=== PATIENT | female | born 1950 | race Caucasian/White ===

== ENCOUNTER 2017-07-26 15:32 | Inpatient (IN) | payer OTHER ==
[~2017-07-26] VITALS: Ht 152.4 cm; Wt 50.4 kg
[~2017-07-26 15:32] MED LIST: ACETAMINOPHEN325 M1 PO; ACETAMINOPHEN650 MG RC; ACETYLCYST100 MG/1 M INH; AMBIEN5 MG PO; ATIVAN1 MG PEG; AUGMENTIN 875-1 EACH PO; Albuterol/Ipratropium Nebulize NEB; CEFDINIR250 MG/5 M PO; CHLORASEPTIC177 M1 MM; CLONAZEPAM0.5 MG PO; CYMBALTA30 MG; DOCUSATE SODIU100 MG PO; DOK100 MG PO; DULCOLAX SUPP10 MG PR; FLAVOXATE HCL100 MG PO; FLUOXETINE HCL10 MG PO; FUROSEMIDE10 MG/1 M1 IV; GLYCOPYRROLATE1 MG PO; HEPARIN SO5000 UNIT2 SC; HUMULIN R100 UNIT/2; HYDROCODON-ACE1 EAC9 PO; HYPER-SAL4 M1 INH; IBUPROFEN200 MG PO; LACTULOSE20 GM/30 M PO; LEXAPRO10 MG PO; LIDODERM700 MG TOP; LORAZEPAM1 MG PO; LOVENOX40 MG/0.4 SC; MAALOX ADVANCE770 ML; MACROBID 100 M100 MG PO; MAGNESIUM OXID400 MG PEG; METOCLOPRAMIDE10 MG PO; MILK OF MA400 MG/5 M PO; MUCINEX DM ER1 EACH PO; MUCINEX600 MG PEG; Magnesium/Alum/Simethicone PO; NICOTINE PATCH1 EAC2 TOP; NORCO 10-325 T1 EACH PO; NORCO 5-325 TA1 EACH PO; ONDANSETRON2 MG/1 ML PO; OXYBUTYNIN CHLOR5 MG PO; PANTOPRAZOLE SO40 MG PO; PREDNISONE10 MG PO; PROMETHAZINE HC25 M1 PO; PROTONIX40 MG/ML PO; RESTORIL30 MG PO; SULFAMETHOXAZO1 EAC1 GT; SYNTHROID75 MCG PO; TESSALON PERLE100 MG PO; TRAZODONE HCL50 MG PO; XOPENEX1.25 MG/3 INH
[2017-07-26] MEDS ORDERED: PANTOPRAZOLE 40 MG 10ML VIAL IV STA (16:12)
--- NOTE | 2017-07-26 17:35 | Diagnostic Imaging Report ---
PROCEDURE: Frontal and lateral views of the chest. COMPARISON: [facility], DX, CHEST 2 VIEWS, 09/12/2016, 16:03. [facility], CT, CT ABDOMEN/PELVIS W, 05/30/2016, 20:28. [facility], DX, CHEST 2 VIEWS, 12/31/2016, 12:03. INDICATIONS: COUGH, WITH SHORTNESS OF BREATH FOR 3 DAYS FINDINGS: Lines/tubes: None. Lungs: The lungs are well inflated and grossly clear. Stable mild prominence of the interstitial markings, likely reflecting chronic interstitial changes. There is no evidence of consolidation or pulmonary edema. Pleura: There is no pleural effusion or pneumothorax. Heart and mediastinum: Cardiac silhouette is unremarkable. Pulmonary vasculature is normal. vasculature is normal. Bones: No acute bony abnormality. Marked osteopenia. Stable lower thoracic compression fractures. Stable rightward curvature of the thoracic spine. IMPRESSION: 1. No acute cardiopulmonary abnormalities. Tomy Mcnally M.D. Dictated by: Tomy Mcnally M.D. on 07/26/2017 at 17:39 Electronically approved by: Tomy Mcnally M.D. on 07/26/2017 at 17:39
[2017-07-26 18:36] LABS: BASOPHILS # (AUTO) 0.1 (0.0-0.1); BASOPHILS % 0.8 % (0.0-1.0); EOSINOPHILS # (AUTO) 0.1 (0.0-0.4); EOSINOPHILS % 1.7 % (0.0-6.0); HEMATOCRIT 35.2 % (34.2-44.1); HEMOGLOBIN 11.7 g/dL (12.0-16.0); LYMPHOCYTES % 15.3 % (18.0-39.1); MEAN CORPUSCULAR HEMOGLOBIN 30.5 pg (28-32); MEAN CORPUSCULAR HGB CONC 33.2 g/dL (31-35); MEAN CORPUSCULAR VOLUME 91.7 fL (81-99); MONOCYTES # (AUTO) 0.6 (0.2-0.8); MONOCYTES % 8.6 % (4.4-11.3); NEUTROPHILS # (AUTO) 4.9 (2.1-6.9); NEUTROPHILS % 73.3 % (38.7-80.0); PLATELET COUNT 161 x10e3/uL (140-360); RED BLOOD COUNT 3.84 x10e6/uL (3.6-5.1); RED CELL DISTRIBUTION WIDTH 18.4 % (11.7-14.4)
[2017-07-26 18:52] LABS: ALANINE AMINOTRANSFERASE 6 IU/L (0-55); ALBUMIN 3.2 g/dL (3.5-5.0); ALBUMIN/GLOBULIN RATIO 0.8 (0.8-2.0); ALKALINE PHOSPHATASE 132 IU/L (40-150); ANION GAP 13.8 mmol/L (8-16); BLOOD UREA NITROGEN 15 mg/dL (7-26); BUN/CREATININE RATIO 23 (6-25); CALCIUM 9.2 mg/dL (8.4-10.2); CARBON DIOXIDE 22 mmol/L (22-29); CHLORIDE 107 mmol/L (98-107); CREATINE KINASE 17 IU/L (29-168); CREATININE, SERUM 0.66 mg/dL (0.57-1.11); EST GLOMERULAR FILTRATION RATE > 60 ML/MIN (60-); GLUCOSE 105 mg/dL (74-118); POTASSIUM 3.8 mmol/L (3.5-5.1); SODIUM 139 mmol/L (136-145)
[2017-07-26] MEDS: MORPHINE SULFATE 2 MG/ML SYR IV PRN (19:55)
[2017-07-26] MEDS: ONDANSETRON HCL INJ 2 MG/ML VIAL IV PRN (19:55)
[2017-07-26] MEDS: SODIUM CHLORIDE 0.9% 1000ML 1,000 ML IV SCH (19:55)
[2017-07-26] MEDS: PIPER-TAZ 3.375 GM 50 ML IV SCH (19:55)
[2017-07-26] MEDS: ACETAMINOPHEN 325 MG TAB PO ONE ×2 (19:59→20:03)
[2017-07-26 20:00] VITALS: BP 161/67
[2017-07-26 21:00] VITALS: BP 161/67
[2017-07-26] MEDS ORDERED: VANCOMYCIN 1GM/NS 250 ML 250 ML IV SCH (21:00)
[2017-07-27] VITALS: BP 147/63
[2017-07-27] MEDS: MORPHINE SULFATE 2 MG/ML SYR IV PRN ×4 (01:27→23:13)
--- NOTE | 2017-07-27 02:37 | Diagnostic Imaging Report ---
CHEST SINGLE (PORTABLE), 07/27/2017 1:59 AM Technique: CHEST SINGLE (PORTABLE) Comparison: 07/26/2017 Clinical history: Placement of PICC line Findings: See Impression Impression: 1. Lines/Tubes: Left PICC line placement with tip near the expected cavoatrial junction 2. Stable cardiomediastinal silhouette with prominent central pulmonary arteries. 3. Emphysema with mild left basilar atelectasis/scarring. No pneumothorax. Signed by: Dr Dalila Cameron MD on 07/27/2017 2:34 AM
[2017-07-27] MEDS: SODIUM CHLORIDE 0.9% 1000ML 1,000 ML IV SCH ×2 (03:18→10:16)
[2017-07-27 04:00] VITALS: BP 138/72
[2017-07-27] MEDS: PIPER-TAZ 3.375 GM 50 ML IV SCH (05:02)
[2017-07-27 05:07] VITALS: BP 147/63
[2017-07-27 06:22] LABS: BASOPHILS # (AUTO) 0.1 (0.0-0.1); BASOPHILS % 0.9 % (0.0-1.0); EOSINOPHILS # (AUTO) 0.2 (0.0-0.4); EOSINOPHILS % 3.6 % (0.0-6.0); HEMATOCRIT 32.7 % (34.2-44.1); HEMOGLOBIN 10.6 g/dL (12.0-16.0); LYMPHOCYTES # (AUTO) 0.9 (1.0-3.2); LYMPHOCYTES % 15.7 % (18.0-39.1); MEAN CORPUSCULAR HEMOGLOBIN 30.8 pg (28-32); MEAN CORPUSCULAR HGB CONC 32.4 g/dL (31-35); MEAN CORPUSCULAR VOLUME 95.1 fL (81-99); MONOCYTES # (AUTO) 0.6 (0.2-0.8); MONOCYTES % 10.3 % (4.4-11.3); NEUTROPHILS # (AUTO) 4.1 (2.1-6.9); NEUTROPHILS % 69.2 % (38.7-80.0); PLATELET COUNT 136 x10e3/uL (140-360); RED BLOOD COUNT 3.44 x10e6/uL (3.6-5.1); RED CELL DISTRIBUTION WIDTH 18.5 % (11.7-14.4)
[2017-07-27] MEDS: ALBUTEROL SULF 0.083% NEB SOLN 3 ML NEB NEB SCH ×5 (06:50→19:50)
[2017-07-27] MEDS: IPRATROPIUM BROMIDE 0.02% 2.5 ML NEB NEB SCH ×4 (06:50→19:50)
[2017-07-27 06:55] LABS: ANION GAP 11.5 mmol/L (8-16); BLOOD UREA NITROGEN 12 mg/dL (7-26); BUN/CREATININE RATIO 18 (6-25); CALCIUM 8.5 mg/dL (8.4-10.2); CARBON DIOXIDE 25 mmol/L (22-29); CHLORIDE 106 mmol/L (98-107); CREATININE, SERUM 0.65 mg/dL (0.57-1.11); EST GLOMERULAR FILTRATION RATE > 60 ML/MIN (60-); GLUCOSE 101 mg/dL (74-118); POTASSIUM 3.5 mmol/L (3.5-5.1); SODIUM 139 mmol/L (136-145)
[2017-07-27 08:08] VITALS: BP 135/62
[2017-07-27] MEDS ORDERED: VANCOMYCIN HCL 1GM/NS 250 ML BAG IV SCH (09:00)
[2017-07-27] MEDS: ONDANSETRON HCL INJ 2 MG/ML VIAL IV PRN ×3 (09:25→23:12)
[2017-07-27] MEDS ORDERED: LORAZEPAM1 MG PO (09:28)
[2017-07-27] MEDS ORDERED: ACETAMINOPHEN 325 MG TAB PO PRN (10:30)
[2017-07-27] MEDS ORDERED: LACTULOSE SYRUP 20 GM/30 ML UDC PO ONE (10:45)
[2017-07-27] MEDS ORDERED: ACETAMINOPHEN/CODEINE 300MG - 30MG TAB PO PRN (10:45)
[2017-07-27] MEDS ORDERED: VANCOMYCIN 1GM/NS 250 ML 250 ML IV SCH (11:00)
[2017-07-27] MEDS: LORAZEPAM 0.5 MG TAB PO PRN ×2 (12:00→18:26)
[2017-07-27 12:05] VITALS: BP 128/60
[2017-07-27] MEDS: CEFTRIAXONE SOD 1 GM VIAL IV SCH (12:30)
[2017-07-27] MEDS: PREDNISONE 20 MG TAB PO SCH (13:32)
--- NOTE | 2017-07-27 14:50 | Diagnostic Imaging Report ---
PROCEDURE:X-RAY ABDOMEN - KUB COMPARISON:None. INDICATIONS:COUGH. NAUSEA/VOMITING FINDINGS: Nonobstructive bowel gas pattern. No air-filled, dilated loops of bowel. Mild to moderate retained stool in the descending, sigmoid colon and rectum. No abnormal calcifications project over the genitourinary tract. Mild right and moderate left hip degenerative changes. S-shaped scoliosis of the thoracolumbar spine. 7-8mm focal sclerotic lesion in the right inferior pubic ramus has a nonaggressive appearance and likely represents a bone island. CONCLUSION: Nonobstructive bowel gas pattern. Mild to moderate amount of retained stool in the descending/sigmoid colon and rectum. Tomy Mcnally M.D. Dictated by: Tomy Mcnally M.D. on 07/27/2017 at 14:53 Electronically approved by: Tomy Mcnally M.D. on 07/27/2017 at 14:53
[2017-07-27] MEDS ORDERED: ALBUTEROL SULF 0.083% NEB SOLN 3 ML NEB NEB SCH (15:00)
[2017-07-27] MEDS: FAMOTIDINE 20 MG TAB PO SCH (16:30)
--- NOTE | 2017-07-27 17:38 | Consultation ---
DATE OF CONSULTATION: July 27, 2017 PULMONARY CONSULTATION REASON FOR CONSULTATION: Patient has history of tracheal tube and shortness of breath. HPI: Ms. Tamez is a 67-year-old female. She has a history of laryngeal cancer and she has a tracheostomy tube placed in the trachea as a result of laryngectomy. She presented this time to the emergency room with the complaints of shortness of breath and coughing up greenish phlegm. She reports that shortness of breath was getting worse with walking. She reports green yellow sputum from her tracheal tube. She was having chills but denies any fever, nausea or vomiting. She has she has been a smoker all her life and she smoked almost 3 packs per day for 40+ years. She denies any diarrhea, but she is having nausea, and she reports that she threw up as well. REVIEW OF SYSTEMS: GENERAL: She was having chills, but no fever. HEAD: Denies any head trauma ENT: Denies any earache. CVS: Denies chest pain. RESPIRATORY: Shortness of breath. GI: Nausea, no vomiting. The rest of the review of systems are negative except as in HPI. PAST MEDICAL HISTORY: COPD, history of laryngeal cancer status post laryngectomy, hypertension, diabetes, history of cough, has a PEG tube. She also has history of radiation treatment as well. Oxygen dependence. PAST SURGICAL HISTORY: Laryngectomy. FAMILY AND SOCIAL HISTORY: She is and lives with her . She quit smoking a few years ago. She smoked for 40+ years 3 packs per day. PHYSICAL EXAMINATION: VITALS: Temperature 99.7, pulse of 90, blood pressure 128/60. Respiratory rate 18. O2 sat 96% on 5 liters. HEENT: Head is atraumatic and normocephalic. 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 Oral mucosa dry. She is not able to talk. CHEST: Clear to auscultation bilaterally. A few crackles from the bases. HEART: S1 and S2 audible. ABDOMEN: Soft, nontender and nondistended. EXTREMITIES: No clubbing, cyanosis or edema. NEURO: She is awake and alert. LABORATORY DATA: White count of 5000, hemoglobin 10.6. Platelets 136,000. Chemistry: Sodium 139, potassium 3.5, chloride 106. Bicarb 25. BUN 12, creatinine 0.65. Gram stain sputum culture preliminary result is showing gram-positive cocci in pairs. Chest x-ray is not showing any evidence of pneumonia. I reviewed the films. She has emphysema and hyperinflation and she could have COPD exacerbation versus tracheal bronchitis. 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 Continue the patient on Rocephin as ordered. Prednisone p.o. has been ordered. Nebulizer treatment will be continued. Thank you for this consult. Job#: [id number]
[2017-07-27 20:00] VITALS: BP 110/59
[2017-07-28] VITALS (7 sets, daily range): BP systolic 121–167; BP diastolic 58–78
[2017-07-28] MEDS: LORAZEPAM 0.5 MG TAB PO PRN ×4 (00:14→18:30)
[2017-07-28] MEDS: IPRATROPIUM BROMIDE 0.02% 2.5 ML NEB NEB SCH ×4 (01:27→19:39)
[2017-07-28] MEDS: ONDANSETRON HCL INJ 2 MG/ML VIAL IV PRN (04:45)
[2017-07-28] MEDS: MORPHINE SULFATE 2 MG/ML SYR IV PRN ×2 (04:45→09:30)
[2017-07-28 06:52] LABS: BASOPHILS % 0.4 % (0.0-1.0); EOSINOPHILS % 0.4 % (0.0-6.0); HEMATOCRIT 29.1 % (34.2-44.1); HEMOGLOBIN 9.7 g/dL (12.0-16.0); LYMPHOCYTES # (AUTO) 1.2 (1.0-3.2); LYMPHOCYTES % 24.3 % (18.0-39.1); MEAN CORPUSCULAR HEMOGLOBIN 31.3 pg (28-32); MEAN CORPUSCULAR HGB CONC 33.3 g/dL (31-35); MEAN CORPUSCULAR VOLUME 93.9 fL (81-99); MONOCYTES # (AUTO) 0.4 (0.2-0.8); MONOCYTES % 8.3 % (4.4-11.3); NEUTROPHILS # (AUTO) 3.3 (2.1-6.9); NEUTROPHILS % 66.2 % (38.7-80.0); PLATELET COUNT 110 x10e3/uL (140-360)
[2017-07-28] MEDS: ALBUTEROL SULF 0.083% NEB SOLN 3 ML NEB NEB SCH ×4 (07:00→19:39)
[2017-07-28 07:03] LABS: ANION GAP 9.6 mmol/L (8-16); BLOOD UREA NITROGEN 7 mg/dL (7-26); BUN/CREATININE RATIO 11 (6-25); CARBON DIOXIDE 26 mmol/L (22-29); CHLORIDE 108 mmol/L (98-107); CREATININE, SERUM 0.61 mg/dL (0.57-1.11); EST GLOMERULAR FILTRATION RATE > 60 ML/MIN (60-); GLUCOSE 103 mg/dL (74-118); POTASSIUM 3.6 mmol/L (3.5-5.1); SODIUM 140 mmol/L (136-145)
[2017-07-28] MEDS: FAMOTIDINE 20 MG TAB PO SCH ×2 (08:58→15:39)
[2017-07-28] MEDS: PREDNISONE 20 MG TAB PO SCH (08:58)
[2017-07-28] MEDS: CEFTRIAXONE SOD 1 GM VIAL IV SCH (09:34)
[2017-07-28] MEDS: HYDROCODONE/APAP 10MG-325MG TAB PO PRN ×3 (13:50→22:30)
[2017-07-28] MEDS ORDERED: CITRATE OF MAGNESIA 300ML BOTTLE PO ONE (14:00)
[2017-07-28] MEDS ORDERED: PIPER-TAZ 3.375 GM / NS 50ML IV SCH (14:00)
[2017-07-28] MEDS: PIPER-TAZ 3.375 GM 50 ML IV SCH ×2 (14:03→22:30)
[2017-07-28 15:37] LABS: CLARITY,URINE CLEAR (CLEAR); COLOR,URINE YELLOW (YELLOW); LEUKOCYTE ESTERASE ,URINE NEGATIVE (NEGATIVE)
[2017-07-28 15:38] LABS: BILIRUBIN,URINE NEGATIVE (NEGATIVE); KETONES,URINE NEGATIVE (NEGATIVE); NITRITE,URINE NEGATIVE (NEGATIVE); PROTEIN,URINE DIPSTICK NEGATIVE (NEGATIVE); URINE UROBILINOGEN 0.2 mg/dL (0.2 - 1)
[2017-07-28 15:49] LABS: BACTERIA,URINE RARE /HPF; EPITHELIAL CELLS,URINE RARE /LPF; RBC,URINE 0-5 /HPF (0-5)
[2017-07-28] MEDS ORDERED: SODIUM CHLORIDE 0.9% 250ML 250 ML ONE (22:32)
[2017-07-29] VITALS (7 sets, daily range): BP systolic 109–155; BP diastolic 55–70
[2017-07-29] MEDS: LORAZEPAM 0.5 MG TAB PO PRN ×3 (02:40→22:17)
[2017-07-29] MEDS: HYDROCODONE/APAP 10MG-325MG TAB PO PRN ×5 (02:40→20:20)
[2017-07-29] MEDS: IPRATROPIUM BROMIDE 0.02% 2.5 ML NEB NEB SCH ×3 (02:45→19:46)
[2017-07-29] MEDS: PIPER-TAZ 3.375 GM 50 ML IV SCH ×2 (05:30→14:10)
[2017-07-29 06:54] LABS: BASOPHILS % 0.6 % (0.0-1.0); EOSINOPHILS # (AUTO) 0.1 (0.0-0.4); EOSINOPHILS % 1.6 % (0.0-6.0); HEMATOCRIT 28.7 % (34.2-44.1); HEMOGLOBIN 9.3 g/dL (12.0-16.0); LYMPHOCYTES # (AUTO) 1.6 (1.0-3.2); LYMPHOCYTES % 31.2 % (18.0-39.1); MEAN CORPUSCULAR HEMOGLOBIN 30.8 pg (28-32); MEAN CORPUSCULAR HGB CONC 32.4 g/dL (31-35); MONOCYTES # (AUTO) 0.3 (0.2-0.8); MONOCYTES % 5.9 % (4.4-11.3); NEUTROPHILS # (AUTO) 3.1 (2.1-6.9); NEUTROPHILS % 60.3 % (38.7-80.0); PLATELET COUNT 113 x10e3/uL (140-360); RED BLOOD COUNT 3.02 x10e6/uL (3.6-5.1); RED CELL DISTRIBUTION WIDTH 18.4 % (11.7-14.4)
[2017-07-29 07:09] LABS: ANION GAP 12.2 mmol/L (8-16); BLOOD UREA NITROGEN 8 mg/dL (7-26); BUN/CREATININE RATIO 12 (6-25); CALCIUM 8.7 mg/dL (8.4-10.2); CARBON DIOXIDE 27 mmol/L (22-29); CHLORIDE 107 mmol/L (98-107); CREATININE, SERUM 0.68 mg/dL (0.57-1.11); EST GLOMERULAR FILTRATION RATE > 60 ML/MIN (60-); GLUCOSE 120 mg/dL (74-118); POTASSIUM 3.2 mmol/L (3.5-5.1); SODIUM 143 mmol/L (136-145)
[2017-07-29] MEDS: ALBUTEROL SULF 0.083% NEB SOLN 3 ML NEB NEB SCH ×4 (08:10→19:46)
[2017-07-29] MEDS: FAMOTIDINE 20 MG TAB PO SCH ×2 (08:35→16:28)
[2017-07-29] MEDS: PREDNISONE 20 MG TAB PO SCH ×2 (08:56→14:00)
[2017-07-29] MEDS ORDERED: POTASSIUM CHLORIDE 20 MEQ TAB CR PO ONE (16:00)
[2017-07-29] MEDS: DOXYCYCLINE HYCLATE TABLET 100 MG TAB PO SCH (16:28)
[2017-07-30] VITALS (7 sets, daily range): BP systolic 140–178; BP diastolic 66–82
[2017-07-30] MEDS: HYDROCODONE/APAP 10MG-325MG TAB PO PRN ×4 (00:20→13:10)
[2017-07-30] MEDS: ONDANSETRON HCL INJ 2 MG/ML VIAL IV PRN (03:48)
[2017-07-30] MEDS: LORAZEPAM 0.5 MG TAB PO PRN (06:18)
[2017-07-30 06:50] LABS: HEMATOCRIT 28.6 % (34.2-44.1); HEMOGLOBIN 9.5 g/dL (12.0-16.0); LYMPHOCYTES # (AUTO) 1.2 (1.0-3.2); LYMPHOCYTES % 23.1 % (18.0-39.1); MEAN CORPUSCULAR HEMOGLOBIN 31.3 pg (28-32); MEAN CORPUSCULAR HGB CONC 33.2 g/dL (31-35); MEAN CORPUSCULAR VOLUME 94.1 fL (81-99); MONOCYTES # (AUTO) 0.4 (0.2-0.8); MONOCYTES % 7.8 % (4.4-11.3); NEUTROPHILS # (AUTO) 3.5 (2.1-6.9); NEUTROPHILS % 68.7 % (38.7-80.0); PLATELET COUNT 133 x10e3/uL (140-360); RED BLOOD COUNT 3.04 x10e6/uL (3.6-5.1); RED CELL DISTRIBUTION WIDTH 18.1 % (11.7-14.4)
[2017-07-30] MEDS: ALBUTEROL SULF 0.083% NEB SOLN 3 ML NEB NEB SCH ×2 (07:00→11:00)
[2017-07-30] MEDS: IPRATROPIUM BROMIDE 0.02% 2.5 ML NEB NEB SCH ×2 (07:00→11:00)
[2017-07-30 07:15] LABS: ANION GAP 9.8 mmol/L (8-16); BLOOD UREA NITROGEN 6 mg/dL (7-26); BUN/CREATININE RATIO 9 (6-25); CALCIUM 8.9 mg/dL (8.4-10.2); CARBON DIOXIDE 28 mmol/L (22-29); CHLORIDE 104 mmol/L (98-107); CREATININE, SERUM 0.64 mg/dL (0.57-1.11); EST GLOMERULAR FILTRATION RATE > 60 ML/MIN (60-); GLUCOSE 121 mg/dL (74-118); MAGNESIUM 1.7 MG/DL (1.3-2.1); POTASSIUM 3.8 mmol/L (3.5-5.1); SODIUM 138 mmol/L (136-145)
[2017-07-30] MEDS: FAMOTIDINE 20 MG TAB PO SCH (07:53)
[2017-07-30] MEDS: DOXYCYCLINE HYCLATE TABLET 100 MG TAB PO SCH (09:35)
[2017-07-30] MEDS: PREDNISONE 20 MG TAB PO SCH ×2 (09:35→12:59)
[2017-07-30] MEDS ORDERED: DOXYCYCLINE HY100 MG PO (12:22)
--- NOTE | 2017-07-30 14:26 | Discharge Summary ---
FINAL DIAGNOSIS: Tracheobronchitis, better. SECONDARY DIAGNOSES 1. Chronic obstructive pulmonary disease exacerbation, better. 2. Chronic dependence of benzodiazepines and narcotics. 3. Opiate-induced constipation, resolved. 4. Laryngeal cancer with tracheostomy with chronic respiratory failure. 5. Asymptomatic gallstones. 6. Hypothyroidism. STRUCTURER: Dr. Evans, public health director. PROCEDURES/STUDIES PERFORMED: 1. PICC line insertion due to poor access. HISTORY: Per [facility] and P. HOSPITAL COURSE: Empirically patient was put on antibiotics. Her sputum culture came back negative. She improved with prednisone. Her constipation resolved with laxatives. She did have some diarrhea. Fortunately her C. diff is negative. Each day patient has been asking for more narcotics and more benzodiazepines. I had a long discussion with her in regards to the danger of respiratory suppression especially given her tracheostomy/chronic respiratory failure, when taking both high dose Ativan and [place]. Patient seems to understand my concern I have asked the patient to follow up with her primary care doctor to see if they can either decrease the dosage or wean her off. During her previous hospitalizations the discharge summary has mentioned that she broke up crackers, mixed them with orange juice and put it in the emesis basin to claim that she is vomiting in order to stay in the hospital longer. Patient was seen and examined today. It took 33 minutes total to discharge this patient. CONDITION ON DISCHARGE: Improved. DISCHARGE MEDICATIONS: Please see medication reconciliation form. BRUNA SANCHEZ M.D. Job#: [id number] [place] MTDD
== END 2017-07-30 13:58 | disposition home or self-care (01) | DRG 191 ==
LOC: ER 15:32 → ERHOLD 19:18 → IMCU 20:59 → MED/SURG3 07-27 14:00 → OBSVTOIN 07-27 16:16
PROVIDERS: ADMIT Internal Medicine; ATTEND Internal Medicine
PROC: 02HV33Z Insertion of Infusion Device into Superior Vena Cava, Percutaneous Approach (ICD-10-PCS; principal; 2017-07-27)
DX: J44.0 Chronic obstructive pulmonary disease with (acute) lower respiratory infection (principal); J96.10 Chronic respiratory failure, unspecified whether with hypoxia or hypercapnia; F13.20 Sedative, hypnotic or anxiolytic dependence, uncomplicated; F11.20 Opioid dependence, uncomplicated; J44.1 Chronic obstructive pulmonary disease with (acute) exacerbation; Z93.0 Tracheostomy status; E03.9 Hypothyroidism, unspecified; K80.80 Other cholelithiasis without obstruction; J20.9 Acute bronchitis, unspecified; Z85.21 Personal history of malignant neoplasm of larynx; Z92.3 Personal history of irradiation; Z87.891 Personal history of nicotine dependence; I10 Essential (primary) hypertension; E11.9 Type 2 diabetes mellitus without complications; Z93.1 Gastrostomy status; E87.6 Hypokalemia; R19.7 Diarrhea, unspecified; Z99.81 Dependence on supplemental oxygen; K59.03 Drug induced constipation; T40.605A Adverse effect of unspecified narcotics, initial encounter
CPT/HCPCS: 36415; 36569; 71045; 71046; 74018; 80048; 80053; 81001; 82550; 82553; 83735; 83880; 84443; 84484; 85025; 87070; 87086; 87205; 87493; 93005; 94640; 96360; 99284; G0378; J0696; J2270; J2405; J2543; J3370; J7030; J7050

== ENCOUNTER 2017-08-07 15:22 | Emergency (ER) | payer OTHER ==
[~2017-08-07] VITALS: Ht 152.4 cm; Wt 48.5 kg
[~2017-08-07 15:22] MED LIST changes: +DOXYCYCLINE HY100 MG PO
[2017-08-07 18:30] LABS: BASOPHILS # (AUTO) 0.1 (0.0-0.1); BASOPHILS % 0.6 % (0.0-1.0); EOSINOPHILS # (AUTO) 0.2 (0.0-0.4); EOSINOPHILS % 2.1 % (0.0-6.0); HEMOGLOBIN 11.2 g/dL (12.0-16.0); LYMPHOCYTES # (AUTO) 1.6 (1.0-3.2); LYMPHOCYTES % 21.2 % (18.0-39.1); MEAN CORPUSCULAR HEMOGLOBIN 32.5 pg (28-32); MEAN CORPUSCULAR HGB CONC 32.9 g/dL (31-35); MEAN CORPUSCULAR VOLUME 98.6 fL (81-99); MONOCYTES # (AUTO) 0.5 (0.2-0.8); MONOCYTES % 6.2 % (4.4-11.3); NEUTROPHILS # (AUTO) 5.4 (2.1-6.9); NEUTROPHILS % 69.5 % (38.7-80.0); PLATELET COUNT 163 x10e3/uL (140-360); RED BLOOD COUNT 3.45 x10e6/uL (3.6-5.1); RED CELL DISTRIBUTION WIDTH 19.9 % (11.7-14.4)
[2017-08-07] MEDS ORDERED: SODIUM CHLORIDE 0.9% 1000ML 1,000 ML IV STA (18:30)
[2017-08-07] MEDS ORDERED: HYDROMORPHONE 1MG/1ML INJ IV NR (18:30)
[2017-08-07] MEDS ORDERED: PANTOPRAZOLE 40 MG 10ML VIAL IV STA (18:30)
[2017-08-07 18:41] LABS: BILIRUBIN,URINE NEGATIVE (NEGATIVE); CLARITY,URINE CLEAR (CLEAR); COLOR,URINE YELLOW (YELLOW); KETONES,URINE NEGATIVE (NEGATIVE); LEUKOCYTE ESTERASE ,URINE NEGATIVE (NEGATIVE); NITRITE,URINE NEGATIVE (NEGATIVE); PROTEIN,URINE DIPSTICK NEGATIVE (NEGATIVE); URINE UROBILINOGEN 0.2 mg/dL (0.2 - 1)
[2017-08-07] MEDS ORDERED: DIATRIZOATE MEGL/DIATRIZOA SOD 30 ML BTL PO ONE (18:41)
[2017-08-07 18:42] LABS: PREGNANCY TEST, URINE NEGATIVE (NEGATIVE)
[2017-08-07] MEDS ORDERED: ONDANSETRON HCL INJ 2 MG/ML VIAL IV ONE (18:45)
[2017-08-07 18:51] LABS: BACTERIA,URINE MANY /HPF; EPITHELIAL CELLS,URINE FEW /LPF; MUCUS,URINE MANY (RARE)
[2017-08-07 18:53] LABS: ALBUMIN/GLOBULIN RATIO 0.9 (0.8-2.0); ALKALINE PHOSPHATASE 151 IU/L (40-150); ANION GAP 11.9 mmol/L (8-16); BLOOD UREA NITROGEN 17 mg/dL (7-26); BUN/CREATININE RATIO 23 (6-25); CARBON DIOXIDE 26 mmol/L (22-29); CHLORIDE 103 mmol/L (98-107); CREATININE, SERUM 0.73 mg/dL (0.57-1.11); EST GLOMERULAR FILTRATION RATE > 60 ML/MIN (60-); GLUCOSE 95 mg/dL (74-118); POTASSIUM 4.9 mmol/L (3.5-5.1); SODIUM 136 mmol/L (136-145)
[2017-08-07 18:55] LABS: ALANINE AMINOTRANSFERASE < 6 IU/L (0-55)
[2017-08-07] MEDS ORDERED: CEFTRIAXONE SOD 1 GM VIAL IV STA (20:18)
[2017-08-07] MEDS ORDERED: METRONIDAZOLE 500MG/NS 100ML 100 ML IV ONE (20:30)
--- NOTE | 2017-08-07 21:01 | Diagnostic Imaging Report ---
CT Abdomen And Pelvis Without IV Contrast INDICATION: Upper abdominal pain TECHNIQUE: 5 mm collimation axial images obtained from the diaphragm to the level of the pubic symphysis without nonionic intravenous contrast. Oral contrast was administered. RADIATION DOSE: Total DLP: 186.8 mGy*cm Estimated effective dose: (DLP x 0.015 x size factor) mSv CTDIvol has been reviewed. It is below the limits set by the Radiation Protocol Committee (RPC). COMPARISON: CT abdomen/pelvis 05/30/2016. ABDOMEN FINDINGS: Lung Bases: Diffuse hyperinflation. Patchy airspace opacities in the lingula, right middle lobe, and left lower lobe with mild bronchial wall thickening. There is bronchiectasis of the lingula suggestive of chronic atelectasis. Small fat-containing right Bochdalek hernia is stable. There is a moderate sized hiatal hernia. Liver: Normal in attenuation without mass. Gallbladder: Present and appears normal. No ductal dilatation. Pancreas: Atrophic. No ductal dilatation or discrete mass. Spleen: Normal in attenuation and size without mass. Adrenal Glands: No evidence for mass. Kidneys: Right Kidney: Atrophic. No hydronephrosis. No mass. Left Kidney: No renal calculus. No cortical mass or hydronephrosis. Lymph Nodes: No enlarged abdominal or perirectal lymph nodes. Aorta: Ectatic with diffuse calcifications. PELVIS FINDINGS: Bowel: Small Bowel: The stomach is collapsed. Small bowel contains enteric contrast without dilatation or focal mural thickening. Large Bowel: Moderate to large amount of stool in the colon. No diverticula are appreciated. No pericolonic inflammation. The rectum is low-lying. Appendix: Not visualized and may be absent or collapsed. Bladder: Well distended and is normal. No ureteral dilatation. Lymph Nodes: No enlarged mesenteric or pelvic lymph nodes.. The uterus is absent. No adnexal mass. No free fluid or fluid collection. Bones: T9 compression deformity or possibly 70%. Compression deformity of T12 is stable. Superior endplate compression deformity of L2 is new. Inferior endplate compression deformity of L3 is new. Stable levoscoliosis. Severe degenerative changes of the left hip are stable. Mild degenerative changes of the right hip are stable. A bone island in the right inferior pubic ramus is stable. IMPRESSION: 1. Bibasilar airspace opacities and mild bronchial wall thickening may be the result of an acute infectious/inflammatory process. Chronic atelectasis of the lingula. Moderate sized hiatal hernia. Reflux and aspiration should be considered. 2. Moderate to large amount of stool without bowel obstruction. Low-lying rectum is stable suggestive of pelvic floor laxity. Rectal prolapse cannot be excluded. 3. New compression deformities of L2 on L3. Stable compression deformity of T12. Age-indeterminate compression fracture of T9. Signed by: Dr. Pepito Roque MD on 08/07/2017 8:58 PM
[2017-08-07] MEDS ORDERED: ALBUTEROL SULF 0.083% NEB SOLN 3 ML NEB NEB NR (21:49)
[2017-08-07] MEDS ORDERED: LEVOFLOXACIN 500 MG TAB PO NR (21:51)
[2017-08-07] MEDS ORDERED: IPRATROPIUM BROMIDE 0.02% 2.5 ML NEB NEB ONE (22:00)
[2017-08-07 22:14] VITALS: BP 154/78
== END 2017-08-07 22:49 | disposition home or self-care (01) ==
LOC: ER 15:22
DX: R10.31 Right lower quadrant pain (principal); R10.84 Generalized abdominal pain; N30.91 Cystitis, unspecified with hematuria; K59.00 Constipation, unspecified; J42 Unspecified chronic bronchitis; I10 Essential (primary) hypertension
CPT/HCPCS: 36415; 74176; 80053; 81001; 81025; 83735; 85025; 87040; 87071; 87086; 87186; 87205; 93005; 94640; 99284; J0696; J1170; J2405; J7030

== ENCOUNTER 2017-09-12 06:23 | Inpatient (IN) | payer OTHER ==
[~2017-09-12] VITALS: Ht 152.4 cm; Wt 54.0 kg
[2017-09-12 07:12] LABS: BASOPHILS # (AUTO) 0.1 (0.0-0.1); BASOPHILS % 1.3 % (0.0-1.0); EOSINOPHILS # (AUTO) 0.1 (0.0-0.4); EOSINOPHILS % 2.6 % (0.0-6.0); HEMATOCRIT 38.3 % (34.2-44.1); HEMOGLOBIN 12.4 g/dL (12.0-16.0); LYMPHOCYTES % 18.2 % (18.0-39.1); MEAN CORPUSCULAR HEMOGLOBIN 32.1 pg (28-32); MEAN CORPUSCULAR HGB CONC 32.4 g/dL (31-35); MEAN CORPUSCULAR VOLUME 99.2 fL (81-99); MONOCYTES # (AUTO) 0.5 (0.2-0.8); MONOCYTES % 8.8 % (4.4-11.3); NEUTROPHILS # (AUTO) 3.7 (2.1-6.9); NEUTROPHILS % 68.9 % (38.7-80.0); PLATELET COUNT 179 x10e3/uL (140-360); RED BLOOD COUNT 3.86 x10e6/uL (3.6-5.1); RED CELL DISTRIBUTION WIDTH 15.1 % (11.7-14.4)
[2017-09-12 07:26] LABS: ALANINE AMINOTRANSFERASE < 6 IU/L (0-55); ALBUMIN 3.5 g/dL (3.5-5.0); ALBUMIN/GLOBULIN RATIO 0.8 (0.8-2.0); ALKALINE PHOSPHATASE 120 IU/L (40-150); ANION GAP 18.9 mmol/L (8-16); BLOOD UREA NITROGEN 9 mg/dL (7-26); BUN/CREATININE RATIO 12 (6-25); CALCIUM 9.8 mg/dL (8.4-10.2); CARBON DIOXIDE 22 mmol/L (22-29); CHLORIDE 103 mmol/L (98-107); CREATINE KINASE 30 IU/L (29-168); CREATININE, SERUM 0.77 mg/dL (0.57-1.11); EST GLOMERULAR FILTRATION RATE > 60 ML/MIN (60-); GLUCOSE 95 mg/dL (74-118); POTASSIUM 4.9 mmol/L (3.5-5.1); SODIUM 139 mmol/L (136-145)
[2017-09-12] MEDS ORDERED: HYDROCODONE/APAP 10MG-325MG TAB PO ONE (07:45)
[2017-09-12] MEDS ORDERED: ULTRAM50 MG PO (08:57)
[2017-09-12] MEDS ORDERED: KEFLEX750 MG PO (09:02)
[2017-09-12] MEDS ORDERED: ONDANSETRON HCL INJ 2 MG/ML VIAL IV STA (09:07)
[2017-09-12] MEDS ORDERED: METHYLPREDNISOLONE SOD SUCC 125 MG/2ML VIAL IV ONE (10:15)
--- NOTE | 2017-09-12 10:38 | Diagnostic Imaging Report ---
PROCEDURE: A single AP view of the chest. COMPARISON: None. INDICATIONS: HYPOXIA FINDINGS: Lines/tubes: Overlying EKG leads. Lungs: Emphysematous changes of the lungs. Mild patchy bibasilar opacities. No lobar consolidation or evidence of pulmonary edema. Pleura: There is no pleural effusion or pneumothorax. Heart and mediastinum: The cardiomediastinal silhouette is unchanged. Bones: No acute bony abnormality. IMPRESSION: Emphysematous changes of the lungs with mild patchy bibasilar opacities, likely atelectasis. No evidence of lobar pneumonia or pulmonary edema. Dictated by: WHITNEY CORONEL M.D. on 09/12/2017 at 10:44 Electronically approved by: WHITNEY CORONEL M.D. on 09/12/2017 at 10:44
[2017-09-12] MEDS ORDERED: ASPIRIN 81 MG CHEW TAB PO ONE (11:30)
[2017-09-12] MEDS ORDERED: MORPHINE SULFATE INJ 4 MG/ML INJ IV ONE (12:00)
[2017-09-12 13:52] VITALS: BP 119/56
[2017-09-12 14:54] VITALS: BP 119/56
[2017-09-12 15:02] VITALS: BP 119/56
[2017-09-12] MEDS ORDERED: LEVALBUTEROL HCL SOLN NEBU 1.25 MG/3 ML NEB INH PRN (15:30)
[2017-09-12] MEDS ORDERED: ACETAMINOPHEN 325 MG TAB PO PRN (15:30)
[2017-09-12] MEDS ORDERED: ONDANSETRON HCL 4 MG ORAL DISINTEGRATING TAB PO PRN (15:30)
[2017-09-12] MEDS: LORAZEPAM 1 MG TAB PO PRN (15:40)
[2017-09-12] MEDS: HYDROCODONE/APAP 10MG-325MG TAB PO PRN ×2 (15:40→22:48)
[2017-09-12 16:14] LABS: CREATINE KINASE MB 0.7 ng/mL (0-5.0)
[2017-09-12 16:29] VITALS: BP 115/65
[2017-09-12] MEDS ORDERED: GUAIFENESIN 200 MG/10 ML UDC PEG SCH (18:00)
[2017-09-12] MEDS ORDERED: HYDROCODONE/APAP 10MG-325MG TAB PO SCH (18:00)
[2017-09-12] MEDS ORDERED: GUAIFENESIN 600 MG TAB PEG SCH (18:00)
[2017-09-12] MEDS: GUAIFENESIN 600 MG TAB PEG SCH (18:33)
[2017-09-12] MEDS ORDERED: ALBUTEROL NEB SCH (19:00)
[2017-09-12] MEDS ORDERED: [UNRECOGNIZED DRUG - OTHER] NEB SCH (19:00)
[2017-09-12] MEDS: ALBUTEROL/IPRATROPIUM 3 ML NEB NEB SCH (20:00)
[2017-09-12 21:24] VITALS: BP 105/51
[2017-09-12] MEDS: TRAZODONE HCL 50 MG TAB PO SCH (21:24)
[2017-09-12 21:29] VITALS: BP 105/51
[2017-09-13] VITALS (7 sets, daily range): BP systolic 109–128; BP diastolic 58–77
[2017-09-13] MEDS: ALBUTEROL/IPRATROPIUM 3 ML NEB NEB SCH ×4 (01:00→19:30)
[2017-09-13 05:12] LABS: BASOPHILS % 0.4 % (0.0-1.0); EOSINOPHILS % 0.2 % (0.0-6.0); HEMATOCRIT 30.8 % (34.2-44.1); LYMPHOCYTES # (AUTO) 0.8 (1.0-3.2); LYMPHOCYTES % 17.7 % (18.0-39.1); MEAN CORPUSCULAR HEMOGLOBIN 32.3 pg (28-32); MEAN CORPUSCULAR HGB CONC 33.1 g/dL (31-35); MEAN CORPUSCULAR VOLUME 97.5 fL (81-99); MONOCYTES # (AUTO) 0.5 (0.2-0.8); MONOCYTES % 11.5 % (4.4-11.3); NEUTROPHILS # (AUTO) 3.2 (2.1-6.9); PLATELET COUNT 180 x10e3/uL (140-360); RED BLOOD COUNT 3.16 x10e6/uL (3.6-5.1); RED CELL DISTRIBUTION WIDTH 14.5 % (11.7-14.4)
[2017-09-13 05:40] LABS: BLOOD UREA NITROGEN 17 mg/dL (7-26); BUN/CREATININE RATIO 22 (6-25); CARBON DIOXIDE 27 mmol/L (22-29); CHLORIDE 102 mmol/L (98-107); CREATINE KINASE 22 IU/L (29-168); CREATININE, SERUM 0.77 mg/dL (0.57-1.11); EST GLOMERULAR FILTRATION RATE > 60 ML/MIN (60-); GLUCOSE 141 mg/dL (74-118); SODIUM 137 mmol/L (136-145)
[2017-09-13 06:02] LABS: HEMOGLOBIN 10.2 g/dL (12.0-16.0)
[2017-09-13] MEDS: GUAIFENESIN 600 MG TAB PEG SCH ×4 (06:43→17:06)
[2017-09-13] MEDS: LEVOTHYROXINE SODIUM 75 MCG TAB PO SCH (06:43)
[2017-09-13] MEDS: HYDROCODONE/APAP 10MG-325MG TAB PO PRN (06:48)
[2017-09-13] MEDS ORDERED: METHADONE HCL5 MG PO (09:12)
[2017-09-13] MEDS ORDERED: BENZONATATE 100 MG CAP PO PRN (09:15)
[2017-09-13] MEDS ORDERED: CEFTRIAXONE SOD 1 GM/NS 50 ML 50 ML IV SCH (09:15)
--- NOTE | 2017-09-13 09:52 | History and Physical ---
CHIEF COMPLAINT: Shortness of breath, hypoxia, wheezing and acute asthma, and COPD. HISTORY: Patient is a 67-year-old female with advanced COPD, oxygen dependent. Patient has a history of laryngeal cancer and subsequent tracheostomy. Apparently, she complained that the trach filter dislodgement, which brought the patient into the hospital for evaluation. In the emergency room, the patient was treated, but then found that the patient was having significant hypoxia. Oxygen saturation is below 70% to 80%. Patient was placed on oxygen, nebulizer treatment. She is still having wheezing and increasing shortness of breath and coughing. The patient is otherwise stable at this time. At baseline, the patient apparently living at home. Patient is able to walk somewhat and transfer with a walker. Stating that on the note, the patient's spouse is unable to care for the patient at home anymore. The patient will need aids social worker and employment evaluator/case manager attention. PAST MEDICAL HISTORY: History of laryngeal carcinoma, status post permanent tracheostomy, baseline COPD, hypertension, hypothyroidism, anxiety, depression, progressive decline, tracheostomy, oxygen dependent, progressive weakness, ambulatory problems with risk for fall. PAST SURGICAL HISTORY: As above. SOCIAL HISTORY: The patient lives at home with her family. She does not smoke or use alcohol. She lives with her who is having problems with taking care of the patient at this time. FAMILY HISTORY: Otherwise unremarkable. ALLERGIES: TRAMADOL. HOME MEDICATIONS: Will need to call the pharmacy to reconcile the patient's medications. REVIEW OF SYSTEMS: Shortness of breath, cough, throat pain, wheezing, progressive weakness, progressive decline. PHYSICAL EXAMINATION VITAL SIGNS: Temperature is 98, blood pressure 109/69, pulse rate 77, respirations 22. On admission, oxygen saturation at room air was in the low 70%. GENERAL: The patient is weak and cachectic. She had a tracheal opening. She is on nonrebreather. HEENT: Normocephalic, atraumatic and anicteric. NECK: Tracheal opening. Nonrebreather. PULMONARY: Bilateral coarses and rhonchi. Diminished breath sounds. CARDIOVASCULAR: S1 and S2. Tachycardia. ABDOMEN: Soft. Progressive weight loss and cachexia. EXTREMITIES: No cyanosis or edema. NEUROLOGICAL: Patient is moving all extremities without any focal deficit. LABORATORY: Sodium 137, potassium 5, chloride 102, bicarb 27, BUN 17, creatinine 0.7, glucose 141. WBC is 4.6, hemoglobin 10.2, hematocrit 31, and platelets 180,000. Chest x-ray with emphysema with patchy bibasilar opacities, possible atelectasis versus pneumonia. IMPRESSION 1. Acute respiratory insufficiency/early failure requiring nonrebreather. 2. Tracheal filter dislodged. 3. Tracheal opening with history of laryngeal carcinoma with a permanent tracheostomy. 4. Progressive weight loss and debility. 5. Emphysema with acute exacerbation of chronic obstructive pulmonary disease with possible pneumonia as mentioned above. 6. Recurrent fall. 7. Displacement. PLAN: Consult the patient's rugby league footballer, Dr. Frederick. Consultation with Dr. Christiano Rodriguez, ENT. Antibiotics with Rocephin and azithromycin. Nebulizer treatment. IV steroids. Oxygen support. Continue with his home medications when available. PT and OT. second time worker consultation and employment evaluator/case manager consultation. Aspiration precautions. Job#: [id number] [place]
[2017-09-13] MEDS: METHYLPREDNISOLONE SOD SUCC 40 MG/ML VIAL IV SCH ×4 (10:14→22:37)
[2017-09-13] MEDS: CEFTRIAXONE SOD 1 GM VIAL IV SCH (10:14)
[2017-09-13] MEDS: AZITHROMYCIN 500MG/NS 250 ML 250 ML IV SCH (10:14)
[2017-09-13] MEDS: METHADONE HCL 5 MG TAB PO SCH ×3 (10:14→22:37)
[2017-09-13] MEDS ORDERED: SODIUM CHLORIDE 0.9% 50ML 50 ML ONE (12:49)
[2017-09-13] MEDS ORDERED: IOPAMIDOL 370 MG/ML 200 ML INFUS..BTL INJ ONE (12:49)
[2017-09-13] MEDS: BENZONATATE 100 MG CAP PO SCH ×2 (14:52→22:37)
[2017-09-13] MEDS: LORAZEPAM 1 MG TAB PO PRN (15:16)
--- NOTE | 2017-09-13 15:39 | Diagnostic Imaging Report ---
PROCEDURE: CT scan of the chest WITH intravenous contrast, using standard protocol. TECHNIQUE: The chest was scanned utilizing a multidetector helical scanner from the lung apex through the level of the adrenal glands after the IV administration of 100 cc of Isovue 370. Coronal and sagittal multiplanar reformations were obtained. COMPARISON[facility], CT, CT CHEST W, 04/08/2015, 16:56. INDICATIONS: COPD, short of breath , FINDINGS: Lines/tubes: None. Lungs and Airways: Stable moderate bilateral centrilobular emphysematous changes, predominantly in the upper lobes, with mild interlobular septal thickening. 2 mm calcified granuloma in the right upper lobe (series 3, image 30). No pulmonary nodules, masses, or consolidation. Scarring the lingula and right middle lobe adjacent to the major fissures (series 3, image 72 and 87). Linear opacities seen in the posterior lower lobes, likely represent subsegmental atelectasis or scarring. Mild bilateral upper and lower lobes central bronchial wall thickening. Layering density in the proximal left main bronchus (series 3, image 48), likely represents mucus. Airways are otherwise clear, without endobronchial lesions. Pleura: No effusion, or pneumothorax. Heart and mediastinum: The thyroid is not visualized. Indeterminate rounded metallic density between the trachea and esophagus (series 2, image 20, and sagittal image 65). Heart size is normal. No pericardial effusion. Aorta is non-aneurysmal. Main pulmonary artery is normal in caliber. Lymph nodes: Borderline enlarged right lower paratracheal lymph node, which measures 1.0 cm in short axis (series 2, image 50). Borderline enlarged AP window lymph node, which measures 1.0 cm in short axis (series 2, image 45). Abdomen: Limited contrast-enhanced views of the upper abdomen show no abnormality within the visualized liver, spleen, pancreas, or left kidney. Right renal cortical scarring and thinning. Adrenal glands are unremarkable. Mild prominence of the central intrahepatic bile ducts, and mild dilation of the CBD, which measures approximately 8 mm At the cherie hepatis. No radiopaque intraluminal filling defects. Visualized portions of the gallbladder are unremarkable. Bones: No aggressive lytic lesion. Generalized osteopenia. S-shaped curvature of the thoracolumbar spine. Old compression deformity of likely T9 vertebral body. IMPRESSION: 1. stable moderate bilateral centrilobular emphysematous changes, prominent in the upper lobes. 2. No nodules, masses, or consolidation. 3. See lingular and right middle lobe scarring adjacent to the major fissures. Linear subsegmental atelectasis versus scarring in bilateral posterior lower lobes. 4. Mild bilateral upper and lower lobes central bronchial wall thickening, which may reflect sequela of chronic bronchitis. 5. Borderline enlarged mediastinal nodes, which are likely reactive. 6. Indeterminate metallic density between the trachea and esophagus. Correlate with surgical history. Tomy Mcnally M.D. Dictated by: Tomy Mcnally M.D. on 09/13/2017 at 15:45 Electronically approved by: Tomy Mcnally M.D. on 09/13/2017 at 15:45
--- NOTE | 2017-09-13 20:15 | Consultation ---
DATE OF CONSULTATION: September 13, 2017 HISTORY OF PRESENT ILLNESS: I was kindly asked to see this 67-year-old woman for evaluation of post laryngectomy care. Patient had a laryngectomy performed for laryngeal cancer and postoperatively had a tracheoesophageal puncture with prosthetic voice device placed. She used a laryngectomy tube at home to stent the laryngectomy open and was able to successfully phonate through the prosthesis in the past. She presented to the hospital with an exacerbation of her COPD. The tube had become dislodged and cannot be replaced. In addition, when the patient swallows she leaks into her trachea through the dysfunctional tracheoesophageal puncture. On examination, the patient is in no acute distress. The stoma is slightly small, but adequately open. ASSESSMENT: Status post total laryngectomy and tracheoesophageal fistula created for voice prosthesis with dysfunctional prosthesis and subsequent leakage of p.o. intake into the trachea. PLAN: 1. Tube feedings. 2. Consideration of transfer to higher level of care as there are no tracheoesophageal voice prosthesis or laryngectomy tubes available at this hospital. Job#: [id number]
[2017-09-13] MEDS: TRAZODONE HCL 50 MG TAB PO SCH (22:37)
[2017-09-14 01:00] VITALS: BP 130/66
[2017-09-14] MEDS: ALBUTEROL/IPRATROPIUM 3 ML NEB NEB SCH ×4 (01:00→20:00)
[2017-09-14] MEDS: HYDROCODONE/APAP 10MG-325MG TAB PO PRN (03:45)
[2017-09-14 05:23] LABS: BASOPHILS % 0.2 % (0.0-1.0); HEMATOCRIT 33.3 % (34.2-44.1); LYMPHOCYTES # (AUTO) 0.5 (1.0-3.2); LYMPHOCYTES % 9.2 % (18.0-39.1); MEAN CORPUSCULAR HEMOGLOBIN 31.8 pg (28-32); MEAN CORPUSCULAR VOLUME 96.2 fL (81-99); MONOCYTES # (AUTO) 0.1 (0.2-0.8); MONOCYTES % 0.9 % (4.4-11.3); NEUTROPHILS # (AUTO) 5.2 (2.1-6.9); NEUTROPHILS % 89.5 % (38.7-80.0); PLATELET COUNT 207 x10e3/uL (140-360); RED BLOOD COUNT 3.46 x10e6/uL (3.6-5.1); RED CELL DISTRIBUTION WIDTH 14.7 % (11.7-14.4)
[2017-09-14 05:30] VITALS: BP 137/64
[2017-09-14 05:51] LABS: ANION GAP 15.3 mmol/L (8-16); BLOOD UREA NITROGEN 12 mg/dL (7-26); BUN/CREATININE RATIO 17 (6-25); CALCIUM 9.2 mg/dL (8.4-10.2); CARBON DIOXIDE 24 mmol/L (22-29); CHLORIDE 104 mmol/L (98-107); CREATININE, SERUM 0.69 mg/dL (0.57-1.11); EST GLOMERULAR FILTRATION RATE > 60 ML/MIN (60-); GLUCOSE 136 mg/dL (74-118); POTASSIUM 4.3 mmol/L (3.5-5.1); SODIUM 139 mmol/L (136-145)
[2017-09-14] MEDS: GUAIFENESIN 600 MG TAB PEG SCH ×4 (06:00→17:28)
[2017-09-14] MEDS: METHYLPREDNISOLONE SOD SUCC 40 MG/ML VIAL IV SCH ×2 (06:00→15:15)
[2017-09-14] MEDS: LEVOTHYROXINE SODIUM 75 MCG TAB PO SCH (06:00)
[2017-09-14 06:08] LABS: MAGNESIUM 1.9 MG/DL (1.3-2.1); PHOSPHORUS 2.9 MG/DL (2.3-4.7)
[2017-09-14] MEDS: LORAZEPAM 1 MG TAB PO PRN (06:09)
[2017-09-14 06:31] LABS: THYROID STIMULATING HORMONE 1.042 uIU/mL (0.350-4.940)
[2017-09-14 08:04] VITALS: BP 132/66
[2017-09-14] MEDS: AZITHROMYCIN 500MG/NS 250 ML 250 ML IV SCH (09:15)
[2017-09-14] MEDS: METHADONE HCL 5 MG TAB PO SCH ×2 (09:23→15:15)
[2017-09-14] MEDS: BENZONATATE 100 MG CAP PO SCH ×2 (09:23→15:15)
[2017-09-14] MEDS: CEFTRIAXONE SOD 1 GM VIAL IV SCH (09:30)
[2017-09-14 12:01] VITALS: BP 143/76
--- NOTE | 2017-09-14 12:24 | Progress Note ---
DATE: September 14, 2017 I am covering for Dr. Diehl. SUBJECTIVE: Patient is doing well overnight with no complaints. In reading ENT's notes, he recommends higher level of care because the patient will need a tracheoesophageal voice prosthesis or a laryngectomy tube, which he reports is not available at this hospital. The patient has been doing well with no other complaints at this time. I already discussed this with the nursing staff. VITAL SIGNS: Temperature is 96.2, pulse 68, respiratory rate 18, blood pressure 132/66. Pulse ox: She is on 97% trach collar at 8 liters. LAB FINDINGS: White count of 5.7, hemoglobin 11, hematocrit 33, platelets 207. Chemistry: Sodium 139, potassium 4.3, chloride 104, bicarb 24, anion gap of 15, BUN 12, creatinine 0.69, glucose 136 , calcium 9.2, phosphorus 2.0, magnesium 1.9. The rest of her labs are within the normal range. TSH is 1. IMAGING STUDIES: CT chest was performed and showed stable moderate bilateral centrilobular emphysematous changes. There is mild bilateral upper and lower lobe central bronchial wall thickening consistent with chronic bronchitis. PHYSICAL EXAMINATION GENERAL: Not in acute distress. Alert, oriented x3, cooperative on exam. HEENT: Head: Normocephalic, atraumatic. Eyes: Pupils are equal, round and reactive to light bilaterally. Extraocular movements intact bilaterally. NECK: She has a tracheostomy. PULMONARY: Clear to auscultation bilaterally. No wheezing, no rales, no rhonchi, no crackles appreciated. CARDIOVASCULAR: Positive S1, S2. No murmurs, rubs or gallops appreciated. ABDOMEN: Soft, nondistended, nontender to palpation. Bowel sounds present. MUSCULOSKELETAL: Strength is 5/5 throughout. No evidence of any musculoskeletal deficit on examination. No weakness appreciated. NEUROLOGICAL: Cranial nerves II through XII grossly intact. No evidence of any neurological deficit on exam. SKIN: Intact. Warm to touch. Good capillary refill. PSYCHIATRIC: Normal affect and mood. EXTREMITIES: No edema. Good range of motion throughout. IMPRESSION 1. Acute respiratory failure requiring nonrebreather. 2. Tracheal filter dislodgement. 3. Has tracheal opening with history of laryngeal carcinoma with permanent tracheostomy. 4. Acute exacerbation of chronic obstructive pulmonary disease with possible underlying pneumonia. 5. Community-acquired pneumonia. PLAN: Pulmonary and ENT are following. Per ENT's note, they recommend a higher level of care for need for tracheoesophageal voice prosthesis and laryngectomy tube. Currently, those are not available at this hospital. I discussed this with case management about addressing this issue to see if the patient needs to be sent to a higher level of care. Will continue with IV steroids and antibiotics with azithromycin and Rocephin. Blood cultures are negative. Sputum cultures are pending. Pulmonary is following. Will continue same plan of care at this time. Job#: [id number]
[2017-09-14 15:59] VITALS: BP 156/88
[2017-09-14] MEDS ORDERED: PANTOPRAZOLE SOD 40 MG TABEC PO SCH (17:00)
[2017-09-14 17:50] VITALS: BP 156/88
--- NOTE | 2017-09-15 22:53 | Discharge Summary ---
DISCHARGE DIAGNOSES 1. Acute respiratory failure. 2. Tracheal filter dislodgement. 3. 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 4. Acute exacerbation of chronic obstructive pulmonary disease with possible underlying aspiration pneumonia. CONSULTANTS: ENT and pulmonary. VITAL SIGNS: Temperature is 96.7, pulse 71, respiratory rate is 18, blood pressure 156/88, pulse ox 97% on 5 L oxygen trach collar. LAB FINDINGS: White count 5.7, hemoglobin 11, hematocrit is 33, platelets of 207,000. Chemistry, sodium 139, potassium 4.3, chloride 104, bicarb 24, anion gap of 15, BUN is 12, creatinine is 0.69, magnesium 1.9, phosphorus 2.9. MICROBIOLOGY: Blood cultures #1 was negative, no growth. Second one presumed to be underlying contaminant, but still having preliminary results. Sputum culture was found to be negative. IMAGING STUDIES: Chest x-ray showed emphysematous changes, no evidence of lobar pneumonia. There are some opacities consistent possibly for aspiration pneumonia. CT of chest, stable moderate bilateral central lobar emphysematous changes. There is some scarring in the right middle lobe fissures. There are some concerns for underlying chronic bronchitis as well and possibly underlying aspiration pneumonitis. HOSPITAL COURSE: This is a 67-year-old female, who has a tracheostomy, who came in due to underlying shortness of breath and acute respiratory distress. Patient was admitted and treated for underlying acute exacerbation of COPD. ENT and pulmonary was consulted. Per ENT's note, he recommended tracheoesophageal voice prosthesis and/or a laryngectomy tube, which this hospital does not have at this time. While here, the patient was on IV antibiotics for treatment of aspiration pneumonia. Blood cultures 1 of 2 was negative. The other one seems to be a likely contaminant, but it was still following final results. Speech therapy was consulted and was concerned for underlying aspiration. At this time, I discussed this case with case management and discussed for higher level of care due to the equipment that is not available at this facility. I spoke with the hospitalist there, Dr. Diehl, at [facility] and he has agreed for acceptance and to be evaluated by an ENT specialist there for their appropriate equipment. Patient was then transferred overnight on 09/14/2017 to [facility] for a higher level of care for transesophageal voice prosthesis and/or laryngectomy tube as recommended by our ENT physician at this hospital. On the day of discharge, vital signs stable. Labs were reviewed and stable. The patient was seen, evaluated and examined thoroughly on the day of discharge, no other complaints. Patient verbalized understanding and agrees with plan of care. To follow up accordingly as an outpatient with her primary care physician in 1 week and ENT specialist and desktop support technician in 2 to 3 weeks. MEDICATIONS: See med reconciliation form. DISPOSITION: To transfer to [facility]. CONDITION: Stable. DIET: N.p.o. for now. In the event of any worsening symptoms, patient was advised to come back to the ED for further evaluation. Discharge summary took greater than 35 minutes. Job#: [id number] CQ
--- NOTE | 2017-09-16 02:29 | Consultation ---
DATE OF CONSULTATION: REASON FOR CONSULT: COPD exacerbation, chronic hypoxic respiratory failure, tracheostomy. HPI: Patient is a 67-year-old white female with a history of complete laryngectomy with tracheostomy tube and voice device, advanced COPD, chronic hypoxic respiratory failure, on oxygen therapy at home. Patient presented to [facility] following tracheostomy dislodgement. Patient was treated symptomatically in the emergency room where she was found to be hypoxic with saturations as low as the 70s. Patient was initiated on therapy for COPD exacerbation with steroids, nebulizers, and supplemental oxygen. At that time, she was having significant wheezing on exam, as well as sputum production from her stoma. Patient was accompanied by her . Patient reports that food particulate matter comes out of her stoma. She also notes purulent sputum from her stoma as well. She says that Dr. Dietrich at [facility] was the surgeon who did her laryngectomy. She does not regularly see an ENT physician. She reports compliance with all medications. At this time, she is in no distress. She denies fevers or chills. She does report increased sputum production and cough. No change in appetite or weight. No significant pain or generalized malaise. REVIEW OF SYSTEMS: A 14-point review of systems is negative, except as per HPI. PAST MEDICAL HISTORY: Laryngeal carcinoma, status post complete laryngectomy, severe COPD, chronic hypoxic respiratory failure. PAST SURGICAL HISTORY: Laryngectomy, complete. SOCIAL HISTORY: Prior smoker. FAMILY HISTORY: Noncontributory. ALLERGIES: TRAMADOL. HOME MEDICATIONS: Please see medical reconciliation in chart. Laboratory data reviewed. Imaging data reviewed. PHYSICAL EXAMINATION VITALS: Reviewed. GENERAL: No distress. Tracheostomy collar and oxygen in place. Thin, frail. HEENT: Oral mucosa moist. Stoma with purulent secretions in midneck. CARDIOVASCULAR: Regular rate and rhythm. No murmurs, rubs or gallops. PULMONARY: Bilateral rhonchi. Mild tachypnea. ABDOMEN: Soft, nondistended and nontender. Bowel sounds normal. EXTREMITIES: No edema. No cyanosis. SKIN: No rashes or lesions. NEURO: Nonfocal. PSYCH: Mildly anxious. PROBLEM LIST 1. [id number] hypoxic respiratory failure. 2. Severe chronic obstructive pulmonary disease. 3. Tracheostomy, status post laryngectomy. PLAN: Agree with antibiotic therapy for COPD exacerbation. Consider broadening antibiotics to cover hospital-acquired organisms. If no clinical improvement, continue steroids, but continue decreasing dose to 40 mg of prednisone p.o. daily. Continue DuoNebs. Restart home inhalers. Tracheostomy with total laryngectomy. Recommend consulting ENT for further evaluation as this is an event technique. Recommend evaluation by speech pathology for apparent food particulate matter that is present at tracheostomy stoma. Unclear what the communication between the oropharynx and the stoma/laryngectomy area is. However, further evaluation is necessary or speaking to an expert in this area. Job#: [id number] BRI
== END 2017-09-14 20:49 | disposition short-term general hospital (02) | DRG 205 ==
LOC: ER 06:23 → ERHOLD 11:29 → IMCU 13:21 → OBSVTOIN 09-13 09:11 → MED/SURG3 09-14 14:55
PROVIDERS: ADMIT Internal Medicine; ATTEND Internal Medicine
DX: J95.03 Malfunction of tracheostomy stoma (principal); J96.21 Acute and chronic respiratory failure with hypoxia; J18.9 Pneumonia, unspecified organism; J44.0 Chronic obstructive pulmonary disease with (acute) lower respiratory infection; J44.1 Chronic obstructive pulmonary disease with (acute) exacerbation; R53.81 Other malaise; Z99.81 Dependence on supplemental oxygen; Z85.12 Personal history of malignant neoplasm of trachea; Z91.81 History of falling
CPT/HCPCS: 36415; 36600; 71045; 71260; 76937; 80048; 80053; 82550; 82553; 82607; 82746; 83735; 84100; 84443; 84484; 85025; 87040; 87070; 87071; 87205; 93005; 94640; 97139; 99284; G0378; J0456; J0696; J2270; J2405; J2920; J2930; Q9967

== ENCOUNTER 2018-01-31 13:14 | Emergency (ER) | payer OTHER ==
[~2018-01-31] VITALS: Ht 152.4 cm; Wt 47.2 kg
[~2018-01-31 13:14] MED LIST changes: +KEFLEX750 MG PO; +METHADONE HCL5 MG PO; +ULTRAM50 MG PO
--- OUTSIDE RECORDS SUMMARY | 2018-01-31 13:18 | XMS REPORT | Clinical Summary ---
Author Author DARLEEN Hotswap [facility] Address Unknown Phone Unavailable Care Team Providers Care Technical Maintenance Technician Name Role Phone Kevin Morris PCP Unavailable Allergies Comments Active Allergy Reactions Severity Noted Date Tramadol Nausea And 08/03/2014 Vomiting Medications End Date Status Medication Sig Dispensed Refills Start Date 11/02/2018 Active acetaminophen (TYLENOL) 2 tablets 30 tablet 0 325 MG tablet (650 mg 8 total) by G-tube route every 6 (six) hours for 360 days. 11/07/2018 Active amLODIPine (NORVASC) 5 MG 1 tablet (5 0 tablet mg total) by 8 G-tube route daily. 11/07/2018 Active aspirin 81 MG chewable 1 tablet (81 0 tablet mg total) by 8 G-tube route daily. Active dextrose 50 % in water Inject 25 mLs 0 (DEXTROSE 50%, D50W,) (12.5 g 8 Syrg injection total) intravenously as needed (blood sugar less than 70 and patient unable to take PO juice or soda). Active enoxaparin (LOVENOX) 40 Inject 0.4 0 mg/0.4 mL Syrg mLs (40 mg 8 total) subcutaneousl y daily. 02/05/2018 Active escitalopram oxalate 1 tablet (10 30 tablet 0 (LEXAPRO) 10 MG tablet mg total) by 8 G-tube route daily for 90 days. Active famotidine (PEPCID) 20 MG 1 tablet (20 0 tablet mg total) by 8 G-tube route nightly. 11/07/2018 Active hydrogen peroxide 3 % Apply 120 mL 0 external solution topically 2 8 (two) times daily. 11/02/2018 Active ipratropium-albuterol Take 3 mLs by 0 (DUO-NEB) 0.5 mg-3 mg(2.5 nebulization 8 mg base)/3 mL nebulizer every 6 (six) solution hours for 360 days. 11/08/2018 Active levothyroxine (SYNTHROID, 1 tablet (100 0 LEVOTHROID) 100 MCG mcg total) by 8 tablet G-tube route Every morning on an empty stomach. 11/07/2018 Active nitroglycerin (NITROSTAT) Place 1 inch 30 g 0 2 % ointment onto the skin 8 every 12 (twelve) hours. Active ondansetron (ZOFRAN) 4 Inject 2 mLs 20 mL 0 mg/2 mL injection (4 mg total) 8 intravenously every 8 (eight) hours. Active pantoprazole (PROTONIX) Inject 40 mg 1 each 0 injection 40 mg intravenously 8 2 (two) times daily. Active promethazine (PHENERGAN) Inject 0.5 1 mL 0 25 mg/mL injection mLs (12.5 mg 8 (INTRAMUSCULAR only) total) intramuscular ly every 6 (six) hours as needed. Active sodium chloride, Take 5 mLs by 0 hypertonic, (HYPER-CARLA) 7 nebulization 8 % nebulizer solution every 12 (twelve) hours. Active sodium chloride 0.9%, NS, Inject 5 mLs 5 mL 0 injection intravenously 8 every 8 (eight) hours. Active sodium chloride 0.9%, NS, Inject 5 mLs 5 mL 0 injection intravenously 8 as needed. 11/07/2017 Discontinued LORazepam (ATIVAN) 2 MG Take 2 mg by 0 tablet mouth every 6 (six) hours as needed for Anxiety. 09/14/2017 Discontinued oxyCODONE (OXYCONTIN) 10 Take 10 mg by 0 MG 12 hr tablet mouth every 12 (twelve) hours. 09/14/2017 Discontinued nystatin (NYSTATIN) Apply 0 100,000 unit/gram cream topically 2 (two) times daily. 11/07/2017 Discontinued omeprazole (PRILOSEC) 40 Take 40 mg by 0 MG capsule mouth daily. 11/07/2017 Discontinued methadone (DOLOPHINE) 5 Take 5 mg by 0 MG tablet mouth every 8 (eight) hours as needed for Pain. 11/13/2017 levoFLOXacin (LEVAQUIN) Take 20 mLs 140 mL 0 250 mg/10 mL solution (500 mg 8 total) by mouth daily for 7 days. 11/13/2017 metronidazole (FLAGYL) 50 Take 10 mLs 210 mL 0 mg/mL liquid (500 mg 8 total) by mouth 3 (three) times daily for 7 days. 11/17/2017 LORazepam (ATIVAN) 1 MG 1 tablet (1 30 tablet 0 tablet mg total) by 8 G-tube route every 8 (eight) hours as needed for Anxiety for up to 10 days. Max Daily Amount: 3 mg 11/17/2017 methadone (DOLOPHINE) 10 2.5 mLs (5 mg 0 mg/5 mL solution total) by 8 G-tube route every 8 (eight) hours for 10 days. Max Daily Amount: 15 mg 11/17/2017 oxyCODONE (ROXICODONE) 5 1 tablet (5 30 tablet 0 MG immediate release mg total) by 8 tablet G-tube route every 3 (three) hours as needed for up to 10 days. Max Daily Amount: 40 mg 11/14/2017 sterile water, bottle, Irrigate with 1000 mL 0 irrigation 15 mLs as 8 directed 4 (four) times daily for 7 days. 11/11/2017 sulfamethoxazole-trimetho 1 tablet (160 0 prim (BACTRIM DS) 800-160 mg of 8 mg per tablet trimethoprim total) by G-tube route 2 (two) times daily for 4 days. 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), by hx 09/23/2017 L3 vertebral fracture (HCC), by hx 09/23/2017 Oropharyngeal dysphagia 09/21/2017 Dysphagia 09/20/2017 COPD exacerbation 09/20/2017 Moderate protein-calorie malnutrition 09/19/2017 COPD (chronic obstructive pulmonary disease) 09/16/2017 Aspiration into airway 09/14/2017 Laryngeal cancer 02/03/2015 Severe protein-calorie malnutrition 02/03/2015 Hypercalcemia 02/03/2015 Depression 02/03/2015 Hypothyroid Encounters Care Team Description Date Type Specialty Sai Kaminski MD Other dysphagia (Primary Dx) 11/13/2017 Outside Orders Central Scheduling Pratik Foreman MD 10/26/2017 Anesthesia Event Kanu Acevedo MD CLOSURE,TRACHEOSTOMY/FISTULA 10/26/2017 Surgery Hannah Iglesias MD 10/01/2017 Anesthesia Event Ck Gibbs MD LAPAROSCOPY,GASTROSTOMY BUTTON (G-BUTTON) 10/01/2017 Surgery Isabel Whitman, RENTAL CAR FERRY DRIVER 09/26/2017 Anesthesia Gastroenterology Event Lashon Hooks MD UPPER ENDOSCOPY,PEG 09/26/2017 Surgery Gastroenterology Kristie Correa MD Hite, Wayne K., Silke Wing MD Gonzalez, Adriana, MD Wellinghoff, MD Elaina Escalante, Ryan Snell MD Pain at surgical site (Primary Dx); Delirium due to another medical condition; Acute metabolic encephalopathy; Severe protein-calorie malnutrition (HCC); Anemia, unspecified type; Hypertension, unspecified type; Laryngeal cancer (HCC); Chronic pain syndrome; Right arm cellulitis 09/14/2017 [facility] General Internal Medicine - Encounter 11/07/2017 after 01/30/2017 Immunizations Name Dates Previously Given Next Due Influenza High Dose 02/04/2015 Preservative Free [id number] Pneumococcal 02/04/2015 Polysaccharide (Pneumovax) Social History Date Tobacco Use Types Packs/Day Years Used Quit: 02/03/2015 Former Smoker 2 36 Smokeless Tobacco: Never Used Alcohol Use Drinks/Week oz/Week Comments No Sex Assigned at Date Recorded Not on file Industry Job Start Date Occupation Not on file Not on file Not on file Travel End Travel History Travel Start No recent travel history available. Last Filed Vital Signs Time Taken Vital Sign Reading 11/07/2017 10:56 AM CDT Blood Pressure 116/58 11/07/2017 12:08 PM CDT Pulse 86 11/07/2017 10:56 AM CDT Temperature 36.2 C (97.1 F) 11/07/2017 12:08 PM CDT Respiratory Rate 18 11/07/2017 12:08 PM CDT Oxygen Saturation 96% 11/04/2017 11:16 AM CDT Inhaled Oxygen 28% Concentration 11/06/2017 5:33 AM CDT Weight 71.5 kg (157 lb 10.1 oz) 09/18/2017 5:00 AM CDT Height 152.4 cm (5') 11/06/2017 5:33 AM CDT Body Mass Index 30.78 Plan of Treatment Not on file Implants Device Identifier Shelf Expiration Date Model / Serial / Lot Implanted Type Area Manufactur er 05/05/2018 [id number] / / [id number] [place] Puncture Set N/A: Neck Implanted: Qty: 1 on 12/02/2015 by Karen Leiva MD Procedures Comments Procedure Name Priority Date/Time Associated Diagnosis RHYTHM STRIP - SCAN 11/08/2017 11:01 AM CDT CBC W/PLT COUNT & AUTO Routine 11/07/2017 DIFFERENTIAL 5:07 AM CDT MAGNESIUM Routine 11/07/2017 5:07 AM CDT PHOSPHORUS Routine 11/07/2017 5:07 AM CDT BASIC METABOLIC PANEL (7) Routine 11/07/2017 5:07 AM CDT CBC W/PLT COUNT & AUTO Routine 11/07/2017 DIFFERENTIAL 5:07 AM CDT POCT-GLUCOSE METER Routine 11/06/2017 4:31 AM CDT CBC W/PLT COUNT & AUTO Routine 11/06/2017 DIFFERENTIAL 4:29 AM CDT MAGNESIUM Routine 11/06/2017 4:29 AM CDT PHOSPHORUS Routine 11/06/2017 4:29 AM CDT BASIC METABOLIC PANEL (7) Routine 11/06/2017 4:29 AM CDT CBC W/PLT COUNT & AUTO Routine 11/06/2017 DIFFERENTIAL 4:29 AM CDT POCT-GLUCOSE METER Routine 11/06/2017 1:12 AM CDT POCT-GLUCOSE METER Routine 11/05/2017 5:55 PM CDT VENOUS DOPPLER ARM, RIGHT STAT 11/05/2017 11:33 AM CDT POCT-GLUCOSE METER Routine 11/05/2017 11:15 AM CDT POCT-GLUCOSE METER Routine 11/05/2017 5:30 AM CDT CBC W/PLT COUNT & AUTO Routine 11/05/2017 DIFFERENTIAL 4:01 AM CDT MAGNESIUM Routine 11/05/2017 4:01 AM CDT PHOSPHORUS Routine 11/05/2017 4:01 AM CDT BASIC METABOLIC PANEL (7) Routine 11/05/2017 4:01 AM CDT CBC W/PLT COUNT & AUTO Routine 11/05/2017 DIFFERENTIAL 4:01 AM CDT POCT-GLUCOSE METER Routine 11/04/2017 8:51 PM CDT C. DIFFICILE GDH TOXIN Routine 11/04/2017 5:48 PM CDT POCT-GLUCOSE METER Routine 11/04/2017 12:01 PM CDT POCT-GLUCOSE METER Routine 11/04/2017 5:42 AM CDT CBC W/PLT COUNT & AUTO Routine 11/04/2017 DIFFERENTIAL 3:36 AM CDT MAGNESIUM Routine 11/04/2017 3:36 AM CDT PHOSPHORUS Routine 11/04/2017 3:36 AM CDT BASIC METABOLIC PANEL (7) Routine 11/04/2017 3:36 AM CDT CBC W/PLT COUNT & AUTO Routine 11/04/2017 DIFFERENTIAL 3:36 AM CDT POCT-GLUCOSE METER Routine 11/04/2017 12:03 AM CDT POCT-GLUCOSE METER Routine 11/03/2017 7:09 PM CDT POCT-GLUCOSE METER Routine 11/03/2017 12:03 PM CDT CBC W/PLT COUNT & AUTO Routine 11/03/2017 DIFFERENTIAL 4:08 AM CDT MAGNESIUM Routine 11/03/2017 4:08 AM CDT PHOSPHORUS Routine 11/03/2017 4:08 AM CDT BASIC METABOLIC PANEL (7) Routine 11/03/2017 4:08 AM CDT CBC W/PLT COUNT & AUTO Routine 11/03/2017 DIFFERENTIAL 4:08 AM CDT POCT-GLUCOSE METER Routine 11/02/2017 11:49 PM CDT POCT-GLUCOSE METER Routine 11/02/2017 5:47 PM CDT POCT-GLUCOSE METER Routine 11/02/2017 11:16 AM CDT CBC W/PLT COUNT & AUTO Routine 11/02/2017 DIFFERENTIAL 4:52 AM CDT MAGNESIUM Routine 11/02/2017 4:52 AM CDT PHOSPHORUS Routine 11/02/2017 4:52 AM CDT BASIC METABOLIC PANEL (7) Routine 11/02/2017 4:52 AM CDT CBC W/PLT COUNT & AUTO Routine 11/02/2017 DIFFERENTIAL 4:52 AM CDT POCT-GLUCOSE METER Routine 11/01/2017 6:16 PM CDT POCT-GLUCOSE METER Routine 11/01/2017 11:32 AM CDT CBC W/PLT COUNT & AUTO Routine 11/01/2017 DIFFERENTIAL 5:02 AM CDT POCT-GLUCOSE METER Routine 11/01/2017 5:02 AM CDT MAGNESIUM Routine 11/01/2017 5:02 AM CDT PHOSPHORUS Routine 11/01/2017 5:02 AM CDT BASIC METABOLIC PANEL (7) Routine 11/01/2017 5:02 AM CDT CBC W/PLT COUNT & AUTO Routine 11/01/2017 DIFFERENTIAL 5:02 AM CDT POCT-GLUCOSE METER Routine 10/31/2017 11:31 PM CDT TRANSFUSION SERVICE 10/31/2017 REPORT - SCAN 6:02 PM CDT POCT-GLUCOSE METER Routine 10/31/2017 12:43 PM CDT POCT-GLUCOSE METER Routine 10/31/2017 5:21 AM CDT CBC W/PLT COUNT & AUTO Routine 10/31/2017 DIFFERENTIAL 5:13 AM CDT MAGNESIUM Routine 10/31/2017 5:13 AM CDT PHOSPHORUS Routine 10/31/2017 5:13 AM CDT BASIC METABOLIC PANEL (7) Routine 10/31/2017 5:13 AM CDT CBC W/PLT COUNT & AUTO Routine 10/31/2017 DIFFERENTIAL 5:13 AM CDT POCT-GLUCOSE METER Routine 10/31/2017 12:32 AM CDT TRANSFUSION SERVICE 10/30/2017 REPORT - SCAN 6:02 PM CDT POCT-GLUCOSE METER Routine 10/30/2017 5:30 PM CDT POCT-GLUCOSE METER Routine 10/30/2017 11:11 AM CDT POCT-GLUCOSE METER Routine 10/30/2017 5:35 AM CDT CBC W/PLT COUNT & AUTO Routine 10/30/2017 DIFFERENTIAL 4:56 AM CDT MAGNESIUM Routine 10/30/2017 4:56 AM CDT PHOSPHORUS Routine 10/30/2017 4:56 AM CDT BASIC METABOLIC PANEL (7) Routine 10/30/2017 4:56 AM CDT CBC W/PLT COUNT & AUTO Routine 10/30/2017 DIFFERENTIAL 4:56 AM CDT PREPARE LEUKO-REDUCED RBC Routine 10/30/2017 4:18 AM CDT PREPARE LEUKO-REDUCED RBC Routine 10/29/2017 11:54 PM CDT POCT-GLUCOSE METER Routine 10/29/2017 11:49 PM CDT POCT-GLUCOSE METER Routine 10/29/2017 6:19 PM CDT TRANSFUSION SERVICE 10/29/2017 REPORT - SCAN 6:00 PM CDT POCT-GLUCOSE METER Routine 10/29/2017 12:26 PM CDT POCT-GLUCOSE METER Routine 10/29/2017 6:29 AM CDT CBC W/PLT COUNT & AUTO Routine 10/29/2017 DIFFERENTIAL 5:13 AM CDT MAGNESIUM Routine 10/29/2017 5:13 AM CDT PHOSPHORUS Routine 10/29/2017 5:13 AM CDT BASIC METABOLIC PANEL (7) Routine 10/29/2017 5:13 AM CDT CBC W/PLT COUNT & AUTO Routine 10/29/2017 DIFFERENTIAL 5:13 AM CDT TRANSFUSE LEUKO-REDUCED Routine 10/29/2017 RED BLOOD CELLS 2:05 AM CDT POCT-GLUCOSE METER Routine 10/29/2017 12:22 AM CDT VANCOMYCIN LEVEL, TROUGH Timed 10/28/2017 8:46 PM CDT CBC W/PLT COUNT & AUTO STAT 10/28/2017 DIFFERENTIAL 1:32 PM CDT CBC W/PLT COUNT & AUTO STAT 10/28/2017 DIFFERENTIAL 1:32 PM CDT BASIC METABOLIC PANEL (7) Routine 10/28/2017 1:32 PM CDT POCT-GLUCOSE METER Routine 10/28/2017 12:25 PM CDT ECG 12-LEAD STAT 10/28/2017 11:30 AM CDT XR CHEST 1 VIEW Routine 10/28/2017 PORTABLE/BEDSIDE 11:17 AM CDT POCT-GLUCOSE METER Routine 10/28/2017 6:25 AM CDT CBC W/PLT COUNT & AUTO Routine 10/28/2017 DIFFERENTIAL 4:45 AM CDT MAGNESIUM Routine 10/28/2017 4:45 AM CDT PHOSPHORUS Routine 10/28/2017 4:45 AM CDT BASIC METABOLIC PANEL (7) Routine 10/28/2017 4:45 AM CDT CBC W/PLT COUNT & AUTO Routine 10/28/2017 DIFFERENTIAL 4:45 AM CDT POCT-GLUCOSE METER Routine 10/27/2017 11:49 PM CDT TRANSFUSION SERVICE 10/27/2017 REPORT - SCAN 6:01 PM CDT POCT-GLUCOSE METER Routine 10/27/2017 5:24 PM CDT ECG 12-LEAD STAT 10/27/2017 3:46 PM CDT TSH/FREE T4 IF INDICATED Routine 10/27/2017 12:58 PM CDT POCT-GLUCOSE METER Routine 10/27/2017 11:22 AM CDT XR CHEST 1 VIEW STAT 10/27/2017 PORTABLE/BEDSIDE 11:22 AM CDT POCT-GLUCOSE METER Routine 10/27/2017 5:53 AM CDT CBC W/PLT COUNT & AUTO Routine 10/27/2017 DIFFERENTIAL 3:31 AM CDT PREALBUMIN Routine 10/27/2017 3:31 AM CDT MAGNESIUM Routine 10/27/2017 3:31 AM CDT PHOSPHORUS Routine 10/27/2017 3:31 AM CDT BASIC METABOLIC PANEL (7) Routine 10/27/2017 3:31 AM CDT CBC W/PLT COUNT & AUTO Routine 10/27/2017 DIFFERENTIAL 3:31 AM CDT POCT-GLUCOSE METER Routine 10/26/2017 11:54 PM CDT CBC W/PLT COUNT & AUTO Routine 10/26/2017 DIFFERENTIAL 6:42 PM CDT MAGNESIUM Routine 10/26/2017 6:42 PM CDT PHOSPHORUS Routine 10/26/2017 6:42 PM CDT BASIC METABOLIC PANEL (7) Routine 10/26/2017 6:42 PM CDT CBC W/PLT COUNT & AUTO Routine 10/26/2017 DIFFERENTIAL 6:42 PM CDT TISSUE EXAM AP Routine 10/26/2017 8:28 AM CDT FLAP,MICROVASCULAR 10/26/2017 Esophago-tracheal fistula FREE-LOWER EXTREMITY 7:30 AM CDT (HCC) Special Needs (MICROSCOP E, FREE FLAP SET, ENT MINOR SET, TOURNIQUET ) SKIN GRAFT,FULL 10/26/2017 Esophago-tracheal fistula THICKNESS-HEAD/FACE 7:30 AM CDT ([facility]) Special Needs (MICROSCOP E, FREE FLAP SET, ENT MINOR SET, TOURNIQUET ) DISSECTION,NECK SELECTIVE 10/26/2017 Esophago-tracheal fistula 7:30 AM CDT ([facility]) Special Needs (MICROSCOP E, FREE FLAP SET, ENT MINOR SET, TOURNIQUET ) CLOSURE,TRACHEOSTOMY/FIST 10/26/2017 Esophago-tracheal fistula DOMINIK 7:30 AM CDT ([facility]) Special Needs (MICROSCOP E, FREE FLAP SET, ENT MINOR SET, TOURNIQUET ) (CELLAVISION MANUAL DIFF) Routine 10/26/2017 4:57 AM CDT CBC W/PLT COUNT & AUTO Routine 10/26/2017 DIFFERENTIAL 4:57 AM CDT TYPE AND SCREEN, Routine 10/26/2017 AUTOMATED 4:57 AM CDT APTT Routine 10/26/2017 4:57 AM CDT PROTHROMBIN TIME/INR Routine 10/26/2017 4:57 AM CDT BASIC METABOLIC PANEL (7) Routine 10/26/2017 4:57 AM CDT CBC W/PLT COUNT & AUTO Routine 10/26/2017 DIFFERENTIAL 4:57 AM CDT POCT-GLUCOSE METER Routine 10/25/2017 10:32 PM CDT POCT-GLUCOSE METER Routine 10/25/2017 5:41 PM CDT POCT-GLUCOSE METER Routine 10/25/2017 10:40 AM CDT POCT-GLUCOSE METER Routine 10/24/2017 4:48 PM CDT SPUTUM CULTURE + GRAM STAT 10/24/2017 STAIN 4:07 PM CDT POCT-GLUCOSE METER Routine 10/24/2017 11:36 AM CDT POCT-GLUCOSE METER Routine 10/24/2017 8:19 AM CDT POCT-GLUCOSE METER Routine 10/24/2017 5:34 AM CDT PHOSPHORUS Routine 10/24/2017 5:32 AM CDT MAGNESIUM Routine 10/24/2017 5:32 AM CDT BASIC METABOLIC PANEL (7) Routine 10/24/2017 5:32 AM CDT POCT-GLUCOSE METER Routine 10/23/2017 11:[address] CHEST LOW DOSE S/P Routine 10/23/2017 LUNG TRANSPLANT WITHOUT 9:47 PM CDT IV CONTRAST POCT-GLUCOSE METER Routine 10/23/2017 6:30 PM CDT POCT-GLUCOSE METER Routine 10/23/2017 12:56 PM CDT XR CHEST 1 VIEW STAT 10/23/2017 PORTABLE/BEDSIDE 5:14 AM CDT POCT-GLUCOSE METER Routine 10/23/2017 12:12 AM CDT POCT-GLUCOSE METER Routine 10/22/2017 5:59 PM CDT POCT-GLUCOSE METER Routine 10/22/2017 12:23 PM CDT POCT-GLUCOSE METER Routine 10/21/2017 11:36 PM CDT POCT-GLUCOSE METER Routine 10/21/2017 6:06 PM CDT POCT-GLUCOSE METER Routine 10/21/2017 12:11 PM CDT POCT-GLUCOSE METER Routine 10/21/2017 6:43 AM CDT BASIC METABOLIC PANEL (7) Routine 10/21/2017 4:34 AM CDT POCT-GLUCOSE METER Routine 10/21/2017 12:35 AM CDT POCT-GLUCOSE METER Routine 10/20/2017 5:51 PM CDT POCT-GLUCOSE METER Routine 10/20/2017 12:24 PM CDT POCT-GLUCOSE METER Routine 10/20/2017 6:33 AM CDT POCT-GLUCOSE METER Routine 10/20/2017 1:00 AM CDT POCT-GLUCOSE METER Routine 10/19/2017 5:57 PM CDT PERIPHERAL VASCULAR 10/19/2017 REPORT - SCAN 2:53 PM CDT POCT-GLUCOSE METER Routine 10/19/2017 12:16 PM CDT STRESS ECHO WITH CONTRAST BYRON 10/19/2017 & TRACING 7:48 AM CDT POCT-GLUCOSE METER Routine 10/19/2017 6:16 AM CDT PHOSPHORUS Routine 10/19/2017 4:34 AM CDT MAGNESIUM Routine 10/19/2017 4:34 AM CDT BASIC METABOLIC PANEL (7) Routine 10/19/2017 4:34 AM CDT POCT-GLUCOSE METER Routine 10/19/2017 12:[address] SOFT TISSUE NECK WITH Routine 10/18/2017 IV CONTRAST 10:14 PM CDT POCT-GLUCOSE METER Routine 10/18/2017 6:16 PM CDT POCT-GLUCOSE METER Routine 10/18/2017 1:38 PM CDT ARTERIAL DOPPLER ARMS Routine 10/18/2017 BILATERAL 10:17 AM CDT POCT-GLUCOSE METER Routine 10/18/2017 6:30 AM CDT POCT-GLUCOSE METER Routine 10/17/2017 11:35 PM CDT POCT-GLUCOSE METER Routine 10/17/2017 6:22 PM CDT POCT-GLUCOSE METER Routine 10/17/2017 12:50 PM CDT POCT-GLUCOSE METER Routine 10/17/2017 6:17 AM CDT POCT-GLUCOSE METER Routine 10/17/2017 12:22 AM CDT POCT-GLUCOSE METER Routine 10/16/2017 12:13 PM CDT POCT-GLUCOSE METER Routine 10/16/2017 8:28 AM CDT PREALBUMIN Routine 10/16/2017 3:57 AM CDT VITAMIN B12 AND FOLATE Routine 10/16/2017 3:57 AM CDT FERRITIN Routine 10/16/2017 3:57 AM CDT IRON, TIBC, % SAT. Routine 10/16/2017 (WITHOUT FERRITIN) 3:57 AM CDT PHOSPHORUS Routine 10/16/2017 3:57 AM CDT MAGNESIUM Routine 10/16/2017 3:57 AM CDT BASIC METABOLIC PANEL (7) Routine 10/16/2017 3:57 AM CDT POCT-GLUCOSE METER Routine 10/16/2017 12:10 AM CDT POCT-GLUCOSE METER Routine 10/15/2017 5:40 PM CDT POCT-GLUCOSE METER Routine 10/15/2017 12:02 PM CDT POCT-GLUCOSE METER Routine 10/15/2017 8:37 AM CDT POCT-GLUCOSE METER Routine 10/15/2017 12:34 AM CDT POCT-GLUCOSE METER Routine 10/14/2017 6:43 PM CDT POCT-GLUCOSE METER Routine 10/14/2017 12:32 PM CDT CBC W/PLT COUNT & AUTO Routine 10/14/2017 DIFFERENTIAL 6:32 AM CDT CBC W/PLT COUNT & AUTO Routine 10/14/2017 DIFFERENTIAL 6:32 AM CDT POCT-GLUCOSE METER Routine 10/14/2017 6:12 AM CDT POCT-GLUCOSE METER Routine 10/14/2017 12:21 AM CDT POCT-GLUCOSE METER Routine 10/13/2017 5:11 PM CDT POCT-GLUCOSE METER Routine 10/13/2017 1:36 PM CDT POCT-GLUCOSE METER Routine 10/13/2017 5:53 AM CDT POCT-GLUCOSE METER Routine 10/13/2017 12:59 AM CDT POCT-GLUCOSE METER Routine 10/12/2017 7:27 PM CDT POCT-GLUCOSE METER Routine 10/12/2017 11:58 AM CDT POCT-GLUCOSE METER Routine 10/12/2017 6:00 AM CDT PHOSPHORUS Routine 10/12/2017 3:54 AM CDT MAGNESIUM Routine 10/12/2017 3:54 AM CDT BASIC METABOLIC PANEL (7) Routine 10/12/2017 3:54 AM CDT POCT-GLUCOSE METER Routine 10/12/2017 12:05 AM CDT POCT-GLUCOSE METER Routine 10/11/2017 6:35 PM CDT POCT-GLUCOSE METER Routine 10/11/2017 7:32 AM CDT POCT-GLUCOSE METER Routine 10/11/2017 5:59 AM CDT POCT-GLUCOSE METER Routine 10/10/2017 5:47 PM CDT POCT-GLUCOSE METER Routine 10/10/2017 9:36 AM CDT BASIC METABOLIC PANEL (7) Routine 10/10/2017 6:47 AM CDT POCT-GLUCOSE METER Routine 10/10/2017 12:21 AM CDT POCT-GLUCOSE METER Routine 10/09/2017 9:17 PM CDT POCT-GLUCOSE METER Routine 10/09/2017 5:10 PM CDT BASIC METABOLIC PANEL (7) Routine 10/09/2017 4:01 PM CDT PHOSPHORUS Routine 10/09/2017 4:01 PM CDT MAGNESIUM Routine 10/09/2017 4:01 PM CDT POCT-GLUCOSE METER Routine 10/09/2017 11:22 AM CDT POCT-GLUCOSE METER Routine 10/09/2017 5:57 AM CDT POCT-GLUCOSE METER Routine 10/09/2017 12:41 AM CDT POCT-GLUCOSE METER Routine 10/08/2017 11:38 AM CDT POCT-GLUCOSE METER Routine 10/08/2017 6:28 AM CDT BASIC METABOLIC PANEL (7) Routine 10/08/2017 6:26 AM CDT PHOSPHORUS Routine 10/08/2017 6:26 AM CDT MAGNESIUM Routine 10/08/2017 6:26 AM CDT POCT-GLUCOSE METER Routine 10/08/2017 12:01 AM CDT POCT-GLUCOSE METER Routine 10/07/2017 6:06 PM CDT POCT-GLUCOSE METER Routine 10/07/2017 11:59 AM CDT BASIC METABOLIC PANEL (7) Routine 10/07/2017 8:39 AM CDT PHOSPHORUS Routine 10/07/2017 6:40 AM CDT MAGNESIUM Routine 10/07/2017 6:40 AM CDT POCT-GLUCOSE METER Routine 10/07/2017 5:55 AM CDT POCT-GLUCOSE METER Routine 10/06/2017 5:31 PM CDT POCT-GLUCOSE METER Routine 10/06/2017 11:07 AM CDT POCT-GLUCOSE METER Routine 10/06/2017 6:34 AM CDT PHOSPHORUS Routine 10/06/2017 5:06 AM CDT MAGNESIUM Routine 10/06/2017 5:06 AM CDT BASIC METABOLIC PANEL (7) Routine 10/06/2017 5:06 AM CDT POCT-GLUCOSE METER Routine 10/06/2017 1:07 AM CDT POCT-GLUCOSE METER Routine 10/05/2017 12:09 PM CDT FL UPPER GI Routine 10/05/2017 10:39 AM CDT POCT-GLUCOSE METER Routine 10/05/2017 6:30 AM CDT PHOSPHORUS Routine 10/05/2017 4:48 AM CDT MAGNESIUM Routine 10/05/2017 4:48 AM CDT POCT-GLUCOSE METER Routine 10/05/2017 12:47 AM CDT POCT-GLUCOSE METER Routine 10/04/2017 5:18 PM CDT POCT-GLUCOSE METER Routine 10/04/2017 12:44 PM CDT MAGNESIUM Routine 10/04/2017 5:03 AM CDT PHOSPHORUS Routine 10/04/2017 5:03 AM CDT BASIC METABOLIC PANEL (7) Routine 10/04/2017 5:03 AM CDT POCT-GLUCOSE METER Routine 10/04/2017 12:19 AM CDT POCT-GLUCOSE METER Routine 10/03/2017 4:07 PM CDT POCT-GLUCOSE METER Routine 10/03/2017 6:35 AM CDT PHOSPHORUS Routine 10/03/2017 5:20 AM CDT MAGNESIUM Routine 10/03/2017 5:20 AM CDT BASIC METABOLIC PANEL (7) Routine 10/03/2017 5:20 AM CDT POCT-GLUCOSE METER Routine 10/03/2017 12:16 AM CDT POCT-GLUCOSE METER Routine 10/02/2017 5:53 PM CDT POCT-GLUCOSE METER Routine 10/02/2017 12:11 PM CDT POCT-GLUCOSE METER Routine 10/02/2017 8:29 AM CDT LAPAROSCOPY,GASTROSTOMY 10/01/2017 Laryngeal cancer (HCC) BUTTON (G-BUTTON) 1:30 PM CDT Special Needs (req 1p) CBC W/PLT COUNT & AUTO Routine 10/01/2017 DIFFERENTIAL 4:08 AM CDT CBC W/PLT COUNT & AUTO Routine 10/01/2017 DIFFERENTIAL 4:08 AM CDT BASIC METABOLIC PANEL (7) Routine 10/01/2017 4:08 AM CDT CBC W/PLT COUNT & AUTO Routine 09/29/2017 DIFFERENTIAL 6:35 AM CDT MAGNESIUM Routine 09/29/2017 6:35 AM CDT CBC W/PLT COUNT & AUTO Routine 09/29/2017 DIFFERENTIAL 6:35 AM CDT BASIC METABOLIC PANEL (7) Routine 09/29/2017 6:35 AM CDT T4, FREE Routine 09/29/2017 6:17 AM CDT TSH Routine 09/29/2017 6:17 AM CDT BASIC METABOLIC PANEL (7) Routine 09/28/2017 4:58 AM CDT CBC W/PLT COUNT & AUTO Routine 09/27/2017 DIFFERENTIAL 3:45 AM CDT CBC W/PLT COUNT & AUTO Routine 09/27/2017 DIFFERENTIAL 3:45 AM CDT REPORT OF PROCEDURE - 09/26/2017 ENDOSCOPY URL 10:52 AM CDT UPPER ENDOSCOPY,PEG 09/26/2017 Dysphagia, unspecified 10:00 AM CDT type CBC W/PLT COUNT & AUTO Routine 09/26/2017 DIFFERENTIAL 6:06 AM CDT BASIC METABOLIC PANEL (7) Routine 09/26/2017 6:06 AM CDT CBC W/PLT COUNT & AUTO Routine 09/26/2017 DIFFERENTIAL 6:06 AM CDT PROTHROMBIN TIME/INR Routine 09/26/2017 6:06 AM CDT CBC W/PLT COUNT & AUTO Routine 09/25/2017 DIFFERENTIAL 6:25 PM CDT CBC W/PLT COUNT & AUTO Routine 09/25/2017 DIFFERENTIAL 6:25 PM CDT SPIN/CONCENTRATION CHARGE Routine 09/25/2017 10:13 AM CDT FUNGUS CULTURE + SMEAR Routine 09/25/2017 10:13 AM CDT AFB CULTURE + SMEAR STAT 09/25/2017 10:13 AM CDT SPUTUM CULTURE + GRAM Routine 09/25/2017 STAIN 10:[address] CHEST WITHOUT IV BYRON 09/24/2017 CONTRAST 8:54 PM CDT POCT-LACTIC ACID, Routine 09/24/2017 ARTERIAL 4:51 AM CDT XR CHEST 1 VIEW STAT 09/24/2017 PORTABLE/BEDSIDE 4:50 AM CDT POCT-HEMOGLOBIN Routine 09/24/2017 4:47 AM CDT POCT-HEMATOCRIT Routine 09/24/2017 4:47 AM CDT POCT-CALCIUM IONIZED Routine 09/24/2017 4:47 AM CDT POCT-GLUCOSE Routine 09/24/2017 4:47 AM CDT POCT-POTASSIUM Routine 09/24/2017 4:47 AM CDT POCT-SODIUM Routine 09/24/2017 4:47 AM CDT POCT-BLOOD GASES, Routine 09/24/2017 ARTERIAL 4:47 AM CDT CBC W/PLT COUNT & AUTO Routine 09/24/2017 DIFFERENTIAL 4:37 AM CDT COMPREHENSIVE METABOLIC STAT 09/24/2017 PANEL 4:37 AM CDT CBC W/PLT COUNT & AUTO Routine 09/24/2017 DIFFERENTIAL 4:37 AM CDT URINALYSIS W/ REFLEX Routine 09/23/2017 URINE CULTURE 9:52 PM CDT BLOOD CULTURE Routine 09/23/2017 6:55 PM CDT LACTIC ACID, VENOUS, Routine 09/23/2017 WHOLE BLOOD 5:07 AM CDT XR ESOPH SWALLOW FUNCTION Routine 09/20/2017 W/CINE VIDEO 1:20 PM CDT BASIC METABOLIC PANEL (7) Routine 09/17/2017 4:37 AM CDT BASIC METABOLIC PANEL (7) Routine 09/16/2017 4:31 AM CDT XR CHEST 2 VIEWS Routine 09/15/2017 11:29 AM CDT CBC W/PLT COUNT & AUTO Routine 09/15/2017 DIFFERENTIAL 2:05 AM CDT CBC W/PLT COUNT & AUTO Routine 09/15/2017 DIFFERENTIAL 2:05 AM CDT after 01/30/2017 Results * RHYTHM STRIP - SCAN (11/08/2017 11:01 AM CDT) Narrative Performed At * CBC with platelet count + automated diff (11/07/2017 5:07 AM CDT) Only the most recent of 23 results within the time period is included. WBC 3.6 3.5 - 10.5 K/L [facility] RBC 3.03 (L) 3.93 - 5.22 M/L [facility] Hemoglobin 8.9 (L) 11.2 - 15.7 GM/DL [facility] Hematocrit 28.6 (L) 34.1 - 44.9 % [facility] MCV 94.4 79.4 - 94.[address] [facility] MCH 29.4 25.6 - 32.[address] [facility] MCHC 31.1 (L) 32.2 - 35.5 GM/DL [facility] RDW 15.7 (H) 11.7 - 14.4 % [facility] Platelets 179 150 - 450 K/CU MM [facility] MPV 10.2 9.4 - 12.[address] [facility] nRBC 0 0 - 0 /100 WBC [facility] % Neutros 62 % [facility] % Lymphs 25 % [facility] % Monos 8 % [facility] % Eos 4 % [facility] % Baso 1 % [facility] # Neutros 2.22 1.56 - 6.13 K/L [facility] # Lymphs 0.89 (L) 1.18 - 3.74 K/L [facility] # Monos 0.28 0.24 - 0.36 K/L [facility] # Eos 0.15 0.04 - 0.36 K/L [facility] # Baso 0.02 0.01 - 0.08 K/L [facility] Immature 0 0 - 1 % [facility] Granulocytes-[facility] Specimen Blood - Arm, Right Performing Organization Address City/[facility] [place] [address] [phone] * Phosphorus (11/07/2017 5:07 AM CDT) Only the most recent of 24 results within the time period is included. Phosphorus 2.9 2.3 - 4.7 mg/dL [facility] Specimen Blood - Arm, Right Performing Organization Address City/[facility]/[place] [address] [phone] * Magnesium (11/07/2017 5:07 AM CDT) Only the most recent of 25 results within the time period is included. Magnesium 1.8 1.6 - 2.6 mg/dL [facility] Specimen Blood - Arm, Right Performing Organization Address City/[facility]/Zipcode Phone Number [facility] [address] [place] [address] [facility] * Basic Metabolic Panel (11/07/2017 5:07 AM CDT) Only the most recent of 33 results within the time period is included. Sodium 136 136 - 145 meq/L [facility] Potassium 4.1 3.5 - 5.1 meq/L [facility] Chloride 106 98 - 107 meq/L [facility] CO2 23 22 - 29 meq/L [facility] BUN 25 (H) 7 - 21 mg/dL [facility] Creatinine 0.65 0.57 - 1.25 mg/dL [facility] Glucose 113 (H) 70 - 105 mg/dL [facility] Calcium 8.6 8.4 - 10.2 mg/dL [facility] EGFR 90Comment: ESTIMATED GFR IS mL/min/1.73 sq m [facility] NOT ACCURATE CREATININE [facility] CLEARANCE IN PREDICTING GLOMERULAR FILTRATION RATE. ESTIMATED GFR IS NOT APPLICABLE FOR DIALYSIS PATIENTS. Specimen Blood - Arm, Right Performing Organization Address [facility] Centercode Phone Number [facility] [address] [place] [address] [facility] * POC-Glucose meter (11/06/2017 4:31 AM CDT) Only the most recent of 122 results within the time period is included. POC-Glucose Meter 118 (H)Comment: TESTED AT 70 - 110 mg/dL [facility] [address] [place] [id number] Specimen Blood Performing Organization Address City/[facility]/Zipcode Phone Number [facility] [address] [place] [address] [facility] * Venous doppler arm, right (11/05/2017 11:33 AM CDT) Ejection [facility]CHO HEART[facility] Impressions Performed At Right Impression [facility]ART[facility] 1. The jugular vein is not visualized due to tracheal collar and recent [facility] surgery. 2. There is no deep venous obstruction in the subclavian, axillary, radial or ulnar veins. 3. There is acute deep vein thrombosis of the brachial vein with the IV. 4. There is no superficial venous obstruction in the basilic vein. 5. The cephalic vein is not visualized. Left Impression Not ordered. Conclusions Summary Venous duplex imaging and compression of the right upper extremity were performed. The veins were adequately visualized. The right deep venous system was positive with acute thrombus. The right superficial venous system was patent and compressible with no evidence of thrombus of the visualized veins. Signature Velocities are measured in cm/s ; Diameters are measured in cm Narrative Performed At PV LAB - Upper Extremities Veins [facility] ECHO HEARTLAB Demographics [facility] Patient NamePAGEJENN Date of Study 11/05/2017 67 Visit [id number] of 1950 Number Referring TONYA CUNNINGHAM Room Number 6A03 Physician Date Puller Giovanni Tatum. InterpretingJ. Clark Manuel RVT, Paola FUNEZ, BRIAN Procedure Type of Study: Veins: Upper Extremities Veins, VENOUS DOPPLER ARM, RIGHT. Indications for Study:Evaluate for DVT. Patient Status:STAT. Study Location:Portable. Technical Quality:Technically Difficult. - Results were reported to:Pallavi at 11:15 on 11/05/2017.. Risk Factors History of Disease +---------+----+ + !Diagnosis!Date!Comments ! +---------+----+ + !Other!!laryngeal cancer, copd, pharyngocutaneous fistula! +---------+----+ + Procedure Note Interface, External Ris In - 11/05/2017 3:45 PM CDT PV LAB - Upper Extremities Veins Demographics Patient Name JENN JERNIGAN Date of Study 11/05/2017 Age 67 Visit Number [id number] Gender Female Date of 1950 Number Referring [facility] Room Number 6A03 Physician Date Puller Giovanni Tatum. Interpreting Kenia Manuel RVT, ARS Physician , BRIAN Procedure Type of Study: Veins: Upper Extremities Veins, VENOUS DOPPLER ARM, RIGHT. Indications for Study:Evaluate for DVT. Patient Status:STAT. Study Location:Portable. Technical Quality:Technically Difficult. - Results were reported to:Pallavi at 11:15 on 11/05/2017.. Risk Factors History of Disease +---------+----+ + !Diagnosis!Date!Comments ! +---------+----+ + !Other ! !laryngeal cancer, copd, pharyngocutaneous fistula ! +---------+----+ + Impressions Right Impression 1. The jugular vein is not visualized due to tracheal collar and recent surgery. 2. There is no deep venous obstruction in the subclavian, axillary, radial or ulnar veins. 3. There is acute deep vein thrombosis of the brachial vein with the IV. 4. There is no superficial venous obstruction in the basilic vein. 5. The cephalic vein is not visualized. Left Impression Not ordered. Conclusions Summary Venous duplex imaging and compression of the right upper extremity were performed. The veins were adequately visualized. The right deep venous system was positive with acute thrombus. The right superficial venous system was patent and compressible with no evidence of thrombus of the visualized veins. Signature Velocities are measured in cm/s ; Diameters are measured in cm Performing Organization Address City/State/[facility] Centercode Phone Number [facility] ECHO [facility]ART[facility] * Clostridium difficile [facility] Toxin (11/04/2017 5:48 PM CDT) C. Difficle Toxin Negative Negative [facility] C. Difficile [facility] Antigen NegativeComment: No indication Negative [facility] of Clostridium difficile [facility] infection and no colonization. Discontinue enteric isolation and therapy. Specimen Stool - Stool Narrative Performed At Testing performed by [employer] Rapid Cassette Assay.For [facility], published [facility] sensitivity of the assay is 98.7% compared to cytotoxicity testing.For Toxin [facility], published sensitivity is 87.8% and specificity 99.4% compared to cytotoxicity testing. Verification of kit performance was done by the [facility] Microbiology Lab prior to clinical use. Performing Organization Address City/State/[facility] Centercode Phone Number [facility] [address] [place] [address] [facility] * TRANSFUSION SERVICE REPORT - SCAN (10/31/2017 6:02 PM CDT) Only the most recent of 4 results within the time period is included. Narrative Performed At * Prepare Leuko-Red RBC (10/30/2017 4:18 AM CDT) Only the most recent of 2 results within the time period is included. CROSSMATCH COMPATIBLE SAFETRACE TX Unit ABO O Pos SAFETRACE TX UNIT NUMBER [id number] [place] Status WORK IN PROGRESS [place] Blood Bank Product RED BLOOD CELLS SAFETRACE TX PRODUCT CODE [id number] SAFET[place]ACE [place] CROSSMATCH COMPATIBLE SAFETRACE TX Unit ABO O Pos SAFETRACE TX UNIT NUMBER [id number] [facility] [place] Status WORK IN PROGRESS SAFET[place] [place] Blood Bank Product RED BLOOD CELLS [place] PRODUCT CODE [id number] [place] Specimen Other Performing Organization Address City/State/Zipcode Phone Number [place] * Transfuse Leuko-Red RBC (10/29/2017 2:05 AM CDT) Only the most recent of 2 results within the time period is included. * Vancomycin level, trough (10/28/2017 8:46 PM CDT) Vancomycin Tr 26.7 (H) 10.0 - 20.0 ug/mL [facility] Specimen Blood - Arm, Right Performing Organization Address City/State/Zipcode Phone Number [facility] [address] [place] [address] MED[facility]ENTER * ECG 12 lead (10/28/2017 11:30 AM CDT) Only the most recent of 2 results within the time period is included. Narrative Performed At Ventricular Rate 86 BPM GE MUSE Atrial Rate 86 BPM P-R Interval 154 ms QRS Duration 80 ms Q-T Interval 378 ms QTC Calculation(Bazett) 452 ms P Macon 57 degrees R [place] 32 degrees T [place] 56 degrees Normal sinus rhythm Low voltage QRS Poor R wave progression Cannot rule out Anterior infarct , age undetermined Abnormal ECG When compared with ECG of 29-MAY-1995 12:05, No significant changes Confirmed by Maria Guadalupe PETTY, BLANCHE ([id number]) on 10/30/2017 1:48:13 PM Procedure Note Interface, External Ris In - 10/30/2017 1:48 PM CDT Ventricular Rate 86 BPM Atrial Rate 86 BPM P-R Interval 154 ms QRS Duration 80 ms Q-T Interval 378 ms QTC Calculation(Bazett) 452 ms P Macon 57 degrees R Macon 32 degrees T [place] 56 degrees Normal sinus rhythm Low voltage QRS Poor R wave progression Cannot rule out Anterior infarct , age undetermined Abnormal ECG When compared with ECG of 29-MAY-1995 12:05, No significant changes Confirmed by Maria Guadalupe PETTY, BLANCHE ([id number]) on 10/30/2017 1:48:13 PM Performing Organization Address City/[facility] Cent[facility]ode Phone Number [employer] * XR chest 1 view portable / bedside (10/28/2017 11:17 AM CDT) Only the most recent of 4 results within the time period is included. Narrative Performed At FINAL REPORT Zevia CHEST ONE VIEW HISTORY: Status post tracheostomy COMPARISON: 10/27/2017 FINDINGS: Single portable AP examination of the chest was performed. There has been an interval increase in diffuse interstitial opacities suggestive of interstitial edema. No pleural effusions or pneumothorax are identified. Mild bibasilar subsegmental atelectasis is present. Cardiac shadow is normal in size. Tracheostomy tube tip is well above the michael. There are surgical clips in the right supraclavicular region. Signed: Jayro Adams MD Report Verified Date/Time:10/28/2017 11:20:47 Reading Location: [address] Transitional Reading Room Procedure Note Interface, External Ris In - 10/28/2017 11:26 AM CDT FINAL REPORT CHEST ONE VIEW HISTORY: Status post tracheostomy COMPARISON: 10/27/2017 FINDINGS: Single portable AP examination of the chest was performed. There has been an interval increase in diffuse interstitial opacities suggestive of interstitial edema. No pleural effusions or pneumothorax are identified. Mild bibasilar subsegmental atelectasis is present. Cardiac shadow is normal in size. Tracheostomy tube tip is well above the michael. There are surgical clips in the right supraclavicular region. Signed: Jayro Adams MD Report Verified Date/Time: 10/28/2017 11:20:47 Reading Location: [address] Transitional Reading Room Performing Organization Address City/[facility] Centercome Phone Number GE RIS * TSH/Free T4 If Indicated (10/27/2017 12:58 PM CDT) TSH 1.46 0.35 - 4.94 uIU/mL [facility] Specimen Blood Performing Organization Address [facility] Phone Number [address] [address] [phone] * Prealbumin (10/27/2017 3:31 AM CDT) Only the most recent of 2 results within the time period is included. Prealbumin 14 14 - 45 mg/dL [facility] Specimen Blood Performing Organization Address [facility] Centercome Phone Number [address] [address] [facility] * Tissue Exam (10/26/2017 8:28 AM CDT) Case Report Surgical Pathology [facility] Case: [id number] Authorizing Provider:Kanu Acevedo MD Collected: 10/26/2017 0828 Ordering Location: [facility] PERIOPERATIVE Received: 10/26/2017 0838 SERVICES Pathologist: Ale Hdez MD Specimens: A) - Pharynx, Posterior pharyngeal wall B) - Tracheal, tracheal esophageal fistula DIAGNOSIS A. PHARYNX, POSTERIOR [facility] WALL,BIOPSY, : [facility] - SQUAMOUS MUCOSA WITH MILD CHRONIC INFLAMMATION AND FIBROSIS - NEGATIVE FOR DYSPLASIA OR MALIGNANCY B. TRACHEAOESOPHAGEAL FISTULA, BIOPSY: - FRAGMENTS OF ULCERATED SQUAMOUS MUCOSA WITH GRANULATION TISSUE, INFLAMMATION AND FIBROSIS - NEGATIVE FOR DYSPLASIA OR MALIGNANCY Signing Pathologist Direct Phone Line: [phone] CPT Code(s) 32071 [facility] 52464 X 2 [facility] CLINICAL HISTORY Esophagotracheal fistula [facility] SPECIMEN SOURCE A. Posterior pharyngeal wall. [facility] B. Tracheal esophageal fistula [facility] GROSS DESCRIPTION Specimen A. The specimen is [facility] received fresh for frozen [facility] section diagnosis and labeled "pharyngeal wall" and consists of a small fragment of garza soft tissue measuring 0.3 cm in greatest dimension, submitted entirely for frozen in A1FS. CG/ew Specimen B: Received fresh labeled "tracheal", description "tracheal esophageal fistula" is a 2.2 x 1.0 x 0.3 cm, sherman-white to pink-garza, irregular, rubbery, ragged fragment of skin and soft tissue. Sectioning reveals no discrete masses. The specimen is entirely submitted in cassette B1. DB/ew INTRAOPERATIVE A1FS; POSTERIOR PHARYNGEAL [facility] CONSULTATION WALL, BIOPSY: [facility] - SQUAMOUS MUCOSA WITH MILD CHRONIC INFLAMMATION AND FIBROSIS - NEGATIVE FOR DYSPLASIA PER DR. HDEZ MICROSCOPIC DESCRIPTION PERFORMED [facility] Specimen Tissue - Pharynx Performing Organization Address City/State/Zipcode Phone Number [facility] [address] [place] [address] [facility] [place] * Manual Differential (10/26/2017 4:57 AM CDT) % Neutros 45 % [facility] % Lymphs 41 % [facility] % Monos 7 % [facility] % Eos 5 % [facility] % Baso 2 % [facility] # Neutros 1.08 (L) 1.56 - 6.13 K/ul [facility] # Lymphs 0.98 (L) 1.18 - 3.74 K/ul [facility] # Monos 0.17 (L) 0.24 - 0.36 K/uL [facility] # Eos 0.12 0.04 - 0.36 K/uL [facility] # Baso 0.05 0.01 - 0.08 K/uL [facility] Total Counted [address] [facility] WBC Morphology Normal [facility] Platelet Morphology Normal [facility] Polychromasia 1+ few [facility] Anisocytosis 1+ few [facility] Poikilocytes 1+ few [facility] Artifact Present [facility] Platelet Conc Adequate [facility] Specimen Blood Narrative Performed At Received comment: [facility] User comments: [facility] Slide comments: Performing Organization Address City/[facility]/Zipcode Phone Number [facility] [address] [place] [address] [phone] [place] [address] * Type and screen, automated (10/26/2017 4:57 AM CDT) ABO/RH AUTOMATED (BEAKER) O POSITIVE [facility] Ab Scrn NEGATIVE [facility] Specimen Blood Performing Organization Address City/[facility]/Zipcode Phone Number [facility] [address] [place] [address] [facility] * aPTT (10/26/2017 4:57 AM CDT) PTT 22.2 (L) 22.5 - 36.[address] [facility] Specimen Blood Performing Organization Address City/[facility]/Zipcode Phone Number [facility] [address] [place], [place] [id number] [facility] * Prothrombin time/INR (10/26/2017 4:57 AM CDT) Only the most recent of 2 results within the time period is included. Protime 12.5 11.7 - 14.[address] [facility] INR 0.9 <=5.[address] [facility] Specimen Blood Narrative Performed At RECOMMENDED COUMADIN/WARFARIN INR THERAPY RANGES [facility] STANDARD DOSE: 2.0 - 3.0 Includes: PROPHYLAXIS for venous thrombosis, [facility] systemic embolization; TREATMENT for venous thrombosis and/or pulmonary embolus. HIGH RISK: Target INR is 2.5-3.5 for patients with mechanical heart valves. Performing Organization Address City/[facility] Centercode Phone Number [facility] [address] [place] [address] [facility] * Sputum Culture + Gram Stain (10/24/2017 4:07 PM CDT) Only the most recent of 2 results within the time period is included. Result METHICILLIN RESISTANT [facility] STAPHYLOCOCCUS AUREUS (A) [facility] Gram Stain Result No WBCs [facility] Gram Stain Result 5-10 epithelial cells [facility] Gram Stain Result 2+ gram positive cocci in [facility] pairs [facility] Gram Stain Result 2+ gram positive cocci in [facility] clusters [facility] Specimen Tracheal - Trachea Narrative Performed At 2+ Normal respiratory yoanna present [facility] Antibiotic Method Susceptibility Organism Clindamycin >=4: Resistant Methicillin resistant Staphylococcus aureus Erythromycin >=8: Resistant Methicillin resistant Staphylococcus aureus Linezolid 2: Susceptible Methicillin resistant Staphylococcus aureus Oxacillin >=4: Resistant Methicillin resistant Staphylococcus aureus Rifampin <=0.5: Susceptible Methicillin resistant Staphylococcus aureus Tetracycline 2: Susceptible Methicillin resistant Staphylococcus aureus Trimethoprim + Sulfamethoxazole <=10: Susceptible Methicillin resistant Staphylococcus aureus Vancomycin 1: Susceptible Methicillin resistant Staphylococcus aureus Performing Organization Address City/State/Zipcode Phone Number [facility] [address] [place] [address] [facility] * CT chest low dose 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 Correlation is made with a chest x-ray dated 10/23/2017 Multiple axial images of the chest were performed without IV contrast. This exam was performed according to our departmental dose-optimization program, which includes automated exposure control, adjustment of the mA and/or kV according to patient size and/or use of the iterative reconstruction technique. FINDINGS: Lung parenchyma: Mild centrilobular emphysematous changes. There are tree-in-bud/centrilobular punctate nodules in both lungs, primarily in the lingula and left lower lobe. These are in regions of previous, nonspecific groundglass opacities. The left hemidiaphragm is slightly elevated and there is curvilinear atelectasis versus scarring in the left greater than and right lung bases. No dense focal consolidation. Pleural effusion: None. Pneumothorax: None. Tracheobronchial tree: Tracheostomy tube above the michael Pulmonary vasculature: No significant findings. Cardiac contours and great vessels: Atherosclerotic calcification of the coronary arteries and aorta. Mediastinum: Small hiatal hernia. Fluid in the distal esophagus. Lymph Nodes: No adenopathy in the mediastinum or prashant. Skeleton: Osteopenia. Redemonstrated significant compression fracture of T10 vertebral body. Limited images of upper abdomen: No significant findings. IMPRESSION: Tree-in-bud centrilobular punctate nodules in both lungs, primarily in the lingula and left lower lobe and in regions of previous nonspecific groundglass opacities. The appearance is nonspecific but is most commonly associated with chronic/indolent infection. Please correlate. There is no persistent focal consolidation. Pulmonary emphysema. Small hiatal hernia with fluid in the distal esophagus, possibly reflux. Signed: Jian Loyola MD Report Verified Date/Time:10/24/2017 02:08:27 Reading Location: [address] Reading Room Procedure Note Interface, External Ris In - 10/24/2017 2:10 AM CDT FINAL REPORT CLINICAL INDICATION: Follow-up left lung infiltrate on abnormal chest x-ray COMPARISON: 09/24/2017. Correlation is made with a chest x-ray dated 10/23/2017 Multiple axial images of the chest were performed without IV contrast. This exam was performed according to our departmental dose-optimization program, which includes automated exposure control, adjustment of the mA and/or kV according to patient size and/or use of the iterative reconstruction technique. FINDINGS: Lung parenchyma: Mild centrilobular emphysematous changes. There are tree-in-bud/centrilobular punctate nodules in both lungs, primarily in the lingula and left lower lobe. These are in regions of previous, nonspecific groundglass opacities. The left hemidiaphragm is slightly elevated and there is curvilinear atelectasis versus scarring in the left greater than and right lung bases. No dense focal consolidation. Pleural effusion: None. Pneumothorax: None. Tracheobronchial tree: Tracheostomy tube above the michael Pulmonary vasculature: No significant findings. Cardiac contours and great vessels: Atherosclerotic calcification of the coronary arteries and aorta. Mediastinum: Small hiatal hernia. Fluid in the distal esophagus. Lymph Nodes: No adenopathy in the mediastinum or prashant. Skeleton: Osteopenia. Redemonstrated significant compression fracture of T10 vertebral body. Limited images of upper abdomen: No significant findings. IMPRESSION: Tree-in-bud centrilobular punctate nodules in both lungs, primarily in the lingula and left lower lobe and in regions of previous nonspecific groundglass opacities. The appearance is nonspecific but is most commonly associated with chronic/indolent infection. Please correlate. There is no persistent focal consolidation. Pulmonary emphysema. Small hiatal hernia with fluid in the distal esophagus, possibly reflux. Signed: Jian Loyola MD Report Verified Date/Time: 10/24/2017 02:08:27 Reading Location: [address] Reading Room Performing Organization Address City/State/Zipcode Phone Number RIS * PERIPHERAL VASCULAR REPORT - SCAN (10/19/2017 2:53 PM CDT) Narrative Performed At * STRESS ECHO With Contrast & Tracing (10/19/2017 7:48 AM CDT) Ejection Fraction [facility] ECHO HEARTLAB [facility] Narrative Performed At Stress Echocardiography Report [facility]ART[facility] Demographics [facility] Patient Name PAGEJENN Date of Study 10/19/2017 [id number] Female Visit Number [id number] Room Number 2430 Number Date of Birth1950Referring Physician Sunny Sun Age67 year(s)Date Puller Shonda Pierson Interpreting Kobe Friend MD Physician Fellow Clark Mcleod, [place] Wick MD Procedure Type of Study Stress procedure:STRESS ECHO/TMT W/DOP&TRAC (Routine) Indications:Pre-operative cardiovascular examination. Clinical History COPD, Cancer HGB 9.6 HCT 30.8 % Contrast Medium: Definity. Amount - 5 ml Height: 60 inches Weight: 45.81 kg (101 lbs) BSA: 1.4 m^2 BMI: 19.72 kg/m^2 HR: 76 bpm BP: 128/61 mmHg Rest ECG Normal sinus rhythm Standing HR:76 bpmStanding BP:128/61 mmHg Stress Stress Type: Pharmacologic Peak HR: 129 bpmHR Response: Normal Peak BP: 151/78 mmHgBP Response: Normal Predicted HR: 151 bpm HR BP Product: 34549 % of predicted HR: 85 Max Infusion: 30 mcg/kg/min Test Duration: 27:00 min Reason for Termination: Target heart rate Stress Interpretation Target heart rate was achieved. All segments contract normally at baseline and at all stages of stress. Appropriate augmentation of LV function at escalating doses of dobutamine. Appropriate HR and blood pressure response to escalating doses of dobutamine. Results Global LVEF (rest): Normal (LVEF >50%) Global LVEF (stress): Normal (LVEF >50%) ECG Sinus rhythm. Isolated PVCs. No significant ST-T wave abnormalities. Arrhythmias Isolated PVCs. Symptoms No symptoms during stress test. Stress Protocol: Pharmacologic - Dobutamine +--------+-----+------+ +------+-----+--------+--+--------+----+------+ !Stage # !Time !Dosage!Other !Dosage!Heart!Blood !CP!Pain!Pain!Pain! !! !!Medication!!Rate !Pressure!!Location!Type!Action! +--------+-----+------+ +------+-----+--------+--+--------+----+------+ !1.0 !03:00!10.00 !!!79 !151/78!!!!! +--------+-----+------+ +------+-----+--------+--+--------+----+------+ !2.0 !06:00!20.00 !!!118!!! !!! +--------+-----+------+ +------+-----+--------+--+--------+----+------+ !3.0 !11:00!30.00 !!!129!151/62!!! !! +--------+-----+------+ +------+-----+--------+--+--------+----+------+ !Recovery!27:00!!!!92 !128/57!!!!! +--------+-----+------+ +------+-----+--------+--+--------+----+------+ Signature Findings Rhythm/BP Normal sinus rhythm LeftThe LV endocardium is well visualized. Ventricle The left ventricle is chamber size (by vol index) is normal (female - LVED vol - 29-61ml/m2). Normal LV wall thickness. All of the LV segments contract normally . LVEF by Alcantara's method of disk assessment is normal (55-60%) . Grade 1 diastolic dysfunction (impaired relaxation and low-normal LA pressure). Left Atrium Normal size left atrium. Right Normal right ventricle structure and function. Ventricle Right AtriumNormal right atrium. Atrial Septum The interatrial septum is adequately visualized. Aortic ValveNormal AoV structure. There is mild aortic regurgitation. Mitral ValveNormal mitral valve structure and function. Tricuspid TV structure is normal. Valve A trace of tricuspid regurgitation. PulmonicNot visualized. Valve Aorta The aortic root is normal size at the Sinus of Valsalva. Chambers/Structures Left Atrium LA Volume: 46.12 ml LA Area: 16.26 cm^2 LA Vol. Index: 33 ml/m^2 Left Ventricle LVIDd: 3.6 cm LVIDs: 2.74 cm LV Septum Diastolic: 0.91 cm LV PW Diastolic: 0.76 cmLV FS: 23.9 % LVEDV Alcantara's:81.23 ml LVESV Alcantara's:34.65 mlLVEDVI: 58 ml/m^2 LVEF Alcantara's: 57.4 %LVESVI: 25 ml/m^2 LVOT Diameter: 1.77 cm Aorta Ao Root S of Lyndsey.: 2.68 cm Doppler/Quantitative Measurements Mitral Valve MV Peak E-Wave: 0.55 m/sMV Peak A-Wave: 0.98 m/s E/A Ratio: 0.57 Peak Gradient: 1.23 mmHg MV Morgan. Peak: Aortic Valve Peak Velocity: 0.93 m/sMean Velocity: 0.62 m/s Peak Gradient: 3.48 mmHg Mean Gradient: 1.78 mmHg AV Area (continuity): 2.32 cm^2 AV VTI: 19.57 cm AV DVI: 0.94 LVOT Peak Velocity: 1.01 m/s Peak Gradient: 4.1 mmHg Mean Velocity: 0.65 m/s Mean Gradient: 1.97 mmHg LVOT Diameter: 1.77 cmLVOT VTI: 18.43 cm LVOT Area: 2.46 cm^2LVOT SV:45.33 ml LVOT CO: 3.44 l/min LVOT CI: 2.46 l/min/m^2 Procedure Note Interface, External Ris In - 10/19/2017 2:07 PM CDT Stress Echocardiography Report Demographics Patient Name JENN JERNIGAN Date of Study 10/19/2017 Gender Female Visit Number [id number] Race Unknown Room Number [facility]0 Number Date of 1950 Referring Physician Sunny Sun Age 67 year(s) Date Puller Shonda Pierson Interpreting Kobe Friend MD Physician Fellow Clark Mcleod, [place] Wick MD Procedure Type of Study Stress procedure:STRESS ECHO/TMT W/DOP&TRAC (Routine) Indications:Pre-operative cardiovascular examination. Clinical History COPD, Cancer HGB 9.6 HCT 30.8 % Contrast Medium: Definity. Amount - 5 ml Height: 60 inches Weight: 45.81 kg (101 lbs) BSA: 1.4 m^2 BMI: 19.72 kg/m^2 HR: 76 bpm BP: 128/61 mmHg Rest ECG Normal sinus rhythm Standing HR:76 bpmStanding BP:128/61 mmHg Stress Stress Type: Pharmacologic Peak HR: 129 bpm HR Response: Normal Peak BP: 151/78 mmHg BP Response: Normal Predicted HR: 151 bpm HR BP Product: 12612 % of predicted HR: 85 Max Infusion: 30 mcg/kg/min Test Duration: 27:00 min Reason for Termination: Target heart rate Stress Interpretation Target heart rate was achieved. All segments contract normally at baseline and at all stages of stress. Appropriate augmentation of LV function at escalating doses of dobutamine. Appropriate HR and blood pressure response to escalating doses of dobutamine. Results Global LVEF (rest): Normal (LVEF >50%) Global LVEF (stress): Normal (LVEF >50%) ECG Sinus rhythm. Isolated PVCs. No significant ST-T wave abnormalities. Arrhythmias Isolated PVCs. Symptoms No symptoms during stress test. Stress Protocol: Pharmacologic - Dobutamine +--------+-----+------+ +------+-----+--------+--+--------+----+------+ !Stage # !Time !Dosage!Other !Dosage!Heart!Blood !CP!Pain !Pain!Pain ! ! ! ! !Medication! !Rate !Pressure! !Location!Type!Action! +--------+-----+------+ +------+-----+--------+--+--------+----+------+ !1.0 !03:00!10.00 ! ! !79 !151/78 ! ! ! ! ! +--------+-----+------+ +------+-----+--------+--+--------+----+------+ !2.0 !06:00!20.00 ! ! !118 ! ! ! ! ! ! +--------+-----+------+ +------+-----+--------+--+--------+----+------+ !3.0 !11:00!30.00 ! ! !129 !151/62 ! ! ! ! ! +--------+-----+------+ +------+-----+--------+--+--------+----+------+ !Recovery!27:00! ! ! !92 !128/57 ! ! ! ! ! +--------+-----+------+ +------+-----+--------+--+--------+----+------+ Signature Findings Rhythm/BP Normal sinus rhythm Left The LV endocardium is well visualized. Ventricle The left ventricle is chamber size (by vol index) is normal (female - LVED vol - 29-61ml/m2). Normal LV wall thickness. All of the LV segments contract normally . LVEF by Alcantara's method of disk assessment is normal (55-60%) . Grade 1 diastolic dysfunction (impaired relaxation and low-normal LA pressure). Left Atrium Normal size left atrium. Right Normal right ventricle structure and function. Ventricle Right Atrium Normal right atrium. Atrial Septum The interatrial septum is adequately visualized. Aortic Valve Normal AoV structure. There is mild aortic regurgitation. Mitral Valve Normal mitral valve structure and function. Tricuspid TV structure is normal. Valve A trace of tricuspid regurgitation. Pulmonic Not visualized. Valve Aorta The aortic root is normal size at the Sinus of Valsalva. Chambers/Structures Left Atrium LA Volume: 46.12 ml LA Area: 16.26 cm^2 LA Vol. Index: 33 ml/m^2 Left Ventricle LVIDd: 3.6 cm LVIDs: 2.74 cm LV Septum Diastolic: 0.91 cm LV PW Diastolic: 0.76 cm LV FS: 23.9 % LVEDV Alcantara's:81.23 ml LVESV Alcantara's:34.65 ml LVEDVI: 58 ml/m^2 LVEF Alcantara's: 57.4 % LVESVI: 25 ml/m^2 LVOT Diameter: 1.77 cm Aorta Ao Root S of Lyndsey.: 2.68 cm Doppler/Quantitative Measurements Mitral Valve MV Peak E-Wave: 0.55 m/s MV Peak A-Wave: 0.98 m/s E/A Ratio: 0.57 Peak Gradient: 1.23 mmHg MV Morgan. Peak: Aortic Valve Peak Velocity: 0.93 m/s Mean Velocity: 0.62 m/s Peak Gradient: 3.48 mmHg Mean Gradient: 1.78 mmHg AV Area (continuity): 2.32 cm^2 AV VTI: 19.57 cm AV DVI: 0.94 LVOT Peak Velocity: 1.01 m/s Peak Gradient: 4.1 mmHg Mean Velocity: 0.65 m/s Mean Gradient: 1.97 mmHg LVOT Diameter: 1.77 cm LVOT VTI: 18.43 cm LVOT Area: 2.46 cm^2 LVOT SV:45.33 ml LVOT CO: 3.44 l/min LVOT CI: 2.46 l/min/m^2 [facility] Organization Address City/State/Zipcode Phone Number ANAH CHERELLE MORENO [facility] * CT neck soft tissue with IV contrast (10/18/2017 10:14 PM CDT) Narrative Performed At FINAL REPORT [facility] neck soft tissues after IV contrast Comparison:None Reason for exam: Neoplasm: neck, metastatic, 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 Dose modulation, iterative reconstruction, and/or weight based adjustment of the mA/kV was utilized to reduce the radiation dose to as low as reasonably achievable. Visible intracranial and intraorbital contents are grossly unremarkable. Visible paranasal sinuses are clear and temporal bones are aerated. Partial right mastoidectomy changes are noted. Aerodigestive tract is uncompromised. Total laryngectomy changes are present with unremarkable appearing tracheostomy and stoma noted. The lowest images reveal nonspecific small mediastinal lymph nodes similar in appearance when correlated with the CT chest appearance from September 24. Thyroid gland is atrophic. No visible lymphadenopathy, mass, abnormal enhancement, infiltrative process, fluid collection. Degenerative spine changes are noted. Impressions: Unremarkable post laryngectomy CT neck appearance. 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 Dose modulation, iterative reconstruction, and/or weight based adjustment of the mA/kV was utilized to reduce the radiation dose to as low as reasonably achievable. Visible intracranial and intraorbital contents are grossly unremarkable. Visible paranasal sinuses are clear and temporal bones are aerated. Partial right mastoidectomy changes are noted. Aerodigestive tract is uncompromised. Total laryngectomy changes are present with unremarkable appearing tracheostomy and stoma noted. The lowest images reveal nonspecific small mediastinal lymph nodes similar in appearance when correlated with the CT chest appearance from September 24. Thyroid gland is atrophic. No visible lymphadenopathy, mass, abnormal enhancement, infiltrative process, fluid collection. Degenerative spine changes are noted. Impressions: Unremarkable post laryngectomy CT neck appearance. Signed: Clover Gonzalez MD Report Verified Date/Time: 10/19/2017 08:01:01 Reading Location: [facility] C013V Neuro Reading Room Performing Organization Address City/State/Zipcode Phone Number GE RIS * Arterial doppler arms bilateral (10/18/2017 10:17 AM CDT) Ejection Fraction [facility] ECHO HEARTLAB [facility] Impressions Performed At Right Impression [facility] ECHO HEART[facility] 1. The subclavian, axillary, brachial, radial and ulnar arteries are patent [facility] with normal triphasic/biphasic Doppler waveforms. 2. The index finger pressure is 95 mmHg with a normal index finger/brachial index of 0.81. 3. Digital flow is normal by PPG waveforms. 4. Shelton arch is INCOMPLETE per SARAI's test. Left Impression 1. The subclavian, axillary, brachial, radial and ulnar arteries are patent with normal triphasic/biphasic Doppler waveforms. 2. The index finger pressure is 105 mmHg with a normal index finger/brachial index of 0.89. 3. Digital flow is normal by PPG waveforms. 4. Shelton arch is INCOMPLETE per SARAI's test. Conclusions Summary Doppler analysis, index finger digital pressures and digital PPG flow were obtained at rest. Adequate Doppler signals were obtained. Bilaterally, the subclavian, axillary, brachial, radial and ulnar arteries were patent with normal triphasic/biphasic Doppler waveforms. Bilaterally, the FBI was normal. Bilaterally, the Shelton arch is INCOMPLETE per SARAI's test. Signature Velocities are measured in cm/s ; Diameters are measured in cm Narrative Performed At [facility] - Upper Extremities Arterial Duplex [facility] ECHO HEARTLAB Demographics [facility] Patient NamePAGE, JENN SALDANA Date of Study 10/18/2017 67 Visit [id number] of 1950 Number Referring Willie Nguyen Room Number 2430 Physician Date Puller Giovanni Tatum. InterpretingJ. INGRID BarrosoT, Paola FUNEZ, RPVI Procedure Type of Study: Extremities Arteries: Upper Extremities Arterial Duplex, ARTERIAL DOPPLER ARMS, BILATERAL. Indications for Study:Pre-op evaluation. Patient Status:Routine. Study Location:Vascular Lab. Technical Quality:Adequate visualization. Risk Factors History of Disease +---------+----+ + !Diagnosis!Date!Comments ! +---------+----+ + !Other!!laryngeal cancer, copd, pharyngocutaneous fistula! +---------+----+ + Procedure Note Interface, External Ris In - 10/23/2017 3:20 PM CDT [facility] - Upper Extremities Arterial Duplex Demographics Patient Name PAGE, JENN SALDANA Date of Study 10/18/2017 Age 67 Visit Number [id number] Gender Female Date of 1950 Number Referring Willie Nguyen Room Number 2430 Physician Date Puller Giovanni Tatum. Interpreting Kenia Manuel RVT, ARDMS Physician , RPVI Procedure Type of Study: Extremities Arteries: Upper Extremities Arterial Duplex, ARTERIAL DOPPLER ARMS, BILATERAL. Indications for Study:Pre-op evaluation. Patient Status:Routine. Study Location:Vascular Lab. Technical Quality:Adequate visualization. Risk Factors History of Disease +---------+----+ + !Diagnosis!Date!Comments ! +---------+----+ + !Other ! !laryngeal cancer, copd, pharyngocutaneous fistula ! +---------+----+ + Impressions Right Impression 1. The subclavian, axillary, brachial, radial and ulnar arteries are patent with normal triphasic/biphasic Doppler waveforms. 2. The index finger pressure is 95 mmHg with a normal index finger/brachial index of 0.81. 3. Digital flow is normal by PPG waveforms. 4. Shelton arch is INCOMPLETE per SARAI's test. Left Impression 1. The subclavian, axillary, brachial, radial and ulnar arteries are patent with normal triphasic/biphasic Doppler waveforms. 2. The index finger pressure is 105 mmHg with a normal index finger/brachial index of 0.89. 3. Digital flow is normal by PPG waveforms. 4. Shelton arch is INCOMPLETE per SARAI's test. Conclusions Summary Doppler analysis, index finger digital pressures and digital PPG flow were obtained at rest. Adequate Doppler signals were obtained. Bilaterally, the subclavian, axillary, brachial, radial and ulnar arteries were patent with normal triphasic/biphasic Doppler waveforms. Bilaterally, the FBI was normal. Bilaterally, the Shelton arch is INCOMPLETE per SARAI's test. Signature Velocities are measured in cm/s ; Diameters are measured in cm Performing Organization Address City/[facility]/Zipcode Phone Number [facility] ECHO HEARTLAB [facility] * Vitamin B12 and Folate (10/16/2017 3:57 AM CDT) Vitamin B12 419 213 - 816 pg/mL [facility] Folate 13.0 >=7.0 ng/mL [facility] Specimen Blood Performing Organization Address City/[facility]/Zipcode Phone Number [facility] [address] [place] [address] [facility] * Iron, TIBC, % sat. (without ferritin) (10/16/2017 3:57 AM CDT) Iron 24 (L) 40 - 160 ug/dL [facility] TIBC 204 (L) 250 - 450 ug/dL [facility] Iron % Saturation 12 (L) 20 - 55 % [facility] Specimen Blood Performing Organization Address City/State/Zipcode Phone Number [facility] [address] [place] [address] [facility] * Ferritin (10/16/2017 3:57 AM CDT) Ferritin 46 5 - 275 ng/mL [facility] Specimen Blood Performing Organization Address City/State/Zipcode Phone Number [facility] [address] [place], [place] [phone] [facility] * FL upper GI (10/05/2017 10:39 AM CDT) Narrative Performed At FINAL REPORT GE RIS Upper GI. CLINICAL HISTORY: Vomiting post G-tube placement. Evaluate for gastric outlet obstruction. COMPARISON STUDY: None available. FINDINGS: Approximately 35 cc of Gastrografin was instilled into the patient's stomach through the indwelling gastrostomy tube. The stomach is morphologically normal in appearance. No extraluminal contrast extravasation is noted. A small hiatal hernia is seen and there is severe gastroesophageal reflux with contrast refluxing into the distal esophagus. No evidence of gastric outlet obstruction is seen with contrast reaching the duodenum on a 10 minute delayed radiograph. IMPRESSION: 1. Appropriately positioned gastrostomy tube with no evidence of extraluminal contrast extravasation. 2. Severe gastroesophageal reflux. 3. No evidence of gastric outlet obstruction. Fluoroscopy time: One minute. 17 images. Signed: Anand Dia MD Report Verified Date/Time:10/05/2017 11:22:08 Reading Location: [address] Consult Reading Room Procedure Note Interface, External Ris In - 10/05/2017 11:24 AM CDT FINAL REPORT Upper GI. CLINICAL HISTORY: Vomiting post G-tube placement. Evaluate for gastric outlet obstruction. COMPARISON STUDY: None available. FINDINGS: Approximately 35 cc of Gastrografin was instilled into the patient's stomach through the indwelling gastrostomy tube. The stomach is morphologically normal in appearance. No extraluminal contrast extravasation is noted. A small hiatal hernia is seen and there is severe gastroesophageal reflux with contrast refluxing into the distal esophagus. No evidence of gastric outlet obstruction is seen with contrast reaching the duodenum on a 10 minute delayed radiograph. IMPRESSION: 1. Appropriately positioned gastrostomy tube with no evidence of extraluminal contrast extravasation. 2. Severe gastroesophageal reflux. 3. No evidence of gastric outlet obstruction. Fluoroscopy time: One minute. 17 images. Signed: Anand Dia MD Report Verified Date/Time: 10/05/2017 11:22:08 Reading Location: [address] Ortho Consult Reading Room Performing Organization Address [facility] Centercode Phone Number GE RIS * TSH (09/29/2017 6:17 AM CDT) TSH 3.36 0.35 - 4.94 uIU/mL [facility] Specimen Blood Performing Organization Address [facility] Centercome Phone Number [address] * T4, free (09/29/2017 6:17 AM CDT) Free T4 1.03 0.70 - 1.48 ng/dL [facility] Specimen Blood Performing Organization Address [facility] Cent[facility]ome Phone Number [address] * REPORT OF PROCEDURE - ENDOSCOPY URL (09/26/2017 10:52 AM CDT) Narrative Performed At * SPIN/CONCENTRATION CHARGE (09/25/2017 10:13 AM CDT) Concentration charged Done [facility] Specimen Sputum - Endotracheal Performing Organization Address [facility] Centercome Phone Number [address] * AFB culture + smear (09/25/2017 10:13 AM CDT) Result No acid-fast bacilli isolated [facility] in 42 days [facility] AFB Smear No acid fast bacilli seen [facility] Specimen Sputum - Endotracheal Performing Organization Address City/State/Zipcode Phone Number [facility] [address] [place], [place] [phone] [facility] * Fungus culture + smear (09/25/2017 10:13 AM CDT) Result DAVIN TROPICALIS (A) [facility] Fungus Smear 4+ budding yeast [facility] Fungus Smear 1+ yeast with pseudohyphae [facility] Fungus Smear <1+ hyphal elements seen [facility] Specimen Sputum - Endotracheal Performing Organization Address City/State/Zipcode Phone Number [facility] [address] [place], [place] [phone] [facility] * CT chest without IV contrast (09/24/2017 8:54 PM CDT) Narrative Performed At FINAL REPORT [employer] [facility] DOSE REDUCTION: The examination was performed according to departmental dose-optimization program which includes automated exposure control, adjustment of the mA and/or kV according to patient size and/or use of iterative reconstruction technique. TECHNIQUE: CT of the chest without intravenous contrast. COMPARISON: Chest x-ray, 09/24/2017 Discussion: Tracheostomy tube identified. There is mild bilateral lower lobe bronchiectasis. There are groundglass and reticular nodular opacities in the lingula and left lower lobe, to a lesser extent in the right lower and middle lobes. Areas of bronchial wall thickening and bronchial impaction noted. No pleural effusions. Noncontrast appearance of aorta and great vessels is unremarkable. Heart is normal in size. No pericardial effusion. No significant mediastinal or hilar lymphadenopathy. No definite focal abnormality in the upper abdomen. Osteopenia and degenerative changes are seen. Moderate to severe compression deformity in the lower thoracic spine noted of indeterminate age. IMPRESSION: 1. Bilateral groundglass and reticular nodular opacities with bronchial wall thickening and impaction, most predominant in the left lower lobe and lingula. 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 This is likely a chronic process although the acuity is unclear without old studies for comparison. Malignancy or metastatic disease is felt to be less likely but follow-up recommended. 2. Compression deformity of indeterminate age in the lower thoracic vertebral body. Signed: Rasheed Roth MD Report Verified Date/Time:09/24/2017 21:35:22 Reading Location: [facility] B1 C013W Consult Reading Room Procedure Note Interface, External Ris In - 09/24/2017 9:37 PM CDT FINAL REPORT DOSE REDUCTION: The examination was performed according to departmental dose-optimization program which includes automated exposure control, adjustment of the mA and/or kV according to patient size and/or use of iterative reconstruction technique. TECHNIQUE: CT of the chest without intravenous contrast. COMPARISON: Chest x-ray, 09/24/2017 Discussion: Tracheostomy tube identified. There is mild bilateral lower lobe bronchiectasis. There are groundglass and reticular nodular opacities in the lingula and left lower lobe, to a lesser extent in the right lower and middle lobes. Areas of bronchial wall thickening and bronchial impaction noted. No pleural effusions. Noncontrast appearance of aorta and great vessels is unremarkable. Heart is normal in size. No pericardial effusion. No significant mediastinal or hilar lymphadenopathy. No definite focal abnormality in the upper abdomen. Osteopenia and degenerative changes are seen. Moderate to severe compression deformity in the lower thoracic spine noted of indeterminate age. IMPRESSION: 1. Bilateral groundglass and reticular nodular opacities with bronchial wall thickening and impaction, most predominant in the left lower lobe and lingula. 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 This is likely a chronic process although the acuity is unclear without old studies for comparison. Malignancy or metastatic disease is felt to be less likely but follow-up recommended. 2. Compression deformity of indeterminate age in the lower thoracic vertebral body. Signed: Rasheed Roth MD Report Verified Date/Time: 09/24/2017 21:35:22 Reading Location: [facility] B1 C013W Consult Reading Room Performing Organization Address City/State/Zipcode Phone Number GE R[facility] * POC-Lactic Acid, Arterial (09/24/2017 4:51 AM CDT) POC-Lactic Acid, Arterial 0.6Comment: TESTED AT [facility] 0.4 - 1.3 mmol/L [id number] [place] [address] Specimen Blood Performing Organization Address City/[facility]/Zipcode Phone Number [phone] [place] [address] * POCT-HEMATOCRIT (09/24/2017 4:47 AM CDT) POC-Hematocrit 36Comment: TESTED AT [facility] 36 - 45 % [address] Specimen Blood Performing Organization Address City/[facility] Cent[facility] Phone Number [phone] [place] [address] * POCT-HEMOGLOBIN (09/24/2017 4:47 AM CDT) POC-Hemoglobin 12.2Comment: TESTED AT [facility] 12.0 - 15.0 g/dL [address] [id number] AT [address] [address] Specimen Blood Performing Organization Address [facility] Centercode Phone Number [phone] [place] [address] * POCT-GLUCOSE (09/24/2017 4:47 AM CDT) POC-Glucose 117 (H)Comment: TESTED AT 70 - 110 mg/dL [address] [address] Specimen Blood Performing Organization Address City/[facility] Centercode Phone Number [phone] [place] [address] * POC-Sodium (09/24/2017 4:47 AM CDT) POC-Sodium 139Comment: TESTED AT [facility] 135 - 148 meq/L [address] Specimen Blood Performing Organization Address City/[facility]/Zipcode Phone Number [address] [address] [phone] [place] [address] * POC-Potassium (09/24/2017 4:47 AM CDT) POC-Potassium 3.9Comment: TESTED AT [facility] 3.6 - 5.5 meq/L [address] Specimen Blood Performing Organization Address City/[facility] [place] [address] [facility] * POC-Calcium ionized (09/24/2017 4:47 AM CDT) POC-Calcium Ionized 1.19Comment: TESTED AT [facility] 1.12 - 1.27 mmol/L [address] Specimen Blood Performing Organization Address [facility] [place] [address] [facility] * POC-Blood gases, arterial (09/24/2017 4:47 AM CDT) Temp. Celsius-POC 38.[address] [facility] FIO2-POC 60Comment: TESTED AT [address] pH, Arterial-POC 7.382 7.350 - 7.[address] [facility] PCO2, Arterial-POC 50.6 (H) 35.0 - 45.[address] [facility] PO2, Arterial-POC 79.0 (L) 80.0 - 90.[address] [facility] SO2, Arterial-POC 94.0 (L) 96.0 - 97.0 % [facility] HCO3, Arterilal-POC 29.6 (H) 21.0 - 29.0 meq/L [facility] BE, Arterial-POC 5.0 (H) -2.0 - 3.0 meq/L [facility] Specimen Blood Performing Organization Address City/[facility]/[place] [address] [facility] * Comprehensive metabolic panel (09/24/2017 4:37 AM CDT) Protein, Total 6.2 6.0 - 8.3 gm/dL [facility] Albumin 3.2 (L) 3.5 - 5.0 g/dL [facility] Alkaline Phosphatase 80 40 - 150 U/L [facility] Total Bilirubin 0.5 0.2 - 1.2 mg/dL [facility] Sodium 138 136 - 145 meq/L [facility] Potassium 4.1 3.5 - 5.1 meq/L [facility] Chloride 104 98 - 107 meq/L [facility] CO2 25 22 - 29 meq/L [facility] BUN 16 7 - 21 mg/dL [facility] Creatinine 0.71 0.57 - 1.25 mg/dL [facility] Glucose 113 (H) 70 - 105 mg/dL [facility] Calcium 9.0 8.4 - 10.2 mg/dL [facility] AST 13 5 - 34 U/L [facility] ALT <6 (L) 6 - 55 U/L [facility] EGFR 82Comment: ESTIMATED GFR IS mL/min/1.73 sq m [facility] NOT ACCURATE [facility] CLEARANCE IN PREDICTING GLOMERULAR FILTRATION RATE. ESTIMATED GFR IS NOT APPLICABLE FOR DIALYSIS PATIENTS. Specimen Blood Performing Organization Address City/State/Zipcode Phone Number [facility] [address] [place] [address] [facility] * Urinalysis w/Microscopic + Reflex to Culture (09/23/2017 9:52 PM CDT) Color, UA Yellow [facility] Clarity, UA Clear [facility] Specific [place], UA 1.013 1.001 - 1.[address] [facility] pH, UA 7.0 5.0 - 8.[address] [facility] Protein, UA Negative Negative [facility] Glucose, UA Negative Negative [facility] Ketones, UA Negative Negative [facility] Bilirubin, UA Negative Negative [facility] Blood, UA Negative Negative [facility] Nitrite, UA Negative Negative [facility] Leukocytes, UA Small (A) Negative [facility] Urobilinogen, UA 0.2 0.2 - 1.0 mg/dL [facility] RBC, UA <1 /HPF [facility] WBC, UA 5 /HPF [facility] Mucus Rare [facility] Squam Epithel, UA <1 /HPF [facility] Specimen Source [facility] Specimen Urine Performing Organization Address City/[facility]/Zipcode Phone Number [address] * Blood culture (09/23/2017 6:55 PM CDT) Result No growth in [address] [facility] Specimen Blood - Arm, Left Performing Organization Address City/[facility]/Zipcode Phone Number [address] * Lactic acid, venous, whole blood (09/23/2017 5:07 AM CDT) Lactate, Venous 0.8 0.5 - 2.2 mmol/L [facility] Specimen Blood - Arm, Right Narrative Performed At Effective 06/09/2015: Units/Reference Range Change [facility] New: 0.5-2.2 mmol/LPrevious: 5-20 mg/dL [facility] Performing Organization Address City/State/Zipcode Phone Number [facility] [address] [place] [address] [facility] * FL esoph swallow funct with cine video (09/20/2017 1:20 PM CDT) Narrative Performed At FINAL REPORT [facility] INDICATION: Dysphagia and history of laryngectomy. TECHNIQUE: The patient was administered various consistencies of liquid and food mixed with barium. Swallowing was observed with the speech pathologist present. FINDINGS / IMPRESSION: No leakage of contrast around the patient's tracheostomy device. Please see report written by the speech pathologist for detailed report and recommendations. Fluoroscopy time: 1.4 minutes. A single cine clip of the patient swallowing was acquired. Signed: Elan Mabry MD Report Verified Date/Time:09/20/2017 16:21:18 Reading Location: [address] Ortho Consult Reading Room Procedure Note Interface, External Ris In - 09/20/2017 4:23 PM CDT FINAL REPORT INDICATION: Dysphagia and history of laryngectomy. TECHNIQUE: The patient was administered various consistencies of liquid and food mixed with barium. Swallowing was observed with the speech pathologist present. FINDINGS / IMPRESSION: No leakage of contrast around the patient's tracheostomy device. Please see report written by the speech pathologist for detailed report and recommendations. Fluoroscopy time: 1.4 minutes. A single cine clip of the patient swallowing was acquired. Signed: Elan Mabry MD Report Verified Date/Time: 09/20/2017 16:21:18 Reading Location: [address] Ortho Consult Reading Room Performing Organization Address City/State/Zipcode Phone Number [facility] * XR chest 2 views (09/15/2017 11:29 AM CDT) Narrative Performed At FINAL REPORT [facility] TECHNIQUE: Frontal and lateral views of the chest. INDICATION: 67-year-old woman with cough. COMPARISON: Chest radiograph 11/23/2015. FINDINGS: LINES/TUBES: None. LUNGS: Streaky opacities in the left lower lung zone. Right lung is clear. PLEURA: No pleural effusion or pneumothorax. HEART AND MEDIASTINUM: The cardiomediastinal silhouette is within normal limits. SOFT TISSUES AND BONES: Degenerative changes of the visualized spine with unchanged mild convex curvature centered in the midthoracic spine. Soft tissues are unremarkable. IMPRESSION: Left basilar opacities likely represent atelectasis, however superimposed pneumonia cannot be excluded. Signed: Smooth Osuna MD Report Verified Date/Time:09/15/2017 11:34:38 Reading Location: [facility] B1 C013Y CT Body Reading Room Procedure Note Interface, External Ris In - 09/15/2017 11:36 AM CDT FINAL REPORT TECHNIQUE: Frontal and lateral views of the chest. INDICATION: 67-year-old woman with cough. COMPARISON: Chest radiograph 11/23/2015. FINDINGS: LINES/TUBES: None. LUNGS: Streaky opacities in the left lower lung zone. Right lung is clear. PLEURA: No pleural effusion or pneumothorax. HEART AND MEDIASTINUM: The cardiomediastinal silhouette is within normal limits. SOFT TISSUES AND BONES: Degenerative changes of the visualized spine with unchanged mild convex curvature centered in the midthoracic spine. Soft tissues are unremarkable. IMPRESSION: Left basilar opacities likely represent atelectasis, however superimposed pneumonia cannot be excluded. Signed: Smooth Osuna MD Report Verified Date/Time: 09/15/2017 11:34:38 Reading Location: [facility] B1 C013Y CT Body Reading Room Performing Organization Address City/State/Zipcode Phone Number GE RIS after 01/30/2017 Insurance Payer Benefit Subscriber ID Type Phone Address Plan / Group [employer] TEX[employer] x[facility] Advance Directives For more information, please contact: [facility] [address] [place] [address] Date Inactivated Comments Code Status Date Activated 11/07/2017 3:25 PM Full Code 11/06/2017 12:17 PM This code status was determined by: Patient 10/26/2017 6:32 PM Full Code 09/14/2017 11:19 PM This code status was determined by: Patient 10/04/2015 6:57 PM Full Code 09/23/2015 4:38 PM This code status was determined by: Patient 09/23/2015 4:38 PM Full Code 09/23/2015 4:18 PM This code status was determined by: Patient 03/01/2015 7:10 PM Full Code 02/03/2015 1:52 PM This code status was determined by: Patient
[2018-01-31 15:16] LABS: BASOPHILS # (AUTO) 0.1 (0.0-0.1); BASOPHILS % 1.1 % (0.0-1.0); EOSINOPHILS # (AUTO) 0.2 (0.0-0.4); EOSINOPHILS % 2.7 % (0.0-6.0); HEMATOCRIT 39.4 % (34.2-44.1); HEMOGLOBIN 12.6 g/dL (12.0-16.0); LYMPHOCYTES # (AUTO) 1.4 (1.0-3.2); LYMPHOCYTES % 21.8 % (18.0-39.1); MEAN CORPUSCULAR VOLUME 90.8 fL (81-99); MONOCYTES # (AUTO) 0.5 (0.2-0.8); MONOCYTES % 8.2 % (4.4-11.3); NEUTROPHILS # (AUTO) 4.2 (2.1-6.9); NEUTROPHILS % 65.4 % (38.7-80.0); PLATELET COUNT 188 x10e3/uL (140-360); RED BLOOD COUNT 4.34 x10e6/uL (3.6-5.1)
[2018-01-31 15:28] LABS: ALANINE AMINOTRANSFERASE 12 IU/L (0-55); ALBUMIN 3.8 g/dL (3.5-5.0); ALBUMIN/GLOBULIN RATIO 0.7 (0.8-2.0); ALKALINE PHOSPHATASE 136 IU/L (40-150); ANION GAP 16.5 mmol/L (8-16); BLOOD UREA NITROGEN 18 mg/dL (7-26); BUN/CREATININE RATIO 21 (6-25); CALCIUM 10.5 mg/dL (8.4-10.2); CARBON DIOXIDE 25 mmol/L (22-29); CHLORIDE 99 mmol/L (98-107); CREATININE, SERUM 0.84 mg/dL (0.57-1.11); EST GLOMERULAR FILTRATION RATE > 60 ML/MIN (60-); GLUCOSE 91 mg/dL (74-118); POTASSIUM 4.5 mmol/L (3.5-5.1); SODIUM 136 mmol/L (136-145)
[2018-01-31 15:43] LABS: BILIRUBIN,URINE NEGATIVE (NEGATIVE); CLARITY,URINE CLEAR (CLEAR); COLOR,URINE YELLOW (YELLOW); KETONES,URINE NEGATIVE (NEGATIVE); LEUKOCYTE ESTERASE ,URINE TRACE (NEGATIVE); NITRITE,URINE NEGATIVE (NEGATIVE); PROTEIN,URINE DIPSTICK NEGATIVE (NEGATIVE); URINE UROBILINOGEN 0.2 mg/dL (0.2 - 1)
[2018-01-31 15:53] LABS: BACTERIA,URINE FEW /HPF; EPITHELIAL CELLS,URINE MODERATE /LPF; RBC,URINE 0-5 /HPF (0-5); WBC,URINE (MAN) 0-5 /HPF (0-5)
--- NOTE | 2018-01-31 16:18 | Diagnostic Imaging Report ---
EXAMINATION: CHEST 2 VIEWS INDICATION: Sepsis. COMPARISON: CT chest with contrast 09/13/2017. Chest x-ray 09/12/2017. FINDINGS: PA and lateral views Patient is rotated on this exam. TUBES and LINES: Tracheostomy tube in place. LUNGS: Lungs are well inflated. Bilateral peribronchial cuffing. Unchanged left basilar atelectasis. PLEURA: No pleural effusion or pneumothorax. HEART AND MEDIASTINUM: The cardiomediastinal silhouette is unremarkable. BONES AND SOFT TISSUES: Moderate scoliotic changes. No acute osseous lesion. Soft tissues are unremarkable. Numerous surgical clips in the right lung apex. UPPER ABDOMEN: No free air under the diaphragm. IMPRESSION: Bilateral peribronchial cuffing, likely viral etiology or reactive airway. Signed by: Dr. Vin Roger M.D. on 01/31/2018 4:15 PM
--- NOTE | 2018-01-31 16:32 | NUR ---
PATIENT CAME INTO TRIAGE SAYING SHE CAN'T BREATH AND HOLDING HER TRACH IN HER HAND THAT SHE PULLED OUT. THICK YELLOW DRAINAGE IN TUBE. SAT 100%, NO RESPIRATORY DISTRESS. RT CALLED FOR SUCTIONING AND REPLACE TRACH. PATIENT RE EVALUATED BY DR. MEDEROS. JUAN ALSO IN TRIAGE EVALUATING PATIENT.
[2018-01-31] MEDS ORDERED: ALBUTEROL/IPRATROPIUM 3 ML NEB NEB NR (20:30)
== END 2018-01-31 22:30 | disposition home or self-care (01) ==
LOC: ER 13:14
DX: R50.9 Fever, unspecified (principal); R05 Cough; R11.2 Nausea with vomiting, unspecified; J00 Acute nasopharyngitis [common cold]
CPT/HCPCS: 36415; 71046; 80053; 81001; 83605; 85025; 87040; 87086; 87400; 93005

== ENCOUNTER 2018-05-10 19:30 | Inpatient (IN) | payer OTHER ==
[~2018-05-10] VITALS: Ht 152.4 cm; Wt 75.7 kg
--- OUTSIDE RECORDS SUMMARY | 2018-05-10 19:33 | XMS REPORT | Clinical Summary ---
Author Author DARLEEN [employer] [facility] [employer] [facility] Address Unknown Phone Unavailable Care Team Providers Care Filler Shredder Name Role Phone Kevin Morris PCP Unavailable [...] (40 mg 8 total) subcutaneousl y daily. Active famotidine (PEPCID) 20 MG 1 tablet [...] 3 (three) times daily for 7 days. 02/05/2018 escitalopram oxalate 1 tablet (10 30 tablet 0 (LEXAPRO) 10 MG tablet mg total) by 8 G-tube route daily for 90 days. 11/17/2017 LORazepam (ATIVAN) 1 MG 1 [...] LAPAROSCOPY,GASTROSTOMY BUTTON (G-BUTTON) 10/01/2017 Surgery Isabel Whitman, CYCLE DIRECTOR 09/26/2017 Anesthesia Gastroenterology Event Lashon Hooks MD UPPER ENDOSCOPY,PEG 09/26/2017 Surgery Gastroenterology Kristie Correa MD Hite, Wayne K., Silke Wing MD Gonzalez, Adriana, MD Wellinghoff, Vanessa Thea, MD Simms, Ryan Snell MD Pain at surgical site (Primary Dx); Delirium due to another medical condition; Acute metabolic encephalopathy; Severe protein-calorie malnutrition (HCC); Anemia, unspecified type; Hypertension, unspecified type; Laryngeal cancer (HCC); Chronic pain syndrome; Right arm cellulitis 09/14/2017 [facility] General Internal Medicine - Encounter 11/07/2017 after 05/09/2017 Immunizations Name Dates Previously Given Next Due Influenza High Dose 02/04/2015 Preservative Free [id number] Pneumococcal 02/04/2015 Polysaccharide (Pneumovax) Social History Date [...] Area Manufactur er 05/05/2018 [id number] / / [id number] [place] Puncture Set N/A: Neck Implanted: [...] Esophago-tracheal fistula FREE-LOWER EXTREMITY 7:30 AM CDT ([facility]) Special Needs (MICROSCOP E, FREE FLAP SET, ENT MINOR SET, TOURNIQUET ) SKIN GRAFT,FULL 10/26/2017 Esophago-tracheal fistula THICKNESS-HEAD/FACE 7:30 AM CDT ([facility]) Special Needs (MICROSCOP E, FREE FLAP SET, ENT MINOR SET, TOURNIQUET ) DISSECTION,NECK SELECTIVE 10/26/2017 Esophago-tracheal fistula 7:30 AM CDT ([facility]) Special Needs (MICROSCOP E, FREE FLAP SET, ENT MINOR SET, TOURNIQUET ) CLOSURE,TRACHEOSTOMY/FIST 10/26/2017 Esophago-tracheal fistula DOMINIK 7:30 AM CDT ([facility]) Special Needs (MICROSCOP E, FREE FLAP [...] Routine 09/23/2017 6:55 PM CDT LACTIC ACID, VENOUS Routine 09/23/2017 5:07 AM CDT XR ESOPH SWALLOW FUNCTION [...] Routine 09/15/2017 DIFFERENTIAL 2:05 AM CDT after 05/09/2017 Results * RHYTHM STRIP - SCAN (11/08/2017 11:01 AM CDT) Narrative Performed At * CBC with platelet count + automated diff (11/07/2017 5:07 AM CDT) Only the most recent of 23 results within the time period is included. WBC 3.6 3.5 - 10.5 K/L [facility] RBC 3.03 (L) 3.93 - 5.22 M/L [facility] Hemoglobin 8.9 (L) 11.2 - 15.7 GM/DL [facility] Hematocrit 28.6 (L) 34.1 - 44.9 % [facility] MCV 94.4 79.4 - 94.8 fL [facility] MCH 29.4 25.6 - 32.2 pg [facility] MCHC 31.1 (L) 32.2 - 35.5 GM/DL [facility] RDW 15.7 (H) 11.7 - 14.4 % [facility] Platelets 179 150 - 450 K/CU MM [facility] MPV 10.2 9.4 - 12.3 fL [facility] nRBC 0 0 - 0 /100 WBC [facility] % Neutros 62 % [facility] % Lymphs 25 % [facility] % Monos 8 % [facility] % Eos 4 % [facility] % Baso 1 % [facility] # Neutros 2.22 1.56 - 6.13 K/L [facility] # Lymphs 0.89 (L) 1.18 - 3.74 K/L [facility] # Monos 0.28 0.24 - 0.36 K/L [facility] # Eos 0.15 0.04 - 0.36 K/L [facility] # Baso 0.02 0.01 - 0.08 K/L [facility] Immature 0 0 - 1 % [facility] Granulocytes-[facility] Specimen Blood - Arm, Right Performing Organization Address City/[facility] [place] [address] [phone] [place] [address] * Phosphorus (11/07/2017 5:07 AM CDT) Only the most recent of 24 results within the time period is included. Phosphorus 2.9 2.3 - 4.7 mg/dL [facility] Specimen Blood - Arm, Right Performing Organization Address City/[facility]/[place] [address] [phone] * Magnesium (11/07/2017 5:07 AM CDT) Only the most recent of 25 results within the time period is included. Magnesium 1.8 1.6 - 2.6 mg/dL [facility] Specimen Blood - Arm, Right Performing Organization Address City/State/Zipcode Phone Number [facility] [address] [place], [place] [phone] [facility] * Basic Metabolic Panel (11/07/2017 5:07 AM CDT) Only the most recent of 33 results within the time period is included. Sodium 136 136 - 145 meq/L [facility] Potassium 4.1 3.5 - 5.1 meq/L [facility] Chloride 106 98 - 107 meq/L [facility] CO2 23 22 - 29 meq/L [facility] BUN 25 (H) 7 - 21 mg/dL [facility] Creatinine 0.65 0.57 - 1.25 mg/dL [facility] Glucose 113 (H) 70 - 105 mg/dL [facility] Calcium 8.6 8.4 - 10.2 mg/dL [facility] EGFR 90Comment: ESTIMATED GFR IS mL/min/1.73 sq m [facility] NOT ACCURATE CREATININE [facility] CLEARANCE IN PREDICTING GLOMERULAR FILTRATION RATE. ESTIMATED GFR IS NOT APPLICABLE FOR DIALYSIS PATIENTS. Specimen Blood - Arm, Right Performing Organization Address [facility] Centercode Phone Number [facility] [address] [place] [address] [facility] * POC-Glucose meter (11/06/2017 4:31 AM CDT) Only the most recent of 122 results within the time period is included. POC-Glucose Meter 118 (H)Comment: TESTED AT 70 - 110 mg/dL [facility] [address] [place] [address] Specimen Blood Performing Organization Address City/[facility]/Zipcode Phone Number [facility] [address] [place] [address] [facility] * Venous doppler arm, right (11/05/2017 11:33 AM CDT) Ejection [facility] ECHO HEARTLAB [facility] Impressions Performed At Right [facility] ECHO HEARTLAB 1. The jugular vein is not visualized due to tracheal collar and recent [facility] surgery. 2. There is no deep venous [...] At PV LAB - Upper Extremities Veins [facility] ECHO HEARTLAB Demographics [facility] Patient NamePAGEJENN Date of Study 11/05/2017 67 Visit [id number] of 1950 Number Referring TONYA CUNNINGHAM Room Number 6A03 Physician Web Content Coordinator Giovanni Tatum. InterpretingJ. Clark Manuel RVT, SANDYSPdmei FUNEZ, BRIAN Procedure Type of Study: Veins: [...] of Study 11/05/2017 Age 67 Visit Number [id number] Gender Female Date of 1950 Number Referring [facility] Room Number 6A03 Physician Web Content Coordinator Giovanni Tatum. Interpreting Kenia Maneul RVT, ARS Physician , BRIAN Procedure Type [...] are measured in cm Performing Organization Address City/State/[facility] Cent[facility] Phone Number [facility] * Clostridium difficile [facility] Toxin (11/04/2017 5:48 PM CDT) C. Difficle Toxin Negative Negative [facility] C. Difficile GDH Antigen NegativeComment: No indication Negative [facility] of Clostridium difficile [facility] infection and no colonization. Discontinue enteric isolation and therapy. Specimen Stool - Stool Narrative Performed At Testing performed by [email or web address] Rapid Cassette Assay.For GDH, published [facility] sensitivity of the assay is 98.7% compared to cytotoxicity testing.For Toxin [facility] AB, published sensitivity is 87.8% and specificity 99.4% compared to cytotoxicity testing. Verification of kit performance was done by the [facility] Microbiology Lab prior to clinical use. Performing Organization Address City/State/Zipcode Phone Number [facility] [address] [place] [address] [phone] [place] [address] * TRANSFUSION SERVICE REPORT - SCAN (10/31/2017 6:02 PM CDT) Only the most recent of 4 results within the time period is included. Narrative Performed At * Prepare Leuko-Red RBC (10/30/2017 4:18 AM CDT) Only the most recent of 2 results within the time period is included. CROSSMATCH COMPATIBLE SAFETRACE TX Unit ABO O Pos SAFETRACE TX UNIT NUMBER [id number] SAFET[place]ACE TX Status WORK IN PROGRESS SAFETRACE TX Blood Bank Product RED BLOOD CELLS SAFETRACE TX PRODUCT CODE [id number] SAFETRACE TX CROSSMATCH COMPATIBLE SAFETRACE TX Unit ABO O Pos SAFETRACE TX UNIT NUMBER [id number] SAFETRACE TX Status WORK IN PROGRESS SAFETRACE TX Blood Bank Product RED BLOOD CELLS SAFETRACE [place] PRODUCT CODE [id number] SAF[place] Specimen Other Performing Organization Address City/State/Zipcode Phone Number [place] * Transfuse Leuko-Red RBC (10/29/2017 2:05 AM CDT) Only the most recent of 2 results within the time period is included. * Vancomycin level, trough (10/28/2017 8:46 PM CDT) Vancomycin Tr 26.7 (H) 10.0 - 20.0 ug/mL [facility] Specimen Blood - Arm, Right Performing Organization Address City/State/Zipcode Phone Number [facility] [address] [place] [address] MEDICAL CENTER * ECG 12 lead (10/28/2017 11:30 AM CDT) Only the most recent of 2 results within the time period is included. Narrative Performed At Ventricular Rate 86 BPM GE MUSE Atrial Rate 86 BPM P-R Interval 154 ms QRS Duration 80 ms Q-T Interval 378 ms QTC Calculation(Bazett) 452 ms P [place] 57 degrees R [place] 32 degrees T [place] 56 degrees Normal sinus rhythm Low voltage [...] 378 ms QTC Calculation(Bazett) 452 ms P [place] 57 degrees R [place] 32 degrees T [place] 56 degrees Normal sinus rhythm Low voltage QRS Poor R wave progression Cannot rule out Anterior infarct , age undetermined Abnormal ECG When compared with ECG of 29-MAY-1995 12:05, No significant changes Confirmed by Maria Guadalupe PETTY, BLANCHE ([id number]) on 10/30/2017 1:48:13 PM Performing Organization Address City/[facility] Centercode Phone Number [id number] * XR chest 1 view portable / bedside (10/28/2017 11:17 AM CDT) Only the most recent of 4 results within the time period is included. Narrative Performed At FINAL REPORT [employer] CHEST ONE VIEW HISTORY: Status post tracheostomy [...] MD Report Verified Date/Time:10/28/2017 11:20:47 Reading Location: [address] Transitional Reading Room Procedure Note Interface, [...] Report Verified Date/Time: 10/28/2017 11:20:47 Reading Location: [address] Transitional Reading Room Performing Organization Address [facility] Phone Number GE [facility] * TSH/Free T4 If Indicated (10/27/2017 12:58 PM CDT) TSH 1.46 0.35 - 4.94 uIU/mL [facility] Specimen Blood Performing Organization Address [facility] Phone Number [address] [address] [phone] [place] [address] * Prealbumin (10/27/2017 3:31 AM CDT) Only the most recent of 2 results within the time period is included. Prealbumin 14 14 - 45 mg/dL [facility] Specimen Blood Performing Organization Address [facility] Phone Number [address] [address] [phone] [place] [address] * Tissue Exam (10/26/2017 8:28 AM CDT) Case Report Surgical Pathology [facility] Case: [id number] Authorizing Provider:Kanu Acevedo MD Collected: 10/26/2017 0828 Ordering Location: [facility] PERI[facility]IVE Received: 10/26/2017 0838 SERVICES Pathologist: Ale Hdez MD Specimens: A) - Pharynx, Posterior pharyngeal wall B) - Tracheal, tracheal esophageal fistula DIAGNOSIS A. PHARYNX, POSTERIOR [facility] WALL,BIOPSY, : [facility] - SQUAMOUS MUCOSA WITH MILD CHRONIC INFLAMMATION AND FIBROSIS - NEGATIVE FOR DYSPLASIA OR MALIGNANCY B. TRACHEAOESOPHAGEAL FISTULA, BIOPSY: - FRAGMENTS OF ULCERATED SQUAMOUS MUCOSA WITH GRANULATION TISSUE, INFLAMMATION AND FIBROSIS - NEGATIVE FOR DYSPLASIA OR MALIGNANCY Signing Pathologist Direct Phone Line: [phone] CPT Code(s) 16758 [facility] [address]19 X 2 [facility] CLINICAL HISTORY Esophagotracheal fistula [facility] SPECIMEN SOURCE A. Posterior pharyngeal wall. [facility] B. Tracheal esophageal fistula [facility] GROSS DESCRIPTION Specimen A. The specimen is [facility] received fresh for frozen [facility] section diagnosis and labeled "pharyngeal wall" and [...] cassette B1. DB/ew INTRAOPERATIVE A1FS; POSTERIOR PHARYNGEAL [facility] CONSULTATION WALL, BIOPSY: [facility] - SQUAMOUS MUCOSA WITH MILD CHRONIC INFLAMMATION AND FIBROSIS - NEGATIVE FOR DYSPLASIA PER DR. HDEZ MICROSCOPIC DESCRIPTION PERFORMED [facility] Specimen Tissue - Pharynx Performing Organization Address City/State/Zipcode Phone Number [facility] [address] [place] [address] [facility] * Manual Differential (10/26/2017 4:57 AM CDT) % Neutros 45 % [facility] % Lymphs 41 % [facility] % Monos 7 % [facility] % Eos 5 % [facility] % Baso 2 % [facility] # Neutros 1.08 (L) 1.56 - 6.13 K/ul [facility] # Lymphs 0.98 (L) 1.18 - 3.74 K/ul [facility] # Monos 0.17 (L) 0.24 - 0.36 K/uL [facility] # Eos 0.12 0.04 - 0.36 K/uL [facility] # Baso 0.05 0.01 - 0.08 K/uL [facility] Total Counted 100 [facility] WBC Morphology Normal [facility] Platelet Morphology Normal [facility] Polychromasia 1+ few [facility] Anisocytosis 1+ few [facility] Poikilocytes 1+ few [facility] Artifact Present [facility] Platelet Conc Adequate [facility] Specimen Blood Narrative Performed At Received comment: [facility] User comments: [facility] Slide comments: Performing Organization Address City/[facility]/Zipcode Phone Number [facility] [address] [place] [address] [facility] * Type and screen, automated (10/26/2017 4:57 AM CDT) ABO/RH AUTOMATED (BEAKER) O POSITIVE [facility] Ab Scrn NEGATIVE [facility] Specimen Blood Performing Organization Address City/[facility]/Zipcode Phone Number [facility] [address] [place] [address] [facility] * aPTT (10/26/2017 4:57 AM CDT) PTT 22.2 (L) 22.5 - 36.0 seconds [facility] Specimen Blood Performing Organization Address City/[facility]/Zipcode Phone Number [facility] [address] [place], [place] [phone] [facility] * Prothrombin time/INR (10/26/2017 4:57 AM CDT) Only the most recent of 2 results within the time period is included. Protime 12.5 11.7 - 14.7 seconds [facility] INR 0.9 <=5.9 [facility] Specimen Blood Narrative Performed At RECOMMENDED COUMADIN/WARFARIN INR THERAPY RANGES [facility] STANDARD DOSE: 2.0 - 3.0 Includes: PROPHYLAXIS for venous thrombosis, [facility] systemic embolization; TREATMENT for venous thrombosis and/or pulmonary embolus. HIGH RISK: Target INR is 2.5-3.5 for patients with mechanical heart valves. Performing Organization Address City/[facility] Cent[facility]ode Phone Number [facility] [address] [place] [address] [facility] * Sputum Culture + Gram Stain (10/24/2017 4:07 PM CDT) Only the most recent of 2 results within the time period is included. Result METHICILLIN RESISTANT [facility] STAPHYLOCOCCUS AUREUS (A) [facility] Gram Stain Result No WBCs [facility] Gram Stain Result 5-10 epithelial cells [facility] Gram Stain Result 2+ gram positive cocci in [facility] Gram Stain Result 2+ gram positive cocci in [facility] Specimen Tracheal - Trachea Narrative Performed At 2+ Normal respiratory yoanna present [facility] Antibiotic Method Susceptibility Organism Clindamycin >=4: [...] aureus Performing Organization Address City/State/Zipcode Phone Number [facility] [address] [place] [address] [facility] * CT chest low dose S/P lung transplant without IV contrast (10/23/2017 9:47 PM CDT) Narrative Performed At FINAL REPORT [employer] CLINICAL INDICATION: Follow-up left lung infiltrate on [...] MD Report Verified Date/Time:10/24/2017 02:08:27 Reading Location: [address] Reading Room Procedure Note Interface, External [...] Report Verified Date/Time: 10/24/2017 02:08:27 Reading Location: [address] Reading Room Performing Organization Address City/State/Zipcode Phone Number RIS * PERIPHERAL VASCULAR REPORT - SCAN (10/19/2017 2:53 PM CDT) Narrative Performed At * STRESS ECHO With Contrast & Tracing (10/19/2017 7:48 AM CDT) Ejection Fraction [facility] ECHO HEARTLAB [facility] Narrative Performed At Stress Echocardiography Report [facility] ECHO HEARTLAB Demographics [facility] Patient Name JENN JERNIGAN Date of Study 10/19/2017 [id number] Female Visit Number [id number] Room Number 2430 Number Date of Birth1950Referring Physician Sunny Sun Age67 year(s)Web Content Coordinator Shonda Pierson Interpreting Kobe Friend MD Physician [...] Predicted HR: 151 bpm HR BP Product: 03725 % of predicted HR: 85 Max Infusion: [...] of Study 10/19/2017 Gender Female Visit Number [id number] Race Unknown Room Number 2430 Number Date of 1950 Referring Physician Sunny Sun Age 67 year(s) Web Content Coordinator Shonda Pireson Interpreting Kobe Friend MD Physician Fellow Clark [...] Predicted HR: 151 bpm HR BP Product: 47109 % of predicted HR: 85 Max Infusion: [...] CO: 3.44 l/min LVOT CI: 2.46 l/min/m^2 [facility] Organization Address City/State/Zipcode Phone Number [facility]ART[facility] * CT neck soft tissue with IV contrast (10/18/2017 10:14 PM CDT) Narrative Performed At FINAL REPORT [facility] CT neck soft tissues after IV [...] MD Report Verified Date/Time:10/19/2017 08:01:01 Reading Location: [address] Neuro Reading Room Procedure Note Interface, [...] Report Verified Date/Time: 10/19/2017 08:01:01 Reading Location: [facility] [id number] Neuro Reading Room Performing Organization Address City/State/Zipcode Phone Number GE [facility] * Arterial doppler arms bilateral (10/18/2017 10:17 AM CDT) Ejection Fraction [facility] ECHO HEARTLAB [facility] Impressions Performed At Right Impression [facility] ECHO HEARTLAB 1. The subclavian, axillary, brachial, [...] Extremities Arterial Duplex [facility] ECHO HEARTLAB Demographics [facility] Patient NamePAGEJENN Date of Study 10/18/2017 67 Visit [id number] of 1950 Number Referring Willie Nguyen Room Number 2430 Physician Web Content Coordinator Giovanni Tatum. InterpretingJ. INGRID BarrosoT, Paola FUNEZ, [...] of Study 10/18/2017 Age 67 Visit Number [id number] Gender Female Date of 1950 Number Grupo Nguyen Room Number 2430 Physician Web Content Coordinator Giovanni Tatum. Interpreting Kenia Manuel, T, ARDMS Physician , RPVI Procedure Type of [...] are measured in cm Performing Organization Address City/[facility] Phone Number [facility] * Vitamin B12 and Folate (10/16/2017 3:57 AM CDT) Vitamin B12 419 213 - 816 pg/mL [facility] Folate 13.0 >=7.0 ng/mL [facility] Specimen Blood Performing Organization Address [facility] Centercode Phone Number [facility] [address] [place] [address] [facility] * Iron, TIBC, % sat. (without ferritin) (10/16/2017 3:57 AM CDT) Iron 24 (L) 40 - 160 ug/dL [facility] TIBC 204 (L) 250 - 450 ug/dL [facility] Iron % Saturation 12 (L) 20 - 55 % [facility] Specimen Blood Performing Organization Address City/State/Zipcode Phone Number [facility] [address] [place], [place] [phone] [facility] * Ferritin (10/16/2017 3:57 AM CDT) Ferritin 46 5 - 275 ng/mL [facility] Specimen Blood Performing Organization Address City/State/Zipcode Phone Number [facility] [address] [place], [place] [phone] [facility] * FL upper GI (10/05/2017 10:39 AM [...] MD Report Verified Date/Time:10/05/2017 11:22:08 Reading Location: [address] Consult Reading Room Procedure Note Interface, [...] Report Verified Date/Time: 10/05/2017 11:22:08 Reading Location: [address] Ortho Consult Reading Room Performing Organization Address [facility] Phone Number [facility] * TSH (09/29/2017 6:17 AM CDT) TSH 3.36 0.35 - 4.94 uIU/mL [facility] Specimen Blood Performing Organization Address [facility] Phone Number [address] * T4, free (09/29/2017 6:17 AM CDT) Free T4 1.03 0.70 - 1.48 ng/dL [facility] Specimen Blood Performing Organization Address [facility] Phone Number [address] * REPORT OF PROCEDURE - ENDOSCOPY URL (09/26/2017 10:52 AM CDT) Narrative Performed At * SPIN/CONCENTRATION CHARGE (09/25/2017 10:13 AM CDT) Concentration charged Done [facility] Specimen Sputum - Endotracheal Performing Organization Address [facility] Phone Number [address] * AFB culture + smear (09/25/2017 10:13 AM CDT) Result No acid-fast bacilli isolated [facility] in 42 days [facility] AFB Smear No acid fast bacilli seen [facility] Specimen Sputum - Endotracheal Performing Organization Address City/State/Zipcode Phone Number [facility] [facility] [address] [place], [place] [id number] [facility] * Fungus culture + smear (09/25/2017 10:13 AM CDT) Result DAVIN TROPICALIS (A) [facility] Fungus Smear 4+ budding yeast [facility] Fungus Smear 1+ yeast with pseudohyphae [facility] Fungus Smear <1+ hyphal elements seen [facility] Specimen Sputum - Endotracheal Performing Organization Address City/State/Zipcode Phone Number [facility] [address] [place], [place] [phone] [facility] * CT chest without IV contrast (09/24/2017 8:54 PM CDT) Narrative Performed At FINAL REPORT [employer] [facility] DOSE REDUCTION: The examination was performed [...] MD Report Verified Date/Time:09/24/2017 21:35:22 Reading Location: [facility] B1 C013W Consult Reading Room Procedure Note [...] Report Verified Date/Time: 09/24/2017 21:35:22 Reading Location: [facility] B1 C013W Consult Reading Room Performing Organization Address City/State/Zipcode Phone Number [facility] * POC-Lactic Acid, Arterial (09/24/2017 4:51 AM CDT) POC-Lactic Acid, Arterial 0.6Comment: TESTED AT [facility] 0.4 - 1.3 mmol/L [id number] [place] [address] Specimen Blood Performing Organization Address City/[facility]/Zipcode Phone Number [phone] [place] [address] * POCT-HEMATOCRIT (09/24/2017 4:47 AM CDT) POC-Hematocrit 36Comment: TESTED AT [facility] 36 - 45 % [address] Specimen Blood Performing Organization Address City/[facility] Phone Number [phone] [place] [address] * POCT-HEMOGLOBIN (09/24/2017 4:47 AM CDT) POC-Hemoglobin 12.2Comment: TESTED AT [facility] 12.0 - 15.0 g/dL [address] [id number] AT [address] [address] Specimen Blood Performing Organization Address [facility] Cent[facility]ode Phone Number [phone] [place] [address] * POCT-GLUCOSE (09/24/2017 4:47 AM CDT) POC-Glucose 117 (H)Comment: TESTED AT 70 - 110 mg/dL [address] [address] Specimen Blood Performing Organization Address City/[facility] Cent[facility]ode Phone Number [phone] [place] [address] * POC-Sodium (09/24/2017 4:47 AM CDT) POC-Sodium 139Comment: TESTED AT [facility] 135 - 148 meq/L [address] Specimen Blood Performing Organization Address City/[facility]/Zipcode Phone Number [address] [address] [phone] * POC-Potassium (09/24/2017 4:47 AM CDT) POC-Potassium 3.9Comment: TESTED AT [facility] 3.6 - 5.5 meq/L [address] Specimen Blood Performing Organization Address City/State/[place] [address] [facility] * POC-Calcium ionized (09/24/2017 4:47 AM CDT) POC-Calcium Ionized 1.19Comment: TESTED AT [facility] 1.12 - 1.27 mmol/L [address] Specimen Blood Performing Organization Address [facility] [place] [address] [facility] * POC-Blood gases, arterial (09/24/2017 4:47 AM CDT) Temp. Celsius-POC 38.6 [facility] FIO2-POC 60Comment: TESTED AT [address] pH, Arterial-POC 7.382 7.350 - 7.450 [facility] PCO2, Arterial-POC 50.6 (H) 35.0 - 45.0 mm Hg [facility] PO2, Arterial-POC 79.0 (L) 80.0 - 90.0 mm Hg [facility] SO2, Arterial-POC 94.0 (L) 96.0 - 97.0 % [facility] HCO3, Arterilal-POC 29.6 (H) 21.0 - 29.0 meq/L [facility] BE, Arterial-POC 5.0 (H) -2.0 - 3.0 meq/L [facility] Specimen Blood Performing Organization Address City/State/[place] [address] [facility] * Comprehensive metabolic panel (09/24/2017 4:37 AM CDT) Protein, Total 6.2 6.0 - 8.3 gm/dL [facility] Albumin 3.2 (L) 3.5 - 5.0 g/dL [facility] Alkaline Phosphatase 80 40 - 150 U/L [facility] Total Bilirubin 0.5 0.2 - 1.2 mg/dL [facility] Sodium 138 136 - 145 meq/L [facility] Potassium 4.1 3.5 - 5.1 meq/L [facility] Chloride 104 98 - 107 meq/L [facility] CO2 25 22 - 29 meq/L [facility] BUN 16 7 - 21 mg/dL [facility] Creatinine 0.71 0.57 - 1.25 mg/dL [facility] Glucose 113 (H) 70 - 105 mg/dL [facility] Calcium 9.0 8.4 - 10.2 mg/dL [facility] AST 13 5 - 34 U/L [facility] ALT <6 (L) 6 - 55 U/L [facility] EGFR 82Comment: ESTIMATED GFR IS mL/min/1.73 sq m [facility] NOT ACCURATE CREATININE [facility] CLEARANCE IN PREDICTING GLOMERULAR FILTRATION RATE. ESTIMATED GFR IS NOT APPLICABLE FOR DIALYSIS PATIENTS. Specimen Blood Performing Organization Address City/State/Zipcode Phone Number [facility] [address] [place] [address] [facility] * Urinalysis w/Microscopic + Reflex to Culture (09/23/2017 9:52 PM CDT) Color, UA Yellow [facility] Clarity, UA Clear [facility] Specific [place], UA 1.013 1.001 - 1.035 [facility] pH, UA 7.0 5.0 - 8.0 [facility] Protein, UA Negative Negative [facility] Glucose, UA Negative Negative [facility] Ketones, UA Negative Negative [facility] Bilirubin, UA Negative Negative [facility] Blood, UA Negative Negative [facility] Nitrite, UA Negative Negative [facility] Leukocytes, UA Small (A) Negative [facility] Urobilinogen, UA 0.2 0.2 - 1.0 mg/dL [facility] RBC, UA <1 /HPF [facility] WBC, UA 5 /HPF [facility] Mucus Rare [facility] Squam Epithel, UA <1 /HPF [facility] Specimen Source [facility] Specimen Urine Performing Organization Address City/[facility]/Zipcode Phone Number [address] * Blood culture (09/23/2017 6:55 PM CDT) Result No growth in 5 days [facility] Specimen Blood - Arm, Left Performing Organization Address City/[facility] Cent[facility]ode Phone Number [address] * Lactic acid, venous, whole blood (09/23/2017 5:07 AM CDT) Lactate, Venous 0.8 0.5 - 2.2 mmol/L [facility] Specimen Blood - Arm, Right Narrative Performed At Effective 06/09/2015: Units/Reference Range Change [facility] New: 0.5-2.2 mmol/LPrevious: 5-20 mg/dL [facility] Performing Organization Address City/State/Zipcode Phone Number [facility] [address] [place] [address] [facility] * [place] esoph swallow funct with [...] MD Report Verified Date/Time:09/20/2017 16:21:18 Reading Location: [address] Ortho Consult Reading Room Procedure Note [...] Report Verified Date/Time: 09/20/2017 16:21:18 Reading Location: [address] Ortho Consult Reading Room Performing Organization Address City/State/Zipcode Phone Number [facility] * XR chest 2 views (09/15/2017 11:29 AM CDT) Narrative Performed At FINAL REPORT [facility] TECHNIQUE: Frontal and lateral views of [...] MD Report Verified Date/Time:09/15/2017 11:34:38 Reading Location: [facility] B1 C013Y CT Body Reading Room Procedure [...] Report Verified Date/Time: 09/15/2017 11:34:38 Reading Location: [facility] B1 C013Y CT Body Reading Room Performing Organization Address City/State/Zipcode Phone Number [facility] after 05/09/2017 Insurance Payer Benefit Subscriber ID Type Phone Address Plan / Group [employer] xxxxxxxxx [facility] Contracted Advance Directives For more information, please contact: [facility] [address] [place] [address] 87 Date Inactivated Comments Code Status Date Activated [...]
[2018-05-10] MEDS ORDERED: ONDANSETRON HCL INJ 2MG/ML 2ML 2 MG/ML VIAL IV ONE (20:46)
[2018-05-10] MEDS ORDERED: HYDROMORPHONE 2MG/ML 2 MG/ML ML IV ONE (21:00)
--- NOTE | 2018-05-10 21:20 | Diagnostic Imaging Report ---
Exam: Bilateral hips and left femur History: Pain Comparison: None. Findings: Comminuted left femur intertrochanteric fracture with fracture line through the intertrochanteric region and displacement of the lesser trochanter. Advanced left hip degenerative arthrosis. Bone demineralization. Impression: Comminuted left femur intertrochanteric fracture Signed by: Dr. Kanu Strong M.D. on 05/10/2018 9:17 PM
--- NOTE | 2018-05-10 21:21 | Diagnostic Imaging Report ---
Examination: Single AP view of the chest. COMPARISON: None. INDICATION: Preoperative evaluation, femur fracture DISCUSSION: Lines/tubes: None. Lungs: The lungs are well inflated and clear. No pneumonia or pulmonary edema. Pleura: No pleural effusion or pneumothorax. Heart and mediastinum: The heart and the mediastinum are unremarkable. Bones and soft tissues: No acute bony abnormalities. IMPRESSION: 1. No acute cardiopulmonary abnormalities. Signed by: Dr. Kanu Strong M.D. on 05/10/2018 9:18 PM
[2018-05-10 22:50] LABS: BASOPHILS % 0.5 % (0.0-1.0); EOSINOPHILS # (AUTO) 0.1 (0.0-0.4); EOSINOPHILS % 1.9 % (0.0-6.0); HEMOGLOBIN 9.2 g/dL (12.0-16.0); LYMPHOCYTES # (AUTO) 0.5 (1.0-3.2); MEAN CORPUSCULAR HEMOGLOBIN 33.5 pg (28-32); MEAN CORPUSCULAR HGB CONC 32.9 g/dL (31-35); MEAN CORPUSCULAR VOLUME 101.8 fL (81-99); MONOCYTES # (AUTO) 0.4 (0.2-0.8); MONOCYTES % 6.6 % (4.4-11.3); NEUTROPHILS # (AUTO) 4.7 (2.1-6.9); NEUTROPHILS % 81.8 % (38.7-80.0); PLATELET COUNT 152 x10e3/uL (140-360); RED BLOOD COUNT 2.75 x10e6/uL (3.6-5.1); RED CELL DISTRIBUTION WIDTH 14.6 % (11.7-14.4)
[2018-05-10 23:00] LABS: INR 0.82; PROTHROMBIN TIME 11.8 seconds (11.9-14.5)
[2018-05-10 23:10] LABS: ALANINE AMINOTRANSFERASE 7 IU/L (0-55); ALBUMIN 3.3 g/dL (3.5-5.0); ALBUMIN/GLOBULIN RATIO 0.8 (0.8-2.0); ALKALINE PHOSPHATASE 92 IU/L (40-150); ANION GAP 14.1 mmol/L (8-16); BLOOD UREA NITROGEN 17 mg/dL (7-26); BUN/CREATININE RATIO 23 (6-25); CALCIUM 9.6 mg/dL (8.4-10.2); CARBON DIOXIDE 25 mmol/L (22-29); CHLORIDE 97 mmol/L (98-107); CREATININE, SERUM 0.73 mg/dL (0.57-1.11); EST GLOMERULAR FILTRATION RATE > 60 ML/MIN (60-); GLUCOSE 112 mg/dL (74-118); POTASSIUM 4.1 mmol/L (3.5-5.1); SODIUM 132 mmol/L (136-145)
[2018-05-10 23:41] LABS: BILIRUBIN,URINE NEGATIVE (NEGATIVE); CLARITY,URINE CLEAR (CLEAR); COLOR,URINE YELLOW (YELLOW); KETONES,URINE NEGATIVE (NEGATIVE); LEUKOCYTE ESTERASE ,URINE NEGATIVE (NEGATIVE); NITRITE,URINE NEGATIVE (NEGATIVE); PROTEIN,URINE DIPSTICK NEGATIVE (NEGATIVE); URINE UROBILINOGEN 0.2 mg/dL (0.2 - 1)
[2018-05-11 00:11] LABS: BACTERIA,URINE RARE /HPF; EPITHELIAL CELLS,URINE FEW /LPF; MUCUS,URINE FEW (RARE); RBC,URINE 0-5 /HPF (0-5); WBC,URINE (MAN) 0-5 /HPF (0-5)
[2018-05-11] MEDS ORDERED: HYDROMORPHONE 1MG/1ML INJ IV PRN (00:45)
[2018-05-11] MEDS ORDERED: SODIUM CHLORIDE FLUSH 10 ML SYR INJ PRN (00:45)
--- OUTSIDE RECORDS SUMMARY | 2018-05-11 00:47 | XMS REPORT | Clinical Summary ---
Author Author DARLEEN V Wave [facility] [employer] Confer [facility] Address Unknown Phone Unavailable Care Team Providers Care Favor Maker Name Role Phone Kevin Morris PCP Unavailable [...] LAPAROSCOPY,GASTROSTOMY BUTTON (G-BUTTON) 10/01/2017 Surgery Isabel Whitman, FIXED WING [employer] CREW CHIEF 09/26/2017 Anesthesia Gastroenterology Event Lashon Hooks MD [...] Chronic pain syndrome; Right arm cellulitis 09/14/2017 [facility] General Internal Medicine - Encounter 11/07/2017 after 05/10/2017 Immunizations Name Dates Previously Given Next Due Influenza High Dose 02/04/[id number] Pneumococcal 02/04/2015 Polysaccharide (Pneumovax) Social History Date [...] Area Manufactur er 05/05/2018 [id number] / / [id number] [place] Puncture Set N/A: Neck Implanted: [...] Esophago-tracheal fistula FREE-LOWER EXTREMITY 7:30 AM CDT ([facility]) Special Needs (MICROSCOP E, FREE FLAP SET, ENT MINOR SET, TOURNIQUET ) SKIN GRAFT,FULL 10/26/2017 Esophago-tracheal fistula THICKNESS-HEAD/FACE 7:30 AM CDT ([facility]) Special Needs (MICROSCOP E, FREE FLAP SET, ENT MINOR SET, TOURNIQUET ) DISSECTION,NECK SELECTIVE 10/26/2017 Esophago-tracheal fistula 7:30 AM CDT ([facility]) Special Needs (MICROSCOP E, FREE FLAP SET, ENT MINOR SET, TOURNIQUET ) CLOSURE,TRACHEOSTOMY/FIST 10/26/2017 Esophago-tracheal fistula DOMINIK 7:30 AM CDT ([facility]) Special Needs (MICROSCOP E, FREE FLAP SET, [...] Routine 09/15/2017 DIFFERENTIAL 2:05 AM CDT after 05/10/2017 Results * RHYTHM STRIP - SCAN (11/08/2017 11:01 AM CDT) Narrative Performed At * CBC with platelet count + automated diff (11/07/2017 5:07 AM CDT) Only the most recent of 23 results within the time period is included. WBC 3.6 3.5 - 10.5 K/L [facility] RBC 3.03 (L) 3.93 - 5.22 M/L [facility] Hemoglobin 8.9 (L) 11.2 - 15.7 GM/DL [facility] Hematocrit 28.6 (L) 34.1 - 44.9 % [facility] MCV 94.4 79.4 - 94.8 fL [facility] MCH 29.4 25.6 - 32.2 pg [facility] MCHC 31.1 (L) 32.2 - 35.5 GM/DL [facility] RDW 15.7 (H) 11.7 - 14.4 % [facility] Platelets 179 150 - 450 K/CU MM [facility] MPV 10.2 9.4 - 12.3 fL [facility] nRBC 0 0 - 0 /100 WBC [facility] % Neutros 62 % [facility] % Lymphs 25 % [facility] % Monos 8 % [facility] % Eos 4 % [facility] % Baso 1 % [facility] # Neutros 2.22 1.56 - 6.13 K/L [facility] # Lymphs 0.89 (L) 1.18 - 3.74 K/L [facility] # Monos 0.28 0.24 - 0.36 K/L [facility] # Eos 0.15 0.04 - 0.36 K/L [facility] # Baso 0.02 0.01 - 0.08 K/L [facility] Immature 0 0 - 1 % [facility] Granulocytes-[facility] Specimen Blood - Arm, Right Performing Organization Address City/[facility] [place] [address] [phone] [place] [address] * Phosphorus (11/07/2017 5:07 AM CDT) Only the most recent of 24 results within the time period is included. Phosphorus 2.9 2.3 - 4.7 mg/dL [facility] Specimen Blood - Arm, Right Performing Organization Address City/[facility]/[place] [address] [phone] * Magnesium (11/07/2017 5:07 AM CDT) Only the most recent of 25 results within the time period is included. Magnesium 1.8 1.6 - 2.6 mg/dL [facility] Specimen Blood - Arm, Right Performing Organization Address City/State/Zipcode Phone Number [facility] [address] [place], [place] [phone] [facility] * Basic Metabolic Panel (11/07/2017 5:07 AM CDT) Only the most recent of 33 results within the time period is included. Sodium 136 136 - 145 meq/L [facility] Potassium 4.1 3.5 - 5.1 meq/L [facility] Chloride 106 98 - 107 meq/L [facility] CO2 23 22 - 29 meq/L [facility] BUN 25 (H) 7 - 21 mg/dL [facility] Creatinine 0.65 0.57 - 1.25 mg/dL [facility] Glucose 113 (H) 70 - 105 mg/dL [facility] Calcium 8.6 8.4 - 10.2 mg/dL [facility] EGFR 90Comment: ESTIMATED GFR IS mL/min/1.[address] [facility] NOT ACCURATE CREATININE [facility] CLEARANCE IN PREDICTING GLOMERULAR FILTRATION RATE. ESTIMATED GFR IS NOT APPLICABLE FOR DIALYSIS PATIENTS. Specimen Blood - Arm, Right Performing Organization Address [facility] Phone Number [facility] [address] [place] [address] [facility] * POC-Glucose meter (11/06/2017 4:31 AM CDT) Only the most recent of 122 results within the time period is included. POC-Glucose Meter 118 (H)Comment: TESTED AT 70 - 110 mg/dL [facility] [address] [place] [id number] Specimen Blood Performing Organization Address City/[facility]/Zipcode Phone Number [facility] [address] [place] [address] [facility] * Venous doppler arm, right (11/05/2017 11:33 AM CDT) Ejection [facility] ECHO HEARTLAB [facility] Impressions Performed At Right [facility] ECHO HEARTLAB 1. The jugular vein is not visualized due to tracheal collar and recent [facility] surgery. 2. There is no deep [...] At PV LAB - Upper Extremities Veins [facility] ECHO HEARTLAB Demographics [facility] Patient NamePAGEJENN Date of Study 11/05/2017 67 Visit [id number] of 1950 Number Referring TONYA CUNNINGHAM Room Number 6A03 Physician Hydroelectric Plant Mechanical Engineer Giovanni Tatum. InterpretingJ. Clark Manuel RVT, SANDYSPdemi FUNEZ, BRIAN Procedure Type of Study: Veins: [...] of Study 11/05/2017 Age 67 Visit Number [id number] Gender Female Date of 1950 Number Referring [facility] Room Number 6A03 Physician Hydroelectric Plant Mechanical Engineer Giovanni Tatum. Interpreting Kenia Manuel RVT, ARS [...] are measured in cm Performing Organization Address City/State/[facility] Phone Number [facility] ECHO HEARTLAB [facility] * Clostridium difficile [facility] Toxin (11/04/2017 5:48 PM CDT) C. Difficle Toxin Negative Negative [facility] C. Difficile GDH Antigen NegativeComment: No indication Negative [facility] of Clostridium difficile [facility] infection and no colonization. Discontinue enteric isolation and therapy. Specimen Stool - Stool Narrative Performed At Testing performed by [employer] Rapid Cassette Assay.For GDH, published [facility] sensitivity of the assay is 98.7% compared to cytotoxicity testing.For Toxin [facility] AB, published sensitivity is 87.8% and specificity 99.4% compared to cytotoxicity testing. Verification of kit performance was done by the [facility] Microbiology Lab prior to clinical use. Performing Organization Address City/State/Zipcode Phone Number [facility] [address] [place] [address] [phone] [place] [address] * TRANSFUSION SERVICE REPORT - SCAN (10/31/2017 6:02 PM CDT) Only the most recent of 4 results within the time period is included. Narrative Performed At * Prepare Leuko-Red RBC (10/30/2017 4:18 AM CDT) Only the most recent of 2 results within the time period is included. CROSSMATCH COMPATIBLE SAFETRACE TX Unit ABO O Pos SAFETRACE TX UNIT NUMBER [id number] [place] Status WORK IN PROGRESS SAFETRACE TX Blood Bank Product RED BLOOD CELLS SAFETRACE TX PRODUCT CODE [id number] SAFETRACE TX CROSSMATCH COMPATIBLE SAFETRACE TX Unit ABO O Pos SAFETRACE TX UNIT NUMBER [id number] SAFETRACE TX Status WORK IN PROGRESS SAFETRACE TX Blood Bank Product RED BLOOD CELLS SAFET[place] PRODUCT CODE [id number] [place] Specimen Other Performing Organization Address City/State/Zipcode Phone Number [place] * Transfuse Leuko-Red RBC (10/29/2017 2:05 AM CDT) Only the most recent of 2 results within the time period is included. * Vancomycin level, trough (10/28/2017 8:46 PM CDT) Vancomycin Tr 26.7 (H) 10.0 - 20.0 ug/mL [facility] [place] Specimen Blood - Arm, Right Performing Organization Address City/State/Zipcode Phone Number [facility] [address] [place] [address] MEDICAL CENTER * ECG 12 lead (10/28/2017 11:30 AM CDT) Only the most recent of 2 results within the time period is included. Narrative Performed At Ventricular Rate 86 BPM GE MUSE Atrial Rate 86 BPM P-R Interval 154 ms QRS Duration 80 ms Q-T Interval 378 ms QTC Calculation(Bazett) 452 ms P Brainard 57 degrees R Brainard 32 degrees T Brainard 56 degrees Normal sinus rhythm Low voltage [...] 378 ms QTC Calculation(Bazett) 452 ms P Brainard 57 degrees R Brainard 32 degrees T [place] 56 degrees Normal sinus rhythm Low voltage QRS Poor R wave progression Cannot rule out Anterior infarct , age undetermined Abnormal ECG When compared with ECG of 29-MAY-1995 12:05, No significant changes Confirmed by Maria Guadalupe PETTY, BLANCHE ([id number]) on 10/30/2017 1:48:13 PM Performing Organization Address City/[facility] Phone Number Kash * XR chest 1 view portable / bedside (10/28/2017 11:17 AM CDT) Only the most recent of 4 results within the time period is included. Narrative Performed At FINAL REPORT [facility] CHEST ONE VIEW HISTORY: Status post tracheostomy [...] MD Report Verified Date/Time:10/28/2017 11:20:47 Reading Location: [address] Transitional Reading Room Procedure Note Interface, [...] Report Verified Date/Time: 10/28/2017 11:20:47 Reading Location: [address] Transitional Reading Room Performing Organization Address [facility] Phone Number [facility] * TSH/Free T4 If Indicated (10/27/2017 12:58 PM CDT) TSH 1.46 0.35 - 4.94 uIU/mL [facility] Specimen Blood Performing Organization Address [facility] Phone Number [address] [address] [phone] [place] [address] * Prealbumin (10/27/2017 3:31 AM CDT) Only the most recent of 2 results within the time period is included. Prealbumin 14 14 - 45 mg/dL [facility] Specimen Blood Performing Organization Address [facility] Phone Number [address] [address] [phone] [place] [address] * Tissue Exam (10/26/2017 8:28 AM CDT) Case Report Surgical Pathology [facility] Case: [id number] Authorizing Provider:Kanu Acevedo MD Collected: 10/26/2017 0828 Ordering Location: [facility] PERIOPERATIVE Received: 10/26/2017 0838 SERVICES Pathologist: Ale Hdez MD Specimens: A) - Pharynx, Posterior pharyngeal wall B) - Tracheal, tracheal esophageal fistula DIAGNOSIS A. PHARYNX, POSTERIOR [facility] WALL,BIOPSY, : [facility] - SQUAMOUS MUCOSA WITH MILD CHRONIC INFLAMMATION AND FIBROSIS - NEGATIVE FOR DYSPLASIA OR MALIGNANCY B. TRACHEAOESOPHAGEAL FISTULA, BIOPSY: - FRAGMENTS OF ULCERATED SQUAMOUS MUCOSA WITH GRANULATION TISSUE, INFLAMMATION AND FIBROSIS - NEGATIVE FOR DYSPLASIA OR MALIGNANCY Signing Pathologist Direct Phone Line: [phone] CPT Code(s) [address] [facility] [address] X 2 [facility] CLINICAL HISTORY Esophagotracheal fistula [facility] SPECIMEN SOURCE A. Posterior pharyngeal wall. [facility] B. Tracheal esophageal fistula [facility] GROSS DESCRIPTION Specimen A. The specimen is [facility] received fresh for frozen [facility] section diagnosis and labeled "pharyngeal wall" and [...] cassette B1. DB/ew INTRAOPERATIVE A1FS; POSTERIOR PHARYNGEAL [facility] CONSULTATION WALL, BIOPSY: [facility] - SQUAMOUS MUCOSA WITH MILD CHRONIC INFLAMMATION AND FIBROSIS - NEGATIVE FOR DYSPLASIA PER DR. HDEZ MICROSCOPIC DESCRIPTION PERFORMED [facility] Specimen Tissue - Pharynx Performing Organization Address City/State/Zipcode Phone Number [facility] [address] [place] [address] [facility] * Manual Differential (10/26/2017 4:57 AM CDT) % Neutros 45 % [facility] % Lymphs 41 % [facility] % Monos 7 % [facility] % Eos 5 % [facility] % Baso 2 % [facility] # Neutros 1.08 (L) 1.56 - 6.13 K/ul [facility] # Lymphs 0.98 (L) 1.18 - 3.74 K/ul [facility] # Monos 0.17 (L) 0.24 - 0.36 K/uL [facility] # Eos 0.12 0.04 - 0.36 K/uL [facility] # Baso 0.05 0.01 - 0.08 K/uL [facility] Total Counted 100 [facility] WBC Morphology Normal [facility] Platelet Morphology Normal [facility] Polychromasia 1+ few [facility] Anisocytosis 1+ few [facility] Poikilocytes 1+ few [facility] Artifact Present [facility] Platelet Conc Adequate [facility] Specimen Blood Narrative Performed At Received comment: [facility] User comments: [facility] Slide comments: Performing Organization Address City/[facility]/Zipcode Phone Number [facility] [address] [place] [address] [facility] * Type and screen, automated (10/26/2017 4:57 AM CDT) ABO/RH AUTOMATED (BEAKER) O POSITIVE [facility] Ab Scrn NEGATIVE [facility] Specimen Blood Performing Organization Address City/[facility]/Zipcode Phone Number [facility] [address] [place] [address] [facility] * aPTT (10/26/2017 4:57 AM CDT) PTT 22.2 (L) 22.5 - 36.0 seconds [facility] Specimen Blood Performing Organization Address City/[facility]/Zipcode Phone Number [facility] [address] [place], [place] [phone] [facility] * Prothrombin time/INR (10/26/2017 4:57 AM CDT) Only the most recent of 2 results within the time period is included. Protime 12.5 11.7 - 14.7 seconds [facility] INR 0.9 <=5.9 [facility] Specimen Blood Narrative Performed At RECOMMENDED COUMADIN/WARFARIN INR THERAPY RANGES [facility] STANDARD DOSE: 2.0 - 3.0 Includes: PROPHYLAXIS for venous thrombosis, [facility] systemic embolization; TREATMENT for venous thrombosis and/or pulmonary embolus. HIGH RISK: Target INR is 2.5-3.5 for patients with mechanical heart valves. Performing Organization Address City/[facility] Phone Number [facility] [address] [place] [address] [facility] * Sputum Culture + Gram Stain (10/24/2017 4:07 PM CDT) Only the most recent of 2 results within the time period is included. Result METHICILLIN RESISTANT [facility] STAPHYLOCOCCUS AUREUS (A) [facility] Gram Stain Result No WBCs [facility] Gram Stain Result 5-10 epithelial cells [facility] Gram Stain Result 2+ gram positive cocci in [facility] Gram Stain Result 2+ gram positive cocci in [facility] Specimen Tracheal - Trachea Narrative Performed At 2+ Normal respiratory yoanna present [facility] Antibiotic Method Susceptibility Organism Clindamycin >=4: [...] aureus Performing Organization Address City/State/Zipcode Phone Number [facility] [address] [place] [address] [facility] * CT chest low dose S/P lung transplant without IV contrast (10/23/2017 9:47 PM CDT) Narrative Performed At FINAL REPORT [facility] CLINICAL INDICATION: Follow-up left lung infiltrate on [...] MD Report Verified Date/Time:10/24/2017 02:08:27 Reading Location: [address] Reading Room Procedure Note Interface, External [...] Report Verified Date/Time: 10/24/2017 02:08:27 Reading Location: [address] Reading Room Performing Organization Address City/State/Zipcode Phone Number [facility] * PERIPHERAL VASCULAR REPORT - SCAN (10/19/2017 2:53 PM CDT) Narrative Performed At * STRESS ECHO With Contrast & Tracing (10/19/2017 7:48 AM CDT) Ejection Fraction [facility] ECHO HEARTLAB [facility] Narrative Performed At Stress Echocardiography Report [facility] ECHO HEARTLAB Demographics [facility] Patient Name JENN JERNIGAN Date of Study 10/19/2017 [id number] Female Visit Number [id number] Room Number 2430 Number Date of Birth1950Referring Physician Sunny Sun Age67 year(s)Hydroelectric Plant Mechanical Engineer Shonda Pierson Interpreting Kobe Friend MD Physician [...] Predicted HR: 151 bpm HR BP Product: 36373 % of predicted HR: 85 Max Infusion: [...] of Study 10/19/2017 Gender Female Visit Number [id number] Race Unknown Room Number 2430 Number Date of 1950 Referring Physician Sunny Sun Age 67 year(s) Hydroelectric Plant Mechanical Engineer Shonda Pierson Interpreting Kobe Friend MD Physician [...] Predicted HR: 151 bpm HR BP Product: 41288 % of predicted HR: 85 Max Infusion: [...] CO: 3.44 l/min LVOT CI: 2.46 l/min/m^2 [facility] Organization Address City/State/Zipcode Phone Number [facility] E[facility] HEART[facility] * CT neck soft tissue with IV contrast (10/18/2017 10:14 PM CDT) Narrative Performed At FINAL REPORT [facility] CT neck soft tissues after IV contrast [...] MD Report Verified Date/Time:10/19/2017 08:01:01 Reading Location: [address] Neuro Reading Room Procedure Note Interface, [...] Report Verified Date/Time: 10/19/2017 08:01:01 Reading Location: [facility] C013V Neuro Reading Room Performing Organization Address City/State/Zipcode Phone Number [facility] * Arterial doppler arms bilateral (10/18/2017 10:17 AM CDT) Ejection Fraction [facility] ECHO HEARTLAB [facility] Impressions Performed At Right Impression [facility] ECHO HEARTLAB 1. The subclavian, axillary, [...] Arterial Duplex [facility] ECHO HEARTLAB Demographics [facility] Patient NamePAGEJENN Date of Study 10/18/2017 67 Visit [id number] of 1950 Number Referring Willie Nguyen Room Number 2430 Physician Hydroelectric Plant Mechanical Engineer Giovanni Tatum. InterpretingJ. INGRID BarrosoT, Paola FUNEZ, [...] of Study 10/18/2017 Age 67 Visit Number [id number] Gender Female Date of 1950 Number Grupo Nguyen Room Number 2430 Physician Hydroelectric Plant Mechanical Engineer Giovanni Tatum. Interpreting Kenia Manuel, T, ARDMS [...] are measured in cm Performing Organization Address City/[facility] Phone Number [facility]ART[facility] * Vitamin B12 and Folate (10/16/2017 3:57 AM CDT) Vitamin B12 419 213 - 816 pg/mL [facility] Folate 13.0 >=7.0 ng/mL [facility] Specimen Blood Performing Organization Address [facility] Phone Number [facility] [address] [place] [address] [facility] * Iron, TIBC, % sat. (without ferritin) (10/16/2017 3:57 AM CDT) Iron 24 (L) 40 - 160 ug/dL [facility] TIBC 204 (L) 250 - 450 ug/dL [facility] Iron % Saturation 12 (L) 20 - 55 % [facility] Specimen Blood Performing Organization Address City/State/Zipcode Phone Number [facility] [address] [place], [place] [phone] [facility] * Ferritin (10/16/2017 3:57 AM CDT) Ferritin 46 5 - 275 ng/mL [facility] Specimen Blood Performing Organization Address City/State/Zipcode Phone Number [facility] [address] [place], [place] [phone] [facility] * FL upper GI (10/05/2017 10:39 [...] MD Report Verified Date/Time:10/05/2017 11:22:08 Reading Location: [address] Consult Reading Room Procedure Note Interface, [...] Report Verified Date/Time: 10/05/2017 11:22:08 Reading Location: [address] Ortho Consult Reading Room Performing Organization Address [facility] Phone Number [facility] * TSH (09/29/2017 6:17 AM CDT) TSH 3.36 0.35 - 4.94 uIU/mL [facility] Specimen Blood Performing Organization Address [facility] Phone Number [address] * T4, free (09/29/2017 6:17 AM CDT) Free T4 1.03 0.70 - 1.48 ng/dL [facility] Specimen Blood Performing Organization Address [facility] Phone Number [address] * REPORT OF PROCEDURE - ENDOSCOPY URL (09/26/2017 10:52 AM CDT) Narrative Performed At * SPIN/CONCENTRATION CHARGE (09/25/2017 10:13 AM CDT) Concentration charged Done [facility] Specimen Sputum - Endotracheal Performing Organization Address [facility] Phone Number [address] * AFB culture + smear (09/25/2017 10:13 AM CDT) Result No acid-fast bacilli isolated [facility] in 42 days [facility] AFB Smear No acid fast bacilli seen [facility] Specimen Sputum - Endotracheal Performing Organization Address City/State/Zipcode Phone Number [facility] [address] [place], [place] [phone] [facility] * Fungus culture + smear (09/25/2017 10:13 AM CDT) Result DAVIN TROPICALIS (A) [facility] Fungus Smear 4+ budding yeast [facility] Fungus Smear 1+ yeast with pseudohyphae [facility] Fungus Smear <1+ hyphal elements seen [facility] Specimen Sputum - Endotracheal Performing Organization Address City/State/Zipcode Phone Number [facility] [address] [place], [place] [phone] [facility] * CT chest without IV contrast (09/24/2017 8:54 PM CDT) Narrative Performed At FINAL REPORT [facility] DOSE REDUCTION: The examination was performed according [...] MD Report Verified Date/Time:09/24/2017 21:35:22 Reading Location: [facility] B1 C013W Consult Reading Room Procedure Note [...] Report Verified Date/Time: 09/24/2017 21:35:22 Reading Location: [facility] B1 C013W Consult Reading Room Performing Organization Address City/State/Zipcode Phone Number [facility] * POC-Lactic Acid, Arterial (09/24/2017 4:51 AM CDT) POC-Lactic Acid, Arterial 0.6Comment: TESTED AT [facility] 0.4 - 1.3 mmol/L [id number] [place] [place] [address] Specimen Blood Performing Organization Address City/[facility]/Zipcode Phone Number [phone] [place] [address] * POCT-HEMATOCRIT (09/24/2017 4:47 AM CDT) POC-Hematocrit 36Comment: TESTED AT [facility] 36 - 45 % [address] Specimen Blood Performing Organization Address City/[facility] Phone Number [phone] [place] [address] * POCT-HEMOGLOBIN (09/24/2017 4:47 AM CDT) POC-Hemoglobin 12.2Comment: TESTED AT [facility] 12.0 - 15.0 g/dL [address] [id number] AT [address] [address] Specimen Blood Performing Organization Address [facility] Phone Number [phone] [place] [address] * POCT-GLUCOSE (09/24/2017 4:47 AM CDT) POC-Glucose 117 (H)Comment: TESTED AT 70 - 110 mg/dL [address] [address] Specimen Blood Performing Organization Address City/[facility] Phone Number [phone] [place] [address] * POC-Sodium (09/24/2017 4:47 AM CDT) POC-Sodium 139Comment: TESTED AT [facility] 135 - 148 meq/L [address] Specimen Blood Performing Organization Address City/[facility]/Zipcode Phone Number [address] [address] [phone] * POC-Potassium (09/24/2017 4:47 AM CDT) POC-Potassium 3.9Comment: TESTED AT [facility] 3.6 - 5.5 meq/L [address] Specimen Blood Performing Organization Address City/State/[place] [address] [facility] * POC-Calcium ionized (09/24/2017 4:47 AM CDT) POC-Calcium Ionized 1.19Comment: TESTED AT [facility] 1.12 - 1.27 mmol/L [address] Specimen Blood Performing Organization Address [facility] [place] [address] [facility] * POC-Blood gases, arterial (09/24/2017 4:47 AM CDT) Temp. Celsius-POC 38.6 [facility] FIO2-POC 60Comment: TESTED AT [address] pH, Arterial-POC 7.382 7.350 - 7.450 [facility] PCO2, Arterial-POC 50.6 (H) 35.0 - 45.0 mm Hg [facility] PO2, Arterial-POC 79.0 (L) 80.0 - 90.0 mm Hg [facility] SO2, Arterial-POC 94.0 (L) 96.0 - 97.0 % [facility] HCO3, Arterilal-POC 29.6 (H) 21.0 - 29.0 meq/L [facility] BE, Arterial-POC 5.0 (H) -2.0 - 3.0 meq/L [facility] Specimen Blood Performing Organization Address City/State/[place] [address] [facility] * Comprehensive metabolic panel (09/24/2017 4:37 AM CDT) Protein, Total 6.2 6.0 - 8.3 gm/dL [facility] Albumin 3.2 (L) 3.5 - 5.0 g/dL [facility] Alkaline Phosphatase 80 40 - 150 U/L [facility] Total Bilirubin 0.5 0.2 - 1.2 mg/dL [facility] Sodium 138 136 - 145 meq/L [facility] Potassium 4.1 3.5 - 5.1 meq/L [facility] Chloride 104 98 - 107 meq/L [facility] CO2 25 22 - 29 meq/L [facility] BUN 16 7 - 21 mg/dL [facility] Creatinine 0.71 0.57 - 1.25 mg/dL [facility] Glucose 113 (H) 70 - 105 mg/dL [facility] Calcium 9.0 8.4 - 10.2 mg/dL [facility] AST 13 5 - 34 U/L [facility] ALT <6 (L) 6 - 55 U/L [facility] EGFR 82Comment: ESTIMATED GFR IS mL/min/1.[address] [facility] NOT ACCURATE CREATININE [facility] CLEARANCE IN PREDICTING GLOMERULAR FILTRATION RATE. ESTIMATED GFR IS NOT APPLICABLE FOR DIALYSIS PATIENTS. Specimen Blood Performing Organization Address City/State/Zipcode Phone Number [facility] [address] [place] [address] [facility] * Urinalysis w/Microscopic + Reflex to Culture (09/23/2017 9:52 PM CDT) Color, UA Yellow [facility] Clarity, UA Clear [facility] Specific Er[place], UA 1.013 1.001 - 1.035 [facility] pH, UA 7.0 5.0 - 8.0 [facility] Protein, UA Negative Negative [facility] Glucose, UA Negative Negative [facility] Ketones, UA Negative Negative [facility] Bilirubin, UA Negative Negative [facility] Blood, UA Negative Negative [facility] Nitrite, UA Negative Negative [facility] Leukocytes, UA Small (A) Negative [facility] Urobilinogen, UA 0.2 0.2 - 1.0 mg/dL [facility] RBC, UA <1 /HPF [facility] WBC, UA 5 /HPF [facility] Mucus Rare [facility] Squam Epithel, UA <1 /HPF [facility] Specimen Source [facility] Specimen Urine Performing Organization Address City/[facility]/Zipcode Phone Number [address] * Blood culture (09/23/2017 6:55 PM CDT) Result No growth in 5 days [facility] Specimen Blood - Arm, Left Performing Organization Address City/[facility] Phone Number [address] * Lactic acid, venous, whole blood (09/23/2017 5:07 AM CDT) Lactate, Venous 0.8 0.5 - 2.2 mmol/L [facility] Specimen Blood - Arm, Right Narrative Performed At Effective 06/09/2015: Units/Reference Range Change [facility] New: 0.5-2.2 mmol/LPrevious: 5-20 mg/dL [facility] Performing Organization Address City/State/Zipcode Phone Number [facility] [address] [place] [address] [facility] * [place] esoph swallow funct with [...] MD Report Verified Date/Time:09/20/2017 16:21:18 Reading Location: [address] Ortho Consult Reading Room Procedure Note [...] Report Verified Date/Time: 09/20/2017 16:21:18 Reading Location: [address] Ortho Consult Reading Room Performing Organization [...] MD Report Verified Date/Time:09/15/2017 11:34:38 Reading Location: [facility] B1 C013Y CT Body Reading Room Procedure [...] Report Verified Date/Time: 09/15/2017 11:34:38 Reading Location: [facility] B1 C013Y CT Body Reading Room Performing Organization Address City/State/Zipcode Phone Number GE RIS after 05/10/2017 Insurance Payer Benefit Subscriber ID Type Phone Address Plan / Group [employer] x[facility] Advance Directives For more information, please contact: [facility] [address] [place] [address] 07 Date Inactivated Comments Code Status Date Activated [...]
[2018-05-11] MEDS: ONDANSETRON HCL INJ 2MG/ML 2ML 2 MG/ML VIAL IV PRN ×2 (03:10→21:11)
[2018-05-11] MEDS ORDERED: HYDROMORPHONE 2MG/ML 2 MG/ML ML ONE (03:10)
[2018-05-11] MEDS: LEVALBUTEROL HCL SOLN NEBU 1.25 MG/3 ML NEB INH SCH ×3 (07:00→18:54)
--- NOTE | 2018-05-11 07:00 | NUR ---
ASSUMED CARE AT THIS TIME. PATIENT TRANSFERRED TO HOSPITAL BED AND BUCKS TRACTION, 5LBS APPLIED TO LEFT EXTREMITY,TOLERATED WELL. RESP EVEN AND UNLABORED. SKIN WARM AND DRY. NO SIGNS OF ACUTE DISTRESS NOTED AT THIS TIME.
--- NOTE | 2018-05-11 08:40 | NUR ---
SPO2 86% ON TRACH COLLAR, THICK YELLOW-WHITE SPUTUM NOTED, TRACH STOMA SUCTIONED,TOLERATED WELL. SPO2 99% AFTER SUCTIONING. NO SIGNS OF RESP DISTRESS NOTED.
[2018-05-11] MEDS: HYDROMORPHONE 2MG/ML 2 MG/ML ML IV PRN ×4 (09:13→21:13)
--- NOTE | 2018-05-11 09:31 | NUR ---
SPO2 84% ON TRACH COLLAR, PATIENT ATTEMPTING TO COUGH UP SECRETIONS, TRACH STOMA SUCTIONED, LARGE YELLOW MUCUS PLUG REMOVED,TOLERATED WELL. SPO2 99% AFTER SUCTIONING, NO SIGNS OF RESP DISTRESS NOTED.
--- NOTE | 2018-05-11 09:38 | NUR ---
PATIENT LAYING IN BED WITH EYES CLOSED. SKIN WARM AND DRY. RESP EVEN AND UNLABORED. NO SIGNS OF ACUTE DISTRESS NOTED AT THIS TIME.
--- NOTE | 2018-05-11 11:55 | NUR ---
PATIENT LAYING IN BED WITH EYES CLOSED. SKIN WARM AND DRY. RESP EVEN AND UNLABORED. NO SIGNS OF ACUTE DISTRESS NOTED AT THIS TIME.
[2018-05-11] MEDS ORDERED: ENOXAPARIN 30 MG/0.3 ML SYR SC NR (12:15)
--- NOTE | 2018-05-11 12:17 | NUR ---
VERBAL REPORT GIVEN TO ASHLEY MARTIN.
--- NOTE | 2018-05-11 13:00 | NUR ---
DR. SANCHEZ IN ROOM WITH PT
--- NOTE | 2018-05-11 13:48 | NUR ---
report received from sheba. patient to arrive with trach, in bucks traction, and alert and oriented.
--- NOTE | 2018-05-11 14:05 | NUR ---
patient arrived on unit alert and oriented and in bucks traction. Trach on 10L oxygen and patient in no distress.
[2018-05-11 14:20] VITALS: BP 129/64
[2018-05-11 14:35] VITALS: BP 129/64
[2018-05-11] MEDS ORDERED: INFLUENZA VIRUS VAC SPLIT INJ 0.5 ML SYR IM NR (15:17)
[2018-05-11] MEDS ORDERED: PNEUMOCOCCAL VACCINE POLYVALENT 23 MCG/0.5 ML VIAL IM NR (15:17)
--- NOTE | 2018-05-11 16:56 | Consultation ---
DATE OF CONSULTATION: 05/11/2018 Pulmonary Medicine Consult HISTORY OF PRESENT ILLNESS: Ms. Tamez is a pleasant 67-year-old female with preoperative evaluation. The patient presented to [facility] on May 10, 2018. The patient had a fall. She was walking to the bathroom when this happened and she stumbled. She had left hip injury. The patient has had pain since. The patient came where, she had an x-ray demonstrating a close nondisplaced transverse intratrochanteric and subtrochanteric fracture of the head of the left femur. The articular surface was not affected. The patient is being readied for surgery. The patient has a cancer history going back to about 2014. The patient had throat cancer and she was treated with chemotherapy. She had a tracheostomy at that time. The patient eventually underwent laryngectomy where another progress note says the patient did not have radiation treatment. The patient being seen by Dr. Morris of [facility] and by ENT at the [facility] area. Locally Dr. Christiano Rodriguez has seen the patient three times in past for ENT purposes and has reviewed her anatomy. PAST MEDICAL HISTORY: COPD, laryngeal cancer status post laryngectomy, hypertension, diabetes, cough, PEG tube history, possible radiation treatment, oxygen dependent, scoliosis. MEDICATIONS: Medication list reviewed per the chart record. ALLERGIES: TRAMADOL. FAMILY HISTORY: Noncontributory to this condition. SOCIAL HISTORY: The patient has been smoker three packs per day for more than 40 years. No alcohol. No drugs. Lives with the . REVIEW OF SYSTEMS: Cannot get as she is not speaking right now due to no voice box sign. OBJECTIVE: VITAL SIGNS: Afebrile, vital signs noted, stable per the chart record. GENERAL: In no acute distress, calm in bed. HEENT: Normocephalic, atraumatic. NECK: Supple. Throat midline. LUNGS: Bilateral air entry is mildly decreased, rare rhonchi. CARDIOVASCULAR: S1, S2. No murmurs, rubs, or gallops. ABDOMEN: Soft, nontender. EXTREMITIES: No clubbing, no cyanosis. There is no edema. INTEGUMENT: No rash. No purpura. The stoma site is seen intact around the tracheostomy/laryngectomy site. LABORATORY DATA: 4.1 potassium, 17 BUN, 0.7 creatinine. 6 white count, 28 hematocrit, 152 platelets. IMPRESSION AND PLAN: 1. Perioperative evaluation, pulmonary. 2. Left hip fracture, likely surgical intervention. 3. Reported chronic obstructive pulmonary disease. 4. Chronic smoker in the past. 5. Scoliosis. 6. Thyroid abnormality. 7. Reported gastroesophageal reflux disease. 8. History of dysphagia s/p PEG tube s/p removal. 9. History of throat cancer. ENT consult as they reviewed the anatomy already. The patient more likely for endotracheal tube intubation via the tracheostomy site for surgery. The patient had a laryngectomy. Therefore, no oral approach likely. Bronchodilators will be given perioperatively. We will consider steroids if needed, but the patient has not really had too many exacerbations of the reported COPD. It is notable that the patient does have scoliosis curvature on x-ray and this could be a component of any chronic respiratory problem. The patient may have some related respiratory limitation, but of note, the patient's serum bicarbonate is 25. ABG can be done p.r.n. but likely not to facilitate surgery as the patient should have an easily securable modality for ventilation. Thank you very much, Dr. Guo and Dr. Morris of [facility] for allowing me a chance to participate in the care of Mrs. Tamez. Do not hesitate to contact me if I could help in any way. MD BABS Peterson/ALANA /[id number] DAHLIA
[2018-05-11] MEDS: LORAZEPAM 1 MG TAB PO PRN (18:00)
--- NOTE | 2018-05-11 19:04 | NUR ---
rounded with slot shift supervisor nurse, patient aware of change. call hairston within reach and bed in lowest position
[2018-05-11 19:58] VITALS: BP 121/63
--- NOTE | 2018-05-11 21:10 | NUR ---
Assessment done.aaox3.repositioned .head of bed elevated @ 30degree.mckinney care given.plexipump applied.bed locked and in lowest position.phone and call light within reach.instructed to call for assistance as needed.verbalized understanding.
[2018-05-11] MEDS: IPRATROPIUM BROMIDE 0.02% 2.5 ML NEB NEB SCH (21:35)
[2018-05-11 22:00] VITALS: BP 121/63
[2018-05-12] VITALS (8 sets, daily range): BP systolic 106–137; BP diastolic 51–70
[2018-05-12] MEDS: HYDROMORPHONE 2MG/ML 2 MG/ML ML IV PRN ×5 (01:51→18:16)
[2018-05-12] MEDS: ONDANSETRON HCL INJ 2MG/ML 2ML 2 MG/ML VIAL IV PRN ×5 (01:51→18:16)
[2018-05-12] MEDS: LEVOTHYROXINE SODIUM 75 MCG TAB PO SCH ×2 (05:50→06:17)
[2018-05-12] MEDS: LORAZEPAM 1 MG TAB PO PRN ×3 (06:14→21:01)
--- NOTE | 2018-05-12 07:00 | NUR ---
REPORT GIVEN TO THE ONCOMING RN.WALKING ROUNDS DONE.STABLE CONDITION.
[2018-05-12 07:09] LABS: BASOPHILS % 0.5 % (0.0-1.0); EOSINOPHILS # (AUTO) 0.1 (0.0-0.4); EOSINOPHILS % 3.2 % (0.0-6.0); HEMATOCRIT 27.6 % (34.2-44.1); HEMOGLOBIN 8.6 g/dL (12.0-16.0); LYMPHOCYTES # (AUTO) 0.7 (1.0-3.2); LYMPHOCYTES % 17.2 % (18.0-39.1); MEAN CORPUSCULAR HEMOGLOBIN 33.7 pg (28-32); MEAN CORPUSCULAR HGB CONC 31.2 g/dL (31-35); MEAN CORPUSCULAR VOLUME 108.2 fL (81-99); MONOCYTES # (AUTO) 0.4 (0.2-0.8); MONOCYTES % 10.6 % (4.4-11.3); NEUTROPHILS # (AUTO) 2.8 (2.1-6.9); NEUTROPHILS % 68.3 % (38.7-80.0); PLATELET COUNT 132 x10e3/uL (140-360); RED BLOOD COUNT 2.55 x10e6/uL (3.6-5.1); RED CELL DISTRIBUTION WIDTH 14.5 % (11.7-14.4)
--- NOTE | 2018-05-12 07:23 | NUR ---
Received patient in report this morning. Patient is resting in bed at this time. Soldier traction, 5 lbs, in tact. No S&S of distress at this time.
[2018-05-12] MEDS: IPRATROPIUM BROMIDE 0.02% 2.5 ML NEB NEB SCH ×3 (08:00→20:30)
[2018-05-12] MEDS: LEVALBUTEROL HCL SOLN NEBU 1.25 MG/3 ML NEB INH SCH ×3 (08:00→20:30)
[2018-05-12 08:05] LABS: ALANINE AMINOTRANSFERASE 8 IU/L (0-55); ALBUMIN 3.2 g/dL (3.5-5.0); ALBUMIN/GLOBULIN RATIO 0.8 (0.8-2.0); ALKALINE PHOSPHATASE 77 IU/L (40-150); ANION GAP 13.5 mmol/L (8-16); BLOOD UREA NITROGEN 18 mg/dL (7-26); BUN/CREATININE RATIO 22 (6-25); CALCIUM 9.3 mg/dL (8.4-10.2); CARBON DIOXIDE 27 mmol/L (22-29); CHLORIDE 96 mmol/L (98-107); CREATININE, SERUM 0.83 mg/dL (0.57-1.11); EST GLOMERULAR FILTRATION RATE > 60 ML/MIN (60-); GLUCOSE 97 mg/dL (74-118); POTASSIUM 4.5 mmol/L (3.5-5.1); SODIUM 132 mmol/L (136-145)
[2018-05-12] MEDS ORDERED: CEFAZOLIN SOD 1 GM/NS 50ML 100 ML IV ONE (11:30)
--- NOTE | 2018-05-12 12:15 | NUR ---
Call placed to Dr. Rodriguez and left a message that patient was having surgery and needed his medical clearance.
[2018-05-12] MEDS ORDERED: LEVOTHYROXINE SODIUM 100 MCG/VIAL IV NR (12:30)
[2018-05-12] MEDS ORDERED: HYDROCODONE/APAP 10MG-325MG TAB PO PRN (12:30)
[2018-05-12] MEDS ORDERED: SODIUM CHLORIDE 0.9% 250ML 250 ML IV NR (12:45)
--- NOTE | 2018-05-12 13:24 | NUR ---
Trach care performed at this time under sterile technique. Patient tolerated well
[2018-05-12] MEDS ORDERED: SODIUM CHLORIDE 0.9% 250ML 250 ML ONE (16:45)
[2018-05-12] MEDS: CARBAMIDE PEROXIDE 15 ML BTL OT SCH ×2 (17:32→21:00)
--- NOTE | 2018-05-12 18:06 | NUR ---
Informed MD of low urine output of 300ml during this shift. Bladder scan obtained and zero urine noted in bladder. Will await any new orders. Patient receiving blood at this time and tolerating well.
--- NOTE | 2018-05-12 19:14 | NUR ---
Removed IV to R wrist, 20g. Redness and swelling noted. Patient reported no pain. Catheter tip intact. Pressure dressing applied.
--- NOTE | 2018-05-12 19:20 | NUR ---
REPORT TAKEN FROM AM RN.WALKING ROUNDS DONE.NEW IV STARTED .FIRST UNIT OF BLOOD IS TRANSFUSING.KEEP MONITOR THE PT.
--- NOTE | 2018-05-12 19:40 | Progress Note ---
DATE: 05/12/2018 Pulmonary Medicine Progress Note SUBJECTIVE: Ms. Tamez was seen and examined at bedside. She continues to have slow progress. She is weak. She remains in bed on leg rest and retraction of the extremity. The patient, although awake. She was seen by ENT specialist today. REVIEW OF SYSTEMS: No bleeding, no headaches. OBJECTIVE: VITAL SIGNS: Afebrile, vital signs noted per the chart record. GENERAL: In no acute distress, alert and calm. HEENT: Normocephalic, atraumatic. NECK: Supple. Throat midline. LUNGS: Bilateral air entry, limited, but clear. CARDIOVASCULAR: S1, S2. No murmurs, rubs, or gallops. ABDOMEN: Soft, nontender. EXTREMITIES: No clubbing, no cyanosis. There is no edema. INTEGUMENT: No rash or purpura. Stoma site is clean at the tracheostomy site in the neck. LABORATORY DATA: 9 hemoglobin, 27 hematocrit. 132 platelets. IMPRESSION AND PLAN: 1. History of throat cancer. 2. Status post laryngectomy and chemotherapy. 3. Acute hip fracture tentatively for operative fixation tomorrow. 4. Weakness. 5. Thyroid disorder. Continue supportive care. Pain medicines. We will have patient go to surgery tomorrow. ENT saw the patient and was established plan of airway management, which is probably going to be endotracheal intubation through tracheostomy site. We will follow along closely. Ensure she did not get side effects given the reported history of COPD. We will follow along closely. MD BABS Peterson/ALANA /[id number]
--- NOTE | 2018-05-12 20:00 | NUR ---
Assessment done.no resp.distress.bed locked and in lowest position.phone and call light within reach.instructed to call for assistance as needed.first unit of blood transfusion completed.
[2018-05-12] MEDS: ACETAMINOPHEN 325 MG TAB PO PRN (20:47)
--- NOTE | 2018-05-12 22:45 | NUR ---
V/s stable.no nausea.tolerate diet.second unit of blood started.no reaction noted.mckinney care given.stable condition.
--- NOTE | 2018-05-12 23:31 | Consultation ---
DATE OF CONSULTATION: 05/12/2018 HISTORY OF PRESENT ILLNESS: I was kindly asked to see this 67-year-old woman for evaluation of safety for endotracheal general anesthesia, status post laryngectomy. The patient has a history of total laryngectomy in approximately 2014, contributable to laryngeal cancer. She has been seen by me in the past. There has been no persistent or recurrent neoplastic disease since her resection. She presented with a hip fracture, necessitating repair. Her history of present illness, past medical history, and past surgical history are reviewed and detailed in the chart and are pertinent as above. PHYSICAL EXAMINATION: There is a moderate amount of cerumen in the right external auditory canal. Tympanic membrane could not be visualized. The left external auditory canal and tympanic membrane are normal. Intranasal examination shows a mild nasal septal deviation. Oral cavity examination is normal. She has symmetric soft palate elevation. She has postsurgical changes of neck. There are no stigmata of previous radiation therapy. She has flap construction of the right stomal area. The stoma appears quiescent. There is no palpable cervical adenopathy. On fiberoptic bronchoscopy through the laryngectomy stoma, the trachea is unremarkable. Both mainstem bronchi were inspected and were unremarkable. ASSESSMENT: Status post laryngectomy with quiescent appearing trachea and tracheal stoma. PLAN: 1. Cleared for general endotracheal anesthesia for her planned procedure. 2. Recommend placement of endotracheal tube directly into the laryngectomy stoma to depth of approximately 2 cm beyond the placement of the endotracheal catheter approximately 2 cm deep to the skin level. MD CASTILLO Ramirez/ANGELIKAL /[id number]
[2018-05-13] VITALS (7 sets, daily range): BP systolic 105–125; BP diastolic 54–64
[2018-05-13] MEDS: LEVALBUTEROL HCL SOLN NEBU 1.25 MG/3 ML NEB INH SCH ×4 (00:30→19:20)
--- NOTE | 2018-05-13 01:28 | NUR ---
Blood transfusion completed.v/s stable.stable condition.
[2018-05-13] MEDS: SODIUM CHLORIDE 0.9% 1000ML 1,000 ML IV SCH ×4 (01:40→16:37)
[2018-05-13] MEDS: HYDROMORPHONE 2MG/ML 2 MG/ML ML IV PRN ×3 (02:52→09:54)
[2018-05-13] MEDS: ONDANSETRON HCL INJ 2MG/ML 2ML 2 MG/ML VIAL IV PRN ×2 (02:52→09:53)
--- NOTE | 2018-05-13 04:00 | NUR ---
Hibicleans bath given.maintaining npo.trach suction done under aseptic technique.
[2018-05-13] MEDS: LEVOTHYROXINE SODIUM 75 MCG TAB PO SCH (05:41)
[2018-05-13 06:58] LABS: BASOPHILS % 1.2 % (0.0-1.0); EOSINOPHILS # (AUTO) 0.2 (0.0-0.4); EOSINOPHILS % 4.5 % (0.0-6.0); HEMATOCRIT 32.5 % (34.2-44.1); HEMOGLOBIN 10.6 g/dL (12.0-16.0); LYMPHOCYTES # (AUTO) 0.5 (1.0-3.2); LYMPHOCYTES % 14.5 % (18.0-39.1); MEAN CORPUSCULAR HEMOGLOBIN 32.3 pg (28-32); MEAN CORPUSCULAR HGB CONC 32.6 g/dL (31-35); MEAN CORPUSCULAR VOLUME 99.1 fL (81-99); MONOCYTES # (AUTO) 0.4 (0.2-0.8); MONOCYTES % 10.6 % (4.4-11.3); NEUTROPHILS # (AUTO) 2.3 (2.1-6.9); NEUTROPHILS % 68.9 % (38.7-80.0); PLATELET COUNT 117 x10e3/uL (140-360); RED BLOOD COUNT 3.28 x10e6/uL (3.6-5.1); RED CELL DISTRIBUTION WIDTH 17.2 % (11.7-14.4)
[2018-05-13] MEDS: IPRATROPIUM BROMIDE 0.02% 2.5 ML NEB NEB SCH ×2 (07:00→15:00)
--- NOTE | 2018-05-13 07:00 | NUR ---
REPORT GIVEN TO THE ONCOMING RN.WALKING ROUNDS DONE.STABLE CONDITION.
[2018-05-13 07:18] LABS: INR 0.81; PROTHROMBIN TIME 11.7 seconds (11.9-14.5)
[2018-05-13 07:19] LABS: PARTIAL THROMBOPLASTIN TIME 20.3 seconds (23.8-35.5)
[2018-05-13 08:07] LABS: ALANINE AMINOTRANSFERASE 7 IU/L (0-55); ALBUMIN/GLOBULIN RATIO 0.9 (0.8-2.0); ANION GAP 15.6 mmol/L (8-16); BLOOD UREA NITROGEN 14 mg/dL (7-26); BUN/CREATININE RATIO 19 (6-25); CALCIUM 8.4 mg/dL (8.4-10.2); CARBON DIOXIDE 21 mmol/L (22-29); CHLORIDE 104 mmol/L (98-107); CREATININE, SERUM 0.75 mg/dL (0.57-1.11); EST GLOMERULAR FILTRATION RATE > 60 ML/MIN (60-); GLUCOSE 96 mg/dL (74-118); POTASSIUM 4.6 mmol/L (3.5-5.1); SODIUM 136 mmol/L (136-145)
[2018-05-13 08:15] LABS: ALKALINE PHOSPHATASE 77 IU/L (40-150)
[2018-05-13] MEDS: CARBAMIDE PEROXIDE 15 ML BTL OT SCH ×4 (09:34→20:47)
[2018-05-13] MEDS ORDERED: ACETAMINOPHEN 1000 MG/100 ML IV STA (12:07)
[2018-05-13] MEDS ORDERED: ACETAMINOPHEN 1000 MG/100 ML 100 ML IV ONE (12:15)
--- NOTE | 2018-05-13 12:16 | NUR ---
PT TO OR AT THIS TIME FOR PROCEDURE VIA BED.
--- NOTE | 2018-05-13 12:17 | NUR ---
NOTIFIED DR. SANCHEZ REGARDING TEMP 100.8. STATES TO GIVE APAP 1 G IV. APAP STARTED RIGHT BEFORE PT WAS TAKEN TO OR. OR NURSE AT BEDSIDE MADE AWARE OF TEMP.
[2018-05-13] MEDS ORDERED: DIPHENHYDRAMINE HCL INJ 50 MG/ML VIAL IM/IV PRN (14:45)
[2018-05-13] MEDS ORDERED: NALOXONE HCL INJ 0.4 MG/ML AMP IV PRN (14:45)
[2018-05-13] MEDS ORDERED: ONDANSETRON HCL INJ 2MG/ML 2ML 2 MG/ML VIAL IV PRN (14:45)
[2018-05-13] MEDS ORDERED: FENTANYL CITRATE/PF 100MCG/2 ML INJ ONE (14:55)
[2018-05-13] MEDS ORDERED: HYDROMORPHONE 0.2MG/ML-SOD CHL 30ML PCA SYRINGE IV ONE (15:33)
[2018-05-13] MEDS: HYDROMORPHONE 0.2MG/ML-SOD CHL 30ML PCA SYRINGE IV PRN (15:38)
--- NOTE | 2018-05-13 16:40 | Diagnostic Imaging Report ---
Exam: Left hip and femur radiographs History: Postoperative. Comparison: Pelvis and bilateral hip radiographs 05/10/2018. Findings: Status post interval ORIF of comminuted left proximal femur intertrochanteric fracture with improved alignment. Hardware appears intact. Soft tissue gas and lateral skin abel, reflecting recent surgery. There is diffuse osteopenia. There are moderate degenerative changes of the right hip. Bowel gas obscures visualization of the sacrum. Diffuse osteopenia. Impression: Status post ORIF of comminuted left proximal femur intertrochanteric fracture with improved alignment and intact hardware. Signed by: Dr. Miguel Angel Gallardo MD on 05/13/2018 4:37 PM
[2018-05-13] MEDS ORDERED: PROPOFOL IV EMULSION 10 MG/ML 20 ML VIAL ONE (17:47)
[2018-05-13] MEDS ORDERED: LIDOCAINE HCL 2% LOCAL INJ 5 ML SDV VIAL INJ ONE (17:47)
[2018-05-13] MEDS ORDERED: PHENYLEPHRINE HCL 1% 10 MG/ML VIAL ONE (17:47)
[2018-05-13] MEDS ORDERED: CEFAZOLIN SOD 1 GM VIAL ONE (17:47)
[2018-05-13] MEDS ORDERED: SEVOFLURANE INHAL SOLN 250 ML PEN BTL ONE (17:47)
[2018-05-13] MEDS ORDERED: DEXAMETHASONE SOD PHOS INJ 4 MG/ML VIAL ONE (17:47)
[2018-05-13] MEDS ORDERED: ONDANSETRON HCL INJ 2MG/ML 2ML 2 MG/ML VIAL ONE (17:47)
[2018-05-13] MEDS: LORAZEPAM 1 MG TAB PO PRN (20:47)
[2018-05-13] MEDS: CEFAZOLIN SOD 1 GM/NS 50ML 50 ML IV SCH (21:12)
[2018-05-14] VITALS (8 sets, daily range): BP systolic 100–126; BP diastolic 54–59
[2018-05-14] MEDS: LEVALBUTEROL HCL SOLN NEBU 1.25 MG/3 ML NEB INH SCH ×4 (00:15→20:30)
[2018-05-14] MEDS: IPRATROPIUM BROMIDE 0.02% 2.5 ML NEB NEB SCH ×4 (00:15→20:30)
[2018-05-14] MEDS: SODIUM CHLORIDE 0.9% 1000ML 1,000 ML IV SCH ×2 (00:31→11:36)
[2018-05-14] MEDS ORDERED: RIVAROXABAN 10 MG TABLET PO SCH (06:00)
[2018-05-14] MEDS: LEVOTHYROXINE SODIUM 75 MCG TAB PO SCH (06:09)
[2018-05-14] MEDS: CEFAZOLIN SOD 1 GM/NS 50ML 50 ML IV SCH ×2 (06:09→13:25)
[2018-05-14] MEDS: LORAZEPAM 1 MG TAB PO PRN ×2 (06:17→18:33)
[2018-05-14 06:18] LABS: HEMATOCRIT 24.2 % (34.2-44.1)
[2018-05-14] MEDS: CARBAMIDE PEROXIDE 15 ML BTL OT SCH ×4 (08:49→20:18)
[2018-05-14] MEDS: ACETAMINOPHEN 1000 MG/100 ML IV PRN ×2 (09:38→15:04)
--- NOTE | 2018-05-14 13:27 | Progress Note ---
DATE: 05/14/2018 Pulmonary Medicine Progress Note SUBJECTIVE: Ms. Tamez was seen and examined at bedside. 50% FiO2. This is delivered by collar oxygen. DESK ATTENDANT ongoing. The patient is slightly sleepy now. Normal saline at 100 mL/h. 1.4 L in, 1.2 L out. REVIEW OF SYSTEMS: No bleeding, no chest pain. OBJECTIVE: VITAL SIGNS: Afebrile, vital signs noted per the chart record. GENERAL: In no acute distress. Alert, calm, and slightly weak in bed. HEENT: Normocephalic, atraumatic. NECK: Supple. Throat midline. LUNGS: Bilateral air entry, mildly decreased, rare rhonchi. CARDIOVASCULAR: S1, S2. No murmurs, rubs, or gallops. ABDOMEN: Soft, nontender. EXTREMITIES: No clubbing, no cyanosis, there is only small edema to legs. INTEGUMENT: No rash. No purpura. LABORATORY DATA: 8 hemoglobin, 24 hematocrit. 2.3 white count, 117 platelets. 0.7 creatinine. IMPRESSION: 1. Status post left hip fracture. 2. Postoperative state, open reduction and internal fixation left hip. 3. Scoliosis. 4. Possible chronic obstructive pulmonary disease. 5. Former long-term smoker. 6. Reported allergies. 7. History of throat cancer, status post laryngectomy and chemotherapy. At this time continue to follow her with serial airway exams. Repeat hematocrit and hemoglobin tomorrow. Xarelto was started by physician. The patient with [employer] insurance and may not be eligible for LTAC, so consideration may end up being group home facility. If she gets strong, then we will clear her for group home facility after she is off DESK ATTENDANT. If she remains weak, we may have further workup prior to moving to SNF, but I do not think this would be necessary. MD BABS Peterson/ALANA /[id number]
[2018-05-14] MEDS ORDERED: SODIUM CHLORIDE 0.9% 250ML 250 ML IV NR (16:15)
[2018-05-14] MEDS: RIVAROXABAN 10 MG TABLET PO SCH (16:36)
--- NOTE | 2018-05-14 17:28 | Diagnostic Imaging Report ---
Examination: Single AP view of the chest. COMPARISON: None. INDICATION: Hip fracture DISCUSSION: Lines/tubes: None. Lungs: Central pulmonary venous congestion. Lower lung atelectasis. Pleura: Small effusions. Heart and mediastinum: The heart and the mediastinum are unremarkable. Bones and soft tissues: No acute bony abnormalities. IMPRESSION: 1. Central pulmonary venous congestion with small effusions Signed by: Dr. Kanu Strong M.D. on 05/14/2018 5:24 PM
--- NOTE | 2018-05-14 18:11 | Diagnostic Imaging Report ---
Examination: KUB COMPARISON: None. INDICATION: Constipation DISCUSSION: Mild amount of stool in the left hemicolon. No dilated loops of bowel. Prior fixation of the left femur. IMPRESSION: 1. Mild amount of retained stool in the left hemicolon Signed by: Dr. Kanu Strong M.D. on 05/14/2018 6:08 PM
[2018-05-14] MEDS ORDERED: FUROSEMIDE INJ 10 MG/ML 2 ML VIAL IV NR ×2 (19:00→22:45)
[2018-05-14] MEDS ORDERED: CITRATE OF MAGNESIA 300ML BOTTLE PO NR (19:15)
--- NOTE | 2018-05-14 20:10 | NUR ---
PATIENT REFUSED CITRATE OF MAGNESIA. WILL NOTIFY
--- NOTE | 2018-05-14 21:15 | NUR ---
UNABLE TO INSERT ANOTHER LINE FOR BLOOD TRANSFUSION. DR. KAUFMAN NOTIFIED. ORDER TO INSERT PICC LINE RECEIVED.
--- NOTE | 2018-05-14 21:20 | NUR ---
CONSENT OBTAINED FROM PATIENT'S SPOUSE FOR PICC INSERTION. CONSENT VERIFIED WITH JENNIE RAMIREZ.
--- NOTE | 2018-05-14 21:50 | NUR ---
SPOKE WITH POLLY FROM RADIOLOGY. PROCEDURE AND PATIENT'S DETAILS HAS BEEN GIVEN BY RADIOLOGY DEPARTMENT TO THE PICC LINE TEAM. GOLF COURSE STARTER MADE AWARE.
--- NOTE | 2018-05-14 22:10 | NUR ---
CALLED DR SANCHEZ FOR ORDERS. NO ANSWER.
--- NOTE | 2018-05-14 22:28 | NUR ---
SPOKE WITH DR. SANCHEZ NEW ORDERS RECEIVED.
[2018-05-14] MEDS ORDERED: BISACODYL 5 MG TAB EC PO ONE (22:45)
[2018-05-14] MEDS: ONDANSETRON HCL 4 MG ORAL DISINTEGRATING TAB PO PRN (23:52)
[2018-05-15] VITALS (8 sets, daily range): BP systolic 120–136; BP diastolic 58–65
[2018-05-15] MEDS: LEVALBUTEROL HCL SOLN NEBU 1.25 MG/3 ML NEB INH SCH ×4 (00:30→21:35)
--- NOTE | 2018-05-15 01:05 | NUR ---
unable to advance catheter. midline inserted with 2 lumen. no active bleeding noted.
[2018-05-15] MEDS ORDERED: SODIUM CHLORIDE 0.9% 250ML 250 ML ONE (01:13)
--- NOTE | 2018-05-15 01:30 | NUR ---
blood obtain from the blood bank.
--- NOTE | 2018-05-15 01:57 | NUR ---
blood started with 50ml/hr. Vital signs closely monitored.
[2018-05-15] MEDS: IPRATROPIUM BROMIDE 0.02% 2.5 ML NEB NEB SCH ×3 (02:15→13:22)
[2018-05-15] MEDS: HYDROMORPHONE 0.2MG/ML-SOD CHL 30ML PCA SYRINGE IV PRN (04:16)
--- NOTE | 2018-05-15 04:40 | NUR ---
BLOOD TRANSFUSION COMPLETED. PATIENT IS ALERT. NO COMPLAINTS.
[2018-05-15] MEDS: LEVOTHYROXINE SODIUM 75 MCG TAB PO SCH (05:38)
--- NOTE | 2018-05-15 05:45 | Diagnostic Imaging Report ---
EXAMINATION: CHEST SINGLE (PORTABLE) INDICATION: ^REASSESS PULMONARY EDEMA COMPARISON: Chest x-ray 05/14/2018. FINDINGS: AP view TUBES and LINES: None. LUNGS: Lungs are hyper inflated. There are bibasilar atelectasis. There is mild prominence of the central pulmonary vasculature, consistent with pulmonary venous congestion. PLEURA: Tiny bilateral pleural effusions, unchanged. HEART AND MEDIASTINUM: The cardiomediastinal silhouette is unremarkable. There are atherosclerotic calcifications within the aorta. BONES AND SOFT TISSUES: No acute osseous lesion. Soft tissues are unremarkable. Numerous surgical clips overlying the right neck. UPPER ABDOMEN: No free air under the diaphragm. IMPRESSION: Unchanged central pulmonary venous congestion with bibasilar atelectasis and tiny bilateral pleural effusions. Signed by: Dr. Vin Roger M.D. on 05/15/2018 5:41 AM
[2018-05-15] MEDS: LORAZEPAM 1 MG TAB PO PRN ×3 (05:53→21:29)
--- NOTE | 2018-05-15 05:59 | NUR ---
DRESSING CHANGED, BALLESTEROS CATHETER REMOVED
--- NOTE | 2018-05-15 06:40 | NUR ---
BLOOD SPECIMEN SENT TO LAB.
[2018-05-15 06:50] LABS: HEMATOCRIT 29.6 % (34.2-44.1); HEMOGLOBIN 9.7 g/dL (12.0-16.0)
--- NOTE | 2018-05-15 07:39 | NUR ---
RECEIVED PATIENT AWAKE RESTING IN BED. NO SIGNS OF DISTRESS AT THIS TIME. CALL LIGHT IN REACH, WILL CONTINUE TO MONITOR.
[2018-05-15] MEDS: CARBAMIDE PEROXIDE 15 ML BTL OT SCH ×4 (09:21→21:15)
--- NOTE | 2018-05-15 11:18 | NUR ---
PAGED DR. LOYOLA REGARDING RESIDENTIAL LIVING ASSISTANT PUMP.
[2018-05-15] MEDS ORDERED: FUROSEMIDE INJ 10 MG/ML 2 ML VIAL IV ONE (12:45)
--- NOTE | 2018-05-15 14:30 | NUR ---
PATIENT HAS NOT VOIDED SINCE BALLESTEROS REMOVAL. SCANNED PATIENTS BLADDER. >[address] SANCHEZ REGARDING URINE RETENTION. ORDER TO PLACE BALLESTEROS BACK IN.
--- NOTE | 2018-05-15 14:45 | NUR ---
PATIENT VOIDED BEFORE BALLESTEROS INSERTION. BALLESTEROS CATHETER NOT RE-INSERTED. WILL MONITOR FOR URINE RETENTION.
--- NOTE | 2018-05-15 15:00 | NUR ---
ATTENDING RADIOLOGIST PUMP DISCONTINUED PER MD ORDER.
[2018-05-15] MEDS: HYDROCODONE/APAP 5MG-325MG TAB PO PRN (16:31)
[2018-05-15] MEDS: RIVAROXABAN 10 MG TABLET PO SCH (17:57)
[2018-05-15] MEDS: ACETAMINOPHEN 325 MG TAB PO PRN (21:16)
--- NOTE | 2018-05-15 21:25 | NUR ---
PT PUT ON BEDPAN,PT VOIDED WITHOUT ANY DIFFICULTY AT THIS TIME.URINE SAMPLE COLLECTED AND SENT TO LAB.
[2018-05-15 22:05] LABS: CLARITY,URINE CLEAR (CLEAR); COLOR,URINE YELLOW (YELLOW)
[2018-05-15 22:06] LABS: KETONES,URINE NEGATIVE (NEGATIVE); LEUKOCYTE ESTERASE ,URINE NEGATIVE (NEGATIVE); NITRITE,URINE NEGATIVE (NEGATIVE); PROTEIN,URINE DIPSTICK NEGATIVE (NEGATIVE); URINE UROBILINOGEN 0.2 mg/dL (0.2 - 1)
[2018-05-15 22:09] LABS: BILIRUBIN,URINE NEGATIVE (NEGATIVE)
[2018-05-15 22:12] LABS: BACTERIA,URINE FEW /HPF; EPITHELIAL CELLS,URINE FEW /LPF; RBC,URINE 0-5 /HPF (0-5)
--- NOTE | 2018-05-15 22:17 | Progress Note ---
DATE: 05/15/2018 Pulmonary Medicine Progress Note SUBJECTIVE: Ms. Tamez was seen and examined at bedside. The patient had Coley removed, 983 mL out on bladder scan. Just prior to placing Coley, the patient eventually voided. The patient had the DRY HOUSE OPERATOR Dilaudid pump stopped during the day. Breathing is stable. REVIEW OF SYSTEMS: No ability to get, she is not talking. OBJECTIVE: VITAL SIGNS: Afebrile, vital signs are noted per the chart record. GENERAL: In no acute distress. Alert and calm. HEENT: Normocephalic and atraumatic. NECK: Supple. Laryngectomy stoma in place. LUNGS: Bilateral air entry, limited, but clear. CARDIOVASCULAR: S1 S2. No murmurs, rubs, or gallops. ABDOMEN: Soft, nontender. EXTREMITIES: No clubbing, no cyanosis. There is no edema. INTEGUMENT: No rash. No purpura. IMPRESSION AND PLAN: 1. Left hip fracture. 2. Postoperative state, status post open reduction and internal fixation. 3. Urinary retention. 4. Postoperative pain, continued. 5. Reported chronic obstructive pulmonary disease. 6. Scoliosis. 7. History of throat cancer, status post laryngectomy. Continue serial airway followup. Continue neck collar with humidification and oxygen. The patient will get mobilization as per Orthopedic orders. DRY HOUSE OPERATOR was stopped and will follow. Ensure the urine improves. Continue low-dose Lasix on a p.r.n. basis only as the patient is not too wet at all. for consideration to be stopped when finished. MD BABS Peterson/MODL /[id number]
--- NOTE | 2018-05-15 22:27 | Operative Report ---
DATE OF PROCEDURE: 05/13/2018 SURGEON: Bernardo Fonseca MD PREOPERATIVE DIAGNOSIS: Left displaced intertrochanteric femur fracture. POSTOPERATIVE DIAGNOSIS: Left displaced intertrochanteric femur fracture. OPERATION/PROCEDURE PERFORMED: The patient underwent a closed reduction and long gamma nail stabilization of the displaced left intertrochanteric femur fracture. WEIGHT INSPECTOR: None. ANESTHESIA: General endotracheal intubation anesthesia. BLOOD LOSS: Less than 100 mL. IV FLUIDS: As per the anesthesia record. COMPLICATIONS: None. BRIEF DISCUSSION OF THE PATIENT'S OPERATIVE PROCEDURE: Ms. Tamez was taken to the operating room, placed in the supine position on the operating table. Following induction of general anesthesia as well as endotracheal intubation, the patient's left lower extremity was placed in a well-padded longitudinal traction. The right lower extremity was placed in a well-padded lithotomy position. Fluoroscopic evaluation of the patient's head and joint demonstrated a displaced multipart intertrochanteric hip fracture. The leg was manipulated under anesthesia and then traction was placed across the patient's fracture site. The hip was found to reduce in acceptable fashion. The patient's thigh and flank were prepped and draped in standard surgical fashion. An incision was created at the tip of the trochanter on the left. This incision was carried through skin only. Blunt dissection used to deepen the incision to the level of the tensor fascia kem and gluteus ben fascia. This was then incised in line with the skin incision. An awl was placed on the tip of the trochanter and the awl was advanced within the femur. Position of the awl was checked in both AP and lateral planes using fluoroscopy. A guidewire was then advanced within the femoral canal and the position of the guidewire was again confirmed in both AP and lateral planes. Sequential reaming was then undertaken. Appropriate size left long nail was chosen and inserted without difficulty. Position of the nail was then again confirmed using fluoroscopy. A second incision was created on the lateral aspect of the femur. The guide for the compression screw was advanced to the lateral aspect of the femur and the guide pin was advanced from lateral to medial through the neck into the head of the femur. Position the guide pin was again checked using fluoroscopy and found to be appropriate. A reamer was used to create a channel for the implant. A compression screw was then advanced over the guide pin and compression was placed across the patient's fracture site. The compression screw was then locked to allow for further compression and to prevent rotation. Attention was then turned to the distal aspect of the nail and the nail was locked with two screws using the freehand technique. All incisions were then irrigated and closed in a multilayer fashion. Fluoroscopy was used to evaluate the entire nail and this revealed stabilization of the patient's fracture in both the AP and lateral planes. Once the wounds were closed, sterile dressings were applied. The patient was then awakened and taken to the Postanesthesia Care Unit in stable condition. MD BERRY Thorpe/ALANA /[id number]
[2018-05-16] VITALS (8 sets, daily range): BP systolic 106–127; BP diastolic 55–61
[2018-05-16] MEDS: LEVALBUTEROL HCL SOLN NEBU 1.25 MG/3 ML NEB INH SCH ×4 (02:15→19:35)
[2018-05-16] MEDS: LEVOTHYROXINE SODIUM 75 MCG TAB PO SCH (05:41)
[2018-05-16 06:32] LABS: BASOPHILS % 0.7 % (0.0-1.0); EOSINOPHILS # (AUTO) 0.1 (0.0-0.4); EOSINOPHILS % 3.2 % (0.0-6.0); HEMATOCRIT 27.5 % (34.2-44.1); LYMPHOCYTES # (AUTO) 0.7 (1.0-3.2); LYMPHOCYTES % 25.1 % (18.0-39.1); MEAN CORPUSCULAR HEMOGLOBIN 31.7 pg (28-32); MEAN CORPUSCULAR HGB CONC 32.7 g/dL (31-35); MEAN CORPUSCULAR VOLUME 96.8 fL (81-99); MONOCYTES # (AUTO) 0.3 (0.2-0.8); NEUTROPHILS # (AUTO) 1.7 (2.1-6.9); NEUTROPHILS % 58.6 % (38.7-80.0); PLATELET COUNT 129 x10e3/uL (140-360); RED BLOOD COUNT 2.84 x10e6/uL (3.6-5.1); RED CELL DISTRIBUTION WIDTH 16.4 % (11.7-14.4)
[2018-05-16 06:50] LABS: ANION GAP 8.6 mmol/L (8-16); BLOOD UREA NITROGEN 9 mg/dL (7-26); BUN/CREATININE RATIO 13 (6-25); CALCIUM 8.6 mg/dL (8.4-10.2); CARBON DIOXIDE 34 mmol/L (22-29); CHLORIDE 99 mmol/L (98-107); CREATININE, SERUM 0.69 mg/dL (0.57-1.11); EST GLOMERULAR FILTRATION RATE > 60 ML/MIN (60-); GLUCOSE 89 mg/dL (74-118); POTASSIUM 3.6 mmol/L (3.5-5.1); SODIUM 138 mmol/L (136-145)
[2018-05-16] MEDS: IPRATROPIUM BROMIDE 0.02% 2.5 ML NEB NEB SCH ×2 (07:00→13:00)
--- NOTE | 2018-05-16 07:10 | NUR ---
REPORT GIVEN TO ONCOMING NURSE.WALKING ROUNDS MADE.PT RESTING IN BED WITH NO S/S OF DISTRESS.
--- NOTE | 2018-05-16 07:39 | NUR ---
RECEIVED PATIENT AND WALKING ROUNDS COMPLETE. PATIENT ASLEEP AT THIS TIME NO SIGNS OF DISTRESS. CALL LIGHT IN REACH WILL CONTINUE TO MONITOR.
[2018-05-16] MEDS: CARBAMIDE PEROXIDE 15 ML BTL OT SCH ×4 (09:27→20:39)
[2018-05-16] MEDS: LORAZEPAM 1 MG TAB PO PRN ×3 (09:27→22:39)
[2018-05-16] MEDS: HYDROCODONE/APAP 5MG-325MG TAB PO PRN (09:28)
--- NOTE | 2018-05-16 11:39 | NUR ---
SPOKE WITH SON JERONIMO WHOM STATES SHE HAS BEEN TO [facility], SHE WAS THERE IN NOVEMBER OF LAST YEAR FOR 20 DAY GAVE VERBAL TO SEND BACK.
[2018-05-16] MEDS ORDERED: HYDROCODONE/APAP 5MG-325MG TAB PO PRN (14:15)
[2018-05-16] MEDS ORDERED: HYDROCODONE/APAP 10MG-325MG TAB PO PRN (15:45)
[2018-05-16] MEDS ORDERED: CITRATE OF MAGNESIA 300ML BOTTLE PO ONE (15:45)
[2018-05-16] MEDS: RIVAROXABAN 10 MG TABLET PO SCH (16:19)
[2018-05-16] MEDS: HYDROCODONE/APAP 10MG-325MG TAB PO PRN ×2 (16:20→21:35)
[2018-05-16] MEDS: ONDANSETRON HCL 4 MG ORAL DISINTEGRATING TAB PO PRN (16:20)
--- NOTE | 2018-05-16 16:39 | NUR ---
MIDLINE STERILE DRESSING CHANGE PERFORMED.
--- NOTE | 2018-05-16 23:23 | Progress Note ---
DATE: 05/16/2018 Pulmonary Medicine Progress Note. SUBJECTIVE: Ms. Tamez was seen and examined at bedside. The patient is on 40% FiO2. Neck collar oxygen interface. The patient is feeling definitely more awake today. She is eating small amounts. REVIEW OF SYSTEMS: Cannot get reliably, she is not talking. OBJECTIVE: VITAL SIGNS: Afebrile, vital signs noted per the chart record. GENERAL: In no acute distress, weak in bed, but better color. HEENT: Normocephalic, atraumatic. NECK: Supple. Throat midline. LUNGS: Bilateral air entry, mild to moderate rhonchi. CARDIOVASCULAR: S1, S2. No murmurs, rubs, or gallops. ABDOMEN: Soft, nontender. EXTREMITIES: No clubbing, no cyanosis. There is no edema. INTEGUMENT: No rash. No purpura. Left hip with bandage covered. LABORATORY DATA: 3.6 potassium, 0.7 creatinine. 3 white count, 129 platelets. 27 hematocrit. ASSESSMENT/PLAN: 1. Status post left hip fracture. 2. Postop stay, status post ORIF, left hip. 3. Urinary retention, better. 4. Pain postoperative, now off . 5. Scoliosis. 6. History of throat cancer and laryngectomy. 7. Chronic obstructive pulmonary disease. Continue serial followup. Continue oxygen and wean as tolerated. Mobilize the patient with therapy as tolerated and per orthopedic instructions. Pain medicines being modified now. [facility] facility consult was done. MD BABS Peterson/ALANA /[id number]
[2018-05-17] VITALS: BP 122/58
[2018-05-17] MEDS: IPRATROPIUM BROMIDE 0.02% 2.5 ML NEB NEB SCH ×3 (00:47→13:58)
[2018-05-17] MEDS: LEVALBUTEROL HCL SOLN NEBU 1.25 MG/3 ML NEB INH SCH ×3 (00:47→13:58)
[2018-05-17] MEDS: ONDANSETRON HCL 4 MG ORAL DISINTEGRATING TAB PO PRN (02:00)
[2018-05-17] MEDS: HYDROCODONE/APAP 10MG-325MG TAB PO PRN ×3 (03:51→15:05)
[2018-05-17 04:00] VITALS: BP 131/59
[2018-05-17] MEDS: LORAZEPAM 1 MG TAB PO PRN ×3 (05:00→17:20)
[2018-05-17] MEDS: LEVOTHYROXINE SODIUM 75 MCG TAB PO SCH (05:52)
--- NOTE | 2018-05-17 07:26 | NUR ---
REPORT GIVEN TO ONCOMING NURSE.WALKING ROUNDS MADE.PT RESTING IN BED WITH NO S/S OF DISTRESS.
[2018-05-17 09:10] VITALS: BP 131/59
[2018-05-17] MEDS: CARBAMIDE PEROXIDE 15 ML BTL OT SCH ×2 (09:10→13:00)
[2018-05-17 09:41] VITALS: BP 128/60
[2018-05-17 12:33] VITALS: BP 153/64
[2018-05-17] MEDS ORDERED: MINERAL OIL 132 ML BTL PR NR (13:00)
--- NOTE | 2018-05-17 15:43 | Progress Note ---
DATE: 05/17/2018 Pulmonary Medicine Progress Note SUBJECTIVE: The patient was seen and examined at bedside. Still small secretions. She is on 40% tracheostomy/ collar. The patient is not eating much. She did have emesis x1. REVIEW OF SYSTEMS: No bleeding. No headaches. OBJECTIVE: VITAL SIGNS: Afebrile, vital signs noted per the chart record. GENERAL: No acute distress, alert and calm. HEENT: Normocephalic, atraumatic. NECK: Supple. Throat midline. LUNGS: Bilateral air entry, rare rhonchi. CARDIOVASCULAR: S1, S2. No murmurs, rubs, or gallops. ABDOMEN: Soft, nontender. EXTREMITIES: No clubbing, no cyanosis. There is no edema. INTEGUMENT: No rash or purpura. IMPRESSION AND PLAN: 1. Status post left hip fracture. 2. Postoperative stay, status post open reduction and internal fixation of the left hip. 3. Chronic obstructive pulmonary disease. 4. Scoliosis. 5. History of throat cancer and laryngectomy and chemotherapy. 6. Continue serial followup. Continue enhanced expectoration. Suction ready at bedside. Continue humidified tracheostomy/laryngectomy collar. The patient will continue on physical therapy as much as possible. Continue supportive therapy for the pain. MD BABS Peterson/MODL /[id number]
--- NOTE | 2018-05-17 15:55 | NUR ---
PT ACCEPTED TO ROOM [address] ROSE TO [facility], RTF GIVEN TO NURSE CALL REPORT TO [phone].
[2018-05-17 16:49] VITALS: BP 120/59
--- NOTE | 2018-05-17 17:20 | NUR ---
PT TRANSFERRED TO [facility] RM 107 VIA EMS, PT LEFT IN STABLE CONDITION WITH ALL BELONGINGS
== END 2018-05-17 16:30 | DRG 481 ==
LOC: ER 19:30 → ERHOLD 05-11 00:44 → MED/SURG 05-11 14:05
PROVIDERS: ADMIT Internal Medicine; ATTEND Internal Medicine
PROC: 30233N1 Transfusion of Nonautologous Red Blood Cells into Peripheral Vein, Percutaneous Approach (ICD-10-PCS; 2018-05-11)
PROC: 0QS734Z Reposition Left Upper Femur with Internal Fixation Device, Percutaneous Approach (ICD-10-PCS; principal; 2018-05-13 12:30)
PROC: 02HV33Z Insertion of Infusion Device into Superior Vena Cava, Percutaneous Approach (ICD-10-PCS; 2018-05-15)
DX: S72.002A Fracture of unspecified part of neck of left femur, initial encounter for closed fracture (principal); J96.10 Chronic respiratory failure, unspecified whether with hypoxia or hypercapnia; E87.1 Hypo-osmolality and hyponatremia; J44.9 Chronic obstructive pulmonary disease, unspecified; I10 Essential (primary) hypertension; Z85.21 Personal history of malignant neoplasm of larynx; Z85.89 Personal history of malignant neoplasm of other organs and systems; E03.9 Hypothyroidism, unspecified; R50.9 Fever, unspecified; M41.9 Scoliosis, unspecified; Z87.891 Personal history of nicotine dependence; R33.9 Retention of urine, unspecified; G89.18 Other acute postprocedural pain; J34.2 Deviated nasal septum; Z99.81 Dependence on supplemental oxygen; Z93.0 Tracheostomy status
CPT/HCPCS: 36415; 51700; 71045; 73522; 74018; 80048; 80053; 81001; 84443; 85014; 85018; 85025; 85610; 85730; 86850; 86900; 86920; 87086; 93005; 94640; 97139; 99285; C1713; J0690; J1100; J1940; J2001; J2370; J2405; J7030; J7050; P9016

== ENCOUNTER → 2019-06-24 | Emergency (ER) | payer OTHER ==
[~2019-06-24] VITALS: Ht 152.4 cm; Wt 75.7 kg
[~2019-06-24] MED LIST changes: +DIPHENHYDRAMINE HCL INJ 50 MG/ML VIAL IV ONE; +FIORICET 50-301 EACH PO; +KETOROLAC TROMETHAMINE 30 MG/ML VIAL IV STA; +METOCLOPRAMIDE HCL 10 MG/2ML VIAL IV ONE; +SODIUM CHLORIDE 0.9% 500ML 500 ML IV ONE
--- OUTSIDE RECORDS SUMMARY | 2019-06-24 12:27 | XMS REPORT | Clinical Summary ---
Author Author DARLEEN Gruup[employer] [facility] Address Unknown Phone Unavailable Care Team Providers Care Parking Enforcement Officer Name Role Phone ArturoKevin Steph PCP Unavailable Allergies Comments Active Allergy Reactions Severity Noted Date Tramadol Nausea And Low 08/03/2014 Vomiting Medications End Date Status Medication Sig Dispensed Refills Start Date Active dextrose 50 % in water Inject 25 mLs 0 01 (DEXTROSE 50%, D50W,) (12.5 g 8 Syrg injection total) intravenously as needed (blood sugar less than 70 and patient unable to take PO juice or soda). Active enoxaparin (LOVENOX) 40 Inject 0.4 0 mg/0.4 mL Syrg mLs (40 mg 8 total) subcutaneousl y daily. Active famotidine (PEPCID) 20 MG 1 tablet (20 0 / 3/201 tablet mg total) by 8 G-tube route nightly. Active ondansetron (ZOFRAN) 4 Inject 2 mLs 20 mL 0 mg/2 mL injection (4 mg total) 8 intravenously every 8 (eight) hours. Active pantoprazole (PROTONIX) Inject 40 mg 1 each 0 1 injection 40 mg intravenously 8 2 (two) times daily. Active promethazine (PHENERGAN) Inject 0.5 1 mL 0 1 25 mg/mL injection mLs (12.5 mg 8 (INTRAMUSCULAR only) total) intramuscular ly every 6 (six) hours as needed. Active sodium chloride, Take 5 mLs by 0 hypertonic, (HYPER-CARLA) 7 nebulization 8 % nebulizer solution every 12 (twelve) hours. Active sodium chloride 0.9%, NS, Inject 5 mLs 5 mL 0 10/03/201 injection intravenously 8 every 8 (eight) hours. Active sodium chloride 0.9%, NS, Inject 5 mLs 5 mL 0 injection intravenously 8 as needed. Active LORazepam (ATIVAN) 2 MG Take 2 mg by 0 tablet mouth every 6 (six) hours as needed for Anxiety. Active oxyCODONE (ROXICODONE) 15 Take 15 mg by 0 MG immediate release mouth every 4 tablet (four) hours as needed for Pain. Active acetaminophen-codeine Take 1 tablet 20 tablet 0 (TYLENOL #3) 300-30 mg by mouth 9 per tablet every 4 (four) hours as needed for Pain. Max Daily Amount: 6 tablets 11/02/2018 acetaminophen (TYLENOL) 2 tablets 30 tablet 0 325 MG tablet (650 mg 8 total) by G-tube route every 6 (six) hours for 360 days. 11/07/2018 amLODIPine (NORVASC) 5 MG 1 tablet (5 0 tablet mg total) by 8 G-tube route daily. 11/07/2018 aspirin 81 MG chewable 1 tablet (81 0 01 tablet mg total) by 8 G-tube route daily. 11/07/2018 hydrogen peroxide 3 % Apply 120 mL 0 external solution topically 2 8 (two) times daily. 11/02/2018 ipratropium-albuterol Take 3 mLs by 0 11/08/19 1 (DUO-NEB) 0.5 mg-3 mg(2.5 nebulization 8 mg base)/3 mL nebulizer every 6 (six) solution hours for 360 days. 11/08/2018 levothyroxine (SYNTHROID, 1 tablet (100 0 LEVOTHROID) 100 MCG mcg total) by 8 tablet G-tube route Every morning on an empty stomach. 11/07/2018 nitroglycerin (NITROSTAT) Place 1 inch 30 g 0 2 % ointment onto the skin 8 every 12 (twelve) hours. 08/22/2018 amoxicillin-clavulanate Take 1 tablet 20 tablet 0 (AUGMENTIN) 875-125 mg by mouth 2 9 per tablet (two) times daily for 7 days. 08/25/2018 docusate sodium (COLACE) Take 1 10 capsule 0 0 250 MG capsule capsule (250 9 mg total) by mouth daily for 10 days. 08/22/2018 amoxicillin-clavulanate Take 1 tablet 14 tablet 0 (AUGMENTIN) 875-125 mg by mouth 2 9 per tablet (two) times daily for 7 days. 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), by hx 018 L3 vertebral fracture (HCC), by hx 09/23/2017 Oropharyngeal dysphagia 09/21/2017 Dysphagia 09/20/2017 COPD exacerbation 09/20/2017 Moderate protein-calorie malnutrition 09/19/2017 COPD (chronic obstructive pulmonary disease) 018 Aspiration into airway 09/14/2017 Laryngeal cancer 02/03/2015 Severe protein-calorie malnutrition 02/03/2015 Hypercalcemia 02/03/2015 Depression 02/03/2015 Hypothyroid Encounters Care Team Description Date Type Specialty Isai Godoy MD 08/14/2018 Anesthesia Event Kanu Acevedo MD ESOPHAGOSCOPY 08/14/2018 Surgery Kanu Acevedo MD 08/14/2018 Hospital General Internal Ms dicine - Encounter 08/15/2018 08/13/2018 Hospital Pre-Admission Testi ng Encounter after 06/23/2018 Immunizations Name Dates Previously Given Next Due Influenza High Dose 02/04/2015 Preservative Free [id number] Pneumococcal 02/04/2015 Polysaccharide (Pneumovax) Social History Date [...] Vital Signs Time Taken Vital Sign Reading 08/15/2018 11:49 AM CDT Blood Pressure 132/60 08/15/2018 3:42 PM CDT Pulse 75 08/15/2018 11:49 AM CDT Temperature 36.2 C (97.2 F) 08/15/2018 3:42 PM CDT Respiratory Rate 18 08/15/2018 3:42 PM CDT Oxygen Saturation 97% 08/15/2018 3:42 PM CDT Inhaled Oxygen 28% Concentration 08/14/2018 11:00 AM CDT Weight 51.3 kg (113 lb 1.5 oz) 08/14/2018 11:00 AM CDT Height 152.4 cm (5') 08/14/2018 11:00 AM CDT Body Mass Index 22.09 Plan of Treatment Not on file Implants Device Identifier Shelf Expiration Date Model / Serial / L ot Implanted Type Area Manufactur er 05/05/2018 [id number] / / [id number] [place] Puncture Set N/A: Neck Implanted: Qty: 1 on 12/02/2015 by Karen Leiva MD Procedures Comments Procedure Name Priority Date/Time Associated Diag nosis REVISION,SCAR 08/14/2018 Acquired deformity of TRACHEOSTOMY 12:35 PM CDT neck Dysphagia, unspecified type Case Notes 2 HRS PER [facility] ESOPHAGOSCOPY 08/14/2018 Acquired deformity of 12:35 PM CDT neck Dysphagia, unspecified type Case Notes 2 HRS PER [facility] after 06/23/2018 Results Not on fileafter 06/23/2018 Insurance Payer Benefit Subscriber ID Type Phone Address Plan / Group [employer] TEX[employer] xxxxxxxxx [facility] HMO ALL Contracted [id number] Advance Directives For more information, please contact: [facility] [address] [place] [address] Date Inactivated Comments Code Status Date Activated 08/15/2018 6:33 PM Full Code 08/14/2018 9:04 PM This code status was determined by: Patient 11/07/2017 3:25 PM Full Code 11/06/2017 12:17 [...]
--- OUTSIDE RECORDS SUMMARY | 2019-06-24 12:28 | XMS REPORT ---
Author Author [facility] t Organization [facility] Address [address] [place] [address] Phone Unavailable Care Team Providers Care Management Recruiter Name Role Phone NONSTAFF PCP Unavailable Robert SANCHEZ Attphys Unavailable Robert MEDEROS LAIMINERVA Attphys Unavailable YAKOOB, PALIWALA TAMAR Attphys Unavailable SANA KAY Attphys Unavailable ARYA GREENBERG Attphys Unavailable Robert SANCHEZ YICHING Admphys Unavailable YAKOOB, PALIWALA TAMAR Admphys Unavailable SANA KAY Admphys Unavailable ARYA GREENBERG Admphys Unavailable Payers Payer Name Policy Type Policy Number Effective Date Expiration Date Smooth [employer] Plus [id number] 2018 00:00:00 [facility] [id number] 2017 00:[facility]00 [facility] [id number] 2017 00:00:00 [facility] Shayy Plus [id number] 2017 00:00:00 [facility] Plus [id number] 2017 00:00:00 [facility] Problems Condition Name Condition Details Condition Category Status Onset Date Resolution Date Last Treatment Date Treating Clinician Comments Source Dehydration Dehydration Problem Active 2015-10-15 00:00:00 [facility] Hemoptysis Hemoptysis Problem Active 2015-04-02 00:00:00 [facility] Tracheitis Tracheitis Problem Active 2015-04-02 00:00:00 [facility] Constipation Constipation Problem Active [facility] Diarrhea Diarrhea Problem Active [facility] Pneumonia Pneumonia Problem Active [facility] Urinary tract infection UTI (urinary tract infection) Problem Active [facility] Upper respiratory tract infection Upper respiratory infection Problem Active [facility] Obstructive chronic bronchitis with exacerbation COPD exacerbati on Problem Active [facility] Closed fracture of left hip Closed left hip fracture Problem Active [facility] Allergies, Adverse Reactions, Alerts Allergy Name Allergy Type Status Severity Reaction(s) Onset Date Inacti ve Date Treating Clinician Comments Source Tramadol Allergy to Substance Active Unknown 2018-01-31 00:00:00 [facility] Medications Ordered Medication Name Filled Medication Name Start Date Stop Da te Current Medication? Ordering Clinician Indication Dosage Frequency Signature (SIG) Comments Components Source Cephalexin Monohydrate (Keflex) 750 Mg Capsule, 500 Mg Oral Cephalexin Monohydrate (Keflex) 750 Mg Capsule, 500 Mg Oral 2017-09-12 00:00:00 09-12 00:00:00 Christina Croft Md [address] [facility] Tramadol Hcl (Ultram) 50 Mg Tablet, 50 Mg Oral Tramado l Hcl (Ultram) 50 Mg Tablet, 50 Mg Oral 2017-09-12 00:00:00 2017-09-12 00:00:00 Christina Croft Md 50 Every 6 Hours as needed for Pain [facility] Guaifenesin (Mucinex) 600 Mg Tablet.er Guaifenesin (Mucinex) 600 Mg Tablet.er 2017-01-07 00:00:00 Yes Luis Fernando Collins Commercial Drafter [address] [facility] Amoxicillin/Potassium Clav (Augmentin 87 5-125 Tablet) 1 Each Tablet, 875 Mg Oral Amoxicillin/Potassium Clav (Augmentin 87 5-125 Tablet) 1 Each Tablet, 875 Mg Oral 2017-01-07 00:00:00 2017-09-12 00:00:00 No Luis Fernando Collins Commercial Drafter 875 Twice A Day [facility] Prednisone 10 Mg Tab, 10 Mg Oral Prednisone 10 Mg Tab, 10 Mg Oral 2017-01-07 00:00:00 2017-09-12 00:00:00 No Luis Fernando Collins Commercial Drafter [address] [facility] Nitrofurantoin Monohyd/M-Cryst (Macrobid 100 Mg Capsule) 100 Mg Capsule, 100 Mg Oral Nitrofurantoin Monohyd/M-Cryst (Macrobid 100 Mg Capsule) 100 Mg Capsule, 100 Mg Oral 2016-06-01 00:00:00 2016-12-31 00:00:00 No Demetria Cadena [address] [facility] Acetaminophen 325 Mg Tablet Acetaminophen 325 Mg Tablet 2016-04-14 00:00:00 Yes Gaudencio Sanders Commercial Drafter 325 Every 4 Hours as needed for Pain And Temperature [facility] Albuterol/Ipratropium Nebulize 3 Ml Inha Albuterol/Ipr atropium Nebulize 3 Ml Inha 2016-04-14 00:00:00 Yes Gaudencio Sanders Commercial Drafter [address] [facility] Levalbuterol Hcl (Xopenex) 1.25 Mg/3 Ml Vial.neb Leval buterol Hcl (Xopenex) 1.25 Mg/3 Ml Vial.neb 2016-04-14 00:00:00 Yes Gaudencio Sanders Commercial Drafter 1. 25 Rt Q2h as needed for Shortness Of Breath [facility] Levothyroxine Sodium (Synthroid) 75 Mcg Tab Levothyrox ine Sodium (Synthroid) 75 Mcg Tab 2016-04-14 00:00:00 Yes Gaudencio Sanders Np 75 Daily @06 [facility] Bisacodyl (Dulcolax Supp*) 10 Mg Supp, 10 Mg Rectal Bi sacodyl (Dulcolax Supp*) 10 Mg Supp, 10 Mg Rectal 2016-04-14 00:00:00 2017-09-12 00:00:00 No Gaudencio Sanders Np 10 Daily as needed for Constipation [facility] Escitalopram Oxalate (Lexapro) 10 Mg Tablet, 20 Mg Ora l Escitalopram Oxalate (Lexapro) 10 Mg Tablet, 20 Mg Oral 2016-04-14 00:00:00 2017-09-12 00:00:00 No Gaudencio Sanders Np [address] [facility] Promethazine Hcl 25 Mg Tablet, 12.5 Mg Oral Promethazi ne Hcl 25 Mg Tablet, 12.5 Mg Oral 2016-04-14 00:00:00 2017-09-12 00:00:00 No Gaudencio Sanders Np 12.5 Every 6 Hours as needed for Nausea And Vomiting [facility] Docusate Sodium (Dok) 100 Mg Tablet, 100 Mg Oral Docus ate Sodium (Dok) 100 Mg Tablet, 100 Mg Oral 2016-04-14 00:00:00 2016-12-31 00:00:00 No Gaudencio Sanders Np [address] [facility] Magnesium Hydroxide (Milk Of Magnesia) 400 Mg/5 Ml Ora l.susp, 30 Ml Oral Magnesium Hydroxide (Milk Of Magnesia) 400 Mg/5 Ml Oral.susp, 30 Ml Oral 2016-04-14 00:00:00 2016-12-31 00:00:00 No Gaudencio Sanders Np 30 Every 8 Hours as needed for Constipation [facility] Magnesium/Alum/Simethicone 30 Ml Susp, 30 Ml Oral Magn esium/Alum/Simethicone 30 Ml Susp, 30 Ml Oral 2016-04-14 00:00:00 2016-12-31 00:00:00 No Gaudencio Sanders Commercial Drafter 30 Every 8 Hours as needed for Indigestion [facility] Metoclopramide Hcl 10 Mg Tablet, 10 Mg Oral Metoclopra mide Hcl 10 Mg Tablet, 10 Mg Oral 2016-04-14 00:00:00 2016-12-31 00:00:00 No Gaudencio Sanders Commercial Drafter 10 Before Meals And At Bedtime [facility] Pantoprazole Sod (Protonix) 40 Mg/Ml Susp, 40 Mg Oral Pantoprazole Sod (Protonix) 40 Mg/Ml Susp, 40 Mg Oral 2016-04-14 00:00:00 2016-12-31 00:00:00 No Gaudencio Sanders Commercial Drafter 40 Twice Daily Before Meals [facility] Phenol (Chloraseptic) 177 Ml [place], 1 Ml Mucous Mem Ph enol (Chloraseptic) 177 Ml [place], 1 Ml Mucous Mem 2016-04-14 00:00:00 2016-12-31 00:00:00 No H ugh Steph Sanders Commercial Drafter 1 Every Two Hours as needed for Sore Throa t [facility] Temazepam (Restoril) 30 Mg Capsule, 30 Mg Oral Temazep am (Restoril) 30 Mg Capsule, 30 Mg Oral 2016-04-14 00:00:00 2016-12-31 00:00:00 No Gaudencio Sanders Commercial Drafter 30 Bedtime as needed for Insomnia [facility] Benzonatate (Tessalon Perle) 100 Mg Capsule, 100 Mg Or al Benzonatate (Tessalon Perle) 100 Mg Capsule, 100 Mg Oral 2016-04-14 00:00:00 2016-06-01 00:00:00 No Gaudencio Sanders Commercial Drafter 100 Every 6 Hours as needed for Cough [facility] Enoxaparin Sodium (Lovenox) 40 Mg/0.4 Ml Inj, 40 Mg Shaw bcutaneously Enoxaparin Sodium (Lovenox) 40 Mg/0.4 Ml Inj, 40 Mg Subcutaneously 2016-04-14 00:00:00 2016-06-01 00:00:00 No Gaudencio Sanders Commercial Drafter 40 Daily At [address] [facility] Guaifenesin/Dextromethorphan (Mucinex Dm Er 600-30 Mg Tablet) 1 Each Tab.er.12h, 1 Each Oral Guaifenesin/Dextromethorphan (Mucinex Dm Er 600-30 Mg Tablet) 1 Each Tab.er.12h, 1 Each Oral 2016-04-14 00:00:00 2016-06-01 00:00:00 No Gaudencio Sanders Commercial Drafter 1 Every 6 Hours [facility] Hydrocodone Bit/Acetaminophen (Hydrocodo n-Acetaminophn 10-325) 1 Each Tablet, 1 Ea Oral Hydrocodone Bit/Acetaminophen (Hydrocodo n-Acetaminophn 10-325) 1 Each Tablet, 1 Ea Oral 2016-04-14 00:00:00 2016-06-01 00:00:00 No Gaudencio decker Commercial Drafter 1 Every 6 Hours as needed for Pain [facility] Magnesium Oxide 400 Mg Tablet, 400 Mg Peg Tube Magnesi um Oxide 400 Mg Tablet, 400 Mg Peg Tube 2015-10-23 00:00:00 2016-12-31 00:00:00 No Demetria smith Pa 400 Three Times A Day [facility] Hydrocodone Bit/Acetaminophen ([place]ganum 10-325 Tablet) 1 Each Tablet Hydrocodone Bit/Acetaminophen (Higganum 10-325 Tablet) 1 Each Tablet Yes 1 Every 6 Hours [facility] Lorazepam 1 Mg Tablet Lorazepam 1 Mg Tablet Yes 2 Three Times A Day as needed for Anxiety [facility] Ondansetron Hcl 2 Mg/1 Ml Vial Ondansetron Hcl 2 Mg/1 Ml Vial Yes 4 Every 8 Hours as needed for Nausea [facility] Trazodone Hcl 50 Mg Tablet Trazodone Hcl 50 Mg Tablet Yes 50 Bedtime [facility] Methadone Hcl 5 Mg Tablet, 5 Mg Oral Methadone Hcl 5 Mg Tablet, 5 Mg Oral 2018-05-15 00:00:00 No [address] [facility] Doxycycline Hyclate 100 Mg Capsule, 100 Mg Oral Doxycy ambrocio Hyclate 100 Mg Capsule, 100 Mg Oral 2017-09-12 00:00:00 No [address] [facility] Duloxetine Hcl (Cymbalta) 30 Mg Capsule., 60 Mg Dulo xetine Hcl (Cymbalta) 30 Mg Capsule., 60 Mg 2017-09-12 00:00:00 [address] [facility] Flavoxate Hcl 100 Mg Tab, 100 Mg Oral Flavoxate Hcl 100 Mg Tab, 100 Mg Oral 2017-09-12 00:00:00 No 100 Three Time s A Day as needed for Bladder Spasms [facility] Furosemide 10 Mg/1 Ml Vial, 20 Mg Intraven Furosemide 10 Mg/1 Ml Vial, 20 Mg Intraven 2017-09-12 00:00:00 No [address] [facility] Oxybutynin Chloride 5 Mg Tablet, 10 Mg Oral Oxybutynin Chloride 5 Mg Tablet, 10 Mg Oral 2017-09-12 00:00:[address] [facility] Sulfamethoxazole/Trimethoprim (Sulfameth oxazole-Tmp Ds Tablet) 1 Each Tablet, 1 Tab G Tube Sulfamethoxazole/Trimethoprim (Sulfameth oxazole-Tmp Ds Tablet) 1 Each Tablet, 1 Tab G Tube 2016-04-14 00:00:00 No 1 Twice A Day as needed for Urinary Frequency [facility] Lorazepam 1 Mg Tablet, 2 Mg Oral Lorazepam 1 Mg Tablet, 2 Mg Ora l 2015-10-23 00:00:00 No 2 Every 6 Hours as needed for Anx iety [facility] Clonazepam 0.5 Mg Tablet, 0.5 Mg Oral Clonazepam 0.5 Mg Tablet, 0.5 Mg Oral 2015-10-15 00:00:00 No .[address] [facility] Hydrocodone Bit/Acetaminophen ([place]ganum 5-325 Tablet) 1 E ach Tablet, 1 Each Oral Hydrocodone Bit/Acetaminophen (Higganum 5-325 Tablet) 1 Each Tablet, 1 Each Oral 2015-10-15 00:00:00 No 1 Every 6 Hours as nee ded for Pain [facility] Acetaminophen 650 Mg Supp, 650 Mg Rectal Acetaminophen 650 Mg Supp, 650 Mg Rectal 2015-10-13 00:00:00 No 650 Every [address] [facility] Acetylcysteine 100 Mg/1 Ml Vial, 3 Ml Inhalation Acety lcysteine 100 Mg/1 Ml Vial, 3 Ml Inhalation 2015-10-13 00:00:00 No 3 Every 6 Hours for Wheezing [facility] Amoxicillin/Potassium Clav (Augmentin 87 5-125 Tablet) 1 Each Tablet, 875 Mg Oral Amoxicillin/Potassium Clav (Augmentin 87 5-125 Tablet) 1 Each Tablet, 875 Mg Oral 2015-10-13 00:00:00 No [address] [facility] Cefdinir 250 Mg/5 Ml Susp.recon, 300 Mg Oral Cefdinir 250 Mg/5 Ml Susp.recon, 300 Mg Oral 2015-10-13 00:00:00 No [address] [facility] Docusate Sodium 100 Mg Capsule, 50 Mg Oral Docusate So dium 100 Mg Capsule, 50 Mg Oral 2015-10-13 00:00:00 No 50 Twice A Day for Co nstipation [facility] Fluoxetine Hcl 10 Mg Capsule, 10 Mg Oral Fluoxetine Hc l 10 Mg Capsule, 10 Mg Oral 2015-10-13 00:00:[address] [facility] Glycopyrrolate 1 Mg Tablet, 1 Mg Oral Glycopyrrolate 1 Mg Tablet , 1 Mg Oral 2015-10-13 00:00:00 No [address] [facility] Heparin Sodium,Porcine (Heparin Sodium) 5,000 Unit/1 Ml Cartridge, 5000 Unit Subcutaneously Heparin Sodium,Porcine (Heparin Sodium) 5,000 Unit/1 Ml Cartridge, 5000 Unit Subcutaneously 2015-10-13 00:00:00 No 5000 Every 12 Hours [facility] Ibuprofen 200 Mg Capsule, 200 Mg Oral Ibuprofen 200 Mg Capsule, 200 Mg Oral 2015-10-13 00:00:[address] [facility] Insulin Regular, Human (Humulin R) 100 Unit/1 Ml Vial, Insulin Regular, Human (Humulin R) 100 Unit/1 Ml Vial, 2015-10-13 00:00:00 No [facility] Lactulose 20 Gm/30 Ml Solution, 15 Ml Oral Lactulose 2 0 Gm/30 Ml Solution, 15 Ml Oral 2015-10-13 00:00:00 No 15 Twice A Day for Co nstipation [facility] Lidocaine (Lidoderm) 700 Mg Adh..patch, 700 Mg Topical ly Lidocaine (Lidoderm) 700 Mg Adh..patch, 700 Mg Topically 2015-10-13 00:00:[address] [facility] Mag Hydrox/Al Hydrox/Simeth (Maalox Advanced Suspensio n) 770 Ml Oral.susp, 200 Mag Hydrox/Al Hydrox/Simeth (Maalox Advanced Suspension) 770 Ml Oral.susp, 200 2015-10-13 00:00:[address] [facility] Nicotine (Nicotine Patch) 1 Each Patch.td24, 14 Mg Top ically Nicotine (Nicotine Patch) 1 Each Patch.td24, 14 Mg Topically 2015-10-13 00:00:00 No 14 Daily [facility] Pantoprazole Sodium (Protonix) 40 Mg Tablet.dr, 40 Mg Oral Pantoprazole Sodium (Protonix) 40 Mg Tablet.dr, 40 Mg Oral 2015-10-13 00:00:00 No 40 Daily [facility] Sodium Chloride For Inhalation (Hyper-Jake) 4 Ml Vial.n eb, 4 Ml Inhalation Sodium Chloride For Inhalation (Hyper-Jake) 4 Ml Vial.neb, 4 Ml Inhalation 2015-10-13 00:00:00 No 4 Every 4 Hours [facility] Zolpidem Tartrate (Ambien) 5 Mg Tablet, 5 Mg Oral Zolp idem Tartrate (Ambien) 5 Mg Tablet, 5 Mg Oral 2015-10-13 00:00:00 No [address] time for Insomnia [facility] Procedures Procedure Date / Time Performed Performing Clinician [facility] e X-ray of chest, two views 2018-01-31 00:00:00 YANDEL MEDEROS CH, I [facility] EMERGENCY DEPT VISIT 2018-01-31 00:00:00 [facility] Ultrasound guidance for vascular access 2017-09-14 00:00:00 ELIZA [facility] Computed tomography of chest with contrast 2017-09-13 00:00:00 Neal MENDOZA [facility] Ultrasound guidance for vascular access 2017-09-13 00:00:00 ELIZA [facility] CT of abdomen and pelvis without contrast 2017-08-07 00:00:[address] [facility] INSERTION OF INFUSION DEV INTO SUP VENA CAVA, PERC APPROACH 2017-07-27 00:00:[address] [facility] X-ray of chest, two views 2017-07-26 00:00:00 KATHE JUSTICE [facility] Encounters Start Date/Time End Date/Time [facility] Encounter ID Source 2018-05-11 00:44:00 2018-05-17 16:30:00 Discharged Inpatient [address] [facility] [id number] [facility] 2018-01-31 13:14:00 2018-01-31 22:30:00 Departed Emergency Room [address] [facility] [id number] [facility] 2017-09-13 09:11:00 2017-09-14 20:49:00 Discharged Inpatient [address] [facility] [id number] [facility] 2017-08-07 15:22:00 2017-08-07 22:49:00 Departed Emergency Room [address] [facility] [id number] [facility] 2017-07-27 16:16:00 2017-07-30 13:58:00 Discharged Inpatient [address] [facility] [id number] [facility] 2016-12-31 18:46:00 2017-01-07 16:38:00 Discharged Inpatient ER ARYA GREENBERG [facility] [id number] [facility] 2016-10-13 19:29:00 2016-10-14 00:50:00 Departed Emergency Room ER YANDEL MEDEROS [facility] [id number] [facility] Results Test Description Test Time Test Comments Results Result Comments Source Sodium Level 2018-05-16 07:06:00 Test Item Sodium Level (test code = 2951-2) 138 136-145 [facility]assium [id number] 07:06:00* Test Item Value Reference Range Interpretation Comments Potassium Level (test code = 2823-3) 3.6 3.5-5.1 [facility] CenterChloride [id number] 07:06:00* Test Item Value Reference Range Interpretation Comments Chloride Level (test code = 2075-0) 99 98-107 [facility] CenterCarbon Dioxide [id number] 07:06:00* Test Item Value Reference Range Interpretation Comments Carbon Dioxide Level (test code = 2028-9) 34 22-29 [facility] CenterAnion [id number] 07:06:00* Test Item Value Reference Range Interpretation Comments Anion Gap (test code = 41036-7) 8.6 8-16 [facility] CenterBlood Urea [id number] 07:06:00* Test Item Value Reference Range Interpretation Comments Blood Urea Nitrogen (test code = 3094-0) 9 7-26 [facility] CenterCreatinine2019-04-11 07:06:00* Test Item Value Reference Range Interpretation Comments Creatinine (test code = 2160-0) 0.69 0.57-1.11 [facility] CenterBUN/Creatinine [id number] 07:06:00* Test Item Value Reference Range Interpretation Comments BUN/Creatinine Ratio (test code = 3097-3) 13 6-25 [facility] CenterEstimat Glomerular Filtration Rate 2018-05-16 07:06:00* Test Item Value Reference Range Interpretation Comments Estimat Glomerular Filtration Rate (test code = 278029011) > 60 >60 Ranges were taken from the National Kidney Disease Education Program and the [facility] [employer] [employer] literature.Reference ranges:60 or greater: Vehruw60-96 ( for 3 consecutive months): Chronic kidney disease 15 or less: Kidney failureSt. Luke's Health – [facility]'s Medical CenterGlucose [id number] 07:06:00* Test Item Value Reference Range Interpretation Comments Glucose Level (test code = BJB3383) 89 74-118 [facility] CenterCalcium [id number] 07:06:00* Test Item Value Reference Range Interpretation Comments Calcium Level (test code = 08554-0) 8.6 8.4-10.2 [facility] CenterWhite Blood [id number] 06:39:00* Test Item Value Reference Range Interpretation Comments White Blood Count (test code = 6690-2) 2.83 4.8-10.8 [facility] CenterRed Blood [id number] 06:39:00* Test Item Value Reference Range Interpretation Comments Red Blood Count (test code = 789-8) 2.84 3.6-5.1 [facility] CenterHemoglobin2019-04-11 06:39:00* Test Item Value Reference Range Interpretation Comments Hemoglobin (test code = 82434-2) 9.0 12.0-16.0 [facility] CenterHematocrit2019-04-11 06:39:00* Test Item Value Reference Range Interpretation Comments Hematocrit (test code = 4544-3) 27.5 34.2-44.1 [facility] CenterMean Corpuscular [id number] 06:39:00* Test Item Value Reference Range Interpretation Comments Mean Corpuscular Volume (test code = 787-2) 96.8 81-99 [facility] CenterMean Corpuscular [id number] 06:39:00* Test Item Value Reference Range Interpretation Comments Mean Corpuscular Hemoglobin (test code = 785-6) 31.7 28-32 [facility] CenterMean Corpuscular Hemoglobin Concent 2018-05-16 06:39:00* Test Item Value Reference Range Interpretation Comments Mean Corpuscular Hemoglobin Concent (test code = 786-4) 32.7 31-35 [facility] CenterRed Cell Distribution [id number] 06:39:00* Test Item Value Reference Range Interpretation Comments Red Cell Distribution Width (test code = 81331-8) 16.4 11.7 -14.4 [facility] CenterPlatelet [id number] 06:39:00* Test Item Value Reference Range Interpretation Comments Platelet Count (test code = 777-3) 129 140-360 [facility] CenterNeutrophils (%) (Auto)2018-05-16 06:39:00 * Test Item Value Reference Range Interpretation Comments Neutrophils (%) (Auto) (test code = 71169-1) 58.6 38.7-80.0 [facility] CenterLymphocytes (%) (Auto)2018-05-16 06:39:00 * Test Item Value Reference Range Interpretation Comments Lymphocytes (%) (Auto) (test code = 736-9) 25.1 18.0-39.1 [facility] CenterMonocytes (%) (Auto)2018-05-16 06:39:00* Test Item Value Reference Range Interpretation Comments Monocytes (%) (Auto) (test code = 5905-5) 12.0 4.4-11.3 [facility] CenterEosinophils (%) (Auto)2018-05-16 06:39:00 * Test Item Value Reference Range Interpretation Comments Eosinophils (%) (Auto) (test code = 713-8) 3.2 0.0-6.0 [facility] CenterBasophils (%) (Auto)2018-05-16 06:39:00* Test Item Value Reference Range Interpretation Comments Basophils (%) (Auto) (test code = 706-2) 0.7 0.0-1.0 [facility] CenterIM GRANULOCYTES %2018-05-16 06:39:00* Test Item Value Reference Range Interpretation Comments IM GRANULOCYTES % (test code = IM GRANULOCYTES %) 0.4 0.0- 1.0 [facility] CenterNeutrophils # (Auto)2018-05-16 06:39:00* Test Item Value Reference Range Interpretation Comments Neutrophils # (Auto) (test code = 751-8) 1.7 2.1-6.9 [facility] CenterLymphocytes # (Auto)2018-05-16 06:39:00* Test Item Value Reference Range Interpretation Comments Lymphocytes # (Auto) (test code = 48596-6) 0.7 1.0-3.2 [facility] CenterMonocytes # (Auto)2018-05-16 06:39:00* Test Item Value Reference Range Interpretation Comments Monocytes # (Auto) (test code = 742-7) 0.3 0.2-0.8 [facility] CenterEosinophils # (Auto)2018-05-16 06:39:00* Test Item Value Reference Range Interpretation Comments Eosinophils # (Auto) (test code = 711-2) 0.1 0.0-0.4 [facility] CenterBasophils # (Auto)2018-05-16 06:39:00* Test Item Value Reference Range Interpretation Comments Basophils # (Auto) (test code = 704-7) 0.0 0.0-0.1 [facility] CenterAbsolute Immature Granulocyte (auto 2018-05-16 06:39:00* Test Item Value Reference Range Interpretation Comments Absolute Immature Granulocyte (auto (hesham t code = Absolute Immature Granulocyte (auto) 0.01 0-0.1 [facility] [id number] 22:12:00* Test Item Value Reference Range Interpretation Comments Urine WBC (test code = 5821-4) 11-20 0-5 [facility] [id number] 22:12:00* Test Item Value Reference Range Interpretation Comments Urine RBC (test code = 33222-7) 0-5 0-5 [facility] Center[facility] [id number] 22:12:00* Test Item Value Reference Range Interpretation Comments Urine Bacteria (test code = 57143-5) FEW NONE [facility] CenterUrine Epithelial Bhahe2845-97-91 22:12:00 * Test Item Value Reference Range Interpretation Comments Urine Epithelial Cells (test code = 82755-0) FEW NONE [facility] CenterUrine Dgulw1185-21-86 22:09:00* Test Item Value Reference Range Interpretation Comments Urine Color (test code = 5778-6) YELLOW YELLOW [facility] CenterU[facility] Wzsfhto8460-80-48 22:09:00* Test Item Value Reference Range Interpretation Comments Urine Clarity (test code = 20070-8) CLEAR CLEAR [facility] CenterU[facility] Specific Newtikg2339-27-92 22:09:00 * Test Item Value Reference Range Interpretation Comments Urine Specific [place] (test code = 5811-5) 1.010 1.010-1.[address] Center[facility] [id number] 22:09:00* Test Item Value Reference Range Interpretation Comments Urine pH (test code = 54655-3) 6.5 5-7 [facility] CenterU[facility] Leukocyte Hptpmqvb1460-80-85 22:09:00* Test Item Value Reference Range Interpretation Comments Urine Leukocyte Esterase (test code = 5799-2) NEGATIVE NEGATIVE [facility] Xksycka0343-55-80 22:09:00* Test Item Value Reference Range Interpretation Comments Urine Nitrite (test code = 43598-3) NEGATIVE NEGATIVE [facility] Center[facility] Fclfaqc3024-88-11 22:09:00* Test Item Value Reference Range Interpretation Comments Urine Protein (test code = 5804-0) NEGATIVE NEGATIVE [facility] Glucose (UA)2018-05-15 22:09:00* Test Item Value Reference Range Interpretation Comments Urine Glucose (UA) (test code = 2349-9) NEGATIVE NEGATIVE [facility] Vuusxpz6080-42-55 22:09:00* Test Item Value Reference Range Interpretation Comments Urine Ketones (test code = 69149-5) NEGATIVE NEGATIVE [facility] Kcewouoxemkl8745-66-87 22:09:00* Test Item Value Reference Range Interpretation Comments Urine Urobilinogen (test code = 92966-7) 0.2 0.2-1 [facility] Swmriajjb4136-95-43 22:09:00* Test Item Value Reference Range Interpretation Comments Urine Bilirubin (test code = 1978-6) NEGATIVE NEGATIVE [facility] Mxgmf9309-66-23 22:09:00* Test Item Value Reference Range Interpretation Comments Urine Blood (test code = 64768-3) NEGATIVE NEGATIVE [facility] CenterCHEST SINGLE (PORTABLE)2018-05-15 05:40:00 [facility] [address] [place], [place] [address] Patient Name: JENN JERNIGAN MR #: [id number] : 1950 Age/Sex: 67/F Req #: [id number] Adm Physician: BRUNA SANHCEZ MD Ordered by: BRUNA SANCHEZ MD Report #: [id number] Location: MED/SURG Room/Bed: [facility] Procedure: [id number] DX/C HEST SINGLE (PORTABLE) Exam Date: Exam Time: REPORT STATUS: Signed EXAMINATION: C HEST SINGLE (PORTABLE) INDICATION: REASSESS PULMONARY EDEMA COMPARISON: Chest x-ray 05/14/2018. FINDINGS: AP view TUBES an d LINES: None. LUNGS: Lungs are hyper inflated. There are bibasilar atel ectasis. There is mild prominence of the central pulmonary vasculature, consis tent with pulmonary venous congestion. PLEURA: Tiny bilateral pleural ef fusions, unchanged. HEART AND MEDIASTINUM: The cardiomediastinal silhouett e is unremarkable. There are atherosclerotic calcifications within the aorta. BONES AND SOFT TISSUES: No acute osseous lesion. Soft tissues are unrem arkable. Numerous surgical clips overlying the right neck. UPPER ABDOMEN: N o free air under the diaphragm. IMPRESSION: Unchanged central pulmon juno venous congestion with bibasilar atelectasis and tiny bilateral pleural ef fusions. Signed by: Dr. Vin Hernadez M.D. on 05/15/2018 5:41 AM Dictat ed By: VIN HERNADEZ MD 0 Transc ribed By: DARSHAN on 05/15/18540 COPY TO: BRUNA SANCHEZ MD ABDOMEN-1VIEW ([facility] [place])2018-05-14 18:06:00 [place] [id number] [place] [address] Patient Name: JENN JERNIGAN MR #: [id number] : 1950 Age/Sex: 67/F Req #: [id number] Adm Physician: BRUNA SANCHEZ MD Ordered by: BRUNA SANCHEZ MD Report #: [id number] Location: MED/SURG Room/Bed: [facility] Procedure: [id number] DX/A BDOMEN-1VIEW (KUB) Exam Date: 05/14/18 Exam Time: 16 50 REPORT STATUS: Signed Examina tion: KUB COMPARISON: None. INDICATION: Constipation DISCUSS ION: Mild amount of stool in the left hemicolon. No dilated loops of bowel. Prior fixation of the left femur. IMPRESSION: 1. Mild amount of retained stool in the left hemicolon Signed by: Dr. Bernarda Chino M.D. on 05/14/2018 6:08 PM Dictated By: BERNARDA CHINO MD 1808 Transcribed By: DARSHAN on 05/14/18 1 808 COPY TO: BRUNA SANCHEZ MD CHEST SINGLE (PORTABLE)2018-05-14 17:23:00 [place] [address] Patient Name: JENN JERNIGAN MR #: [id number] : 1950 Age/Sex: 67/F Req #: [id number] Adm Physician: BRUNA SANCHEZ MD Ordered by: BRUNA SANCHEZ MD Report #: [id number] Location: MED/SURG Room/Bed: 115-1 Procedure: [id number] DX/C HEST SINGLE (PORTABLE) Exam Date: Exam Time: REPORT STATUS: Signed Examination: Si ngle AP view of the chest. COMPARISON: None. INDICATION: Hip fracture DISCUSSION: Lines/tubes: None. Lungs: Central pulmonary ve nous congestion. Lower lung atelectasis. Pleura: Small effusions. Hea rt and mediastinum: The heart and the mediastinum are unremarkable. Bones and soft tissues: No acute bony abnormalities. IMPRESSION: 1. Central pulmonary venous congestion with small effusions Signed by: Dr. Isabel Chino M.D. on 05/14/2018 5:24 PM Dictated By: BERNARDA CHINO MD 23 Transcribed By: DARSHAN on 05/14/181723 COPY TO: BRUNA SANCHEZ MD HIP LEFT 2-3 VW (+/- PELVIS)2018-05-13 16:22:00 [place] [address] Patient Name: JENN JERNIGAN MR #: [id number] : 1950 Age/Sex: 67/F Req #: [id number] Adm Physician: BRUNA SANCHEZ MD Ordered by: SUAD LOYOLA MD Report #: [id number] Location: MED/SURG Room/Bed: 115 Procedure: D X/HIP LEFT 2-3 VW (+/- PELVIS) Exam Date: Exam Time : REPORT STATUS: Signed Exam: L eft hip and femur radiographs History: Postoperative. Comparison: Pe lvis and bilateral hip radiographs 05/10/2018. Findings: Status post inter willi ORIF of comminuted left proximal femur intertrochanteric fracture with imp roved alignment. Hardware appears intact. Soft tissue gas and lateral skin sta ples, reflecting recent surgery. There is diffuse osteopenia. There are mod erate degenerative changes of the right hip. Bowel gas obscures visualization of the sacrum. Diffuse osteopenia. Impression: Status post ORIF of c omminuted left proximal femur intertrochanteric fracture with improved alignme nt and intact hardware. Signed by: Dr. Whitney Coronel MD on 05/13/2018 4:37 PM Dictated By: WHITNEY CORONEL MD 8107 COPY TO: EDNA LOYOLA MD FEMUR ONE VIEW [id number] 16:22:00 [place] [address] Patient Name: EJNN JERNIGAN MR #: [id number] : 1950 Age/Sex: 67/F Req #: [id number] Adm Physician: BRUNA SANCHEZ MD Ordered by: SUAD LOYOLA MD Report #: [id number] Location: MED/SURG Room/Bed: [facility] Procedure: D X/FEMUR ONE VIEW LEFT Exam Date: Exam Time: REPORT STATUS: Signed Exam: Left hip a nd femur radiographs History: Postoperative. Comparison: Pelvis and bilateral hip radiographs 05/10/2018. Findings: Status post interval ORIF of comminuted left proximal femur intertrochanteric fracture with improved ali gnment. Hardware appears intact. Soft tissue gas and lateral skin abel, ref lecting recent surgery. There is diffuse osteopenia. There are moderate deg enerative changes of the right hip. Bowel gas obscures visualization of the sa judit. Diffuse osteopenia. Impression: Status post ORIF of comminuted left proximal femur intertrochanteric fracture with improved alignment and in tact hardware. Signed by: Dr. Whitney Coronel MD on 05/13/2018 4:37 PM Dic tated By: WHITNEY CORONEL MD 163 7 Transcribed By: DARSHAN on 05/13/18 1637 COPY TO: SUAD LOYOLA MD Alkaline Aymfqizjwwj3877-47-96 08:16:00* Test Item Value Reference Range Interpretation Comments Alkaline Phosphatase (test code = 6768-6) 77 40-150 [facility] CenterTotal Ylopiybhm7944-97-33 08:09:00* Test Item Value Reference Range Interpretation Comments Total Bilirubin (test code = 1975-2) 1.3 0.2-1.2 [facility] CenterAspartate Amino Transf (AST/SGOT) 2018-05-13 08:09:00* Test Item Value Reference Range Interpretation Comments Aspartate Amino Transf (AST/SGOT) (test code = Aspartate Amino Transf (AST/SGOT)) 24 5-34 [facility] CenterAlanine Aminotransferase (ALT/SGPT) 2018-05-13 08:09:00* Test Item Value Reference Range Interpretation Comments Alanine Aminotransferase (ALT/SGPT) (test code = 1742-6) 7 0-55 [facility] CenterTotal Ryslaza2569-24-43 08:09:00* Test Item Value Reference Range Interpretation Comments Total Protein (test code = 2885-2) 6.3 6.5-8.1 [facility] CenterAlbumin2019-04-08 08:09:00* Test Item Value Reference Range Interpretation Comments Albumin (test code = 1751-7) 3.0 3.5-5.0 [facility] CenterGlobulin2019-04-08 08:09:00* Test Item Value Reference Range Interpretation Comments Globulin (test code = 30566-5) 3.3 2.3-3.5 [facility] CenterAlbumin/Globulin Ddgve0089-53-68 08:09:00 * Test Item Value Reference Range Interpretation Comments Albumin/Globulin Ratio (test code = 1759-0) 0.9 0.8-2.0 [facility] CenterProthrombin Hrif5080-89-30 07:23:00* Test Item Value Reference Range Interpretation Comments Prothrombin Time (test code = 5902-2) 11.7 11.9-14.5 [facility] CenterProthromb Time International Ratio 2018-05-13 07:23:00* Test Item Value Reference Range Interpretation Comments Prothromb Time International Ratio (test code = 6301-6) 0.81 Oral Anticoagulant Therapy INR Values:1. Low Intensity Therapy 1.5 - 2.02 . Moderate Intensity Therapy 2.0 - 3.03. High Intensity Therapy(1) 2.5 - 3. 54. High Intensity Therapy(2) 3.0 - 4.05. Panic Value INR > 5.0 [facility] Medical CenterActivated Partial Thromboplast Time 2018-05-13 07:23:00* Test Item Value Reference Range Interpretation Comments Activated Partial Thromboplast Time (test code = 07164-0) 20.3 23.8-35.5 [facility] CenterThyroid Stimulating Hormone (TSH) 2018-05-12 12:08:00* Test Item Value Reference Range Interpretation Comments Thyroid Stimulating Hormone (TSH) (test code = 99808-8) > 100.000 0.350-4.940 [facility] CenterUrine Gochy7190-81-86 00:11:00* Test Item Value Reference Range Interpretation Comments Urine Mucus (test code = 8247-9) FEW RARE [facility] CenterCHEST SINGLE (PORTABLE)2018-05-10 21:18:00 [facility] [address] [place] [address] Patient Name: JENN JERNIGAN MR #: [id number] : 1950 Age/Sex: 67/F Req #: [id number] Adm Physician: Ordered by: CHRISTINE FERRARO MD Report #: [id number] Location: ER Room/Bed: Procedure: [id number] DX/CHEST SINGLE (PORTABLE) Exam Date: 05/10/18 Exa m Time: 2039 REPORT STATUS: Signed Examination: Single AP view of the chest. COMPARISON: None. INDICAT ION: Preoperative evaluation, femur fracture DISCUSSION: Jose/tu bes: None. Lungs: The lungs are well inflated and clear. No pneumonia or pulmonary edema. Pleura: No pleural effusion or pneumothorax. Heart a nd mediastinum: The heart and the mediastinum are unremarkable. Bones and soft tissues: No acute bony abnormalities. IMPRESSION: 1. No acute cardiopulmonary abnormalities. Signed by: Dr. Bernarda Chino M.D. on 05/10/2018 9:18 PM Dictated By: BERNARDA CHINO MD 17 Transcribed By: DARSHAN on 05/10/18 2 118 COPY TO: CHRISTINE FERRARO MD FEMUR 2 VIEWS MINIMUM LEFT 2018-05-10 21:15:[address] [address] Patient Name: JENN JERNIGAN MR #: [id number] : 1950 Age/Sex: 67/F Req #: [id number] Adm Physician: Ordered by: AMRIK GILLESPIE NP Report #: [id number] Location: ER Room/Bed: Procedure: DX/FE MUR 2 VIEWS MINIMUM LEFT Exam Date: Exam Time: REPORT STATUS: Signed Exam: Robert ateral hips and left femur History: Pain Comparison: None. Findi ngs: Comminuted left femur intertrochanteric fracture with fracture line throu gh the intertrochanteric region and displacement of the lesser trochanter. Advanced left hip degenerative arthrosis. Bone demineralization. Impre ssion: Comminuted left femur intertrochanteric fracture Signed by: Dr. Bernarda Chino M.D. on 05/10/2018 9:17 PM Dictated By: BERNARDA [place] MD 16 Transcribe d By: DARSHAN on 05/10/182116 COPY TO: AMRIK GILLESPIE NP HIPS BILAT 3-4VWS (+/- PELVIS)2018-05-10 21:15:00 [place] [address] Patient Name: JENN JERNIGAN MR #: [id number] : 1950 Age/Sex: 67/F Req #: [id number] Adm Physician: Ordered by: AMRIK GILLESPIE NP Report #: [id number] Location: ER Room/Bed: Procedure: DX/HI PS BILAT 3-4VWS (+/- PELVIS) Exam Date: Exam Time: REPORT STATUS: Signed Exam: Bilateral hips and left femur History: Pain Comparison: None. F indings: Comminuted left femur intertrochanteric fracture with fracture line t hrough the intertrochanteric region and displacement of the lesser trochanter. Advanced left hip degenerative arthrosis. Bone demineralization. I mpression: Comminuted left femur intertrochanteric fracture Signed by: Dr. Bernarda Chino M.D. on 05/10/2018 9:17 PM Dictated By: BERNARDA ARBOLEDA MD 16 Transc ribed By: DARSHAN on 05/10/182116 COPY TO: AMRIK GILLESPIE NP Blood Ydzmrmp1206-78-22 15:29:00* Test Item Value Reference Range Interpretation Comments Blood Culture (test code = 54073324) NO GROWTH AFTER 5 DAYS, FINAL REPORT [facility] 2 BHKBT2556-00-61 16:08:00 [place] [address] Patient Name: JENN JERNIGAN MR #: [id number] : 1950 Age/Sex: 67/F Req #: [id number] Adm Physician: Ordered by: YANDEL MEDEROS MD Report #: [id number] Location: ER Room/Bed: Procedure: [id number] DX/CH EST 2 VIEWS Exam Date: 01/31/18 Exam Time: 1400 REPORT STATUS: Signed EXAMINATION: CHEST 2 VIEWS INDICATION: Sepsis. COMPARISON: CT chest with contrast 09/13/2017. Chest x-ray 09/12/2017. FINDINGS: PA and lateral vie ws Patient is rotated on this exam. TUBES and LINES: Tracheostomy tube i n place. LUNGS: Lungs are well inflated. Bilateral peribronchial cuffing. Unchanged left basilar atelectasis. PLEURA: No pleural effusion or pne umothorax. HEART AND MEDIASTINUM: The cardiomediastinal silhouette is unre markable. BONES AND SOFT TISSUES: Moderate scoliotic changes. No acute osseous lesion. Soft tissues are unremarkable. Numerous surgical clips in the right lung apex. UPPER ABDOMEN: No free air under the diaphragm. IMPRESSION: Bilateral peribronchial cuffing, likely viral etiology or reacti ve airway. Signed by: Dr. Vin Hernadez M.D. on 01/31/2018 4:15 PM Dic tated By: VIN HERNADEZ MD 14 Tra nscribed By: DARSHAN on 01/31/181614 COPY TO: YANDEL MEDEROS MD Influenza Virus Types A,B Ypedcea6340-44-87 15:47:00* Test Item Value Reference Range Interpretation Comments Influenza Virus Types A,B Antigen (test code = 70841-5) NEGATIVE NEGATIVE [facility] CenterLactic Acid Taucs2675-61-88 15:26:00* Test Item Value Reference Range Interpretation Comments Lactic Acid Level (test code = Lactic Acid Level) 8.1 4.5- 19.8 [facility] CenterAFB CULTURE + [id number] 16:47:00* Test Item Value Reference Range Interpretation Comments CULTURE (BEAKER) (test code = 1095) No acid-fast bacilli isolate d in 42 days AFB SMEAR (BEAKER) (test code = 994) No acid fast bacilli seen [id number] 06:12:00* Test Item Value Reference Range Interpretation Comments PHOSPHORUS (BEAKER) (test code = 604) 2.9 mg/dL 2.3-4.7 [id number] 06:12:00* Test Item Value Reference Range Interpretation Comments MAGNESIUM (BEAKER) (test code = 627) 1.8 mg/dL 1.6-2.6 BASIC METABOLIC [id number] 06:12:00* Test Item Value Reference Range Interpretation Comments SODIUM (BEAKER) (test code = 381) 136 meq/L 136-145 POTASSIUM (BEAKER) (test code = 379) 4.1 meq/L 3.5-5.1 CHLORIDE (BEAKER) (test code = 382) 106 meq/L 98-107 CO2 (BEAKER) (test code = 355) 23 meq/L 22-29 BLOOD UREA NITROGEN (BEAKER) (test code = 354) 25 mg/dL 7-21 H CREATININE (BEAKER) (test code = 358) 0.65 mg/dL 0.57-1.25 GLUCOSE RANDOM (BEAKER) (test code = 652) 113 mg/dL 70-105 H CALCIUM (BEAKER) (test code = 697) 8.6 mg/dL 8.4-10.2 EGFR (BEAKER) (test code = 1092) 90 mL/min/1.73 sq m ESTIMATED GFR IS NOT ACCURATE CREATININE CLEARANCE IN PREDICTING GLOMERULAR FILTRATION RATE. ESTIMATED GFR IS NOT APPLICABLE FOR DIALYSIS PATIENTS. CBC W/PLT COUNT & AUTO [id number] 05:30:00* Test Item Value Reference Range Interpretation Comments WHITE BLOOD CELL COUNT (BEAKER) (test code = 775) 3.6 K/ L 3.5- 10.5 RED BLOOD CELL COUNT (BEAKER) (test code = 761) 3.03 M/ L 3.93-5 .22 L HEMOGLOBIN (BEAKER) (test code = 410) 8.9 GM/DL 11.2-15.7 L HEMATOCRIT (BEAKER) (test code = 411) 28.6 % 34.1-44.9 L MEAN CORPUSCULAR VOLUME (BEAKER) (test code = 753) 94.4 fL 79. 4-94.8 MEAN CORPUSCULAR HEMOGLOBIN (BEAKER) (test code = 751) 29.4 pg 25.6-32.2 MEAN CORPUSCULAR HEMOGLOBIN CONC (BEAKER) (test code = 752) 31.1 GM/DL 32.2-35.5 L RED CELL DISTRIBUTION WIDTH (BEAKER) (test code = 412) 15.7 % 11.7-14.4 H PLATELET COUNT (BEAKER) (test code = 756) 179 K/CU MM 150-450 MEAN PLATELET VOLUME (BEAKER) (test code = 754) 10.2 fL 9.4-12 .3 NUCLEATED RED BLOOD CELLS (BEAKER) (test code = 413) 0 /100 WBC 0 -0 NEUTROPHILS RELATIVE PERCENT (BEAKER) (test code = 429) 62 % LYMPHOCYTES RELATIVE PERCENT (BEAKER) (test code = 430) 25 % MONOCYTES RELATIVE PERCENT (BEAKER) (test code = 431) 8 % EOSINOPHILS RELATIVE PERCENT (BEAKER) (test code = 432) 4 % BASOPHILS RELATIVE PERCENT (BEAKER) (test code = 437) 1 % NEUTROPHILS ABSOLUTE COUNT (BEAKER) (test code = 670) 2.22 K/ L 1.56-6.13 LYMPHOCYTES ABSOLUTE COUNT (BEAKER) (test code = 414) 0.89 K/ L 1.18-3.74 L MONOCYTES ABSOLUTE COUNT (BEAKER) (test code = 415) 0.28 K/ L 0. 24-0.36 EOSINOPHILS ABSOLUTE COUNT (BEAKER) (test code = 416) 0.15 K/ L 0.04-0.36 BASOPHILS ABSOLUTE COUNT (BEAKER) (test code = 417) 0.02 K/ L 0. 01-0.08 IMMATURE GRANULOCYTES-RELATIVE PERCENT (BEAKER) (test code = 2801) 0 % 0-1 [id number] 05:50:00* Test Item Value Reference Range Interpretation Comments PHOSPHORUS (BEAKER) (test code = 604) 3.3 mg/dL 2.3-4.7 [id number] 05:50:00* Test Item Value Reference Range Interpretation Comments MAGNESIUM (BEAKER) (test code = 627) 1.7 mg/dL 1.6-2.6 BASIC METABOLIC [id number] 05:50:00* Test Item Value Reference Range Interpretation Comments SODIUM (BEAKER) (test code = 381) 140 meq/L 136-145 POTASSIUM (BEAKER) (test code = 379) 3.7 meq/L 3.5-5.1 CHLORIDE (BEAKER) (test code = 382) 107 meq/L 98-107 CO2 (BEAKER) (test code = 355) 24 meq/L 22-29 BLOOD UREA NITROGEN (BEAKER) (test code = 354) 26 mg/dL 7-21 H CREATININE (BEAKER) (test code = 358) 0.64 mg/dL 0.57-1.25 GLUCOSE RANDOM (BEAKER) (test code = 652) 106 mg/dL 70-105 H CALCIUM (BEAKER) (test code = 697) 8.6 mg/dL 8.4-10.2 EGFR (BEAKER) (test code = 1092) 92 mL/min/1.73 sq m ESTIMATED GFR IS NOT ACCURATE CREATININE CLEARANCE IN PREDICTING GLOMERULAR FILTRATION RATE. ESTIMATED GFR IS NOT APPLICABLE FOR DIALYSIS PATIENTS. POCT-GLUCOSE [id number] 05:28:00* Test Item Value Reference Range Interpretation Comments POC-GLUCOSE METER (BEAKER) (test code = 1538) 113 mg/dL 70-110 H TESTED AT [facility] [address] [facility] [address] CBC W/PLT COUNT & AUTO [id number] 04:54:00* Test Item Value Reference Range Interpretation Comments WHITE BLOOD CELL COUNT (BEAKER) (test code = 775) 3.6 K/ L 3.5- 10.5 RED BLOOD CELL COUNT (BEAKER) (test code = 761) 2.93 M/ L 3.93-5 .22 L HEMOGLOBIN (BEAKER) (test code = 410) 8.5 GM/DL 11.2-15.7 L HEMATOCRIT (BEAKER) (test code = 411) 27.7 % 34.1-44.9 L MEAN CORPUSCULAR VOLUME (BEAKER) (test code = 753) 94.5 fL 79. 4-94.8 MEAN CORPUSCULAR HEMOGLOBIN (BEAKER) (test code = 751) 29.0 pg 25.6-32.2 MEAN CORPUSCULAR HEMOGLOBIN CONC (BEAKER) (test code = 752) 30.7 GM/DL 32.2-35.5 L RED CELL DISTRIBUTION WIDTH (BEAKER) (test code = 412) 15.3 % 11.7-14.4 H PLATELET COUNT (BEAKER) (test code = 756) 146 K/CU MM 150-450 L MEAN PLATELET VOLUME (BEAKER) (test code = 754) 9.9 fL 9.4-12 .3 NUCLEATED RED BLOOD CELLS (BEAKER) (test code = 413) 0 /100 WBC 0 -0 NEUTROPHILS RELATIVE PERCENT (BEAKER) (test code = 429) 60 % LYMPHOCYTES RELATIVE PERCENT (BEAKER) (test code = 430) 27 % MONOCYTES RELATIVE PERCENT (BEAKER) (test code = 431) 8 % EOSINOPHILS RELATIVE PERCENT (BEAKER) (test code = 432) 4 % BASOPHILS RELATIVE PERCENT (BEAKER) (test code = 437) 1 % NEUTROPHILS ABSOLUTE COUNT (BEAKER) (test code = 670) 2.15 K/ L 1.56-6.13 LYMPHOCYTES ABSOLUTE COUNT (BEAKER) (test code = 414) 0.98 K/ L 1.18-3.74 L MONOCYTES ABSOLUTE COUNT (BEAKER) (test code = 415) 0.30 K/ L 0. 24-0.36 EOSINOPHILS ABSOLUTE COUNT (BEAKER) (test code = 416) 0.15 K/ L 0.04-0.36 BASOPHILS ABSOLUTE COUNT (BEAKER) (test code = 417) 0.02 K/ L 0. 01-0.08 IMMATURE GRANULOCYTES-RELATIVE PERCENT (BEAKER) (test code = 2801) 0 % 0-1 POCT-GLUCOSE [id number] 04:41:00* Test Item Value Reference Range Interpretation Comments POC-GLUCOSE METER (BEAKER) (test code = 1538) 118 mg/dL 70-110 H TESTED AT [address] [address] POCT-GLUCOSE [id number] 18:12:00* Test Item Value Reference Range Interpretation Comments POC-GLUCOSE METER (BEAKER) (test code = 1538) 133 mg/dL 70-110 H TESTED AT [address] [address] C. DIFFICILE GDH [id number] 13:25:00* Test Item Value Reference Range Interpretation Comments CDT TOXIN (test code = 1260881145) Negative Negative CDT GDH ANTIGEN (test code = 3021929206) Negative Negative No indication of Clostridium difficile infection and no colonization. Discontinue enteric isolation and therapy. Testing performed by [employer] Rapid Cassette Assay. For GDH, published sensitivity of the assay is 98.7% compared to cytotoxicity testing. For Toxin AB, published sensitivity is 87.8% and specificity 99.4% compared to cytotoxicity testing.Ve rification of kit performance was done by the [facility] Microbiology Lab prior to cl inical use.POCT-GLUCOSE [id number] 11:23:00* Test Item Value Reference Range Interpretation Comments POC-GLUCOSE METER (BEAKER) (test code = 1538) 147 mg/dL 70-110 H TESTED AT [address] [address] POCT-GLUCOSE [id number] 05:45:00* Test Item Value Reference Range Interpretation Comments POC-GLUCOSE METER (BEAKER) (test code = 1538) 124 mg/dL 70-110 H TESTED AT [facility] [address] [facility] [address] CBC W/PLT COUNT & AUTO [id number] 05:42:00* Test Item Value Reference Range Interpretation Comments WHITE BLOOD CELL COUNT (BEAKER) (test code = 775) 3.6 K/ L 3.5- 10.5 RED BLOOD CELL COUNT (BEAKER) (test code = 761) 2.96 M/ L 3.93-5 .22 L HEMOGLOBIN (BEAKER) (test code = 410) 8.6 GM/DL 11.2-15.7 L HEMATOCRIT (BEAKER) (test code = 411) 28.3 % 34.1-44.9 L MEAN CORPUSCULAR VOLUME (BEAKER) (test code = 753) 95.6 fL 79. 4-94.8 H MEAN CORPUSCULAR HEMOGLOBIN (BEAKER) (test code = 751) 29.1 pg 25.6-32.2 MEAN CORPUSCULAR HEMOGLOBIN CONC (BEAKER) (test code = 752) 30.4 GM/DL 32.2-35.5 L RED CELL DISTRIBUTION WIDTH (BEAKER) (test code = 412) 15.0 % 11.7-14.4 H PLATELET COUNT (BEAKER) (test code = 756) 134 K/CU MM 150-450 L MEAN PLATELET VOLUME (BEAKER) (test code = 754) 10.6 fL 9.4-12 .3 NUCLEATED RED BLOOD CELLS (BEAKER) (test code = 413) 0 /100 WBC 0 -0 NEUTROPHILS RELATIVE PERCENT (BEAKER) (test code = 429) 57 % LYMPHOCYTES RELATIVE PERCENT (BEAKER) (test code = 430) 30 % MONOCYTES RELATIVE PERCENT (BEAKER) (test code = 431) 10 % EOSINOPHILS RELATIVE PERCENT (BEAKER) (test code = 432) 3 % BASOPHILS RELATIVE PERCENT (BEAKER) (test code = 437) 0 % NEUTROPHILS ABSOLUTE COUNT (BEAKER) (test code = 670) 2.02 K/ L 1.56-6.13 LYMPHOCYTES ABSOLUTE COUNT (BEAKER) (test code = 414) 1.07 K/ L 1.18-3.74 L MONOCYTES ABSOLUTE COUNT (BEAKER) (test code = 415) 0.34 K/ L 0. 24-0.36 EOSINOPHILS ABSOLUTE COUNT (BEAKER) (test code = 416) 0.10 K/ L 0.04-0.36 BASOPHILS ABSOLUTE COUNT (BEAKER) (test code = 417) 0.01 K/ L 0. 01-0.08 IMMATURE GRANULOCYTES-RELATIVE PERCENT (BEAKER) (test code = 2801) 0 % 0-1 [id number] 05:06:00* Test Item Value Reference Range Interpretation Comments PHOSPHORUS (BEAKER) (test code = 604) 3.4 mg/dL 2.3-4.7 [id number] 05:06:00* Test Item Value Reference Range Interpretation Comments MAGNESIUM (BEAKER) (test code = 627) 1.6 mg/dL 1.6-2.6 BASIC METABOLIC [id number] 05:06:00* Test Item Value Reference Range Interpretation Comments SODIUM (BEAKER) (test code = 381) 137 meq/L 136-145 POTASSIUM (BEAKER) (test code = 379) 3.9 meq/L 3.5-5.1 CHLORIDE (BEAKER) (test code = 382) 104 meq/L 98-107 CO2 (BEAKER) (test code = 355) 26 meq/L 22-29 BLOOD UREA NITROGEN (BEAKER) (test code = 354) 21 mg/dL 7-21 CREATININE (BEAKER) (test code = 358) 0.65 mg/dL 0.57-1.25 GLUCOSE RANDOM (BEAKER) (test code = 652) 84 mg/dL 70-105 CALCIUM (BEAKER) (test code = 697) 8.4 mg/dL 8.4-10.2 EGFR (BEAKER) (test code = 1092) 90 mL/min/1.73 sq m ESTIMATED GFR IS NOT ACCURATE CREATININE CLEARANCE IN PREDICTING GLOMERULAR FILTRATION RATE. ESTIMATED GFR IS NOT APPLICABLE FOR DIALYSIS PATIENTS. POCT-GLUCOSE [id number] 21:28:00* Test Item Value Reference Range Interpretation Comments POC-GLUCOSE METER (BEAKER) (test code = 1538) 111 mg/dL 70-110 H TESTED AT [facility] [address] [facility] [address] POCT-GLUCOSE [id number] 12:05:00* Test Item Value Reference Range Interpretation Comments POC-GLUCOSE METER (BEAKER) (test code = 1538) 113 mg/dL 70-110 H TESTED AT [facility] [address] [facility] [address] POCT-GLUCOSE [id number] 06:08:00* Test Item Value Reference Range Interpretation Comments POC-GLUCOSE METER (BEAKER) (test code = 1538) 108 mg/dL 70-110 TESTED AT [facility] [address] [facility] [address] [id number] 05:51:00* Test Item Value Reference Range Interpretation Comments PHOSPHORUS (BEAKER) (test code = 604) 3.5 mg/dL 2.3-4.7 [id number] 05:51:00* Test Item Value Reference Range Interpretation Comments MAGNESIUM (BEAKER) (test code = 627) 2.0 mg/dL 1.6-2.6 BASIC METABOLIC [id number] 05:51:00* Test Item Value Reference Range Interpretation Comments SODIUM (BEAKER) (test code = 381) 138 meq/L 136-145 POTASSIUM (BEAKER) (test code = 379) 4.1 meq/L 3.5-5.1 CHLORIDE (BEAKER) (test code = 382) 105 meq/L 98-107 CO2 (BEAKER) (test code = 355) 26 meq/L 22-29 BLOOD UREA NITROGEN (BEAKER) (test code = 354) 21 mg/dL 7-21 CREATININE (BEAKER) (test code = 358) 0.67 mg/dL 0.57-1.25 GLUCOSE RANDOM (BEAKER) (test code = 652) 111 mg/dL 70-105 H CALCIUM (BEAKER) (test code = 697) 8.9 mg/dL 8.4-10.2 EGFR (BEAKER) (test code = 1092) 87 mL/min/1.73 sq m ESTIMATED GFR IS NOT ACCURATE CREATININE CLEARANCE IN PREDICTING GLOMERULAR FILTRATION RATE. ESTIMATED GFR IS NOT APPLICABLE FOR DIALYSIS PATIENTS. CBC W/PLT COUNT & AUTO [id number] 05:41:00* Test Item Value Reference Range Interpretation Comments WHITE BLOOD CELL COUNT (BEAKER) (test code = 775) 3.3 K/ L 3.5- 10.5 L RED BLOOD CELL COUNT (BEAKER) (test code = 761) 3.05 M/ L 3.93-5 .22 L HEMOGLOBIN (BEAKER) (test code = 410) 9.0 GM/DL 11.2-15.7 L HEMATOCRIT (BEAKER) (test code = 411) 28.6 % 34.1-44.9 L MEAN CORPUSCULAR VOLUME (BEAKER) (test code = 753) 93.8 fL 79. 4-94.8 MEAN CORPUSCULAR HEMOGLOBIN (BEAKER) (test code = 751) 29.5 pg 25.6-32.2 MEAN CORPUSCULAR HEMOGLOBIN CONC (BEAKER) (test code = 752) 31.5 GM/DL 32.2-35.5 L RED CELL DISTRIBUTION WIDTH (BEAKER) (test code = 412) 15.0 % 11.7-14.4 H PLATELET COUNT (BEAKER) (test code = 756) 133 K/CU MM 150-450 L MEAN PLATELET VOLUME (BEAKER) (test code = 754) 10.7 fL 9.4-12 .3 NUCLEATED RED BLOOD CELLS (BEAKER) (test code = 413) 0 /100 WBC 0 -0 NEUTROPHILS RELATIVE PERCENT (BEAKER) (test code = 429) 46 % LYMPHOCYTES RELATIVE PERCENT (BEAKER) (test code = 430) 34 % MONOCYTES RELATIVE PERCENT (BEAKER) (test code = 431) 10 % EOSINOPHILS RELATIVE PERCENT (BEAKER) (test code = 432) 9 % BASOPHILS RELATIVE PERCENT (BEAKER) (test code = 437) 1 % NEUTROPHILS ABSOLUTE COUNT (BEAKER) (test code = 670) 1.50 K/ L 1.56-6.13 L LYMPHOCYTES ABSOLUTE COUNT (BEAKER) (test code = 414) 1.10 K/ L 1.18-3.74 L MONOCYTES ABSOLUTE COUNT (BEAKER) (test code = 415) 0.34 K/ L 0. 24-0.36 EOSINOPHILS ABSOLUTE COUNT (BEAKER) (test code = 416) 0.29 K/ L 0.04-0.36 BASOPHILS ABSOLUTE COUNT (BEAKER) (test code = 417) 0.03 K/ L 0. 01-0.08 IMMATURE GRANULOCYTES-RELATIVE PERCENT (BEAKER) (test code = 2801) 0 % 0-1 POCT-GLUCOSE [id number] 00:17:00* Test Item Value Reference Range Interpretation Comments POC-GLUCOSE METER (BEAKER) (test code = 1538) 100 mg/dL 70-110 TESTED AT [facility] [address] [facility] [address] POCT-GLUCOSE [id number] 19:11:00* Test Item Value Reference Range Interpretation Comments POC-GLUCOSE METER (BEAKER) (test code = 1538) 136 mg/dL 70-110 H TESTED AT [facility] [address] [facility] [address] POCT-GLUCOSE [id number] 12:04:00* Test Item Value Reference Range Interpretation Comments POC-GLUCOSE METER (BEAKER) (test code = 1538) 142 mg/dL 70-110 H TESTED AT [place] [id number] [facility] [address] CBC W/PLT COUNT & AUTO [id number] 06:55:00* Test Item Value Reference Range Interpretation Comments WHITE BLOOD CELL COUNT (BEAKER) (test code = 775) 4.2 K/ L 3.5- 10.5 RED BLOOD CELL COUNT (BEAKER) (test code = 761) 3.19 M/ L 3.93-5 .22 L HEMOGLOBIN (BEAKER) (test code = 410) 9.2 GM/DL 11.2-15.7 L HEMATOCRIT (BEAKER) (test code = 411) 30.5 % 34.1-44.9 L MEAN CORPUSCULAR VOLUME (BEAKER) (test code = 753) 95.6 fL 79. 4-94.8 H MEAN CORPUSCULAR HEMOGLOBIN (BEAKER) (test code = 751) 28.8 pg 25.6-32.2 MEAN CORPUSCULAR HEMOGLOBIN CONC (BEAKER) (test code = 752) 30.2 GM/DL 32.2-35.5 L RED CELL DISTRIBUTION WIDTH (BEAKER) (test code = 412) 14.7 % 11.7-14.4 H PLATELET COUNT (BEAKER) (test code = 756) 152 K/CU MM 150-450 MEAN PLATELET VOLUME (BEAKER) (test code = 754) 10.7 fL 9.4-12 .3 NUCLEATED RED BLOOD CELLS (BEAKER) (test code = 413) 0 /100 WBC 0 -0 NEUTROPHILS RELATIVE PERCENT (BEAKER) (test code = 429) 57 % LYMPHOCYTES RELATIVE PERCENT (BEAKER) (test code = 430) 22 % MONOCYTES RELATIVE PERCENT (BEAKER) (test code = 431) 10 % EOSINOPHILS RELATIVE PERCENT (BEAKER) (test code = 432) 9 % BASOPHILS RELATIVE PERCENT (BEAKER) (test code = 437) 1 % NEUTROPHILS ABSOLUTE COUNT (BEAKER) (test code = 670) 2.40 K/ L 1.56-6.13 LYMPHOCYTES ABSOLUTE COUNT (BEAKER) (test code = 414) 0.93 K/ L 1.18-3.74 L MONOCYTES ABSOLUTE COUNT (BEAKER) (test code = 415) 0.41 K/ L 0. 24-0.36 H EOSINOPHILS ABSOLUTE COUNT (BEAKER) (test code = 416) 0.39 K/ L 0.04-0.36 H BASOPHILS ABSOLUTE COUNT (BEAKER) (test code = 417) 0.06 K/ L 0. 01-0.08 IMMATURE GRANULOCYTES-RELATIVE PERCENT (BEAKER) (test code = 2801) 0 % 0-1 [id number] 05:56:00* Test Item Value Reference Range Interpretation Comments MAGNESIUM (BEAKER) (test code = 627) 1.8 mg/dL 1.6-2.6 Specimen slightly hemolyzed [id number] 05:56:00* Test Item Value Reference Range Interpretation Comments PHOSPHORUS (BEAKER) (test code = 604) 3.5 mg/dL 2.3-4.7 Specimen slightly hemolyzed BASIC METABOLIC [id number] 05:56:00* Test Item Value Reference Range Interpretation Comments SODIUM (BEAKER) (test code = 381) 139 meq/L 136-145 POTASSIUM (BEAKER) (test code = 379) 4.4 meq/L 3.5-5.1 Specimen slightly hemolyzed CHLORIDE (BEAKER) (test code = 382) 104 meq/L 98-107 CO2 (BEAKER) (test code = 355) 27 meq/L 22-29 BLOOD UREA NITROGEN (BEAKER) (test code = 354) 18 mg/dL 7-21 CREATININE (BEAKER) (test code = 358) 0.66 mg/dL 0.57-1.25 Specimen slightly hemolyzed GLUCOSE RANDOM (BEAKER) (test code = 652) 91 mg/dL 70-105 CALCIUM (BEAKER) (test code = 697) 8.9 mg/dL 8.4-10.2 EGFR (BEAKER) (test code = 1092) 89 mL/min/1.73 sq m ESTIMATED GFR IS NOT ACCURATE CREATININE CLEARANCE IN PREDICTING GLOMERULAR FILTRATION RATE. ESTIMATED GFR IS NOT APPLICABLE FOR DIALYSIS PATIENTS. POCT-GLUCOSE [id number] 00:07:00* Test Item Value Reference Range Interpretation Comments POC-GLUCOSE METER (BEAKER) (test code = 1538) 118 mg/dL 70-110 H TESTED AT [facility] [address] [facility] [address] POCT-GLUCOSE [id number] 17:52:00* Test Item Value Reference Range Interpretation Comments POC-GLUCOSE METER (BEAKER) (test code = 1538) 122 mg/dL 70-110 H TESTED AT [facility] [address] [facility] [address] POCT-GLUCOSE [id number] 12:46:00* Test Item Value Reference Range Interpretation Comments POC-GLUCOSE METER (BEAKER) (test code = 1538) 120 mg/dL 70-110 H TESTED AT [facility] [address] [facility] [address] TISSUE [id number] 11:01:00Surgical Pathology Report Case: [id number] Authorizing Provider: Bernarda Acevedo MD Collected: 10/26/2017827 Ordering Location: [facility] Received: 10/26/2017 0838 SERVICES Pathologist: Ale Olivo MD Specimens: A) - Pharynx, Posterior pharyngeal wall B) - Tracheal, tracheal esophageal fistula A. PHARYNX, POSTERIOR WALL,BIOPSY, :- SQUAMOUS MUCOSA WITH MILD CHRONIC INFLAMMATION AND FIBROSIS - NEGATIVE FOR DYSPLASIA OR MALIGNANCY B. TRACHEAOESOPHAGEAL FISTULA, BIOPSY: - FRAGMENTS OF ULCERATED SQUAMOUS MUCOSA WITH GRANULATION TISSUE, INFLAMMATION AND FIBROSIS - NEGATIVE FOR DYSPLASIA OR MALIGNANCY Signing Pathologist Direct Phone Line: [phone] signed by Ale Olivo MD on 11/02/2017 at 11:01 [id number] X 2Esophagotracheal fistulaA. Posterior pharyngeal wall. B. Tracheal esophageal fistulaSpecimen A. The specimen is received fresh for frozen section diagnosis and labeled "pharyngeal wall" and consists of a small fragment of garza soft tissue measuring 0.3 cm in greatest dimension, submitted entirely for frozen in A1. CG/ew Specimen B: Received fresh labeled "tracheal", description "tracheal esophageal fistula" is a 2.2 x 1.0 x 0.3 cm, sherman-white to pink-garza, irregular, rubbery, ragged fragment of skin and soft tissue. Sectioning reveals no discrete masses. The specimen is entirely submit todd in cassette B1. DB/ewA1FS; POSTERIOR PHARYNGEAL WALL, BIOPSY: - SQUAMOUS M UCOSA WITH MILD CHRONIC INFLAMMATION AND FIBROSIS - NEGATIVE FOR DYSPLASIA PER DR. [id number] 05:32:00* Test Item Value Reference Range Interpretation Comments PHOSPHORUS (BEAKER) (test code = 604) 3.8 mg/dL 2.3-4.7 [id number] 05:32:00* Test Item Value Reference Range Interpretation Comments MAGNESIUM (BEAKER) (test code = 627) 1.7 mg/dL 1.6-2.6 BASIC METABOLIC [id number] 05:32:00* Test Item Value Reference Range Interpretation Comments SODIUM (BEAKER) (test code = 381) 141 meq/L 136-145 POTASSIUM (BEAKER) (test code = 379) 4.1 meq/L 3.5-5.1 CHLORIDE (BEAKER) (test code = 382) 107 meq/L 98-107 CO2 (BEAKER) (test code = 355) 26 meq/L 22-29 BLOOD UREA NITROGEN (BEAKER) (test code = 354) 17 mg/dL 7-21 CREATININE (BEAKER) (test code = 358) 0.65 mg/dL 0.57-1.25 GLUCOSE RANDOM (BEAKER) (test code = 652) 112 mg/dL 70-105 H CALCIUM (BEAKER) (test code = 697) 9.0 mg/dL 8.4-10.2 EGFR (BEAKER) (test code = 1092) 90 mL/min/1.73 sq m ESTIMATED GFR IS NOT ACCURATE CREATININE CLEARANCE IN PREDICTING GLOMERULAR FILTRATION RATE. ESTIMATED GFR IS NOT APPLICABLE FOR DIALYSIS PATIENTS. CBC W/PLT COUNT & AUTO [id number] 05:14:00* Test Item Value Reference Range Interpretation Comments WHITE BLOOD CELL COUNT (BEAKER) (test code = 775) 3.8 K/ L 3.5- 10.5 RED BLOOD CELL COUNT (BEAKER) (test code = 761) 3.49 M/ L 3.93-5 .22 L HEMOGLOBIN (BEAKER) (test code = 410) 9.9 GM/DL 11.2-15.7 L HEMATOCRIT (BEAKER) (test code = 411) 32.9 % 34.1-44.9 L MEAN CORPUSCULAR VOLUME (BEAKER) (test code = 753) 94.3 fL 79. 4-94.8 MEAN CORPUSCULAR HEMOGLOBIN (BEAKER) (test code = 751) 28.4 pg 25.6-32.2 MEAN CORPUSCULAR HEMOGLOBIN CONC (BEAKER) (test code = 752) 30.1 GM/DL 32.2-35.5 L RED CELL DISTRIBUTION WIDTH (BEAKER) (test code = 412) 14.6 % 11.7-14.4 H PLATELET COUNT (BEAKER) (test code = 756) 144 K/CU MM 150-450 L MEAN PLATELET VOLUME (BEAKER) (test code = 754) 10.5 fL 9.4-12 .3 NUCLEATED RED BLOOD CELLS (BEAKER) (test code = 413) 0 /100 WBC 0 -0 NEUTROPHILS RELATIVE PERCENT (BEAKER) (test code = 429) 45 % LYMPHOCYTES RELATIVE PERCENT (BEAKER) (test code = 430) 36 % MONOCYTES RELATIVE PERCENT (BEAKER) (test code = 431) 9 % EOSINOPHILS RELATIVE PERCENT (BEAKER) (test code = 432) 8 % BASOPHILS RELATIVE PERCENT (BEAKER) (test code = 437) 1 % NEUTROPHILS ABSOLUTE COUNT (BEAKER) (test code = 670) 1.69 K/ L 1.56-6.13 LYMPHOCYTES ABSOLUTE COUNT (BEAKER) (test code = 414) 1.36 K/ L 1.18-3.74 MONOCYTES ABSOLUTE COUNT (BEAKER) (test code = 415) 0.35 K/ L 0. 24-0.36 EOSINOPHILS ABSOLUTE COUNT (BEAKER) (test code = 416) 0.31 K/ L 0.04-0.36 BASOPHILS ABSOLUTE COUNT (BEAKER) (test code = 417) 0.04 K/ L 0. 01-0.08 IMMATURE GRANULOCYTES-RELATIVE PERCENT (BEAKER) (test code = 2801) 0 % 0-1 POCT-GLUCOSE [id number] 18:18:00* Test Item Value Reference Range Interpretation Comments POC-GLUCOSE METER (BEAKER) (test code = 1538) 138 mg/dL 70-110 H TESTED AT [facility] [address] [facility] [address] POCT-GLUCOSE [id number] 11:46:00* Test Item Value Reference Range Interpretation Comments POC-GLUCOSE METER (BEAKER) (test code = 1538) 129 mg/dL 70-110 H TESTED AT [facility] [address] [facility] [address] CBC W/PLT COUNT & AUTO [id number] 07:42:00* Test Item Value Reference Range Interpretation Comments WHITE BLOOD CELL COUNT (BEAKER) (test code = 775) 3.9 K/ L 3.5- 10.5 RED BLOOD CELL COUNT (BEAKER) (test code = 761) 3.33 M/ L 3.93-5 .22 L HEMOGLOBIN (BEAKER) (test code = 410) 9.8 GM/DL 11.2-15.7 L HEMATOCRIT (BEAKER) (test code = 411) 32.0 % 34.1-44.9 L MEAN CORPUSCULAR VOLUME (BEAKER) (test code = 753) 96.1 fL 79. 4-94.8 H MEAN CORPUSCULAR HEMOGLOBIN (BEAKER) (test code = 751) 29.4 pg 25.6-32.2 MEAN CORPUSCULAR HEMOGLOBIN CONC (BEAKER) (test code = 752) 30.6 GM/DL 32.2-35.5 L RED CELL DISTRIBUTION WIDTH (BEAKER) (test code = 412) 14.6 % 11.7-14.4 H PLATELET COUNT (BEAKER) (test code = 756) 108 K/CU MM 150-450 L MEAN PLATELET VOLUME (BEAKER) (test code = 754) 10.9 fL 9.4-12 .3 NUCLEATED RED BLOOD CELLS (BEAKER) (test code = 413) 0 /100 WBC 0 -0 NEUTROPHILS RELATIVE PERCENT (BEAKER) (test code = 429) 54 % LYMPHOCYTES RELATIVE PERCENT (BEAKER) (test code = 430) 28 % MONOCYTES RELATIVE PERCENT (BEAKER) (test code = 431) 9 % EOSINOPHILS RELATIVE PERCENT (BEAKER) (test code = 432) 8 % BASOPHILS RELATIVE PERCENT (BEAKER) (test code = 437) 1 % NEUTROPHILS ABSOLUTE COUNT (BEAKER) (test code = 670) 2.09 K/ L 1.56-6.13 LYMPHOCYTES ABSOLUTE COUNT (BEAKER) (test code = 414) 1.09 K/ L 1.18-3.74 L MONOCYTES ABSOLUTE COUNT (BEAKER) (test code = 415) 0.34 K/ L 0. 24-0.36 EOSINOPHILS ABSOLUTE COUNT (BEAKER) (test code = 416) 0.29 K/ L 0.04-0.36 BASOPHILS ABSOLUTE COUNT (BEAKER) (test code = 417) 0.03 K/ L 0. 01-0.08 IMMATURE GRANULOCYTES-RELATIVE PERCENT (BEAKER) (test code = 2801) 0 % 0-1 POCT-GLUCOSE [id number] 07:16:00* Test Item Value Reference Range Interpretation Comments POC-GLUCOSE METER (BEAKER) (test code = 1538) 104 mg/dL 70-110 TESTED AT [facility] [address] [facility] [address] [id number] 06:27:00* Test Item Value Reference Range Interpretation Comments PHOSPHORUS (BEAKER) (test code = 604) 3.4 mg/dL 2.3-4.7 [id number] 06:27:00* Test Item Value Reference Range Interpretation Comments MAGNESIUM (BEAKER) (test code = 627) 1.8 mg/dL 1.6-2.6 BASIC METABOLIC [id number] 06:27:00* Test Item Value Reference Range Interpretation Comments SODIUM (BEAKER) (test code = 381) 139 meq/L 136-145 POTASSIUM (BEAKER) (test code = 379) 4.4 meq/L 3.5-5.1 CHLORIDE (BEAKER) (test code = 382) 108 meq/L 98-107 H CO2 (BEAKER) (test code = 355) 25 meq/L 22-29 BLOOD UREA NITROGEN (BEAKER) (test code = 354) 14 mg/dL 7-21 CREATININE (BEAKER) (test code = 358) 0.59 mg/dL 0.57-1.25 GLUCOSE RANDOM (BEAKER) (test code = 652) 107 mg/dL 70-105 H CALCIUM (BEAKER) (test code = 697) 8.5 mg/dL 8.4-10.2 EGFR (BEAKER) (test code = 1092) 101 mL/min/1.73 sq m ESTIMATED GFR IS NOT ACCURATE CREATININE CLEARANCE IN PREDICTING GLOMERULAR FILTRATION RATE. ESTIMATED GFR IS NOT APPLICABLE FOR DIALYSIS PATIENTS. POCT-GLUCOSE [id number] 23:39:00* Test Item Value Reference Range Interpretation Comments POC-GLUCOSE METER (BEAKER) (test code = 1538) 105 mg/dL 70-110 TESTED AT [facility] [address] [place] [address] POCT-GLUCOSE [id number] 12:45:00* Test Item Value Reference Range Interpretation Comments POC-GLUCOSE METER (BEAKER) (test code = 1538) 112 mg/dL 70-110 H TESTED AT [address] [address] POCT-GLUCOSE [id number] 06:22:00* Test Item Value Reference Range Interpretation Comments POC-GLUCOSE METER (BEAKER) (test code = 1538) 117 mg/dL 70-110 H TESTED AT [address] [address] [id number] 06:15:00* Test Item Value Reference Range Interpretation Comments PHOSPHORUS (BEAKER) (test code = 604) 3.2 mg/dL 2.3-4.7 [id number] 06:15:00* Test Item Value Reference Range Interpretation Comments MAGNESIUM (BEAKER) (test code = 627) 2.1 mg/dL 1.6-2.6 BASIC METABOLIC [id number] 06:15:00* Test Item Value Reference Range Interpretation Comments SODIUM (BEAKER) (test code = 381) 140 meq/L 136-145 POTASSIUM (BEAKER) (test code = 379) 4.4 meq/L 3.5-5.1 CHLORIDE (BEAKER) (test code = 382) 108 meq/L 98-107 H CO2 (BEAKER) (test code = 355) 26 meq/L 22-29 BLOOD UREA NITROGEN (BEAKER) (test code = 354) 10 mg/dL 7-21 CREATININE (BEAKER) (test code = 358) 0.61 mg/dL 0.57-1.25 GLUCOSE RANDOM (BEAKER) (test code = 652) 106 mg/dL 70-105 H CALCIUM (BEAKER) (test code = 697) 8.8 mg/dL 8.4-10.2 EGFR (BEAKER) (test code = 1092) 97 mL/min/1.73 sq m ESTIMATED GFR IS NOT ACCURATE CREATININE CLEARANCE IN PREDICTING GLOMERULAR FILTRATION RATE. ESTIMATED GFR IS NOT APPLICABLE FOR DIALYSIS PATIENTS. CBC W/PLT COUNT & AUTO [id number] 05:55:00* Test Item Value Reference Range Interpretation Comments WHITE BLOOD CELL COUNT (BEAKER) (test code = 775) 3.5 K/ L 3.5- 10.5 RED BLOOD CELL COUNT (BEAKER) (test code = 761) 3.62 M/ L 3.93-5 .22 L HEMOGLOBIN (BEAKER) (test code = 410) 10.4 GM/DL 11.2-15.7 L HEMATOCRIT (BEAKER) (test code = 411) 34.5 % 34.1-44.9 MEAN CORPUSCULAR VOLUME (BEAKER) (test code = 753) 95.3 fL 79. 4-94.8 H MEAN CORPUSCULAR HEMOGLOBIN (BEAKER) (test code = 751) 28.7 pg 25.6-32.2 MEAN CORPUSCULAR HEMOGLOBIN CONC (BEAKER) (test code = 752) 30.1 GM/DL 32.2-35.5 L RED CELL DISTRIBUTION WIDTH (BEAKER) (test code = 412) 14.6 % 11.7-14.4 H PLATELET COUNT (BEAKER) (test code = 756) 139 K/CU MM 150-450 L MEAN PLATELET VOLUME (BEAKER) (test code = 754) 10.7 fL 9.4-12 .3 NUCLEATED RED BLOOD CELLS (BEAKER) (test code = 413) 0 /100 WBC 0 -0 NEUTROPHILS RELATIVE PERCENT (BEAKER) (test code = 429) 58 % LYMPHOCYTES RELATIVE PERCENT (BEAKER) (test code = 430) 28 % MONOCYTES RELATIVE PERCENT (BEAKER) (test code = 431) 8 % EOSINOPHILS RELATIVE PERCENT (BEAKER) (test code = 432) 6 % BASOPHILS RELATIVE PERCENT (BEAKER) (test code = 437) 1 % NEUTROPHILS ABSOLUTE COUNT (BEAKER) (test code = 670) 2.00 K/ L 1.56-6.13 LYMPHOCYTES ABSOLUTE COUNT (BEAKER) (test code = 414) 0.97 K/ L 1.18-3.74 L MONOCYTES ABSOLUTE COUNT (BEAKER) (test code = 415) 0.28 K/ L 0. 24-0.36 EOSINOPHILS ABSOLUTE COUNT (BEAKER) (test code = 416) 0.19 K/ L 0.04-0.36 BASOPHILS ABSOLUTE COUNT (BEAKER) (test code = 417) 0.03 K/ L 0. 01-0.08 IMMATURE GRANULOCYTES-RELATIVE PERCENT (BEAKER) (test code = 2801) 0 % 0-1 POCT-GLUCOSE [id number] 00:56:00* Test Item Value Reference Range Interpretation Comments POC-GLUCOSE METER (BEAKER) (test code = 1538) 143 mg/dL 70-110 H TESTED AT [address] [address] POCT-GLUCOSE [id number] 17:32:00* Test Item Value Reference Range Interpretation Comments POC-GLUCOSE METER (BEAKER) (test code = 1538) 171 mg/dL 70-110 H TESTED AT [address] [address] POCT-GLUCOSE [id number] 11:44:00* Test Item Value Reference Range Interpretation Comments POC-GLUCOSE METER (BEAKER) (test code = 1538) 134 mg/dL 70-110 H TESTED AT [address] [address] [id number] 06:04:00* Test Item Value Reference Range Interpretation Comments PHOSPHORUS (BEAKER) (test code = 604) 2.3 mg/dL 2.3-4.7 [id number] 06:04:00* Test Item Value Reference Range Interpretation Comments MAGNESIUM (BEAKER) (test code = 627) 1.6 mg/dL 1.6-2.6 BASIC METABOLIC [id number] 06:04:00* Test Item Value Reference Range Interpretation Comments SODIUM (BEAKER) (test code = 381) 140 meq/L 136-145 POTASSIUM (BEAKER) (test code = 379) 3.4 meq/L 3.5-5.1 L CHLORIDE (BEAKER) (test code = 382) 109 meq/L 98-107 H CO2 (BEAKER) (test code = 355) 25 meq/L 22-29 BLOOD UREA NITROGEN (BEAKER) (test code = 354) 7 mg/dL 7-21 CREATININE (BEAKER) (test code = 358) 0.57 mg/dL 0.57-1.25 GLUCOSE RANDOM (BEAKER) (test code = 652) 122 mg/dL 70-105 H CALCIUM (BEAKER) (test code = 697) 8.2 mg/dL 8.4-10.2 L EGFR (BEAKER) (test code = 1092) 105 mL/min/1.73 sq m ESTIMATED GFR IS NOT ACCURATE CREATININE CLEARANCE IN PREDICTING GLOMERULAR FILTRATION RATE. ESTIMATED GFR IS NOT APPLICABLE FOR DIALYSIS PATIENTS. POCT-GLUCOSE [id number] 05:59:00* Test Item Value Reference Range Interpretation Comments POC-GLUCOSE METER (BEAKER) (test code = 1538) 160 mg/dL 70-110 H TESTED AT [facility] [address] [facility] [address] CBC W/PLT COUNT & AUTO [id number] 05:34:00* Test Item Value Reference Range Interpretation Comments WHITE BLOOD CELL COUNT (BEAKER) (test code = 775) 5.1 K/ L 3.5- 10.5 RED BLOOD CELL COUNT (BEAKER) (test code = 761) 3.23 M/ L 3.93-5 .22 L HEMOGLOBIN (BEAKER) (test code = 410) 9.4 GM/DL 11.2-15.7 L HEMATOCRIT (BEAKER) (test code = 411) 30.0 % 34.1-44.9 L MEAN CORPUSCULAR VOLUME (BEAKER) (test code = 753) 92.9 fL 79. 4-94.8 MEAN CORPUSCULAR HEMOGLOBIN (BEAKER) (test code = 751) 29.1 pg 25.6-32.2 MEAN CORPUSCULAR HEMOGLOBIN CONC (BEAKER) (test code = 752) 31.3 GM/DL 32.2-35.5 L RED CELL DISTRIBUTION WIDTH (BEAKER) (test code = 412) 14.6 % 11.7-14.4 H PLATELET COUNT (BEAKER) (test code = 756) 122 K/CU MM 150-450 L MEAN PLATELET VOLUME (BEAKER) (test code = 754) 10.7 fL 9.4-12 .3 NUCLEATED RED BLOOD CELLS (BEAKER) (test code = 413) 0 /100 WBC 0 -0 NEUTROPHILS RELATIVE PERCENT (BEAKER) (test code = 429) 71 % LYMPHOCYTES RELATIVE PERCENT (BEAKER) (test code = 430) 18 % MONOCYTES RELATIVE PERCENT (BEAKER) (test code = 431) 7 % EOSINOPHILS RELATIVE PERCENT (BEAKER) (test code = 432) 3 % BASOPHILS RELATIVE PERCENT (BEAKER) (test code = 437) 1 % NEUTROPHILS ABSOLUTE COUNT (BEAKER) (test code = 670) 3.62 K/ L 1.56-6.13 LYMPHOCYTES ABSOLUTE COUNT (BEAKER) (test code = 414) 0.93 K/ L 1.18-3.74 L MONOCYTES ABSOLUTE COUNT (BEAKER) (test code = 415) 0.33 K/ L 0. 24-0.36 EOSINOPHILS ABSOLUTE COUNT (BEAKER) (test code = 416) 0.15 K/ L 0.04-0.36 BASOPHILS ABSOLUTE COUNT (BEAKER) (test code = 417) 0.03 K/ L 0. 01-0.08 IMMATURE GRANULOCYTES-RELATIVE PERCENT (BEAKER) (test code = 2801) 0 % 0-1 POCT-GLUCOSE [id number] 00:16:00* Test Item Value Reference Range Interpretation Comments POC-GLUCOSE METER (BEAKER) (test code = 1538) 135 mg/dL 70-110 H TESTED AT [address] [address] POCT-GLUCOSE [id number] 18:23:00* Test Item Value Reference Range Interpretation Comments POC-GLUCOSE METER (BEAKER) (test code = 1538) 121 mg/dL 70-110 H TESTED AT [address] [address] POCT-GLUCOSE [id number] 12:28:00* Test Item Value Reference Range Interpretation Comments POC-GLUCOSE METER (BEAKER) (test code = 1538) 138 mg/dL 70-110 H TESTED AT [address] [address] POCT-GLUCOSE [id number] 12:08:00* Test Item Value Reference Range Interpretation Comments POC-GLUCOSE METER (BEAKER) (test code = 1538) 111 mg/dL 70-110 H TESTED AT [address] [address] [id number] 06:05:00* Test Item Value Reference Range Interpretation Comments PHOSPHORUS (BEAKER) (test code = 604) 2.2 mg/dL 2.3-4.7 L [id number] 06:05:00* Test Item Value Reference Range Interpretation Comments MAGNESIUM (BEAKER) (test code = 627) 1.8 mg/dL 1.6-2.6 BASIC METABOLIC [id number] 06:05:00* Test Item Value Reference Range Interpretation Comments SODIUM (BEAKER) (test code = 381) 140 meq/L 136-145 POTASSIUM (BEAKER) (test code = 379) 3.8 meq/L 3.5-5.1 CHLORIDE (BEAKER) (test code = 382) 111 meq/L 98-107 H CO2 (BEAKER) (test code = 355) 23 meq/L 22-29 BLOOD UREA NITROGEN (BEAKER) (test code = 354) 7 mg/dL 7-21 CREATININE (BEAKER) (test code = 358) 0.62 mg/dL 0.57-1.25 GLUCOSE RANDOM (BEAKER) (test code = 652) 106 mg/dL 70-105 H CALCIUM (BEAKER) (test code = 697) 8.2 mg/dL 8.4-10.2 L EGFR (BEAKER) (test code = 1092) 95 mL/min/1.73 sq m ESTIMATED GFR IS NOT ACCURATE CREATININE CLEARANCE IN PREDICTING GLOMERULAR FILTRATION RATE. ESTIMATED GFR IS NOT APPLICABLE FOR DIALYSIS PATIENTS. CBC W/PLT COUNT & AUTO [id number] 05:31:00* Test Item Value Reference Range Interpretation Comments WHITE BLOOD CELL COUNT (BEAKER) (test code = 775) 6.0 K/ L 3.5- 10.5 RED BLOOD CELL COUNT (BEAKER) (test code = 761) 3.21 M/ L 3.93-5 .22 L HEMOGLOBIN (BEAKER) (test code = 410) 9.4 GM/DL 11.2-15.7 L HEMATOCRIT (BEAKER) (test code = 411) 30.8 % 34.1-44.9 L MEAN CORPUSCULAR VOLUME (BEAKER) (test code = 753) 96.0 fL 79. 4-94.8 H MEAN CORPUSCULAR HEMOGLOBIN (BEAKER) (test code = 751) 29.3 pg 25.6-32.2 MEAN CORPUSCULAR HEMOGLOBIN CONC (BEAKER) (test code = 752) 30.5 GM/DL 32.2-35.5 L RED CELL DISTRIBUTION WIDTH (BEAKER) (test code = 412) 14.9 % 11.7-14.4 H PLATELET COUNT (BEAKER) (test code = 756) 111 K/CU MM 150-450 L MEAN PLATELET VOLUME (BEAKER) (test code = 754) 10.8 fL 9.4-12 .3 NUCLEATED RED BLOOD CELLS (BEAKER) (test code = 413) 0 /100 WBC 0 -0 NEUTROPHILS RELATIVE PERCENT (BEAKER) (test code = 429) 69 % LYMPHOCYTES RELATIVE PERCENT (BEAKER) (test code = 430) 20 % MONOCYTES RELATIVE PERCENT (BEAKER) (test code = 431) 6 % EOSINOPHILS RELATIVE PERCENT (BEAKER) (test code = 432) 4 % BASOPHILS RELATIVE PERCENT (BEAKER) (test code = 437) 0 % NEUTROPHILS ABSOLUTE COUNT (BEAKER) (test code = 670) 4.12 K/ L 1.56-6.13 LYMPHOCYTES ABSOLUTE COUNT (BEAKER) (test code = 414) 1.22 K/ L 1.18-3.74 MONOCYTES ABSOLUTE COUNT (BEAKER) (test code = 415) 0.37 K/ L 0. 24-0.36 H EOSINOPHILS ABSOLUTE COUNT (BEAKER) (test code = 416) 0.25 K/ L 0.04-0.36 BASOPHILS ABSOLUTE COUNT (BEAKER) (test code = 417) 0.02 K/ L 0. 01-0.08 IMMATURE GRANULOCYTES-RELATIVE PERCENT (BEAKER) (test code = 2801) 0 % 0-1 POCT-GLUCOSE [id number] 02:57:00* Test Item Value Reference Range Interpretation Comments POC-GLUCOSE METER (BEAKER) (test code = 1538) 124 mg/dL 70-110 H TESTED AT [facility] [address] [facility] [address] VANCOMYCIN LEVEL, [id number] 21:22:00* Test Item Value Reference Range Interpretation Comments VANCOMYCIN TROUGH (BEAKER) (test code = 522) 26.7 ug/mL 10.0-20.0 H BASIC METABOLIC [id number] 14:11:00* Test Item Value Reference Range Interpretation Comments SODIUM (BEAKER) (test code = 381) 139 meq/L 136-145 POTASSIUM (BEAKER) (test code = 379) 4.1 meq/L 3.5-5.1 CHLORIDE (BEAKER) (test code = 382) 113 meq/L 98-107 H CO2 (BEAKER) (test code = 355) 21 meq/L 22-29 L BLOOD UREA NITROGEN (BEAKER) (test code = 354) 7 mg/dL 7-21 CREATININE (BEAKER) (test code = 358) 0.58 mg/dL 0.57-1.25 GLUCOSE RANDOM (BEAKER) (test code = 652) 122 mg/dL 70-105 H CALCIUM (BEAKER) (test code = 697) 8.4 mg/dL 8.4-10.2 EGFR (BEAKER) (test code = 1092) 103 mL/min/1.73 sq m ESTIMATED GFR IS NOT ACCURATE CREATININE CLEARANCE IN PREDICTING GLOMERULAR FILTRATION RATE. ESTIMATED GFR IS NOT APPLICABLE FOR DIALYSIS PATIENTS. CBC W/PLT COUNT & AUTO [id number] 14:05:00* Test Item Value Reference Range Interpretation Comments WHITE BLOOD CELL COUNT (BEAKER) (test code = 775) 5.7 K/ L 3.5- 10.5 RED BLOOD CELL COUNT (BEAKER) (test code = 761) 2.93 M/ L 3.93-5 .22 L HEMOGLOBIN (BEAKER) (test code = 410) 8.6 GM/DL 11.2-15.7 L HEMATOCRIT (BEAKER) (test code = 411) 27.9 % 34.1-44.9 L Patient transfused MEAN CORPUSCULAR VOLUME (BEAKER) (test code = 753) 95.2 fL 79. 4-94.8 H MEAN CORPUSCULAR HEMOGLOBIN (BEAKER) (test code = 751) 29.4 pg 25.6-32.2 MEAN CORPUSCULAR HEMOGLOBIN CONC (BEAKER) (test code = 752) 30.8 GM/DL 32.2-35.5 L RED CELL DISTRIBUTION WIDTH (BEAKER) (test code = 412) 14.6 % 11.7-14.4 H PLATELET COUNT (BEAKER) (test code = 756) 88 K/CU MM 150-450 L MEAN PLATELET VOLUME (BEAKER) (test code = 754) 11.1 fL 9.4-12 .3 NUCLEATED RED BLOOD CELLS (BEAKER) (test code = 413) 0 /100 WBC 0 -0 NEUTROPHILS RELATIVE PERCENT (BEAKER) (test code = 429) 81 % LYMPHOCYTES RELATIVE PERCENT (BEAKER) (test code = 430) 10 % MONOCYTES RELATIVE PERCENT (BEAKER) (test code = 431) 5 % EOSINOPHILS RELATIVE PERCENT (BEAKER) (test code = 432) 3 % BASOPHILS RELATIVE PERCENT (BEAKER) (test code = 437) 0 % NEUTROPHILS ABSOLUTE COUNT (BEAKER) (test code = 670) 4.62 K/ L 1.56-6.13 LYMPHOCYTES ABSOLUTE COUNT (BEAKER) (test code = 414) 0.57 K/ L 1.18-3.74 L MONOCYTES ABSOLUTE COUNT (BEAKER) (test code = 415) 0.29 K/ L 0. 24-0.36 EOSINOPHILS ABSOLUTE COUNT (BEAKER) (test code = 416) 0.17 K/ L 0.04-0.36 BASOPHILS ABSOLUTE COUNT (BEAKER) (test code = 417) 0.01 K/ L 0. 01-0.08 IMMATURE GRANULOCYTES-RELATIVE PERCENT (BEAKER) (test code = 2801) 0 % 0-1 POCT-GLUCOSE [id number] 12:30:00* Test Item Value Reference Range Interpretation Comments POC-GLUCOSE METER (BEAKER) (test code = 1538) 120 mg/dL 70-110 H TESTED AT [facility] [address] [facility] [address] RAD, CHEST, 1 VIEW, NON [id number] 11:20:00Reason for exam:->trachedShould this be performed at the bedside?->YesFINAL REPORT CHEST ONE VIEW HISTORY: Status post [...] the right supraclavicular region. Signed: Jayro Adams MDReport Verified Date/Time: 10/28/2017 11:20:47 Reading Location: [address] Transitional Reading Room W/PLT COUNT & AUTO [id number] 06:41:00* Test Item Value Reference Range Interpretation Comments WHITE BLOOD CELL COUNT (BEAKER) (test code = 775) 4.2 K/ L 3.5- 10.5 RED BLOOD CELL COUNT (BEAKER) (test code = 761) 2.44 M/ L 3.93-5 .22 L HEMOGLOBIN (BEAKER) (test code = 410) 7.2 GM/DL 11.2-15.7 L HEMATOCRIT (BEAKER) (test code = 411) 23.3 % 34.1-44.9 L MEAN CORPUSCULAR VOLUME (BEAKER) (test code = 753) 95.5 fL 79. 4-94.8 H MEAN CORPUSCULAR HEMOGLOBIN (BEAKER) (test code = 751) 29.5 pg 25.6-32.2 MEAN CORPUSCULAR HEMOGLOBIN CONC (BEAKER) (test code = 752) 30.9 GM/DL 32.2-35.5 L RED CELL DISTRIBUTION WIDTH (BEAKER) (test code = 412) 14.7 % 11.7-14.4 H PLATELET COUNT (BEAKER) (test code = 756) 84 K/CU MM 150-450 L MEAN PLATELET VOLUME (BEAKER) (test code = 754) 10.7 fL 9.4-12 .3 NUCLEATED RED BLOOD CELLS (BEAKER) (test code = 413) 0 /100 WBC 0 -0 NEUTROPHILS RELATIVE PERCENT (BEAKER) (test code = 429) 73 % LYMPHOCYTES RELATIVE PERCENT (BEAKER) (test code = 430) 17 % MONOCYTES RELATIVE PERCENT (BEAKER) (test code = 431) 6 % EOSINOPHILS RELATIVE PERCENT (BEAKER) (test code = 432) 3 % BASOPHILS RELATIVE PERCENT (BEAKER) (test code = 437) 0 % NEUTROPHILS ABSOLUTE COUNT (BEAKER) (test code = 670) 3.06 K/ L 1.56-6.13 LYMPHOCYTES ABSOLUTE COUNT (BEAKER) (test code = 414) 0.73 K/ L 1.18-3.74 L MONOCYTES ABSOLUTE COUNT (BEAKER) (test code = 415) 0.24 K/ L 0. 24-0.36 EOSINOPHILS ABSOLUTE COUNT (BEAKER) (test code = 416) 0.13 K/ L 0.04-0.36 BASOPHILS ABSOLUTE COUNT (BEAKER) (test code = 417) 0.01 K/ L 0. 01-0.08 IMMATURE GRANULOCYTES-RELATIVE PERCENT (BEAKER) (test code = 2801) 1 % 0-1 POCT-GLUCOSE [id number] 06:32:00* Test Item Value Reference Range Interpretation Comments POC-GLUCOSE METER (BEAKER) (test code = 1538) 144 mg/dL 70-110 H TESTED AT [address] [address] BASIC METABOLIC [id number] 06:19:00* Test Item Value Reference Range Interpretation Comments SODIUM (BEAKER) (test code = 381) 140 meq/L 136-145 POTASSIUM (BEAKER) (test code = 379) 3.2 meq/L 3.5-5.1 L CHLORIDE (BEAKER) (test code = 382) 111 meq/L 98-107 H CO2 (BEAKER) (test code = 355) 25 meq/L 22-29 BLOOD UREA NITROGEN (BEAKER) (test code = 354) 8 mg/dL 7-21 CREATININE (BEAKER) (test code = 358) 0.60 mg/dL 0.57-1.25 GLUCOSE RANDOM (BEAKER) (test code = 652) 144 mg/dL 70-105 H CALCIUM (BEAKER) (test code = 697) 7.8 mg/dL 8.4-10.2 L EGFR (BEAKER) (test code = 1092) 99 mL/min/1.73 sq m ESTIMATED GFR IS NOT ACCURATE CREATININE CLEARANCE IN PREDICTING GLOMERULAR FILTRATION RATE. ESTIMATED GFR IS NOT APPLICABLE FOR DIALYSIS PATIENTS. [id number] 06:18:00* Test Item Value Reference Range Interpretation Comments PHOSPHORUS (BEAKER) (test code = 604) 2.1 mg/dL 2.3-4.7 L [id number] 06:18:00* Test Item Value Reference Range Interpretation Comments MAGNESIUM (BEAKER) (test code = 627) 2.2 mg/dL 1.6-2.6 POCT-GLUCOSE [id number] 00:02:00* Test Item Value Reference Range Interpretation Comments POC-GLUCOSE METER (BEAKER) (test code = 1538) 171 mg/dL 70-110 H TESTED AT [place] [id number] [facility] [address] POCT-GLUCOSE [id number] 17:32:00* Test Item Value Reference Range Interpretation Comments POC-GLUCOSE METER (BEAKER) (test code = 1538) 174 mg/dL 70-110 H TESTED AT [address] [address] TSH/FREE T4 IF [id number] 15:34:00* Test Item Value Reference Range Interpretation Comments THYROID STIMULATING HORMONE (BEAKER) (test code = 772) 1.46 uIU/mL 0.35-4.94 RAD, CHEST, 1 VIEW, NON [id number] 12:00:00Reason for exam:->SOBShould this be performed at the bedside?->YesFINAL REPORT Chest, 1 view Clinical history: SOB Comparison: 10/23/2017 Discussion: Support hardware appears in appropriate positions. There is no pneumothorax or significant pleural effusion. There is mild bibasilar atelectasis without focal consolidation. The cardiac silhouette appears within normal limits. Surgical clips are seen in the right supraclavicular region. No acute osseous abnormality. Signed: Valente Kolb MDReport Verified Date/Time: 10/27/2017 12:00:30 Reading Location: [address] Ortho Consult Reading Room El ectronically signed by: VALENTE KOLB M.D. on 10/27/2017 12:00 PM POCT-GLUCOSE [id number] 11:32:00* Test Item Value Reference Range Interpretation Comments POC-GLUCOSE METER (BEAKER) (test code = 1538) 141 mg/dL 70-110 H TESTED AT [facility] [address] [place] [address] [id number] 06:55:00* Test Item Value Reference Range Interpretation Comments PHOSPHORUS (BEAKER) (test code = 604) 2.8 mg/dL 2.3-4.7 [id number] 06:55:00* Test Item Value Reference Range Interpretation Comments MAGNESIUM (BEAKER) (test code = 627) 1.5 mg/dL 1.6-2.6 L BASIC METABOLIC [id number] 06:55:00* Test Item Value Reference Range Interpretation Comments SODIUM (BEAKER) (test code = 381) 137 meq/L 136-145 POTASSIUM (BEAKER) (test code = 379) 3.8 meq/L 3.5-5.1 CHLORIDE (BEAKER) (test code = 382) 107 meq/L 98-107 CO2 (BEAKER) (test code = 355) 24 meq/L 22-29 BLOOD UREA NITROGEN (BEAKER) (test code = 354) 12 mg/dL 7-21 CREATININE (BEAKER) (test code = 358) 0.70 mg/dL 0.57-1.25 GLUCOSE RANDOM (BEAKER) (test code = 652) 140 mg/dL 70-105 H CALCIUM (BEAKER) (test code = 697) 8.1 mg/dL 8.4-10.2 L EGFR (BEAKER) (test code = 1092) 83 mL/min/1.73 sq m ESTIMATED GFR IS NOT ACCURATE CREATININE CLEARANCE IN PREDICTING GLOMERULAR FILTRATION RATE. ESTIMATED GFR IS NOT APPLICABLE FOR DIALYSIS PATIENTS. [id number] 06:55:00* Test Item Value Reference Range Interpretation Comments PREALBUMIN (BEAKER) (test code = 586) 14 mg/dL 14-45 POCT-GLUCOSE [id number] 06:25:00* Test Item Value Reference Range Interpretation Comments POC-GLUCOSE METER (BEAKER) (test code = 1538) 99 mg/dL 70-110 TESTED AT [facility] [address] [facility] [address] CBC W/PLT COUNT & AUTO [id number] 04:00:00* Test Item Value Reference Range Interpretation Comments WHITE BLOOD CELL COUNT (BEAKER) (test code = 775) 4.6 K/ L 3.5- 10.5 RED BLOOD CELL COUNT (BEAKER) (test code = 761) 2.81 M/ L 3.93-5 .22 L HEMOGLOBIN (BEAKER) (test code = 410) 8.2 GM/DL 11.2-15.7 L HEMATOCRIT (BEAKER) (test code = 411) 26.9 % 34.1-44.9 L MEAN CORPUSCULAR VOLUME (BEAKER) (test code = 753) 95.7 fL 79. 4-94.8 H MEAN CORPUSCULAR HEMOGLOBIN (BEAKER) (test code = 751) 29.2 pg 25.6-32.2 MEAN CORPUSCULAR HEMOGLOBIN CONC (BEAKER) (test code = 752) 30.5 GM/DL 32.2-35.5 L RED CELL DISTRIBUTION WIDTH (BEAKER) (test code = 412) 14.7 % 11.7-14.4 H PLATELET COUNT (BEAKER) (test code = 756) 95 K/CU MM 150-450 L MEAN PLATELET VOLUME (BEAKER) (test code = 754) 10.7 fL 9.4-12 .3 NUCLEATED RED BLOOD CELLS (BEAKER) (test code = 413) 0 /100 WBC 0 -0 NEUTROPHILS RELATIVE PERCENT (BEAKER) (test code = 429) 81 % LYMPHOCYTES RELATIVE PERCENT (BEAKER) (test code = 430) 12 % MONOCYTES RELATIVE PERCENT (BEAKER) (test code = 431) 6 % EOSINOPHILS RELATIVE PERCENT (BEAKER) (test code = 432) 1 % BASOPHILS RELATIVE PERCENT (BEAKER) (test code = 437) 0 % NEUTROPHILS ABSOLUTE COUNT (BEAKER) (test code = 670) 3.77 K/ L 1.56-6.13 LYMPHOCYTES ABSOLUTE COUNT (BEAKER) (test code = 414) 0.55 K/ L 1.18-3.74 L MONOCYTES ABSOLUTE COUNT (BEAKER) (test code = 415) 0.27 K/ L 0. 24-0.36 EOSINOPHILS ABSOLUTE COUNT (BEAKER) (test code = 416) 0.03 K/ L 0.04-0.36 L BASOPHILS ABSOLUTE COUNT (BEAKER) (test code = 417) 0.01 K/ L 0. 01-0.08 IMMATURE GRANULOCYTES-RELATIVE PERCENT (BEAKER) (test code = 2801) 0 % 0-1 POCT-GLUCOSE [id number] 23:59:00* Test Item Value Reference Range Interpretation Comments POC-GLUCOSE METER (BEAKER) (test code = 1538) 113 mg/dL 70-110 H TESTED AT [facility] [address] [facility] [address] [id number] 19:21:00* Test Item Value Reference Range Interpretation Comments PHOSPHORUS (BEAKER) (test code = 604) 4.0 mg/dL 2.3-4.7 Postop labsPostop labsPostop [id number] 19:21:00* Test Item Value Reference Range Interpretation Comments MAGNESIUM (BEAKER) (test code = 627) 1.7 mg/dL 1.6-2.6 Postop labsPostop labsPostop labsBASIC METABOLIC [id number] 19:21:00* Test Item Value Reference Range Interpretation Comments SODIUM (BEAKER) (test code = 381) 138 meq/L 136-145 POTASSIUM (BEAKER) (test code = 379) 4.0 meq/L 3.5-5.1 CHLORIDE (BEAKER) (test code = 382) 106 meq/L 98-107 CO2 (BEAKER) (test code = 355) 25 meq/L 22-29 BLOOD UREA NITROGEN (BEAKER) (test code = 354) 12 mg/dL 7-21 CREATININE (BEAKER) (test code = 358) 0.70 mg/dL 0.57-1.25 GLUCOSE RANDOM (BEAKER) (test code = 652) 88 mg/dL 70-105 CALCIUM (BEAKER) (test code = 697) 8.5 mg/dL 8.4-10.2 EGFR (BEAKER) (test code = 1092) 83 mL/min/1.73 sq m ESTIMATED GFR IS NOT ACCURATE CREATININE CLEARANCE IN PREDICTING GLOMERULAR FILTRATION RATE. ESTIMATED GFR IS NOT APPLICABLE FOR DIALYSIS PATIENTS. Postop labsPostop labsPostop labsCBC W/PLT COUNT & AUTO [id number] 18:55:00* Test Item Value Reference Range Interpretation Comments WHITE BLOOD CELL COUNT (BEAKER) (test code = 775) 4.6 K/ L 3.5- 10.5 RED BLOOD CELL COUNT (BEAKER) (test code = 761) 3.23 M/ L 3.93-5 .22 L HEMOGLOBIN (BEAKER) (test code = 410) 9.5 GM/DL 11.2-15.7 L HEMATOCRIT (BEAKER) (test code = 411) 30.6 % 34.1-44.9 L MEAN CORPUSCULAR VOLUME (BEAKER) (test code = 753) 94.7 fL 79. 4-94.8 MEAN CORPUSCULAR HEMOGLOBIN (BEAKER) (test code = 751) 29.4 pg 25.6-32.2 MEAN CORPUSCULAR HEMOGLOBIN CONC (BEAKER) (test code = 752) 31.0 GM/DL 32.2-35.5 L RED CELL DISTRIBUTION WIDTH (BEAKER) (test code = 412) 14.7 % 11.7-14.4 H PLATELET COUNT (BEAKER) (test code = 756) 131 K/CU MM 150-450 L MEAN PLATELET VOLUME (BEAKER) (test code = 754) 9.9 fL 9.4-12 .3 NUCLEATED RED BLOOD CELLS (BEAKER) (test code = 413) 0 /100 WBC 0 -0 NEUTROPHILS RELATIVE PERCENT (BEAKER) (test code = 429) 65 % LYMPHOCYTES RELATIVE PERCENT (BEAKER) (test code = 430) 26 % MONOCYTES RELATIVE PERCENT (BEAKER) (test code = 431) 6 % EOSINOPHILS RELATIVE PERCENT (BEAKER) (test code = 432) 3 % BASOPHILS RELATIVE PERCENT (BEAKER) (test code = 437) 0 % NEUTROPHILS ABSOLUTE COUNT (BEAKER) (test code = 670) 2.99 K/ L 1.56-6.13 LYMPHOCYTES ABSOLUTE COUNT (BEAKER) (test code = 414) 1.20 K/ L 1.18-3.74 MONOCYTES ABSOLUTE COUNT (BEAKER) (test code = 415) 0.29 K/ L 0. 24-0.36 EOSINOPHILS ABSOLUTE COUNT (BEAKER) (test code = 416) 0.13 K/ L 0.04-0.36 BASOPHILS ABSOLUTE COUNT (BEAKER) (test code = 417) 0.01 K/ L 0. 01-0.08 IMMATURE GRANULOCYTES-RELATIVE PERCENT (BEAKER) (test code = 2801) 0 % 0-1 CBC W/PLT COUNT & AUTO [id number] 10:49:00* Test Item Value Reference Range Interpretation Comments WHITE BLOOD CELL COUNT (BEAKER) (test code = 775) 2.4 K/ L 3.5- 10.5 L RED BLOOD CELL COUNT (BEAKER) (test code = 761) 3.89 M/ L 3.93-5 .22 L HEMOGLOBIN (BEAKER) (test code = 410) 11.4 GM/DL 11.2-15.7 HEMATOCRIT (BEAKER) (test code = 411) 37.5 % 34.1-44.9 MEAN CORPUSCULAR VOLUME (BEAKER) (test code = 753) 96.4 fL 79. 4-94.8 H MEAN CORPUSCULAR HEMOGLOBIN (BEAKER) (test code = 751) 29.3 pg 25.6-32.2 MEAN CORPUSCULAR HEMOGLOBIN CONC (BEAKER) (test code = 752) 30.4 GM/DL 32.2-35.5 L RED CELL DISTRIBUTION WIDTH (BEAKER) (test code = 412) 14.6 % 11.7-14.4 H PLATELET COUNT (BEAKER) (test code = 756) 155 K/CU MM 150-450 MEAN PLATELET VOLUME (BEAKER) (test code = 754) 10.3 fL 9.4-12 .3 NUCLEATED RED BLOOD CELLS (BEAKER) (test code = 413) 0 /100 WBC 0 -0 (CELLAVISION MANUAL DIFF)2017-10-26 10:49:00* Test Item Value Reference Range Interpretation Comments NEUTROPHILS - REL (CELLAVISION)(BEAKER) (test code = 2816) 45 % LYMPHOCYTES - REL (CELLAVISION)(BEAKER) (test code = 2817) 41 % MONOCYTES - REL (CELLAVISION)(BEAKER) (test code = 2818) 7 % EOSINOPHILS - REL (CELLAVISION)(BEAKER) (test code = 2819) 5 % BASOPHILS - REL (CELLAVISION)(BEAKER) (test code = 2820) 2 % NEUTROPHILS - ABS (CELLAVISION)(BEAKER) (test code = 2830) 1.08 K/ul 1.56-6.13 L LYMPHOCYTES - ABS (CELLAVISION)(BEAKER) (test code = 2831) 0.98 K/ul 1.18-3.74 L MONOCYTES - ABS (CELLAVISION)(BEAKER) (test code = 2832) 0.17 K/uL 0.24-0.36 L EOSINOPHILS - ABS (CELLAVISION)(BEAKER) (test code = 2834) 0.12 K/uL 0.04-0.36 BASOPHILS - ABS (CELLAVISION)(BEAKER) (test code = 2835) 0.05 K/uL 0.01-0.08 TOTAL COUNTED (BEAKER) (test code = 1351) 100 WBC MORPHOLOGY (BEAKER) (test code = 487) Normal PLT MORPHOLOGY (BEAKER) (test code = 486) Normal POLYCHROMATOPHILLIC RBCS(BEAKER) (test code = 478) 1+ few ANISOCYTOSIS (BEAKER) (test code = 961) 1+ few POIKILOCYTES (BEAKER) (test code = 966) 1+ few ARTIFACT (CELLAVISION)(BEAKER) (test code = 3432) Present PLATELET CONCENTRATION (CELLAVISION)(BEAKER) (test code = 3438) Farheen quate Received comment: User comments: Slide comments: SPUTUM CULTURE + GRAM STAIN 2017-10-26 09:33:00* Test Item Value Reference Range Interpretation Comments CULTURE (BEAKER) (test code = 1095) METHICILLIN RESISTANT ST APHYLOCOCCUS AUREUS A 2+ Methicillin resistant Sta phylococcus aureus Clindamycin (test code = 10) R Erythromycin (test code = 4) R Linezolid (test code = 40) S Nitrofurantoin (test code = 23) S Oxacillin (test code = 14) R Rifampin (test code = 43) S Tetracycline (test code = 2) S Trimethoprim + Sulfamethoxazole (test code = 47) S Vancomycin (test code = 13) S GRAM STAIN RESULT (BEAKER) (test code = 1123) No WBCs GRAM STAIN RESULT (BEAKER) (test code = 350724) 5-10 epithelial miguelina ls GRAM STAIN RESULT (BEAKER) (test code = 152731) 2+ gram posi tive cocci in pairs GRAM STAIN RESULT (BEAKER) (test code = 335068) 2+ gra m positive cocci in clusters 2+ Normal respiratory yoanna presentBASIC METABOLIC [id number] 06:07:00* Test Item Value Reference Range Interpretation Comments SODIUM (BEAKER) (test code = 381) 138 meq/L 136-145 POTASSIUM (BEAKER) (test code = 379) 4.7 meq/L 3.5-5.1 Specimen slightly hemolyzed CHLORIDE (BEAKER) (test code = 382) 103 meq/L 98-107 CO2 (BEAKER) (test code = 355) 26 meq/L 22-29 BLOOD UREA NITROGEN (BEAKER) (test code = 354) 17 mg/dL 7-21 CREATININE (BEAKER) (test code = 358) 0.76 mg/dL 0.57-1.25 Specimen slightly hemolyzed GLUCOSE RANDOM (BEAKER) (test code = 652) 92 mg/dL 70-105 CALCIUM (BEAKER) (test code = 697) 9.7 mg/dL 8.4-10.2 EGFR (BEAKER) (test code = 1092) 75 mL/min/1.73 sq m ESTIMATED GFR IS NOT ACCURATE CREATININE CLEARANCE IN PREDICTING GLOMERULAR FILTRATION RATE. ESTIMATED GFR IS NOT APPLICABLE FOR DIALYSIS PATIENTS. [id number] 06:03:00* Test Item Value Reference Range Interpretation Comments PARTIAL THROMBOPLASTIN TIME (BEAKER) (test code = 760) 22.2 seconds 22.5-36.0 L PROTHROMBIN TIME/[id number] 06:02:00* Test Item Value Reference Range Interpretation Comments PROTIME (BEAKER) (test code = 759) 12.5 seconds 11.7-14.7 INR (BEAKER) (test code = 370) 0.9 <=5.9 RECOMMENDED COUMADIN/WARFARIN INR THERAPY RANGESSTANDARD DOSE: 2.0 - 3.0 Inclu gaurav: PROPHYLAXIS for venous thrombosis, systemic embolization; TREATMENT for emily ous thrombosis and/or pulmonary embolus.HIGH RISK: Target INR is 2.5-3.5 for pat ients with mechanical heart valves.POCT-GLUCOSE [id number] 22:49:00* Test Item Value Reference Range Interpretation Comments POC-GLUCOSE METER (BEAKER) (test code = 1538) 112 mg/dL 70-110 H TESTED AT [address] [address] POCT-GLUCOSE [id number] 17:42:00* Test Item Value Reference Range Interpretation Comments POC-GLUCOSE METER (BEAKER) (test code = 1538) 129 mg/dL 70-110 H TESTED AT [address] [address] POCT-GLUCOSE [id number] 11:09:00* Test Item Value Reference Range Interpretation Comments POC-GLUCOSE METER (BEAKER) (test code = 1538) 131 mg/dL 70-110 H TESTED AT [address] [address] POCT-GLUCOSE [id number] 16:51:00* Test Item Value Reference Range Interpretation Comments POC-GLUCOSE METER (BEAKER) (test code = 1538) 128 mg/dL 70-110 H TESTED AT [address] [address] POCT-GLUCOSE [id number] 11:37:00* Test Item Value Reference Range Interpretation Comments POC-GLUCOSE METER (BEAKER) (test code = 1538) 99 mg/dL 70-110 TESTED AT [address] [address] POCT-GLUCOSE [id number] 08:22:00* Test Item Value Reference Range Interpretation Comments POC-GLUCOSE METER (BEAKER) (test code = 1538) 118 mg/dL 70-110 H TESTED AT [address] [address] [id number] 06:50:00* Test Item Value Reference Range Interpretation Comments PHOSPHORUS (BEAKER) (test code = 604) 3.9 mg/dL 2.3-4.7 [id number] 06:50:00* Test Item Value Reference Range Interpretation Comments MAGNESIUM (BEAKER) (test code = 627) 1.9 mg/dL 1.6-2.6 BASIC METABOLIC [id number] 06:50:00* Test Item Value Reference Range Interpretation Comments SODIUM (BEAKER) (test code = 381) 139 meq/L 136-145 POTASSIUM (BEAKER) (test code = 379) 4.1 meq/L 3.5-5.1 CHLORIDE (BEAKER) (test code = 382) 105 meq/L 98-107 CO2 (BEAKER) (test code = 355) 29 meq/L 22-29 BLOOD UREA NITROGEN (BEAKER) (test code = 354) 11 mg/dL 7-21 CREATININE (BEAKER) (test code = 358) 0.67 mg/dL 0.57-1.25 GLUCOSE RANDOM (BEAKER) (test code = 652) 105 mg/dL 70-105 CALCIUM (BEAKER) (test code = 697) 9.3 mg/dL 8.4-10.2 EGFR (BEAKER) (test code = 1092) 87 mL/min/1.73 sq m ESTIMATED GFR IS NOT ACCURATE CREATININE CLEARANCE IN PREDICTING GLOMERULAR FILTRATION RATE. ESTIMATED GFR IS NOT APPLICABLE FOR DIALYSIS PATIENTS. POCT-GLUCOSE [id number] 06:06:00* Test Item Value Reference Range Interpretation Comments POC-GLUCOSE METER (BEAKER) (test code = 1538) 114 mg/dL 70-110 H TESTED AT [address] [address] [address], CHEST, LOW DOSE, S/P LUNG TRANSPLANT, WITHOUT IV [id number] 02:08:00 Reason for exam:->f/u on left lower lung infiltrate.FINAL REPORT CLINICAL INDICATION: Follow-up left lung infiltrate [...] esophagus. Lymph Nodes: No adenopathy in the medias tinum or prashant. Skeleton: Osteopenia. Redemonstrated significant compression frac ture of T10 vertebral body. Limited images of upper abdomen: No significant find ings. IMPRESSION: Tree-in-bud centrilobular punctate nodules in both lungs, prim arily in the lingula and left lower lobe and in regions of previous nonspecific groundglass opacities. The appearance is nonspecific but is most commonly associ ated with chronic/indolent infection. Please correlate. There is no persistent f ocal consolidation. Pulmonary emphysema. Small hiatal hernia with fluid in the d istal esophagus, possibly reflux. Signed: Kim Loyola MDReport Verified Date/T celina: 10/24/2017 02:08:27 Reading Location: [address] Reading Room - GLUCOSE [id number] 23:54:00* Test Item Value Reference Range Interpretation Comments POC-GLUCOSE METER (BEAKER) (test code = 1538) 130 mg/dL 70-110 H TESTED AT [address] [address] POCT-GLUCOSE [id number] 18:32:00* Test Item Value Reference Range Interpretation Comments POC-GLUCOSE METER (BEAKER) (test code = 1538) 105 mg/dL 70-110 TESTED AT [address] [address] POCT-GLUCOSE [id number] 12:58:00* Test Item Value Reference Range Interpretation Comments POC-GLUCOSE METER (BEAKER) (test code = 1538) 130 mg/dL 70-110 H TESTED AT [address] [address] RAD, CHEST, 1 VIEW, NON [id number] 06:05:00Reason for exam:->replaced trachShould this be performed at the bedside?->YesFINAL REPORT Chest one view. Clinical history: Replaced tracheostomy. Comparison: Chest radiograph 09/24/2017 Technique: A single frontal view of the chest was obtained. Findings:There is a tracheostomy tube in satisfactory position.The heart is normal in size. The aorta is tortuous. There is an opacity in the left lower lobe which may represent pneumonia and/or atelectasis. There is no pleural effusion or pneumothorax. There is generalized osteopenia. There is a thoracolumbar scoliosis. There is a mild compression fracture deformity of the L1 vertebral body, present on prior chest CT 09/24/2017. Signed: Kristin Gunnort Verified Date/Time: 10/23/2017 06:05:52 Reading Location: [address] Body Reading Room -GLUCOSE [id number] 00:15:00* Test Item Value Reference Range Interpretation Comments POC-GLUCOSE METER (BEAKER) (test code = 1538) 123 mg/dL 70-110 H TESTED AT [address] [address] POCT-GLUCOSE [id number] 18:37:00* Test Item Value Reference Range Interpretation Comments POC-GLUCOSE METER (BEAKER) (test code = 1538) 104 mg/dL 70-110 TESTED AT [address] [address] POCT-GLUCOSE [id number] 12:31:00* Test Item Value Reference Range Interpretation Comments POC-GLUCOSE METER (BEAKER) (test code = 1538) 110 mg/dL 70-110 TESTED AT [address] [address] POCT-GLUCOSE [id number] 23:38:00* Test Item Value Reference Range Interpretation Comments POC-GLUCOSE METER (BEAKER) (test code = 1538) 124 mg/dL 70-110 H TESTED AT [place] [id number] [facility] [address] POCT-GLUCOSE [id number] 18:09:00* Test Item Value Reference Range Interpretation Comments POC-GLUCOSE METER (BEAKER) (test code = 1538) 127 mg/dL 70-110 H TESTED AT [address] [address] POCT-GLUCOSE [id number] 12:18:00* Test Item Value Reference Range Interpretation Comments POC-GLUCOSE METER (BEAKER) (test code = 1538) 118 mg/dL 70-110 H TESTED AT [address] [address] POCT-GLUCOSE [id number] 06:48:00* Test Item Value Reference Range Interpretation Comments POC-GLUCOSE METER (BEAKER) (test code = 1538) 138 mg/dL 70-110 H TESTED AT [address] [address] BASIC METABOLIC [id number] 05:21:00* Test Item Value Reference Range Interpretation Comments SODIUM (BEAKER) (test code = 381) 139 meq/L 136-145 POTASSIUM (BEAKER) (test code = 379) 4.3 meq/L 3.5-5.1 CHLORIDE (BEAKER) (test code = 382) 103 meq/L 98-107 CO2 (BEAKER) (test code = 355) 29 meq/L 22-29 BLOOD UREA NITROGEN (BEAKER) (test code = 354) 10 mg/dL 7-21 CREATININE (BEAKER) (test code = 358) 0.66 mg/dL 0.57-1.25 GLUCOSE RANDOM (BEAKER) (test code = 652) 86 mg/dL 70-105 CALCIUM (BEAKER) (test code = 697) 9.5 mg/dL 8.4-10.2 EGFR (BEAKER) (test code = 1092) 89 mL/min/1.73 sq m ESTIMATED GFR IS NOT ACCURATE CREATININE CLEARANCE IN PREDICTING GLOMERULAR FILTRATION RATE. ESTIMATED GFR IS NOT APPLICABLE FOR DIALYSIS PATIENTS. POCT-GLUCOSE [id number] 00:39:00* Test Item Value Reference Range Interpretation Comments POC-GLUCOSE METER (BEAKER) (test code = 1538) 134 mg/dL 70-110 H TESTED AT [address] [address] POCT-GLUCOSE [id number] 17:56:00* Test Item Value Reference Range Interpretation Comments POC-GLUCOSE METER (BEAKER) (test code = 1538) 112 mg/dL 70-110 H TESTED AT [address] [address] POCT-GLUCOSE [id number] 12:26:00* Test Item Value Reference Range Interpretation Comments POC-GLUCOSE METER (BEAKER) (test code = 1538) 109 mg/dL 70-110 TESTED AT [address] [address] POCT-GLUCOSE [id number] 06:34:00* Test Item Value Reference Range Interpretation Comments POC-GLUCOSE METER (BEAKER) (test code = 1538) 97 mg/dL 70-110 TESTED AT [address] [address] POCT-GLUCOSE [id number] 02:35:00* Test Item Value Reference Range Interpretation Comments POC-GLUCOSE METER (BEAKER) (test code = 1538) 118 mg/dL 70-110 H TESTED AT [address] [address] POCT-GLUCOSE [id number] 18:01:00* Test Item Value Reference Range Interpretation Comments POC-GLUCOSE METER (BEAKER) (test code = 1538) 106 mg/dL 70-110 TESTED AT [address] [address] POCT-GLUCOSE [id number] 12:18:00* Test Item Value Reference Range Interpretation Comments POC-GLUCOSE METER (BEAKER) (test code = 1538) 112 mg/dL 70-110 H TESTED AT [address] [address] [address], SOFT TISSUE NECK, [id number] 08:01:00FINAL REPORT CT neck soft tissues after IV [...] and intraorbital contents are grossly unremarkable. Visible paran kb sinuses are clear and temporal bones are aerated. Partial right mastoidecto my changes are noted. Aerodigestive tract is uncompromised. Total laryngectomy c hanges are present with unremarkable appearing tracheostomy and stoma noted. The lowest images reveal nonspecific small mediastinal lymph nodes similar in appea bakari when correlated with the CT chest appearance from September 24. Thyroid gland is atrophic. No visible lymphadenopathy, mass, abnormal enhancement, infiltrati ve process, fluid collection. Degenerative spine changes are noted. Impression s: Unremarkable post laryngectomy CT neck appearance. Signed: Clover Gonzalez port Verified Date/Time: 10/19/2017 08:01:01 Reading Location: [facility] [id number] [facility] Reading Room -GLUCOSE [id number] 06:25:00* Test Item Value Reference Range Interpretation Comments POC-GLUCOSE METER (BEAKER) (test code = 1538) 121 mg/dL 70-110 H TESTED AT [facility] [address] [place] [address] [id number] 05:53:00* Test Item Value Reference Range Interpretation Comments PHOSPHORUS (BEAKER) (test code = 604) 3.7 mg/dL 2.3-4.7 [id number] 05:53:00* Test Item Value Reference Range Interpretation Comments MAGNESIUM (BEAKER) (test code = 627) 2.1 mg/dL 1.6-2.6 BASIC METABOLIC [id number] 05:53:00* Test Item Value Reference Range Interpretation Comments SODIUM (BEAKER) (test code = 381) 139 meq/L 136-145 POTASSIUM (BEAKER) (test code = 379) 4.2 meq/L 3.5-5.1 CHLORIDE (BEAKER) (test code = 382) 102 meq/L 98-107 CO2 (BEAKER) (test code = 355) 28 meq/L 22-29 BLOOD UREA NITROGEN (BEAKER) (test code = 354) 15 mg/dL 7-21 CREATININE (BEAKER) (test code = 358) 0.66 mg/dL 0.57-1.25 GLUCOSE RANDOM (BEAKER) (test code = 652) 101 mg/dL 70-105 CALCIUM (BEAKER) (test code = 697) 9.5 mg/dL 8.4-10.2 EGFR (BEAKER) (test code = 1092) 89 mL/min/1.73 sq m ESTIMATED GFR IS NOT ACCURATE CREATININE CLEARANCE IN PREDICTING GLOMERULAR FILTRATION RATE. ESTIMATED GFR IS NOT APPLICABLE FOR DIALYSIS PATIENTS. POCT-GLUCOSE [id number] 00:05:00* Test Item Value Reference Range Interpretation Comments POC-GLUCOSE METER (BEAKER) (test code = 1538) 132 mg/dL 70-110 H TESTED AT [address] [address] POCT-GLUCOSE [id number] 18:21:00* Test Item Value Reference Range Interpretation Comments POC-GLUCOSE METER (BEAKER) (test code = 1538) 114 mg/dL 70-110 H TESTED AT [address] [address] POCT-GLUCOSE [id number] 13:40:00* Test Item Value Reference Range Interpretation Comments POC-GLUCOSE METER (BEAKER) (test code = 1538) 138 mg/dL 70-110 H TESTED AT [address] [address] POCT-GLUCOSE [id number] 06:31:00* Test Item Value Reference Range Interpretation Comments POC-GLUCOSE METER (BEAKER) (test code = 1538) 124 mg/dL 70-110 H TESTED AT [address] [address] POCT-GLUCOSE [id number] 23:46:00* Test Item Value Reference Range Interpretation Comments POC-GLUCOSE METER (BEAKER) (test code = 1538) 115 mg/dL 70-110 H TESTED AT [address] [address] POCT-GLUCOSE [id number] 18:25:00* Test Item Value Reference Range Interpretation Comments POC-GLUCOSE METER (BEAKER) (test code = 1538) 113 mg/dL 70-110 H TESTED AT [address] [address] POCT-GLUCOSE [id number] 13:06:00* Test Item Value Reference Range Interpretation Comments POC-GLUCOSE METER (BEAKER) (test code = 1538) 142 mg/dL 70-110 H TESTED AT [address] [address] POCT-GLUCOSE [id number] 06:22:00* Test Item Value Reference Range Interpretation Comments POC-GLUCOSE METER (BEAKER) (test code = 1538) 126 mg/dL 70-110 H TESTED AT [place] [id number] [facility] [address] POCT-GLUCOSE [id number] 00:24:00* Test Item Value Reference Range Interpretation Comments POC-GLUCOSE METER (BEAKER) (test code = 1538) 115 mg/dL 70-110 H TESTED AT [address] [address] POCT-GLUCOSE [id number] 12:23:00* Test Item Value Reference Range Interpretation Comments POC-GLUCOSE METER (BEAKER) (test code = 1538) 109 mg/dL 70-110 TESTED AT [address] [address] POCT-GLUCOSE [id number] 08:31:00* Test Item Value Reference Range Interpretation Comments POC-GLUCOSE METER (BEAKER) (test code = 1538) 127 mg/dL 70-110 H TESTED AT [address] [address] [id number] 05:09:00* Test Item Value Reference Range Interpretation Comments FERRITIN (BEAKER) (test code = 361) 46 ng/mL 5-275 VITAMIN B12 AND [id number] 05:09:00* Test Item Value Reference Range Interpretation Comments VITAMIN B12 (BEAKER) (test code = 774) 419 pg/mL 213-816 FOLATE (BEAKER) (test code = 362) 13.0 ng/mL >=7.0 [id number] 04:43:00* Test Item Value Reference Range Interpretation Comments PREALBUMIN (BEAKER) (test code = 586) 13 mg/dL 14-45 L IRON, TIBC, % SAT. (WITHOUT FERRITIN)2017-10-16 04:43:00* Test Item Value Reference Range Interpretation Comments IRON (BEAKER) (test code = 547) 24 ug/dL 40-160 L TOTAL IRON BINDING CAPACITY (BEAKER) (test code = 769) 204 ug/dL 250-450 L IRON % SATURATION (2) (BEAKER) (test code = 2590) 12 % 20-5 5 L [id number] 04:38:00* Test Item Value Reference Range Interpretation Comments PHOSPHORUS (BEAKER) (test code = 604) 4.0 mg/dL 2.3-4.7 [id number] 04:38:00* Test Item Value Reference Range Interpretation Comments MAGNESIUM (BEAKER) (test code = 627) 2.1 mg/dL 1.6-2.6 BASIC METABOLIC [id number] 04:38:00* Test Item Value Reference Range Interpretation Comments SODIUM (BEAKER) (test code = 381) 138 meq/L 136-145 POTASSIUM (BEAKER) (test code = 379) 4.2 meq/L 3.5-5.1 CHLORIDE (BEAKER) (test code = 382) 103 meq/L 98-107 CO2 (BEAKER) (test code = 355) 29 meq/L 22-29 BLOOD UREA NITROGEN (BEAKER) (test code = 354) 17 mg/dL 7-21 CREATININE (BEAKER) (test code = 358) 0.67 mg/dL 0.57-1.25 GLUCOSE RANDOM (BEAKER) (test code = 652) 114 mg/dL 70-105 H CALCIUM (BEAKER) (test code = 697) 9.2 mg/dL 8.4-10.2 EGFR (BEAKER) (test code = 1092) 87 mL/min/1.73 sq m ESTIMATED GFR IS NOT ACCURATE CREATININE CLEARANCE IN PREDICTING GLOMERULAR FILTRATION RATE. ESTIMATED GFR IS NOT APPLICABLE FOR DIALYSIS PATIENTS. POCT-GLUCOSE [id number] 00:11:00* Test Item Value Reference Range Interpretation Comments POC-GLUCOSE METER (BEAKER) (test code = 1538) 116 mg/dL 70-110 H TESTED AT [place] [id number] [facility] [address] POCT-GLUCOSE [id number] 17:51:00* Test Item Value Reference Range Interpretation Comments POC-GLUCOSE METER (BEAKER) (test code = 1538) 131 mg/dL 70-110 H TESTED AT [address] [address] POCT-GLUCOSE [id number] 12:04:00* Test Item Value Reference Range Interpretation Comments POC-GLUCOSE METER (BEAKER) (test code = 1538) 153 mg/dL 70-110 H TESTED AT [place] [id number] [facility] [address] POCT-GLUCOSE [id number] 08:39:00* Test Item Value Reference Range Interpretation Comments POC-GLUCOSE METER (BEAKER) (test code = 1538) 108 mg/dL 70-110 TESTED AT [facility] [address] [facility] [address] POCT-GLUCOSE [id number] 00:36:00* Test Item Value Reference Range Interpretation Comments POC-GLUCOSE METER (BEAKER) (test code = 1538) 133 mg/dL 70-110 H TESTED AT [address] [address] POCT-GLUCOSE [id number] 18:45:00* Test Item Value Reference Range Interpretation Comments POC-GLUCOSE METER (BEAKER) (test code = 1538) 99 mg/dL 70-110 TESTED AT [address] [address] POCT-GLUCOSE [id number] 12:35:00* Test Item Value Reference Range Interpretation Comments POC-GLUCOSE METER (BEAKER) (test code = 1538) 127 mg/dL 70-110 H TESTED AT [place] [id number] [facility] [address] CBC W/PLT COUNT & AUTO [id number] 06:50:00* Test Item Value Reference Range Interpretation Comments WHITE BLOOD CELL COUNT (BEAKER) (test code = 775) 5.1 K/ L 3.5- 10.5 RED BLOOD CELL COUNT (BEAKER) (test code = 761) 3.19 M/ L 3.93-5 .22 L HEMOGLOBIN (BEAKER) (test code = 410) 9.6 GM/DL 11.2-15.7 L HEMATOCRIT (BEAKER) (test code = 411) 30.8 % 34.1-44.9 L MEAN CORPUSCULAR VOLUME (BEAKER) (test code = 753) 96.6 fL 79. 4-94.8 H MEAN CORPUSCULAR HEMOGLOBIN (BEAKER) (test code = 751) 30.1 pg 25.6-32.2 MEAN CORPUSCULAR HEMOGLOBIN CONC (BEAKER) (test code = 752) 31.2 GM/DL 32.2-35.5 L RED CELL DISTRIBUTION WIDTH (BEAKER) (test code = 412) 14.1 % 11.7-14.4 PLATELET COUNT (BEAKER) (test code = 756) 148 K/CU MM 150-450 L MEAN PLATELET VOLUME (BEAKER) (test code = 754) 10.4 fL 9.4-12 .3 NUCLEATED RED BLOOD CELLS (BEAKER) (test code = 413) 0 /100 WBC 0 -0 NEUTROPHILS RELATIVE PERCENT (BEAKER) (test code = 429) 55 % LYMPHOCYTES RELATIVE PERCENT (BEAKER) (test code = 430) 33 % MONOCYTES RELATIVE PERCENT (BEAKER) (test code = 431) 10 % EOSINOPHILS RELATIVE PERCENT (BEAKER) (test code = 432) 2 % BASOPHILS RELATIVE PERCENT (BEAKER) (test code = 437) 0 % NEUTROPHILS ABSOLUTE COUNT (BEAKER) (test code = 670) 2.81 K/ L 1.56-6.13 LYMPHOCYTES ABSOLUTE COUNT (BEAKER) (test code = 414) 1.68 K/ L 1.18-3.74 MONOCYTES ABSOLUTE COUNT (BEAKER) (test code = 415) 0.53 K/ L 0. 24-0.36 H EOSINOPHILS ABSOLUTE COUNT (BEAKER) (test code = 416) 0.08 K/ L 0.04-0.36 BASOPHILS ABSOLUTE COUNT (BEAKER) (test code = 417) 0.02 K/ L 0. 01-0.08 IMMATURE GRANULOCYTES-RELATIVE PERCENT (BEAKER) (test code = 2801) 0 % 0-1 POCT-GLUCOSE [id number] 06:13:00* Test Item Value Reference Range Interpretation Comments POC-GLUCOSE METER (BEAKER) (test code = 1538) 116 mg/dL 70-110 H TESTED AT [address] [address] POCT-GLUCOSE [id number] 00:22:00* Test Item Value Reference Range Interpretation Comments POC-GLUCOSE METER (BEAKER) (test code = 1538) 143 mg/dL 70-110 H TESTED AT [address] [address] POCT-GLUCOSE [id number] 17:16:00* Test Item Value Reference Range Interpretation Comments POC-GLUCOSE METER (BEAKER) (test code = 1538) 131 mg/dL 70-110 H TESTED AT [address] [address] POCT-GLUCOSE [id number] 13:43:00* Test Item Value Reference Range Interpretation Comments POC-GLUCOSE METER (BEAKER) (test code = 1538) 146 mg/dL 70-110 H TESTED AT [address] [address] POCT-GLUCOSE [id number] 05:54:00* Test Item Value Reference Range Interpretation Comments POC-GLUCOSE METER (BEAKER) (test code = 1538) 123 mg/dL 70-110 H TESTED AT [address] [address] POCT-GLUCOSE [id number] 01:00:00* Test Item Value Reference Range Interpretation Comments POC-GLUCOSE METER (BEAKER) (test code = 1538) 154 mg/dL 70-110 H TESTED AT [address] [address] POCT-GLUCOSE [id number] 19:28:00* Test Item Value Reference Range Interpretation Comments POC-GLUCOSE METER (BEAKER) (test code = 1538) 138 mg/dL 70-110 H TESTED AT [address] [address] POCT-GLUCOSE [id number] 12:19:00* Test Item Value Reference Range Interpretation Comments POC-GLUCOSE METER (BEAKER) (test code = 1538) 136 mg/dL 70-110 H TESTED AT [address] [address] POCT-GLUCOSE [id number] 06:06:00* Test Item Value Reference Range Interpretation Comments POC-GLUCOSE METER (BEAKER) (test code = 1538) 129 mg/dL 70-110 H TESTED AT [address] [address] [id number] 05:49:00* Test Item Value Reference Range Interpretation Comments PHOSPHORUS (BEAKER) (test code = 604) 3.6 mg/dL 2.3-4.7 [id number] 05:49:00* Test Item Value Reference Range Interpretation Comments MAGNESIUM (BEAKER) (test code = 627) 1.6 mg/dL 1.6-2.6 BASIC METABOLIC [id number] 05:49:00* Test Item Value Reference Range Interpretation Comments SODIUM (BEAKER) (test code = 381) 139 meq/L 136-145 POTASSIUM (BEAKER) (test code = 379) 4.3 meq/L 3.5-5.1 CHLORIDE (BEAKER) (test code = 382) 107 meq/L 98-107 CO2 (BEAKER) (test code = 355) 25 meq/L 22-29 BLOOD UREA NITROGEN (BEAKER) (test code = 354) 7 mg/dL 7-21 CREATININE (BEAKER) (test code = 358) 0.59 mg/dL 0.57-1.25 GLUCOSE RANDOM (BEAKER) (test code = 652) 114 mg/dL 70-105 H CALCIUM (BEAKER) (test code = 697) 9.0 mg/dL 8.4-10.2 EGFR (BEAKER) (test code = 1092) 101 mL/min/1.73 sq m ESTIMATED GFR IS NOT ACCURATE CREATININE CLEARANCE IN PREDICTING GLOMERULAR FILTRATION RATE. ESTIMATED GFR IS NOT APPLICABLE FOR DIALYSIS PATIENTS. POCT-GLUCOSE [id number] 00:13:00* Test Item Value Reference Range Interpretation Comments POC-GLUCOSE METER (BEAKER) (test code = 1538) 139 mg/dL 70-110 H TESTED AT [address] [address] POCT-GLUCOSE [id number] 18:36:00* Test Item Value Reference Range Interpretation Comments POC-GLUCOSE METER (BEAKER) (test code = 1538) 124 mg/dL 70-110 H TESTED AT [address] [address] POCT-GLUCOSE [id number] 08:09:00* Test Item Value Reference Range Interpretation Comments POC-GLUCOSE METER (BEAKER) (test code = 1538) 136 mg/dL 70-110 H TESTED AT [address] [address] POCT-GLUCOSE [id number] 06:04:00* Test Item Value Reference Range Interpretation Comments POC-GLUCOSE METER (BEAKER) (test code = 1538) 155 mg/dL 70-110 H TESTED AT [address] [address] POCT-GLUCOSE [id number] 17:49:00* Test Item Value Reference Range Interpretation Comments POC-GLUCOSE METER (BEAKER) (test code = 1538) 103 mg/dL 70-110 TESTED AT [address] [address] POCT-GLUCOSE [id number] 09:40:00* Test Item Value Reference Range Interpretation Comments POC-GLUCOSE METER (BEAKER) (test code = 1538) 152 mg/dL 70-110 H TESTED AT [address] [address] BASIC METABOLIC [id number] 07:42:00* Test Item Value Reference Range Interpretation Comments SODIUM (BEAKER) (test code = 381) 137 meq/L 136-145 POTASSIUM (BEAKER) (test code = 379) 4.9 meq/L 3.5-5.1 CHLORIDE (BEAKER) (test code = 382) 103 meq/L 98-107 CO2 (BEAKER) (test code = 355) 28 meq/L 22-29 BLOOD UREA NITROGEN (BEAKER) (test code = 354) 8 mg/dL 7-21 CREATININE (BEAKER) (test code = 358) 0.62 mg/dL 0.57-1.25 GLUCOSE RANDOM (BEAKER) (test code = 652) 124 mg/dL 70-105 H CALCIUM (BEAKER) (test code = 697) 9.3 mg/dL 8.4-10.2 EGFR (BEAKER) (test code = 1092) 95 mL/min/1.73 sq m ESTIMATED GFR IS NOT ACCURATE CREATININE CLEARANCE IN PREDICTING GLOMERULAR FILTRATION RATE. ESTIMATED GFR IS NOT APPLICABLE FOR DIALYSIS PATIENTS. POCT-GLUCOSE [id number] 00:22:00* Test Item Value Reference Range Interpretation Comments POC-GLUCOSE METER (BEAKER) (test code = 1538) 122 mg/dL 70-110 H TESTED AT [place] [id number] [facility] [address] POCT-GLUCOSE [id number] 21:57:00* Test Item Value Reference Range Interpretation Comments POC-GLUCOSE METER (BEAKER) (test code = 1538) 131 mg/dL 70-110 H TESTED AT [facility] [address] [facility] [address] POCT-GLUCOSE [id number] 17:13:00* Test Item Value Reference Range Interpretation Comments POC-GLUCOSE METER (BEAKER) (test code = 1538) 135 mg/dL 70-110 H TESTED AT [address] [address] FUNGUS CULTURE + [id number] 16:54:00* Test Item Value Reference Range Interpretation Comments CULTURE (BEAKER) (test code = 1095) A 1+ Marlene tropicalis FUNGUS SMEAR (BEAKER) (test code = 1406) 4+ budding yeast FUNGUS SMEAR (BEAKER) (test code = 60209) 1+ yeast with pseudohypha e FUNGUS SMEAR (BEAKER) (test code = 964707) <1+ hyphal elements seen [id number] 16:46:00* Test Item Value Reference Range Interpretation Comments PHOSPHORUS (BEAKER) (test code = 604) 3.7 mg/dL 2.3-4.7 [id number] 16:46:00* Test Item Value Reference Range Interpretation Comments MAGNESIUM (BEAKER) (test code = 627) 1.8 mg/dL 1.6-2.6 BASIC METABOLIC [id number] 16:46:00* Test Item Value Reference Range Interpretation Comments SODIUM (BEAKER) (test code = 381) 140 meq/L 136-145 POTASSIUM (BEAKER) (test code = 379) 5.0 meq/L 3.5-5.1 CHLORIDE (BEAKER) (test code = 382) 107 meq/L 98-107 CO2 (BEAKER) (test code = 355) 26 meq/L 22-29 BLOOD UREA NITROGEN (BEAKER) (test code = 354) 8 mg/dL 7-21 CREATININE (BEAKER) (test code = 358) 0.63 mg/dL 0.57-1.25 GLUCOSE RANDOM (BEAKER) (test code = 652) 113 mg/dL 70-105 H CALCIUM (BEAKER) (test code = 697) 9.5 mg/dL 8.4-10.2 EGFR (BEAKER) (test code = 1092) 94 mL/min/1.73 sq m ESTIMATED GFR IS NOT ACCURATE CREATININE CLEARANCE IN PREDICTING GLOMERULAR FILTRATION RATE. ESTIMATED GFR IS NOT APPLICABLE FOR DIALYSIS PATIENTS. POCT-GLUCOSE [id number] 11:24:00* Test Item Value Reference Range Interpretation Comments POC-GLUCOSE METER (BEAKER) (test code = 1538) 145 mg/dL 70-110 H TESTED AT [address] [address] POCT-GLUCOSE [id number] 06:18:00* Test Item Value Reference Range Interpretation Comments POC-GLUCOSE METER (BEAKER) (test code = 1538) 121 mg/dL 70-110 H TESTED AT [address] [address] POCT-GLUCOSE [id number] 05:38:00* Test Item Value Reference Range Interpretation Comments POC-GLUCOSE METER (BEAKER) (test code = 1538) 125 mg/dL 70-110 H TESTED AT [address] [address] POCT-GLUCOSE [id number] 11:42:00* Test Item Value Reference Range Interpretation Comments POC-GLUCOSE METER (BEAKER) (test code = 1538) 128 mg/dL 70-110 H TESTED AT [address] [address] BASIC METABOLIC [id number] 07:26:00* Test Item Value Reference Range Interpretation Comments SODIUM (BEAKER) (test code = 381) 136 meq/L 136-145 POTASSIUM (BEAKER) (test code = 379) 4.5 meq/L 3.5-5.1 CHLORIDE (BEAKER) (test code = 382) 106 meq/L 98-107 CO2 (BEAKER) (test code = 355) 22 meq/L 22-29 BLOOD UREA NITROGEN (BEAKER) (test code = 354) 8 mg/dL 7-21 CREATININE (BEAKER) (test code = 358) 0.62 mg/dL 0.57-1.25 GLUCOSE RANDOM (BEAKER) (test code = 652) 86 mg/dL 70-105 CALCIUM (BEAKER) (test code = 697) 9.2 mg/dL 8.4-10.2 EGFR (BEAKER) (test code = 1092) 95 mL/min/1.73 sq m ESTIMATED GFR IS NOT ACCURATE CREATININE CLEARANCE IN PREDICTING GLOMERULAR FILTRATION RATE. ESTIMATED GFR IS NOT APPLICABLE FOR DIALYSIS PATIENTS. [id number] 07:05:00* Test Item Value Reference Range Interpretation Comments PHOSPHORUS (BEAKER) (test code = 604) 3.7 mg/dL 2.3-4.7 [id number] 07:05:00* Test Item Value Reference Range Interpretation Comments MAGNESIUM (BEAKER) (test code = 627) 1.8 mg/dL 1.6-2.6 POCT-GLUCOSE [id number] 06:30:00* Test Item Value Reference Range Interpretation Comments POC-GLUCOSE METER (BEAKER) (test code = 1538) 133 mg/dL 70-110 H TESTED AT [place] [id number] [facility] [address] POCT-GLUCOSE [id number] 00:03:00* Test Item Value Reference Range Interpretation Comments POC-GLUCOSE METER (BEAKER) (test code = 1538) 126 mg/dL 70-110 H TESTED AT [address] [address] POCT-GLUCOSE [id number] 18:08:00* Test Item Value Reference Range Interpretation Comments POC-GLUCOSE METER (BEAKER) (test code = 1538) 132 mg/dL 70-110 H TESTED AT [address] [address] POCT-GLUCOSE [id number] 12:51:00* Test Item Value Reference Range Interpretation Comments POC-GLUCOSE METER (BEAKER) (test code = 1538) 134 mg/dL 70-110 H TESTED AT [address] [address] BASIC METABOLIC [id number] 09:29:00* Test Item Value Reference Range Interpretation Comments SODIUM (BEAKER) (test code = 381) 137 meq/L 136-145 POTASSIUM (BEAKER) (test code = 379) 4.0 meq/L 3.5-5.1 CHLORIDE (BEAKER) (test code = 382) 112 meq/L 98-107 H CO2 (BEAKER) (test code = 355) 20 meq/L 22-29 L BLOOD UREA NITROGEN (BEAKER) (test code = 354) 6 mg/dL 7-21 L CREATININE (BEAKER) (test code = 358) 0.56 mg/dL 0.57-1.25 L GLUCOSE RANDOM (BEAKER) (test code = 652) 102 mg/dL 70-105 CALCIUM (BEAKER) (test code = 697) 7.2 mg/dL 8.4-10.2 L EGFR (BEAKER) (test code = 1092) 107 mL/min/1.73 sq m ESTIMATED GFR IS NOT ACCURATE CREATININE CLEARANCE IN PREDICTING GLOMERULAR FILTRATION RATE. ESTIMATED GFR IS NOT APPLICABLE FOR DIALYSIS PATIENTS. [id number] 07:22:00* Test Item Value Reference Range Interpretation Comments PHOSPHORUS (BEAKER) (test code = 604) 3.6 mg/dL 2.3-4.7 [id number] 07:22:00* Test Item Value Reference Range Interpretation Comments MAGNESIUM (BEAKER) (test code = 627) 2.0 mg/dL 1.6-2.6 POCT-GLUCOSE [id number] 05:59:00* Test Item Value Reference Range Interpretation Comments POC-GLUCOSE METER (BEAKER) (test code = 1538) 112 mg/dL 70-110 H TESTED AT [place] [id number] [facility] [address] POCT-GLUCOSE [id number] 17:33:00* Test Item Value Reference Range Interpretation Comments POC-GLUCOSE METER (BEAKER) (test code = 1538) 119 mg/dL 70-110 H TESTED AT [address] [address] POCT-GLUCOSE [id number] 11:51:00* Test Item Value Reference Range Interpretation Comments POC-GLUCOSE METER (BEAKER) (test code = 1538) 121 mg/dL 70-110 H TESTED AT [address] [address] POCT-GLUCOSE [id number] 06:36:00* Test Item Value Reference Range Interpretation Comments POC-GLUCOSE METER (BEAKER) (test code = 1538) 113 mg/dL 70-110 H TESTED AT [address] [address] [id number] 05:54:00* Test Item Value Reference Range Interpretation Comments PHOSPHORUS (BEAKER) (test code = 604) 3.6 mg/dL 2.3-4.7 [id number] 05:54:00* Test Item Value Reference Range Interpretation Comments MAGNESIUM (BEAKER) (test code = 627) 1.7 mg/dL 1.6-2.6 BASIC METABOLIC [id number] 05:54:00* Test Item Value Reference Range Interpretation Comments SODIUM (BEAKER) (test code = 381) 136 meq/L 136-145 POTASSIUM (BEAKER) (test code = 379) 4.2 meq/L 3.5-5.1 CHLORIDE (BEAKER) (test code = 382) 103 meq/L 98-107 CO2 (BEAKER) (test code = 355) 24 meq/L 22-29 BLOOD UREA NITROGEN (BEAKER) (test code = 354) 10 mg/dL 7-21 CREATININE (BEAKER) (test code = 358) 0.69 mg/dL 0.57-1.25 GLUCOSE RANDOM (BEAKER) (test code = 652) 96 mg/dL 70-105 CALCIUM (BEAKER) (test code = 697) 9.1 mg/dL 8.4-10.2 EGFR (BEAKER) (test code = 1092) 84 mL/min/1.73 sq m ESTIMATED GFR IS NOT ACCURATE CREATININE CLEARANCE IN PREDICTING GLOMERULAR FILTRATION RATE. ESTIMATED GFR IS NOT APPLICABLE FOR DIALYSIS PATIENTS. POCT-GLUCOSE [id number] 01:09:00* Test Item Value Reference Range Interpretation Comments POC-GLUCOSE METER (BEAKER) (test code = 1538) 131 mg/dL 70-110 H TESTED AT [facility] [address] [facility] [address] POCT-GLUCOSE [id number] 12:12:00* Test Item Value Reference Range Interpretation Comments POC-GLUCOSE METER (BEAKER) (test code = 1538) 110 mg/dL 70-110 TESTED AT [address] [address] [place], UGI, WITHOUT [id number] 11:22:00Reason for exam:->Vomiting post G tube placement, eval for gastric outlet obstrucionReason for exam:->Evaluation of G tube; please go through G tube, NPOFINAL REPORT Upper GI. CLINICAL HISTORY: Vomiting post [...] duodenum on a 10 minute delayed radiograph. IMPRESSION:1. Appropriately positioned gastrostomy tube with no evidence of extraluminal contrast extravasation.2. Severe gastroesophageal reflux.3. No evidence of gastric outlet obstruction. Fluoroscopy time: One minute. 17 images. Signed: Harley Bunn MDReport Verified Date/Time: 10/05/2017 11:22:08 Reading Location: [address] Consult Reading Room -GLUCOSE [id number] 06:32:00* Test Item Value Reference Range Interpretation Comments POC-GLUCOSE METER (BEAKER) (test code = 1538) 104 mg/dL 70-110 TESTED AT [facility] [address] [facility] [address] [id number] 05:22:00* Test Item Value Reference Range Interpretation Comments PHOSPHORUS (BEAKER) (test code = 604) 3.6 mg/dL 2.3-4.7 [id number] 05:22:00* Test Item Value Reference Range Interpretation Comments MAGNESIUM (BEAKER) (test code = 627) 2.0 mg/dL 1.6-2.6 POCT-GLUCOSE [id number] 00:49:00* Test Item Value Reference Range Interpretation Comments POC-GLUCOSE METER (BEAKER) (test code = 1538) 99 mg/dL 70-110 TESTED AT [facility] [address] [facility] [address] POCT-GLUCOSE [id number] 17:22:00* Test Item Value Reference Range Interpretation Comments POC-GLUCOSE METER (BEAKER) (test code = 1538) 101 mg/dL 70-110 TESTED AT [place] [id number] [facility] [address] POCT-GLUCOSE [id number] 12:51:00* Test Item Value Reference Range Interpretation Comments POC-GLUCOSE METER (BEAKER) (test code = 1538) 88 mg/dL 70-110 TESTED AT [place] [id number] [facility] [address] [id number] 06:06:00* Test Item Value Reference Range Interpretation Comments PHOSPHORUS (BEAKER) (test code = 604) 3.5 mg/dL 2.3-4.7 [id number] 06:06:00* Test Item Value Reference Range Interpretation Comments MAGNESIUM (BEAKER) (test code = 627) 1.5 mg/dL 1.6-2.6 L BASIC METABOLIC [id number] 06:06:00* Test Item Value Reference Range Interpretation Comments SODIUM (BEAKER) (test code = 381) 137 meq/L 136-145 POTASSIUM (BEAKER) (test code = 379) 4.4 meq/L 3.5-5.1 CHLORIDE (BEAKER) (test code = 382) 106 meq/L 98-107 CO2 (BEAKER) (test code = 355) 24 meq/L 22-29 BLOOD UREA NITROGEN (BEAKER) (test code = 354) 7 mg/dL 7-21 CREATININE (BEAKER) (test code = 358) 0.65 mg/dL 0.57-1.25 GLUCOSE RANDOM (BEAKER) (test code = 652) 88 mg/dL 70-105 CALCIUM (BEAKER) (test code = 697) 8.7 mg/dL 8.4-10.2 EGFR (BEAKER) (test code = 1092) 90 mL/min/1.73 sq m ESTIMATED GFR IS NOT ACCURATE CREATININE CLEARANCE IN PREDICTING GLOMERULAR FILTRATION RATE. ESTIMATED GFR IS NOT APPLICABLE FOR DIALYSIS PATIENTS. POCT-GLUCOSE [id number] 00:28:00* Test Item Value Reference Range Interpretation Comments POC-GLUCOSE METER (BEAKER) (test code = 1538) 128 mg/dL 70-110 H TESTED AT [address] [address] POCT-GLUCOSE [id number] 16:08:00* Test Item Value Reference Range Interpretation Comments POC-GLUCOSE METER (BEAKER) (test code = 1538) 121 mg/dL 70-110 H TESTED AT [address] [address] POCT-GLUCOSE [id number] 06:38:00* Test Item Value Reference Range Interpretation Comments POC-GLUCOSE METER (BEAKER) (test code = 1538) 116 mg/dL 70-110 H TESTED AT [address] [address] [id number] 06:06:00* Test Item Value Reference Range Interpretation Comments PHOSPHORUS (BEAKER) (test code = 604) 3.4 mg/dL 2.3-4.7 [id number] 06:06:00* Test Item Value Reference Range Interpretation Comments MAGNESIUM (BEAKER) (test code = 627) 1.8 mg/dL 1.6-2.6 BASIC METABOLIC [id number] 06:06:00* Test Item Value Reference Range Interpretation Comments SODIUM (BEAKER) (test code = 381) 140 meq/L 136-145 POTASSIUM (BEAKER) (test code = 379) 4.0 meq/L 3.5-5.1 CHLORIDE (BEAKER) (test code = 382) 109 meq/L 98-107 H CO2 (BEAKER) (test code = 355) 24 meq/L 22-29 BLOOD UREA NITROGEN (BEAKER) (test code = 354) 6 mg/dL 7-21 L CREATININE (BEAKER) (test code = 358) 0.66 mg/dL 0.57-1.25 GLUCOSE RANDOM (BEAKER) (test code = 652) 106 mg/dL 70-105 H CALCIUM (BEAKER) (test code = 697) 9.3 mg/dL 8.4-10.2 EGFR (BEAKER) (test code = 1092) 89 mL/min/1.73 sq m ESTIMATED GFR IS NOT ACCURATE CREATININE CLEARANCE IN PREDICTING GLOMERULAR FILTRATION RATE. ESTIMATED GFR IS NOT APPLICABLE FOR DIALYSIS PATIENTS. POCT-GLUCOSE [id number] 00:18:00* Test Item Value Reference Range Interpretation Comments POC-GLUCOSE METER (BEAKER) (test code = 1538) 114 mg/dL 70-110 H TESTED AT [address] [address] POCT-GLUCOSE [id number] 17:58:00* Test Item Value Reference Range Interpretation Comments POC-GLUCOSE METER (BEAKER) (test code = 1538) 117 mg/dL 70-110 H TESTED AT [address] [address] POCT-GLUCOSE [id number] 12:18:00* Test Item Value Reference Range Interpretation Comments POC-GLUCOSE METER (BEAKER) (test code = 1538) 104 mg/dL 70-110 TESTED AT [address] [address] POCT-GLUCOSE [id number] 08:45:00* Test Item Value Reference Range Interpretation Comments POC-GLUCOSE METER (BEAKER) (test code = 1538) 97 mg/dL 70-110 TESTED AT [address] [address] BASIC METABOLIC [id number] 04:50:00* Test Item Value Reference Range Interpretation Comments SODIUM (BEAKER) (test code = 381) 139 meq/L 136-145 POTASSIUM (BEAKER) (test code = 379) 3.9 meq/L 3.5-5.1 CHLORIDE (BEAKER) (test code = 382) 110 meq/L 98-107 H CO2 (BEAKER) (test code = 355) 22 meq/L 22-29 BLOOD UREA NITROGEN (BEAKER) (test code = 354) 4 mg/dL 7-21 L CREATININE (BEAKER) (test code = 358) 0.65 mg/dL 0.57-1.25 GLUCOSE RANDOM (BEAKER) (test code = 652) 92 mg/dL 70-105 CALCIUM (BEAKER) (test code = 697) 9.6 mg/dL 8.4-10.2 EGFR (BEAKER) (test code = 1092) 90 mL/min/1.73 sq m ESTIMATED GFR IS NOT ACCURATE CREATININE CLEARANCE IN PREDICTING GLOMERULAR FILTRATION RATE. ESTIMATED GFR IS NOT APPLICABLE FOR DIALYSIS PATIENTS. CBC W/PLT COUNT & AUTO [id number] 04:20:00* Test Item Value Reference Range Interpretation Comments WHITE BLOOD CELL COUNT (BEAKER) (test code = 775) 2.7 K/ L 3.5- 10.5 L RED BLOOD CELL COUNT (BEAKER) (test code = 761) 3.30 M/ L 3.93-5 .22 L HEMOGLOBIN (BEAKER) (test code = 410) 10.1 GM/DL 11.2-15.7 L HEMATOCRIT (BEAKER) (test code = 411) 32.2 % 34.1-44.9 L MEAN CORPUSCULAR VOLUME (BEAKER) (test code = 753) 97.6 fL 79. 4-94.8 H MEAN CORPUSCULAR HEMOGLOBIN (BEAKER) (test code = 751) 30.6 pg 25.6-32.2 MEAN CORPUSCULAR HEMOGLOBIN CONC (BEAKER) (test code = 752) 31.4 GM/DL 32.2-35.5 L RED CELL DISTRIBUTION WIDTH (BEAKER) (test code = 412) 13.5 % 11.7-14.4 PLATELET COUNT (BEAKER) (test code = 756) 148 K/CU MM 150-450 L MEAN PLATELET VOLUME (BEAKER) (test code = 754) 10.5 fL 9.4-12 .3 NUCLEATED RED BLOOD CELLS (BEAKER) (test code = 413) 0 /100 WBC 0 -0 NEUTROPHILS RELATIVE PERCENT (BEAKER) (test code = 429) 47 % LYMPHOCYTES RELATIVE PERCENT (BEAKER) (test code = 430) 36 % MONOCYTES RELATIVE PERCENT (BEAKER) (test code = 431) 7 % EOSINOPHILS RELATIVE PERCENT (BEAKER) (test code = 432) 9 % BASOPHILS RELATIVE PERCENT (BEAKER) (test code = 437) 2 % NEUTROPHILS ABSOLUTE COUNT (BEAKER) (test code = 670) 1.24 K/ L 1.56-6.13 L LYMPHOCYTES ABSOLUTE COUNT (BEAKER) (test code = 414) 0.97 K/ L 1.18-3.74 L MONOCYTES ABSOLUTE COUNT (BEAKER) (test code = 415) 0.19 K/ L 0. 24-0.36 L EOSINOPHILS ABSOLUTE COUNT (BEAKER) (test code = 416) 0.23 K/ L 0.04-0.36 BASOPHILS ABSOLUTE COUNT (BEAKER) (test code = 417) 0.04 K/ L 0. 01-0.08 IMMATURE GRANULOCYTES-RELATIVE PERCENT (BEAKER) (test code = 2801) 0 % 0-1 T4, [id number] 08:11:00* Test Item Value Reference Range Interpretation Comments FREE T4 (BEAKER) (test code = 655) 1.03 ng/dL 0.70-1.48 [id number] 08:11:00* Test Item Value Reference Range Interpretation Comments THYROID STIMULATING HORMONE (BEAKER) (test code = 772) 3.36 uIU/mL 0.35-4.94 [id number] 07:41:00* Test Item Value Reference Range Interpretation Comments MAGNESIUM (BEAKER) (test code = 627) 1.9 mg/dL 1.6-2.6 BASIC METABOLIC [id number] 07:41:00* Test Item Value Reference Range Interpretation Comments SODIUM (BEAKER) (test code = 381) 137 meq/L 136-145 POTASSIUM (BEAKER) (test code = 379) 4.0 meq/L 3.5-5.1 CHLORIDE (BEAKER) (test code = 382) 108 meq/L 98-107 H CO2 (BEAKER) (test code = 355) 23 meq/L 22-29 BLOOD UREA NITROGEN (BEAKER) (test code = 354) 2 mg/dL 7-21 L CREATININE (BEAKER) (test code = 358) 0.66 mg/dL 0.57-1.25 GLUCOSE RANDOM (BEAKER) (test code = 652) 89 mg/dL 70-105 CALCIUM (BEAKER) (test code = 697) 9.2 mg/dL 8.4-10.2 EGFR (BEAKER) (test code = 1092) 89 mL/min/1.73 sq m ESTIMATED GFR IS NOT ACCURATE CREATININE CLEARANCE IN PREDICTING GLOMERULAR FILTRATION RATE. ESTIMATED GFR IS NOT APPLICABLE FOR DIALYSIS PATIENTS. CBC W/PLT COUNT & AUTO [id number] 06:57:00* Test Item Value Reference Range Interpretation Comments WHITE BLOOD CELL COUNT (BEAKER) (test code = 775) 2.9 K/ L 3.5- 10.5 L RED BLOOD CELL COUNT (BEAKER) (test code = 761) 3.56 M/ L 3.93-5 .22 L HEMOGLOBIN (BEAKER) (test code = 410) 10.9 GM/DL 11.2-15.7 L HEMATOCRIT (BEAKER) (test code = 411) 35.1 % 34.1-44.9 MEAN CORPUSCULAR VOLUME (BEAKER) (test code = 753) 98.6 fL 79. 4-94.8 H MEAN CORPUSCULAR HEMOGLOBIN (BEAKER) (test code = 751) 30.6 pg 25.6-32.2 MEAN CORPUSCULAR HEMOGLOBIN CONC (BEAKER) (test code = 752) 31.1 GM/DL 32.2-35.5 L RED CELL DISTRIBUTION WIDTH (BEAKER) (test code = 412) 13.8 % 11.7-14.4 PLATELET COUNT (BEAKER) (test code = 756) 152 K/CU MM 150-450 MEAN PLATELET VOLUME (BEAKER) (test code = 754) 10.3 fL 9.4-12 .3 NUCLEATED RED BLOOD CELLS (BEAKER) (test code = 413) 0 /100 WBC 0 -0 NEUTROPHILS RELATIVE PERCENT (BEAKER) (test code = 429) 52 % LYMPHOCYTES RELATIVE PERCENT (BEAKER) (test code = 430) 33 % MONOCYTES RELATIVE PERCENT (BEAKER) (test code = 431) 7 % EOSINOPHILS RELATIVE PERCENT (BEAKER) (test code = 432) 7 % BASOPHILS RELATIVE PERCENT (BEAKER) (test code = 437) 1 % NEUTROPHILS ABSOLUTE COUNT (BEAKER) (test code = 670) 1.52 K/ L 1.56-6.13 L LYMPHOCYTES ABSOLUTE COUNT (BEAKER) (test code = 414) 0.96 K/ L 1.18-3.74 L MONOCYTES ABSOLUTE COUNT (BEAKER) (test code = 415) 0.20 K/ L 0. 24-0.36 L EOSINOPHILS ABSOLUTE COUNT (BEAKER) (test code = 416) 0.19 K/ L 0.04-0.36 BASOPHILS ABSOLUTE COUNT (BEAKER) (test code = 417) 0.02 K/ L 0. 01-0.08 IMMATURE GRANULOCYTES-RELATIVE PERCENT (BEAKER) (test code = 2801) 0 % 0-1 BLOOD [id number] 00:00:00* Test Item Value Reference Range Interpretation Comments CULTURE (BEAKER) (test code = 1095) No growth in 5 days Sputum [id number] 09:30:00* Test Item Value Reference Range Interpretation Comments Sputum Culture (test code = 624-7) Organism: ASPERGILLUS NIGER [facility] METABOLIC [id number] 06:52:00 * Test Item Value Reference Range Interpretation Comments SODIUM (BEAKER) (test code = 381) 135 meq/L 136-145 L POTASSIUM (BEAKER) (test code = 379) 4.7 meq/L 3.5-5.1 Specimen slightly hemolyzed CHLORIDE (BEAKER) (test code = 382) 109 meq/L 98-107 H CO2 (BEAKER) (test code = 355) 18 meq/L 22-29 L BLOOD UREA NITROGEN (BEAKER) (test code = 354) 3 mg/dL 7-21 L CREATININE (BEAKER) (test code = 358) 0.64 mg/dL 0.57-1.25 Specimen slightly hemolyzed GLUCOSE RANDOM (BEAKER) (test code = 652) 90 mg/dL 70-105 CALCIUM (BEAKER) (test code = 697) 9.3 mg/dL 8.4-10.2 EGFR (BEAKER) (test code = 1092) 92 mL/min/1.73 sq m ESTIMATED GFR IS NOT ACCURATE CREATININE CLEARANCE IN PREDICTING GLOMERULAR FILTRATION RATE. ESTIMATED GFR IS NOT APPLICABLE FOR DIALYSIS PATIENTS. SPIN/CONCENTRATION [id number] 14:20:00* Test Item Value Reference Range Interpretation Comments CONCENTRATION CHARGED (BEAKER) (test code = 2657) Done SPUTUM CULTURE + GRAM [id number] 14:11:00* Test Item Value Reference Range Interpretation Comments CULTURE (BEAKER) (test code = 1095) METHICILLIN RESISTANT ST APHYLOCOCCUS AUREUS A 4+ Methicillin resistant Sta phylococcus aureus Clindamycin (test code = 10) R Erythromycin (test code = 4) R Linezolid (test code = 40) S Nitrofurantoin (test code = 23) S Oxacillin (test code = 14) R Rifampin (test code = 43) S Tetracycline (test code = 2) S Trimethoprim + Sulfamethoxazole (test code = 47) S Vancomycin (test code = 13) S GRAM STAIN RESULT (BEAKER) (test code = 1123) 3+ WBCs GRAM STAIN RESULT (BEAKER) (test code = 126555) 10-15 epithelial ce lls GRAM STAIN RESULT (BEAKER) (test code = 111344) 1+ gram positive ro ds GRAM STAIN RESULT (BEAKER) (test code = 470762) 2+ gra m positive cocci in chains, pairs and clusters GRAM STAIN RESULT (BEAKER) (test code = 368834) 1+ yeast No Normal respiratory yoanna presentCBC W/PLT COUNT & AUTO [id number] 05:39:00* Test Item Value Reference Range Interpretation Comments WHITE BLOOD CELL COUNT (BEAKER) (test code = 775) 3.6 K/ L 3.5- 10.5 RED BLOOD CELL COUNT (BEAKER) (test code = 761) 2.94 M/ L 3.93-5 .22 L HEMOGLOBIN (BEAKER) (test code = 410) 9.1 GM/DL 11.2-15.7 L HEMATOCRIT (BEAKER) (test code = 411) 29.7 % 34.1-44.9 L MEAN CORPUSCULAR VOLUME (BEAKER) (test code = 753) 101.0 fL 79. 4-94.8 H MEAN CORPUSCULAR HEMOGLOBIN (BEAKER) (test code = 751) 31.0 pg 25.6-32.2 MEAN CORPUSCULAR HEMOGLOBIN CONC (BEAKER) (test code = 752) 30.6 GM/DL 32.2-35.5 L RED CELL DISTRIBUTION WIDTH (BEAKER) (test code = 412) 14.0 % 11.7-14.4 PLATELET COUNT (BEAKER) (test code = 756) 135 K/CU MM 150-450 L MEAN PLATELET VOLUME (BEAKER) (test code = 754) 10.8 fL 9.4-12 .3 NUCLEATED RED BLOOD CELLS (BEAKER) (test code = 413) 0 /100 WBC 0 -0 NEUTROPHILS RELATIVE PERCENT (BEAKER) (test code = 429) 65 % LYMPHOCYTES RELATIVE PERCENT (BEAKER) (test code = 430) 21 % MONOCYTES RELATIVE PERCENT (BEAKER) (test code = 431) 7 % EOSINOPHILS RELATIVE PERCENT (BEAKER) (test code = 432) 6 % BASOPHILS RELATIVE PERCENT (BEAKER) (test code = 437) 0 % NEUTROPHILS ABSOLUTE COUNT (BEAKER) (test code = 670) 2.33 K/ L 1.56-6.13 LYMPHOCYTES ABSOLUTE COUNT (BEAKER) (test code = 414) 0.75 K/ L 1.18-3.74 L MONOCYTES ABSOLUTE COUNT (BEAKER) (test code = 415) 0.24 K/ L 0. 24-0.36 EOSINOPHILS ABSOLUTE COUNT (BEAKER) (test code = 416) 0.23 K/ L 0.04-0.36 BASOPHILS ABSOLUTE COUNT (BEAKER) (test code = 417) 0.01 K/ L 0. 01-0.08 IMMATURE GRANULOCYTES-RELATIVE PERCENT (BEAKER) (test code = 2801) 1 % 0-1 BASIC METABOLIC [id number] 06:50:00* Test Item Value Reference Range Interpretation Comments SODIUM (BEAKER) (test code = 381) 139 meq/L 136-145 POTASSIUM (BEAKER) (test code = 379) 3.7 meq/L 3.5-5.1 CHLORIDE (BEAKER) (test code = 382) 105 meq/L 98-107 CO2 (BEAKER) (test code = 355) 25 meq/L 22-29 BLOOD UREA NITROGEN (BEAKER) (test code = 354) 10 mg/dL 7-21 CREATININE (BEAKER) (test code = 358) 0.69 mg/dL 0.57-1.25 GLUCOSE RANDOM (BEAKER) (test code = 652) 84 mg/dL 70-105 CALCIUM (BEAKER) (test code = 697) 9.2 mg/dL 8.4-10.2 EGFR (BEAKER) (test code = 1092) 84 mL/min/1.73 sq m ESTIMATED GFR IS NOT ACCURATE CREATININE CLEARANCE IN PREDICTING GLOMERULAR FILTRATION RATE. ESTIMATED GFR IS NOT APPLICABLE FOR DIALYSIS PATIENTS. PROTHROMBIN [id number] 06:45:00* Test Item Value Reference Range Interpretation Comments PROTIME (BEAKER) (test code = 759) 14.3 seconds 11.7-14.7 INR (BEAKER) (test code = 370) 1.1 <=5.9 RECOMMENDED COUMADIN/WARFARIN INR THERAPY RANGESSTANDARD DOSE: 2.0 - 3.0 Inclu gaurav: PROPHYLAXIS for venous thrombosis, systemic embolization; TREATMENT for emily ous thrombosis and/or pulmonary embolus.HIGH RISK: Target INR is 2.5-3.5 for pat ients with mechanical heart valves.CBC W/PLT COUNT & AUTO [id number] 06:44:00* Test Item Value Reference Range Interpretation Comments WHITE BLOOD CELL COUNT (BEAKER) (test code = 775) 4.5 K/ L 3.5- 10.5 RED BLOOD CELL COUNT (BEAKER) (test code = 761) 3.27 M/ L 3.93-5 .22 L HEMOGLOBIN (BEAKER) (test code = 410) 10.1 GM/DL 11.2-15.7 L HEMATOCRIT (BEAKER) (test code = 411) 32.4 % 34.1-44.9 L MEAN CORPUSCULAR VOLUME (BEAKER) (test code = 753) 99.1 fL 79. 4-94.8 H MEAN CORPUSCULAR HEMOGLOBIN (BEAKER) (test code = 751) 30.9 pg 25.6-32.2 MEAN CORPUSCULAR HEMOGLOBIN CONC (BEAKER) (test code = 752) 31.2 GM/DL 32.2-35.5 L RED CELL DISTRIBUTION WIDTH (BEAKER) (test code = 412) 14.0 % 11.7-14.4 PLATELET COUNT (BEAKER) (test code = 756) 130 K/CU MM 150-450 L MEAN PLATELET VOLUME (BEAKER) (test code = 754) 10.7 fL 9.4-12 .3 NUCLEATED RED BLOOD CELLS (BEAKER) (test code = 413) 0 /100 WBC 0 -0 NEUTROPHILS RELATIVE PERCENT (BEAKER) (test code = 429) 69 % LYMPHOCYTES RELATIVE PERCENT (BEAKER) (test code = 430) 17 % MONOCYTES RELATIVE PERCENT (BEAKER) (test code = 431) 8 % EOSINOPHILS RELATIVE PERCENT (BEAKER) (test code = 432) 5 % BASOPHILS RELATIVE PERCENT (BEAKER) (test code = 437) 1 % NEUTROPHILS ABSOLUTE COUNT (BEAKER) (test code = 670) 3.12 K/ L 1.56-6.13 LYMPHOCYTES ABSOLUTE COUNT (BEAKER) (test code = 414) 0.78 K/ L 1.18-3.74 L MONOCYTES ABSOLUTE COUNT (BEAKER) (test code = 415) 0.35 K/ L 0. 24-0.36 EOSINOPHILS ABSOLUTE COUNT (BEAKER) (test code = 416) 0.21 K/ L 0.04-0.36 BASOPHILS ABSOLUTE COUNT (BEAKER) (test code = 417) 0.03 K/ L 0. 01-0.08 IMMATURE GRANULOCYTES-RELATIVE PERCENT (BEAKER) (test code = 2801) 0 % 0-1 CBC W/PLT COUNT & AUTO [id number] 20:10:00* Test Item Value Reference Range Interpretation Comments WHITE BLOOD CELL COUNT (BEAKER) (test code = 775) 5.0 K/ L 3.5- 10.5 RED BLOOD CELL COUNT (BEAKER) (test code = 761) 3.59 M/ L 3.93-5 .22 L HEMOGLOBIN (BEAKER) (test code = 410) 11.0 GM/DL 11.2-15.7 L HEMATOCRIT (BEAKER) (test code = 411) 35.8 % 34.1-44.9 MEAN CORPUSCULAR VOLUME (BEAKER) (test code = 753) 99.7 fL 79. 4-94.8 H MEAN CORPUSCULAR HEMOGLOBIN (BEAKER) (test code = 751) 30.6 pg 25.6-32.2 MEAN CORPUSCULAR HEMOGLOBIN CONC (BEAKER) (test code = 752) 30.7 GM/DL 32.2-35.5 L RED CELL DISTRIBUTION WIDTH (BEAKER) (test code = 412) 14.1 % 11.7-14.4 PLATELET COUNT (BEAKER) (test code = 756) 113 K/CU MM 150-450 L This is a corrected result. Previous result was 98 K/CU MM on 09/25/2017 at 1944 CDT MEAN PLATELET VOLUME (BEAKER) (test code = 754) 11.8 fL 9.4-12 .3 NUCLEATED RED BLOOD CELLS (BEAKER) (test code = 413) 0 /100 WBC 0 -0 NEUTROPHILS RELATIVE PERCENT (BEAKER) (test code = 429) 73 % LYMPHOCYTES RELATIVE PERCENT (BEAKER) (test code = 430) 16 % MONOCYTES RELATIVE PERCENT (BEAKER) (test code = 431) 6 % EOSINOPHILS RELATIVE PERCENT (BEAKER) (test code = 432) 3 % BASOPHILS RELATIVE PERCENT (BEAKER) (test code = 437) 0 % NEUTROPHILS ABSOLUTE COUNT (BEAKER) (test code = 670) 3.65 K/ L 1.56-6.13 LYMPHOCYTES ABSOLUTE COUNT (BEAKER) (test code = 414) 0.81 K/ L 1.18-3.74 L MONOCYTES ABSOLUTE COUNT (BEAKER) (test code = 415) 0.31 K/ L 0. 24-0.36 EOSINOPHILS ABSOLUTE COUNT (BEAKER) (test code = 416) 0.17 K/ L 0.04-0.36 BASOPHILS ABSOLUTE COUNT (BEAKER) (test code = 417) 0.02 K/ L 0. 01-0.08 IMMATURE GRANULOCYTES-RELATIVE PERCENT (BEAKER) (test code = 2801) 0 % 0-1 US GUIDANCE FOR VASCULAR [id number] 13:11:00 [place] [id number] Patient Name: JENN JERNIGAN MR #: [id number] : 1950 Age/Sex: 67/F Req #: [id number] Adm Physician: SANA KAY MD Ordered by: SANA KAY MD Report #: [id number] Location: MED/SURG3 Room/Bed: 293 Procedure: [id number] US/US GUID ANCE FOR VASCULAR ACCES Exam Date: Exam Time: REPORT STATUS: Signed PROCEDURE: US GUIDANCE FOR VASCULAR ACCESS CO MPARISON: None. INDICATIONS: Lack of IV access FINDINGS: Ultra sound evaluation of potential access sites was performed. After successfully identifying a patent vessel, US guidance was used to puncture the vein. A per manent recording was created for the patient record. CONCLUSION: Suc cessful IV access by Ultrasound guidance. Tomy Raygoza M.D. Dictated by: Tomy Raygoza M.D. on 09/25/2017 at 13:11 Electronicall y approved by: Tomy Raygoza M.D. on 09/25/2017 at 13:11 Dictated By: TOMY RAYGOZA MD [id number] COPY TO: SANA KAY MD US GUIDANCE FOR VASCULAR [id number] 13:09:00 [place] [address] Patient Name: JENN JERNIGAN MR #: [id number] : 1950 Age/Sex: 67/F Req #: [id number] Adm Physician: SANA KAY MD Ordered by: SANA KAY MD Report #: [id number] Location: [facility] Room/Bed: Critical access hospital Procedure: [id number] US/US GUID ANCE FOR VASCULAR ACCES Exam Date: Exam Time: REPORT STATUS: Signed PROCEDURE: US GUIDANCE FOR VASCULAR ACCESS CO MPARISON: None. INDICATIONS: Lack of IV access FINDINGS: Ultra sound evaluation of potential access sites was performed. After successfully identifying a patent vessel, US guidance was used to puncture the vein. A per manent recording was created for the patient record. CONCLUSION: Suc cessful IV access by Ultrasound guidance. Tomy Raygoza M.D. Dictated by: Tomy Raygoza M.D. on 09/25/2017 at 13:09 Electronicall y approved by: Tomy Raygoza M.D. on 09/25/2017 at 13:09 Dictated By: TOMY RAYGOZA MD 1309 COPY TO: SANA KAY MD CT, CHEST, WITHOUT [id number] 21:35:00Reason for exam:->s/p laryngeal cancer s/p trach with prosthesis - severe COPD - suspect fibrosis/PNA at basesWhat is the patient's sedation requirement?->No SedationFINAL REPORT DOSE REDUCTION: The examination was performed according to departmental dose-optimization program which includes automated exposure control, adjustment of the mA and/or kV according to patient size and/or use of iterative reconstruction technique. TECHNIQUE: CT of the chest without i ntravenous contrast. COMPARISON: Chest x-ray, 09/24/2017 Discussion: Tracheostomy tube identified. There is mild bilateral lower lobe bronchiectasis. There are g roundglass and reticular nodular opacities in the lingula and left lower lobe, t o a lesser extent in the right lower and middle lobes. Areas of bronchial wall t hickening and bronchial impaction noted. No pleural effusions. Noncontrast appea bakari of aorta and great vessels is unremarkable. Heart is normal in size. No pe ricardial effusion. No significant mediastinal or hilar lymphadenopathy. No defi nite focal abnormality in the upper abdomen. Osteopenia and degenerative changes are seen. Moderate to severe compression deformity in the lower thoracic spine noted of indeterminate age. IMPRESSION: 1. Bilateral groundglass and reticular n odular opacities with bronchial wall thickening and impaction, most predominant in the left lower lobe and lingula. 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 This is likely a chronic process although th e acuity is unclear without old studies for comparison. Malignancy or metastatic disease is felt to be less likely but follow-up recommended. 2. Compression def ormity of indeterminate age in the lower thoracic vertebral body. Signed: Rasheed Roth MDReport Verified Date/Time: 09/24/2017 21:35:22 Reading Location: [facility] C013W Consult Reading Room REHENSIVE METABOLIC [id number] 05:30:00* Test Item Value Reference Range Interpretation Comments TOTAL PROTEIN (BEAKER) (test code = 770) 6.2 gm/dL 6.0-8.3 ALBUMIN (BEAKER) (test code = 1145) 3.2 g/dL 3.5-5.0 L ALKALINE PHOSPHATASE (BEAKER) (test code = 346) 80 U/L 40-150 BILIRUBIN TOTAL (BEAKER) (test code = 377) 0.5 mg/dL 0.2-1.2 SODIUM (BEAKER) (test code = 381) 138 meq/L 136-145 POTASSIUM (BEAKER) (test code = 379) 4.1 meq/L 3.5-5.1 CHLORIDE (BEAKER) (test code = 382) 104 meq/L 98-107 CO2 (BEAKER) (test code = 355) 25 meq/L 22-29 BLOOD UREA NITROGEN (BEAKER) (test code = 354) 16 mg/dL 7-21 CREATININE (BEAKER) (test code = 358) 0.71 mg/dL 0.57-1.25 GLUCOSE RANDOM (BEAKER) (test code = 652) 113 mg/dL 70-105 H CALCIUM (BEAKER) (test code = 697) 9.0 mg/dL 8.4-10.2 AST (SGOT) (BEAKER) (test code = 353) 13 U/L 5-34 ALT (SGPT) (BEAKER) (test code = 347) < U/L 6-55 L EGFR (BEAKER) (test code = 1092) 82 mL/min/1.73 sq m ESTIMATED GFR IS NOT ACCURATE CREATININE CLEARANCE IN PREDICTING GLOMERULAR FILTRATION RATE. ESTIMATED GFR IS NOT APPLICABLE FOR DIALYSIS PATIENTS. CBC W/PLT COUNT & AUTO [id number] 05:16:00* Test Item Value Reference Range Interpretation Comments WHITE BLOOD CELL COUNT (BEAKER) (test code = 775) 8.5 K/ L 3.5- 10.5 RED BLOOD CELL COUNT (BEAKER) (test code = 761) 3.23 M/ L 3.93-5 .22 L HEMOGLOBIN (BEAKER) (test code = 410) 10.1 GM/DL 11.2-15.7 L HEMATOCRIT (BEAKER) (test code = 411) 31.6 % 34.1-44.9 L MEAN CORPUSCULAR VOLUME (BEAKER) (test code = 753) 97.8 fL 79. 4-94.8 H MEAN CORPUSCULAR HEMOGLOBIN (BEAKER) (test code = 751) 31.3 pg 25.6-32.2 MEAN CORPUSCULAR HEMOGLOBIN CONC (BEAKER) (test code = 752) 32.0 GM/DL 32.2-35.5 L RED CELL DISTRIBUTION WIDTH (BEAKER) (test code = 412) 14.2 % 11.7-14.4 PLATELET COUNT (BEAKER) (test code = 756) 116 K/CU MM 150-450 L MEAN PLATELET VOLUME (BEAKER) (test code = 754) 10.9 fL 9.4-12 .3 NUCLEATED RED BLOOD CELLS (BEAKER) (test code = 413) 0 /100 WBC 0 -0 NEUTROPHILS RELATIVE PERCENT (BEAKER) (test code = 429) 84 % LYMPHOCYTES RELATIVE PERCENT (BEAKER) (test code = 430) 8 % MONOCYTES RELATIVE PERCENT (BEAKER) (test code = 431) 5 % EOSINOPHILS RELATIVE PERCENT (BEAKER) (test code = 432) 2 % BASOPHILS RELATIVE PERCENT (BEAKER) (test code = 437) 0 % NEUTROPHILS ABSOLUTE COUNT (BEAKER) (test code = 670) 7.09 K/ L 1.56-6.13 H LYMPHOCYTES ABSOLUTE COUNT (BEAKER) (test code = 414) 0.67 K/ L 1.18-3.74 L MONOCYTES ABSOLUTE COUNT (BEAKER) (test code = 415) 0.44 K/ L 0. 24-0.36 H EOSINOPHILS ABSOLUTE COUNT (BEAKER) (test code = 416) 0.18 K/ L 0.04-0.36 BASOPHILS ABSOLUTE COUNT (BEAKER) (test code = 417) 0.02 K/ L 0. 01-0.08 IMMATURE GRANULOCYTES-RELATIVE PERCENT (BEAKER) (test code = 2801) 1 % 0-1 RAD, CHEST, 1 VIEW, NON [id number] 05:11:00Reason for exam:->dyspneaReason for exam:->desaturationShould this be performed at the bedside?->YesFINAL REPORT EXAMINATION: AP PORTABLE CHEST RADIOGRAPH CLINICAL INDICATION: Dyspnea, oxygen desaturation. IMPRESSION: Compared with 09/15/2017. The relatively large lung volumes and apical radiolucency are nonspecific but can be associated with obstructive lung disease. Curvilinear and reticular o pacities are again noted in both lungs, most conspicuous in the perihilar region s and lung bases. A component of atelectasis and/or scarring is favored given th e morphology, distribution and similar appearance on the prior study. However, a superimposed pneumonia or underlying neoplastic process cannot be excluded. No definite evidence of pulmonary edema, large pleural effusion or pneumothorax. Th e heart size is at the upper limit of normal. Mediastinal contours are sharp and stable. No evidence of an acute osseous abnormality. Signed: Brian Millan MDRep ort Verified Date/Time: 09/24/2017 05:11:34 Reading Location: [address] Reading Room Electronically signed by: BRIAN MILLAN M.D. on 09/06 05:11 AM POCT-LACTIC ACID, [id number] 04:54:00* Test Item Value Reference Range Interpretation Comments POC-LACTIC ACID, ARTERIAL (BEAKER) (test code = 2804) 0.6 mmol/L 0.4-1.3 TESTED AT [place] [id number] [facility] [address] POCT-BLOOD GASES, [id number] 04:54:00* Test Item Value Reference Range Interpretation Comments TEMP, CELSIUS-POC (BEAKER) (test code = 1834) 38.6 FIO2-POC (BEAKER) (test code = 1835) 60 TESTED AT [address] [address] PH, ARTERIAL-POC (BEAKER) (test code = 1836) 7.382 7.350-7.4 50 PCO2, ARTERIAL-POC (BEAKER) (test code = 1837) 50.6 mm Hg 35.0-45 .0 H PO2, ARTERIAL-POC (BEAKER) (test code = 1838) 79.0 mm Hg 80.0-90. 0 L SO2, ARTERIAL-POC (BEAKER) (test code = 1839) 94.0 % 96.0-97. 0 L HCO3, ARTERIAL-POC (BEAKER) (test code = 1840) 29.6 meq/L 21.0-29 .0 H BASE EXCESS, ARTERIAL-POC (BEAKER) (test code = 1841) 5.0 meq/L -2.0-3.0 H [id number] 04:54:00* Test Item Value Reference Range Interpretation Comments POC-SODIUM (BEAKER) (test code = 1542) 139 meq/L 135-148 TESTED AT [address] [address] [id number] 04:54:00* Test Item Value Reference Range Interpretation Comments POC-POTASSIUM (BEAKER) (test code = 1540) 3.9 meq/L 3.6-5.5 TESTED AT [place] [id number] 04:54:00* Test Item Value Reference Range Interpretation Comments POC-GLUCOSE (BEAKER) (test code = 1855) 117 mg/dL 70-110 H TESTED AT [place] [id number] POCT-CALCIUM [id number] 04:54:00* Test Item Value Reference Range Interpretation Comments POC-CALCIUM IONIZED (BEAKER) (test code = 1536) 1.19 mmol/L 1.12-1 .27 TESTED AT [place] [id number] 04:54:00* Test Item Value Reference Range Interpretation Comments POC-HEMATOCRIT (BEAKER) (test code = 1857) 36 % 36-45 TESTED AT [place] [id number] 04:54:00* Test Item Value Reference Range Interpretation Comments POC-HEMOGLOBIN (BEAKER) (test code = 1856) 12.2 g/dL 12.0-15.0 TESTED AT [place] [id number] AT [place] [id number] URINALYSIS W/ REFLEX URINE [id number] 22:09:00* Test Item Value Reference Range Interpretation Comments COLOR (BEAKER) (test code = 470) Yellow CLARITY (BEAKER) (test code = 469) Clear SPECIFIC GRAVITY UA (BEAKER) (test code = 468) 1.013 1.001-1 .035 PH UA (BEAKER) (test code = 467) 7.0 5.0-8.0 PROTEIN UA (BEAKER) (test code = 464) Negative Negative GLUCOSE UA (BEAKER) (test code = 365) Negative Negative KETONES UA (BEAKER) (test code = 371) Negative Negative BILIRUBIN UA (BEAKER) (test code = 462) Negative Negative BLOOD UA (BEAKER) (test code = 461) Negative Negative NITRITE UA (BEAKER) (test code = 465) Negative Negative LEUKOCYTE ESTERASE UA (BEAKER) (test code = 466) Small Negat melvi A UROBILINOGEN UA (BEAKER) (test code = 463) 0.2 mg/dL 0.2-1.0 RBC UA (BEAKER) (test code = 519) < /HPF WBC UA (BEAKER) (test code = 520) 5 /HPF MUCUS (BEAKER) (test code = 1574) Rare SQUAMOUS EPITHELIAL (BEAKER) (test code = 516) < /HPF SOURCE(BEAKER) (test code = 2795) LACTIC ACID, VENOUS, WHOLE [id number] 05:30:00* Test Item Value Reference Range Interpretation Comments LACTATE BLOOD VENOUS (2) (BEAKER) (test code = 2872) 0.8 mmol/L 0 .5-2.2 Effective 06/09/2015: Units/Reference Range ChangeNew: 0.5-2.2 mmol/L Previous: 5 -20 mg/dLFL, ESOPH, SWALLOW FUNCTION, WITH CINE OR [id number] 16:21:00 Reason for exam:->possible aspiration PNAFINAL REPORT INDICATION: Dysphagia and history of laryngectomy. TECHNIQUE: The patient was administered various consistencies of liquid and food mixed with barium. Swallowing was observed with the speech pathologist present. FINDINGS / IMPRESSION:No leakage of contrast around the patient's tracheostomy device. Please see report written by the speech pathologist for detailed report and recommendations. Fluoroscopy time: 1.4 minutes.A single cine clip of the patient swallowing was acquired. Signed: Ricco Cary MDReport Verified Date/Time: 09/20/2017 16:21:18 Reading Location: [facility] C013X [facility] Consult Reading Room C METABOLIC [id number] 05:38:00* Test Item Value Reference Range Interpretation Comments SODIUM (BEAKER) (test code = 381) 137 meq/L 136-145 POTASSIUM (BEAKER) (test code = 379) 4.0 meq/L 3.5-5.1 CHLORIDE (BEAKER) (test code = 382) 109 meq/L 98-107 H CO2 (BEAKER) (test code = 355) 22 meq/L 22-29 BLOOD UREA NITROGEN (BEAKER) (test code = 354) 19 mg/dL 7-21 CREATININE (BEAKER) (test code = 358) 0.76 mg/dL 0.57-1.25 GLUCOSE RANDOM (BEAKER) (test code = 652) 138 mg/dL 70-105 H CALCIUM (BEAKER) (test code = 697) 8.8 mg/dL 8.4-10.2 EGFR (BEAKER) (test code = 1092) 75 mL/min/1.73 sq m ESTIMATED GFR IS NOT ACCURATE CREATININE CLEARANCE IN PREDICTING GLOMERULAR FILTRATION RATE. ESTIMATED GFR IS NOT APPLICABLE FOR DIALYSIS PATIENTS. BASIC METABOLIC [id number] 07:01:00* Test Item Value Reference Range Interpretation Comments SODIUM (BEAKER) (test code = 381) 135 meq/L 136-145 L POTASSIUM (BEAKER) (test code = 379) 4.2 meq/L 3.5-5.1 CHLORIDE (BEAKER) (test code = 382) 104 meq/L 98-107 CO2 (BEAKER) (test code = 355) 25 meq/L 22-29 BLOOD UREA NITROGEN (BEAKER) (test code = 354) 15 mg/dL 7-21 CREATININE (BEAKER) (test code = 358) 0.74 mg/dL 0.57-1.25 GLUCOSE RANDOM (BEAKER) (test code = 652) 119 mg/dL 70-105 H CALCIUM (BEAKER) (test code = 697) 8.8 mg/dL 8.4-10.2 EGFR (BEAKER) (test code = 1092) 78 mL/min/1.73 sq m ESTIMATED GFR IS NOT ACCURATE CREATININE CLEARANCE IN PREDICTING GLOMERULAR FILTRATION RATE. ESTIMATED GFR IS NOT APPLICABLE FOR DIALYSIS PATIENTS. RAD, CHEST, 2 [id number] 11:34:00Reason for exam:->coughFINAL REPORT TECHNIQUE: Frontal and lateral views of the chest. INDICATION: 67-year-old woman with cough. COMPARISON: Chest radiograph . FINDINGS: LINES/TUBES: None. LUNGS: Streaky opacities in the left low er lung zone. Right lung is clear. PLEURA: No pleural effusion or pneumothorax. HEART AND MEDIASTINUM: The cardiomediastinal silhouette is within normal limits. SOFT TISSUES AND BONES: Degenerative changes of the visualized spine with uncha nged mild convex curvature centered in the midthoracic spine. Soft tissues are u nremarkable. IMPRESSION:Left basilar opacities likely represent atelectasis, ho wever superimposed pneumonia cannot be excluded. Signed: Smooth Osuna MDRepor t Verified Date/Time: 09/15/2017 11:34:38 Reading Location: [facility] B1 C013Y CT Bod y Reading Room 18 11:34 AM CBC W/PLT COUNT & AUTO [id number] 02:28:00* Test Item Value Reference Range Interpretation Comments WHITE BLOOD CELL COUNT (BEAKER) (test code = 775) 6.3 K/ L 3.5- 10.5 RED BLOOD CELL COUNT (BEAKER) (test code = 761) 3.91 M/ L 3.93-5 .22 L HEMOGLOBIN (BEAKER) (test code = 410) 12.3 GM/DL 11.2-15.7 HEMATOCRIT (BEAKER) (test code = 411) 39.4 % 34.1-44.9 MEAN CORPUSCULAR VOLUME (BEAKER) (test code = 753) 100.8 fL 79. 4-94.8 H MEAN CORPUSCULAR HEMOGLOBIN (BEAKER) (test code = 751) 31.5 pg 25.6-32.2 MEAN CORPUSCULAR HEMOGLOBIN CONC (BEAKER) (test code = 752) 31.2 GM/DL 32.2-35.5 L RED CELL DISTRIBUTION WIDTH (BEAKER) (test code = 412) 14.8 % 11.7-14.4 H PLATELET COUNT (BEAKER) (test code = 756) 230 K/CU MM 150-450 MEAN PLATELET VOLUME (BEAKER) (test code = 754) 10.6 fL 9.4-12 .3 NUCLEATED RED BLOOD CELLS (BEAKER) (test code = 413) 0 /100 WBC 0 -0 NEUTROPHILS RELATIVE PERCENT (BEAKER) (test code = 429) 85 % LYMPHOCYTES RELATIVE PERCENT (BEAKER) (test code = 430) 12 % MONOCYTES RELATIVE PERCENT (BEAKER) (test code = 431) 2 % EOSINOPHILS RELATIVE PERCENT (BEAKER) (test code = 432) 0 % BASOPHILS RELATIVE PERCENT (BEAKER) (test code = 437) 0 % NEUTROPHILS ABSOLUTE COUNT (BEAKER) (test code = 670) 5.34 K/ L 1.56-6.13 LYMPHOCYTES ABSOLUTE COUNT (BEAKER) (test code = 414) 0.78 K/ L 1.18-3.74 L MONOCYTES ABSOLUTE COUNT (BEAKER) (test code = 415) 0.14 K/ L 0. 24-0.36 L EOSINOPHILS ABSOLUTE COUNT (BEAKER) (test code = 416) 0.00 K/ L 0.04-0.36 L BASOPHILS ABSOLUTE COUNT (BEAKER) (test code = 417) 0.00 K/ L 0. 01-0.08 L IMMATURE GRANULOCYTES-RELATIVE PERCENT (BEAKER) (test code = 2801) 0 % 0-1 Vitamin B12 [id number] 06:16:00* Test Item Value Reference Range Interpretation Comments Vitamin B12 Level (test code = 96227-4) 563 213-816 [facility] CenterFolate2018-08-10 06:16:00* Test Item Value Reference Range Interpretation Comments Folate (test code = 2284-8) 5.0 7.0-15.4 [facility] CenterPhosphorus [id number] 06:11:00* Test Item Value Reference Range Interpretation Comments Phosphorus Level (test code = EIP5491) 2.9 2.3-4.7 [facility] CenterMagnesium [id number] 06:11:00* Test Item Value Reference Range Interpretation Comments Magnesium Level (test code = 60164-6) 1.9 1.3-2.1 [facility] CenterCT CHEST [id number] 15:45:00 [facility] [address] [place], [place] [address] Patient Name: JENN JERNIGAN MR #: [id number] : Age/Sex: 67/F Re #: [id number] [facility] Physician: SANA BEAR MD Ordered by: SANA KAY MD Report #: [id number] Location: [facility] Room/Bed: [place] [address] Procedure: [id number] CT/CT CHES T W Exam Date: 09/13/17 Exam Time: 1300 REPORT STATUS: Signed PROCEDURE: CT scan of the chest WITH intravenous contrast, using standard protocol. TECHNIQUE: The chest was scanned utilizing a multidetector helical scanner from the lung apex through the level of the a drenal glands after the IV administration of 100 cc of Isovue 370. Coronal a nd sagittal multiplanar reformations were obtained. COMPARISON: Patient s [facility], CT, CT CHEST W, 04/08/2015, 16:56. INDICATIONS: COPD, sh ort of breath , FINDINGS: Lines/tubes: None. Lungs and Airway s: Stable moderate bilateral centrilobular emphysematous changes, predominant ly in the upper lobes, with mild interlobular septal thickening. 2 mm calci fied granuloma in the right upper lobe (series 3, image 30). No pulmonary nodu les, masses, or consolidation. Scarring the lingula and right middle lobe faina cent to the major fissures (series 3, image 72 and 87). Linear opacities se en in the posterior lower lobes, likely represent subsegmental atelectasis or scarring. Mild bilateral upper and lower lobes central bronchial wall thicken ing. Layering density in the proximal left main bronchus (series 3, image 4 8), likely represents mucus. Airways are otherwise clear, without endobronchia l lesions. Pleura: No effusion, or pneumothorax. Heart and mediastinum: The thyroid is not visualized. Indeterminate rounded metallic density between the trachea and esophagus (series 2, image 20, and sagittal image 65). Heart size is normal. No pericardial effusion. Aorta is non-aneurysmal. Main pulmonary artery is normal in caliber. Lymph nodes: Borderline enlarged right lower paratracheal lymph node, which measures 1.0 cm in short axis (series 2, image 50). Borderline enlarged AP window lymph node, which measures 1.0 cm in short axis (series 2, image 45). Abdomen: Limited contrast-enhanced v iews of the upper abdomen show no abnormality within the visualized liver, sp chiara, pancreas, or left kidney. Right renal cortical scarring and thinning. A drenal glands are unremarkable. Mild prominence of the central intrahepatic b ile ducts, and mild dilation of the CBD, which measures approximately 8 mm At the cherie hepatis. No radiopaque intraluminal filling defects. Visualized portions of the gallbladder are unremarkable. Bones: No aggressive lytic lesion. Generalized osteopenia. S-shaped curvature of the thoracolumbar spine . Old compression deformity of likely T9 vertebral body. IMPRESSION: 1. stable moderate bilateral centrilobular emphysematous changes, promi nent in the upper lobes. 2. No nodules, masses, or consolidation. 3. See eren gular and right middle lobe scarring adjacent to the major fissures. Linear s ubsegmental atelectasis versus scarring in bilateral posterior lower lobes. 4. Mild bilateral upper and lower lobes central bronchial wall thickening, which may reflect sequela of chronic bronchitis. 5. Borderline enlarged medias tinal nodes, which are likely reactive. 6. Indeterminate metallic density betw een the trachea and esophagus. Correlate with surgical history. Tomy Raygoza M.D. Dictated by: Tomy Raygoza M.D. on 2017 at 15:45 Electronically approved by: Tomy Raygoza M.D. on 10/2017 at 15:45 Dictated By: TOMY RAYGOZA MD 0620 Transcribed By: RESHMA on 09/13/17 1543 COPY TO: SANA KAY MD Blood [id number] 08:57:00* Test Item Value Reference Range Interpretation Comments Blood Culture (test code = 600-7) Organism: BACILLUS SP NOT B. [facility] [id number] 05:43:00* Test Item Value Reference Range Interpretation Comments Creatine Kinase (test code = 2157-6) 22 29-168 [facility] CenterCreatine Kinase [id number] 05:43:00* Test Item Value Reference Range Interpretation Comments Creatine Kinase MB (test code = 85247-8) 0.60 0-5.0 [facility] CenterTroponin [id number] 05:43:00* Test Item Value Reference Range Interpretation Comments Troponin I (test code = TPE4328) < 0.001 0-0.300 [facility] CenterCHEST SINGLE (PORTABLE)2017-09-12 10:44:00 [place] [address] Patient Name: JENN JERNIGAN MR #: [id number] : 1950 Age/Sex: 67/F Req #: [id number] Adm Physician: Ordered by: RONALDO CROFT MD Report #: [id number] Location: ER Room/Bed: Procedure: [id number] DX/CHEST SINGLE (PORTABLE) Ex am Date: 09/12/17 Exam Time: 929 REPORT STATUS : Signed PROCEDURE: A single AP view of the chest. COMPARISON: None. INDICATIONS: HYPOXIA FINDINGS: Lines/tubes: Overlying EKG l lorena. Lungs: Emphysematous changes of the lungs. Mild patchy bibasilar opacities. No lobar consolidation or evidence of pulmonary edema. Pleura: There is no pleural effusion or pneumothorax. Heart and mediastinum: The cardiomediastinal silhouette is unchanged. Bones: No acute bony abnorm ality. IMPRESSION: Emphysematous changes of the lungs with mild pat elvis bibasilar opacities, likely atelectasis. No evidence of lobar pneumonia o r pulmonary edema. Dictated by: WHITNEY CORONEL M.D. on 09/12/2017 at 10:4 4 Electronically approved by: WHITNEY CORONEL M.D. on 09/12/2017 at 10:44 Dictated By: WHITNEY CORONEL MD 43 Transcribed By: RESHMA on 09/12/174 COPY TO: RONALDO CROFT MD Urine [id number] 10:03:00* Test Item Value Reference Range Interpretation Comments Urine Culture (test code = 630-4) Organism: ENTEROCOCCUS FAECALIS-[facility]LVIS [id number] 20:49:00 [place] [address] Patient Name: JENN JERNIGAN MR #: [id number] : Age/Sex: 67/F Req #: [id number] Adm Physician: Ordered by: AMELIA SOLER MD Report #: [id number] Location: ER Room/Bed: Procedure: CT/CT ABDOMEN/PELVIS WO Exam Edson e: Exam Time: REPORT STATUS: Signed CT Abd omen And Pelvis Without IV Contrast INDICATION: Upper abdominal pain T ECHNIQUE: 5 mm collimation axial images obtained from the diaphragm to the lev el of the pubic symphysis without nonionic intravenous contrast. Oral contra st was administered. RADIATION DOSE: Total DLP: 186.8 mGy*cm Estimated effective dose: (DLP x 0.015 x size factor) mSv CTDIvol has been reviewed. It is below the limits set by the Radiation Protocol Committee (RPC). COMPARISON: CT abdomen/pelvis 05/30/2016. ABDOMEN FINDINGS: Lung Bases: Diffuse hyperinflation. Patchy airspace opacities in the lingula, right middle lobe, and left lower lobe with mild bronchial wall thickening. There is bronchiectasis of the lingula suggestive of chronic atelectasis. Small fat-containing right Bochdalek hernia is stable. There is a moderate sized h iatal hernia. Liver: Normal in attenuation without mass. Gallbladder: Present and appears normal. No ductal dilatation. Pancreas: Atrophic. No d uctal dilatation or discrete mass. Spleen: Normal in attenuation and size w ithout mass. Adrenal Glands: No evidence for mass. Kidneys: Right Kidney: Atrophic. No hydronephrosis. No mass. Left Kidney: No renal willy culus. No cortical mass or hydronephrosis. Lymph Nodes: No enlarged abdomi nal or perirectal lymph nodes. Aorta: Ectatic with diffuse calcifications. PELVIS FINDINGS: Bowel: Small Bowel: The stomach is collapsed. Small bowel contains enteric contrast without dilatation or focal mural thickening. Large Bowel: Moderate to large amount of stool in the colon. No diverticula are appreciated. No pericolonic inflammation. The rectum is low-lying. Appendix: Not visualized and may be absent or collapsed. Bladder: Well distended and is normal. No ureteral dilatation. Lymph Nodes: No enlarged mesenteric or pelvic lymph nodes.. The uterus is absent. No adnexal mass. No free fluid or fluid collection. Bones: T9 compression deformity or possibly 70%. Compression deformity of T12 is stable. Superior endplate compression deformi ty of L2 is new. Inferior endplate compression deformity of L3 is new. Stable levoscoliosis. Severe degenerative changes of the left hip are stable. Mild de generative changes of the right hip are stable. A bone island in the right inf erior pubic ramus is stable. IMPRESSION: 1. Bibasilar airspace opac ities and mild bronchial wall thickening may be the result of an acute infecti ous/inflammatory process. Chronic atelectasis of the lingula. Moderate sized h iatal hernia. Reflux and aspiration should be considered. 2. Moderate to large amount of stool without bowel obstruction. Low-lying rectum is stable s uggestive of pelvic floor laxity. Rectal prolapse cannot be excluded. 3. New compression deformities of L2 on L3. Stable compression deformity of T12. Age-indeterminate compression fracture of T9. Signed by: Dr. Pepito yi MD on 08/07/2017 8:58 PM Dictated By: PEPITO urrutia Signed By: PEPITO ORTIZ MD on 08/07/172057 Transcribed By: DARSHAN on 08/07/172057 COPY TO: AMELIA SOLER MD Urine Test 2017-08-07 18:42:00* Test Item Value Reference Range Interpretation Comments Urine Test (test code = 2106-3) NEGATIVE NEGATIVE [facility] & B 2017-07-30 08:54:00* Test Item Value Reference Range Interpretation Comments Clostridium Difficile Toxin A & B (test code = 441492184) NEGATIVE NEGATIVE Testing on stool aspirate specimens is outside distribution engineering technologist claims since specime n type not validated on this assay.[facility] ABDOMEN-1VIEW (KUB)2017-07-27 14:53:00 [place] [address] Patient Name: JENN JERNIGAN MR #: [id number] : 1950 Age/Sex: 67/F Req #: [id number] [facility] Physician: BRUNA SANCHEZ MD Ordered by: BRUNA SANCHEZ MD Report #: [id number] Location: [facility] Room/Bed: [facility] Procedure: [id number] DX/A BDOMEN-1VIEW (KUB) Exam Date: 07/27/17 Exam Time: 10 30 REPORT STATUS: Signed PROCEDURE: X-RAY ABDOMEN - KUB COMPARI SON: None. INDICATIONS: COUGH. NAUSEA/VOMITING FINDINGS: No nobstructive bowel gas pattern. No air-filled, dilated loops of bowel. Mild t o moderate retained stool in the descending, sigmoid colon and rectum. No a bnormal calcifications project over the genitourinary tract. Mild right and mo derate left hip degenerative changes. S-shaped scoliosis of the thoracolumbar spine. 7-8mm focal sclerotic lesion in the right inferior pubic ramus has a nonaggressive appearance and likely represents a bone island. CONCLUSION: Nonobstructive bowel gas pattern. Mild to moderate amount of retained stool in the descending/sigmoid colon and rectum. Tomy Raygoza M.D. Dictated by: Tomy Raygoza M.D. on 07/27/2017 at 14:53 Electron ically approved by: Tomy Raygoza M.D. on 07/27/2017 at 14:53 Dictated By: TOMY RAYGOZA MD 1453 Transcribed By: RESHMA on 07/27/17 1453 COPY TO: Libertad SANCHEZ MD CHEST SINGLE (PORTABLE)2017-07-27 02:19:00 [place] [address] Patient Name: JENN JERNIGAN MR #: [id number] : 1950 Age/Sex: 67/F Req #: [id number] Adm Physician: BRUNA HERNADEZ MD Ordered by: KATHE JUSTICE MD Report #: [id number] Locati on: [facility] Room/Bed: [facility] 180-1 Procedure: [id number] DX /CHEST SINGLE (PORTABLE) Exam Date: 07/27/17 Exam Ti me: 0210 REPORT STATUS: Signed CHEST SINGLE (PORTABLE), 07/27/2017 1:59 AM Technique: CHEST SINGLE (PORTABLE) Comparison: 07/26/2017 Clinical hi story: Placement of PICC line Findings: See Impression Impression: 1. Lines/Tubes: Left PICC line placement with tip near the expected cavoatrial junction 2. Stable cardiomediastinal silhouette with prominent central pulmo nary arteries. 3. Emphysema with mild left basilar atelectasis/scarring. No pneumothorax. Signed by: Dr Arnold Sawyer MD on 07/27/2017 2:34 AM D ictated By: ARNOLD SAWYER MD 3 Transcribed By: DARSHAN on 07/27/17233 COPY TO: Edwige JUSTICE MD B-Type Natriuretic [id number] 18:59:00* Test Item Value Reference Range Interpretation Comments B-Type Natriuretic Peptide (test code = 12966-4) 57.3 0-100 [facility] [id number] 17:39:00 [facility] [address] [place] [address] Patient Name: JENN JERNIGAN MR #: [id number] : Age/Sex: 67/F Req #: [id number] Adm Physician: Ordered by: KATHE JUSTIEC MD Report #: [id number] Location: ER Room/Bed: Procedure: [id number] DX/CHEST 2 VIEWS Exam Date: 0 07/26/17 Exam Time: 1700 REPORT STATUS: Signed PROCEDURE: Frontal and lateral views of the chest. COMPARISON: [facility], DX, CHEST 2 VIEWS, 09/12/2016, 16:03[facility] CT ABDOMEN/PELVIS W, 05/30/2016, 20:28. Patients [facility], DX, CHEST 2 VIEWS, 12/31/2016, 12:03. INDICATIONS: COUGH, WITH SHORTNESS OF BREATH FOR 3 DAYS FINDINGS: Lines/tubes: None. Lungs: The claudia ngs are well inflated and grossly clear. Stable mild prominence of the inters titial markings, likely reflecting chronic interstitial changes. There is no evidence of consolidation or pulmonary edema. Pleura: There is no pleu ral effusion or pneumothorax. Heart and mediastinum: Cardiac silhouette is unremarkable. Pulmonary vasculature is normal. vasculature is normal. Bones: No acute bony abnormality. Marked osteopenia. Stable lower thoracic compression fractures. Stable rightward curvature of the thoracic spine. IMPRESSION: 1. No acute cardiopulmonary abnormalities. Tomy Raygoza M.D. Dictated by: Tomy Raygoza M.D. on 07/26/2017 at 17:39 Electronically approved by: Tomy Raygoza M.D. on 07/26/2017 at 17:39 Dictated By: TOMY RAYGOZA MD 38 Transcribed By: RESHMA on 07/26/171738 COPY TO: KATHE JUSTICE MD ABDOMEN COMPLETE [facility] [address] [place] [address] Patient Name: JENN JERNIGAN MR #: [id number] : 1950 Age/Sex: 66/F Req #: [id number] Adm Physician: ARYA GREENBERG MD Ordered by: Luis Fernando Collins [employer]GE G[employer] WORKER Report #: [id number] Location: MED/SURG3 Room/Bed: 291-1 Procedure: [id number] US/ US ABDOMEN COMPLETE Exam Date: 01/06/17 Exam Time: 1 230 REPORT STATUS: Signed EXAM: Complete Abdominal Ultrasound INDICAT ION: COMPARISON: KUB from 06/01/[address] abdomen and pelvis from 05/30/2016 TECHNIQUE: Transverse and longitudinal images of the upper abdomen were obtained. FINDINGS: Liver: Size: 15.9 cm in the right midc lavicular line, normal Appearance: Normal echogenicity, smooth contour Mass: No focal masses Spleen: Size: 11.6 cm in length, normal Echogenicit y: Normal Mass: No focal masses Gallbladder: Stones/Sludge: Large calci fied stone measuring up to 1.1 cm Wall: 0.2 cm Appearance: No wall thickenin g, pericholecystic fluid or hydrops. Sonographic Yun's Sign: Negative Bile Ducts: Intrahepatic Ducts: No dilatation Extrahepatic Ducts: Common b ile duct measures 0.6 cm, no dilatation Pancreas: Visualized portions of the pancreatic head, neck and proximal body are normal. Kidneys: Length: Right 7.6 cm, likely under estimated due to technique since this was normal on 05/30/2016 Left 9.4 cm Echogenicity: Normal Collecting System: No hydronephrosis Stone: None Cyst/Mass: None Vessels: Aort a: Visualized portions are normal Inferior Vena Cava: Visualized portions are normal Main Portal Vein: 0.8 cm, normal size with hepatopetal flow. Free Fluid: No ascites or pleural effusion IMPRESSION: Cholelithiasis. This was not seen on 05/30/2016. Mildly dilated common bile duct (0.6 cm) without visualized echogenic stone. Signed by: Dr. Haylie Yeh M.D. on 01/06/2017 1:36 PM Dictated By: HAYLIE YEH MD Electr onically Signed By: HAYLIE YEH MD on 01/06/17 1336 Transcribed By: DARSHAN on 01/06/17 1336 COPY TO: LUIS FERNANDO COLLINS NP MODIFIED BA. [place] [address] Patient Name: JENN JERNIGAN MR #: [id number] : 1950 Age/Sex: 66/F Req #: [id number] [facility] Physician: ARYA GREENBERG MD Ordered by: Luis Fernando Collins NP Report #: [id number] Location: MED/SURG3 Room/Bed: [facility] Procedure: [id number] DX/ MODIFIED BA. SWALLOW Exam Date: 01/02/17 Exam Time: 1130 REPORT STATUS: Signed PROCEDURE: X-RAY MODIFIED BARIUM SWALLOW COMPARISON: None. INDICATIONS: Dysphagia DISCUSSION: Fluo roscopic examination was performed in conjunction with speech pathology, duri ng swallowing of a variety of thin and thick liquid consistencies. Examinat ion shows minimal vallecular, piriform sinus, and base of tongue residue foll owing swallows of all consistencies. Small area of narrowing noted near the cr icopharyngeus muscle, but passage of food and liquid was noted from the phary nx into the esophagus. CONCLUSION: Status post laryngectomy. Func tional swallow. Please see the report from speech pathology for complete deta ils. Tomy Raygoza M.D. Dictated by: Tomy Raygoza M.D. on 01/02/2017 at 15:06 Electronically approved by: Tomy velazquez M.D. on 01/02/2017 at 15:06 Dictated By: TOMY RAYGOZA MD 1503 Transcribed By: Hany LAUREN on 01/02/17 1506 COPY TO: LUIS FERNANDO COLLINS NP [place] [address] Patient Name: JENN JERNIGAN MR #: [id number] : 1950 Age/Sex: 66/F Req #: [id number] Adm Physician: ARYA GREENBERG MD Ordered by: Luis Fernando Collins NP Report #: [id number] Location: MED/SURG3 Room/Bed: [facility] [place] [place] Procedure: [id number] US/ US ABDOMEN COMPLETE Exam Date: 01/01/17 Exam Time: 1 539 REPORT STATUS: Signed PROCEDURE: ABDOMINAL ULTRASOUND COMPARISO N: None. INDICATION: Abdominal Pain TECHNIQUE: Grayscale and color Do ppler ultrasound kidneys FINDINGS: Abdominal aortic atheroscleros is with normal proximal segment diameter. The distal segment is obscured by b owel gas. Imaged portions of the inferior vena cava are normal. Normal pancreatic head. The body and tail are obscured by bowel gas. Right liver span 14 cm. Normal echogenicity with a smooth liver contour. Portal vein diam eter 9 mm; normal flow direction. Normal gallbladder. Thickness 2 mm. Comm on bile duct diameter 7 mm. Right kidney: 7.6 x 2.7 x 3.1 cm. Increased pa renchymal echogenicity with cortical thinning. Left kidney: 9.6 x 3.9 x 4.1 cm. Minimally increased echogenicity. Spleen length is 12 cm. No ascites. CONCLUSION: 1. Both kidneys demonstrate mildly increased echogen icity consistent with chronic medical renal disease (right greater than left) . 2. Otherwise, unremarkable abdominal ultrasound. Dictated by: Clover Stratton M.D. on 01/01/2017 at 16:34 Electronically appro carolyne by: Clover Stratton M.D. on 01/01/2017 at 16:34 Dicta todd By: CLOVER STRATTON MD 1634 COPY TO: DENNIS,LUIS FERNANDO M [employer]GE [employer] WORKER CHEST 2 VIEWS [facility] [address] [place] [address] Patient Name: JENN JERNIGAN MR #: [id number] : 1950 Age/Sex: 66/F Req #: [id number] Adm Physician: Ordered by: KATHE JUSTICE MD Report #: [id number] Location: ER Room/Bed: Procedure: [id number] DX/CHEST 2 VIEWS Exam Date: 03/02/16 Exam Time: 1203 REPORT STATUS: Signed EXAMINATION: PA and lateral views of the chest. COMPARISON: None CLINICAL HISTORY: Cough, shortness of breath DISCUSSION: Lines/t ubes: None. Lungs: The lungs are well inflated and clear. There is no martha dence of pneumonia or pulmonary edema. Pleura: There is no pleural effus ion or pneumothorax. Heart and mediastinum: The cardiomediastinal silhouet te is normal. Bones and soft tissues: No acute bony abnormalities. Rightw rose thoracic curvature. IMPRESSION: No acute cardiopulmonary abnormali ties. Signed by: Dr. Bernarda Chino M.D. on 12/31/2016 12:32 P M Dictated By: BERNARDA CHINO MD 1232 Transcribed By: DRASHAN on 12/31/16 1232 COPY T O: KATHE JUSTICE MD CHEST 2 VIEWS [place] [address] Patient Name: JENN JERNIGAN MR #: [id number] : 1950 Age/Sex: 66/F Req #: [id number] Adm Physician: Ordered by: YANDEL MEDEROS MD Report #: [id number] Location: ER Room/Bed: Procedure: [id number] DX/CHEST 2 VIEWS Exam Date: 09/21 Exam Time: 2203 REPORT STATUS: Signed EXAMINATION: CHEST 2 VIEWS INDICATION: Cough COMPARISO N: 04/12/2015 FINDINGS: TUBES and LINES: Interval removal of tracheo stomy tube and right upper extremity PICC line LUNGS: Lungs are hyper in flated. There are bibasilar atelectasis. There is no evidence of pneumonia or pulmonary edema. PLEURA: No pleural effusion or pneumothorax. HEAR T AND MEDIASTINUM: The cardiomediastinal silhouette is unremarkable. B ONES AND SOFT TISSUES: No acute osseous lesion. Persistent dextroscoliosis of the thoracic spine Soft tissues are unremarkable. UPPER ABDOMEN: No free a ir under the diaphragm. IMPRESSION: No acute thoracic abnormality. Minimal bibasilar atelectasis. Signed by: Dr. Angel Hammonds M.D. on 10/13/2016 11:11 PM Dictated By: ANGEL KONG MD 2311 Transcribed By: DARSHAN on 10/13/16 2311 COPY TO: YANDEL MEDEROS MD
--- NOTE | 2019-06-24 13:11 | Diagnostic Imaging Report ---
EXAMINATION: Head CT HISTORY: Right-sided headache and ear pain for the last month COMPARISON: None available TECHNIQUE: Helical axial images of the head were obtained. Reformatted coronal and sagittal images from the axial data. Dose modulation, iterative reconstruction, and/or weight based adjustment of the mA/kV was utilized to reduce the radiation dose to as low as reasonably achievable. Image quality: Motion/streaking artifact limits the evaluation of the skull base and posterior cranial fossa. FINDINGS: Parenchyma: 1. Scattered and moderate confluent periventricular, vieyra radiata and centrum semiovale white matter hypodensities, most likely related to nonspecific chronic microvascular ischemic changes. 2. No mass or hemorrhage. No CT evidence of acute territorial vascular insult. Extra-axial spaces:No abnormal density. No extra-axial fluid collections Brain volume: Normal for age. Ventricles: No hydrocephalus or displacement. Arteries: No density suggestive of thrombus. Dural sinuses: No abnormal density. Foramen magnum: No mass, Chiari malformation, or basilar invagination. Sella: No obvious mass. Paranasal/mastoid sinuses: Status post right mastoidectomy, grossly clear surgical site. Hypo pneumatization and sclerosis of the remaining cells, likely the sequela from remote chronic inflammatory process. Otherwise clear paranasal sinuses and left mastoid are cells. Skull/Scalp: No lytic or blastic lesions. No fractures. IMPRESSION: 1. No acute intracranial abnormalities. 2. Moderate chronic microvascular ischemic changes. 3. Status post right mastoidectomy, clear surgical site. Signed by: Dr. Gabby Giron M.D. on 06/24/2019 1:08 PM
--- NOTE | 2019-06-24 13:21 | Emergency Department Note ---
History of Present Illnes History of Present Illness Chief Complaint: Neurological History of Present Illness This is a 69 year old female COMPLAINTS OF HEADACHE AND EAR PAIN X 4 WEEKS; DENIES VISUAL DISTURBANCES. PATIENT STATES SHE IS DIZZY ALSO; RATES PAIN 10/10. Historian: Patient, Family Member Arrival Mode: Car Loss Control Technician Required: No Onset (how long ago): week(s) (4) Location: RIGHT SIDE Quality: PAIN Radiation: non-radiation Severity: severe Onset quality: gradual Duration (how long): week(s) (4 WEEKS) Timing of current episode: intermittent Progression: unchanged Chronicity: recurrent Context: recent illness Relieving factors: none Exacerbating factors: none Associated symptoms: other (MILD DIZZINESS) Treatments prior to arrival: none Past Medical/Family History Physician Review I have reviewed the patient's past medical and family history. Any updates have been documented here. Past Medical History Recent Fever: No Clinical Suspicion of Infectio: No New/Unexplained Change in Ment: No Past Medical History: COPD, Hypothyroidism, Cancer (THROAT), Anxiety, Depression, GERD Other Medical History: RESPIRATORY FAILURE TRACH Past Surgical History: Hysterectomy Other Surgery: trach surgery, PEG tube placement/removal Social History Smoking Cessation: Former smoker Counseling Performed: No Alcohol Use: None Any Illegal Drug Use: No TB Exposure/Symptoms: No Physically hurt or threatened: No Family History Family history of heart diseas: No Other Last Tetanus: UNKNOWN Any Pre-Existing Lines (PICC,: No Review of Systems Review of Systems Constitutional: as per HPI EENTM: ear pain (RIGHT, BUT SAYS IT IS REALLY HER HEAD HURTING ON RIGHT SIDE) Cardiovascular: no symptoms Respiratory: no symptoms Gastrointestinal: no symptoms Genitourinary: no symptoms Musculoskeletal: no symptoms Neurological: as per HPI, headache Psychological: no symptoms Endocrine: no symptoms Hematological/Lymphatic: no symptoms Review of other systems All other systems reviewed and negative. Physical Exam Related Data Allergies: Coded Allergies: tramadol (Verified Allergy, Unknown, 01/31/18) states "makes me throw up" Triage Vital Signs Vital Signs Date Time Temp Pulse Resp B/P (MAP) Pulse Ox O2 Delivery O2 Flow Rate FiO2 06/24/19 12:32 97.8 82 16 169/70 99 Physical Exam CONSTITUTIONAL Constitutional: ill appearing HENT HENT: normocephalic, atraumatic, oropharynx clear/moist, nose normal, other (MILD TENDERNESS OVER RIGHT TEMPORAL SCALP) HENT L/R: left TM normal, right TM normal, left canal normal, right canal normal, left ext ear normal, right ext ear normal (NO TENDERNESS WITH MOVEMENT OF PINNA) EYES Eyes: PERRL, conjunctivae normal NECK Neck: ROM normal, other (TRACHEOSTOMY STOMA) PULMONARY Pulmonary: effort normal, other (MILD DIFFUSE EXP WHEEZING, INCREASED A-P DIAMETER C/W COPD); respiratory distress CARDIOVASCULAR Cardiovascular: regular rhythm, heart sounds normal, capillary refill normal, normal rate GASTROINTESTINAL Abdominal: soft, nontender, bowel sounds normal GENITOURINARY Genitourinary: exam deferred SKIN Skin: warm, dry MUSCULOSKELETAL Musculoskeletal: ROM normal NEUROLOGICAL Neurological: alert, oriented x 3, no gross motor or sensory deficits PSYCHOLOGICAL Psychological: mood/affect normal, judgement normal Results Laboratory Lab results reviewed: Yes Laboratory comments Laboratory Tests Test 06/24/19 14:10 White Blood Count 2.91 x10e3/uL (4.8-10.8) Red Blood Count 3.79 x10e6/uL (3.6-5.1) Hemoglobin 12.5 g/dL (12.0-16.0) Hematocrit 38.8 % (34.2-44.1) Mean Corpuscular Volume 102.4 fL (81-99) Mean Corpuscular Hemoglobin 33.0 pg (28-32) Mean Corpuscular Hemoglobin Concent 32.2 g/dL (31-35) Red Cell Distribution Width 14.2 % (11.7-14.4) Platelet Count 175 x10e3/uL (140-360) Neutrophils (%) (Auto) 57.8 % (38.7-80.0) Lymphocytes (%) (Auto) 32.3 % (18.0-39.1) Monocytes (%) (Auto) 6.2 % (4.4-11.3) Eosinophils (%) (Auto) 1.7 % (0.0-6.0) Basophils (%) (Auto) 1.7 % (0.0-1.0) Neutrophils # (Auto) 1.7 (2.1-6.9) Lymphocytes # (Auto) 0.9 (1.0-3.2) Monocytes # (Auto) 0.2 (0.2-0.8) Eosinophils # (Auto) 0.1 (0.0-0.4) Basophils # (Auto) 0.1 (0.0-0.1) Absolute Immature Granulocyte (auto 0.01 x10e3/uL (0-0.1) Erythrocyte Sedimentation Rate 8 mm/hr (0-20) Prothrombin Time 11.5 seconds (11.9-14.5) Prothromb Time International Ratio 0.80 Activated Partial Thromboplast Time 26.2 seconds (23.8-35.5) Sodium Level 141 mmol/L (136-145) Potassium Level 4.1 mmol/L (3.5-5.1) Chloride Level 105 mmol/L (98-107) Carbon Dioxide Level 26 mmol/L (22-29) Anion Gap 14.1 mmol/L (8-16) Blood Urea Nitrogen 7 mg/dL (7-26) Creatinine 0.83 mg/dL (0.57-1.11) Estimat Glomerular Filtration Rate > 60 ML/MIN (60-) BUN/Creatinine Ratio 8 (6-25) Glucose Level 95 mg/dL (74-118) Calcium Level 9.6 mg/dL (8.4-10.2) Magnesium Level 2.1 MG/DL (1.3-2.1) Total Bilirubin 0.5 mg/dL (0.2-1.2) Aspartate Amino Transf (AST/SGOT) 22 IU/L (5-34) Alanine Aminotransferase (ALT/SGPT) 10 IU/L (0-55) Alkaline Phosphatase 95 IU/L (40-150) Creatine Kinase 81 IU/L (29-168) Creatine Kinase MB 1.50 ng/mL (0-5.0) Troponin I 0.005 ng/mL (0-0.300) Total Protein 7.8 g/dL (6.5-8.1) Albumin 4.4 g/dL (3.5-5.0) Globulin 3.4 g/dL (2.3-3.5) Albumin/Globulin Ratio 1.3 (0.8-2.0) Imaging Imaging results reviewed: Yes Impressions EXAMINATION: Head CT HISTORY: Right-sided headache and ear pain for the last month COMPARISON: None available TECHNIQUE: Helical axial images of the head were obtained. Reformatted coronal and sagittal images from the axial data. Dose modulation, iterative reconstruction, and/or weight based adjustment of the mA/kV was utilized to reduce the radiation dose to as low as reasonably achievable. Image quality: Motion/streaking artifact limits the evaluation of the skull base and posterior cranial fossa. FINDINGS: Parenchyma: 1. Scattered and moderate confluent periventricular, vieyra radiata and centrum semiovale white matter hypodensities, most likely related to nonspecific chronic microvascular ischemic changes. 2. No mass or hemorrhage. No CT evidence of acute territorial vascular insult. Extra-axial spaces:No abnormal density. No extra-axial fluid collections Brain volume: Normal for age. Ventricles: No hydrocephalus or displacement. Arteries: No density suggestive of thrombus. Dural sinuses: No abnormal density. Foramen magnum: No mass, Chiari malformation, or basilar invagination. Sella: No obvious mass. Paranasal/mastoid sinuses: Status post right mastoidectomy, grossly clear surgical site. Hypo pneumatization and sclerosis of the remaining cells, likely the sequela from remote chronic inflammatory process. Otherwise clear paranasal sinuses and left mastoid are cells. Skull/Scalp: No lytic or blastic lesions. No fractures. IMPRESSION: 1. No acute intracranial abnormalities. 2. Moderate chronic microvascular ischemic changes. 3. Status post right mastoidectomy, clear surgical site. Signed by: Dr. Gabby Giron M.D. on 06/24/2019 1:08 PM Diagnostics Tests Diagnostic test(s) reviewed: Yes Procedures 12 Lead ECG Interpretation Loss Control Technician: Interpreted by ED physician Date: June 24, 2019 Time: 13:09 Prior MEDICAL UNIT SECRETARY tracings: reviewed Rhythm: sinus rhythm Rate: normal QRS axis: normal ST segments normal: Yes T waves normal: Yes Clinical Impression: normal ECG Critical Care Time Subsequent provider I assumed direction of critical care for this patient from another provider of my specialty. Assessment & Plan Reassessment Reassessment HEADACHES INTERMITTENT X 1 MONTH, CALLED PCP FOR APPT AND TOLD TO GO TO ER, NORMAL NEURO EXAM - CHECK CBC, CHEM'S, COAG'S, ESR, CT BRAIN - R/O CEREBRAL BLEED, TEMPORAL ARTERITIS, ELECTROLYTE ABNL Assessment & Plan Final Impression: (1) Headache Assessment & Plan DC HOME Depart Disposition: HOME, SELF-CARE Last Vital Signs Date Time Temp Pulse Resp B/P (MAP) Pulse Ox O2 Delivery O2 Flow Rate FiO2 06/24/19 12:32 97.8 82 16 169/70 99 Home Meds Active Scripts Guaifenesin (MUCINEX) 600 Mg Tablet.er, 1 TAB PEG Q6H, #30 Prov:LUIS FERNANDO COLLINS PURCHASING ASSISTANT 01/07/17 Levothyroxine Sodium (SYNTHROID) 75 Mcg Tab, 75 MCG PO DAILY@06 for 14 Days, TAB Prov:THIAGO,HUGH Steph PURCHASING ASSISTANT 04/14/16 Levalbuterol Hcl (XOPENEX) 1.25 Mg/3 Ml Vial.neb, 1.25 MG INH RQ2H PRN for SHORTNESS OF BREATH for 14 Days Prov:ROSAMARIA DAS PURCHASING ASSISTANT 04/14/16 Acetaminophen (ACETAMINOPHEN) 325 Mg Tablet, 325 MG PO Q4H PRN for PAIN AND TEMPERATURE for 14 Days Prov:ROSAMARIA DAS PURCHASING ASSISTANT 04/14/16 [Albuterol/Ipratropium Nebulize] 3 ML INHA No Conflict Check, 3 ML NEB RQ6H for 14 Days Prov:ROSAMARIA DAS PURCHASING ASSISTANT 04/14/16 Reported Medications Lorazepam (LORAZEPAM) 1 Mg Tablet, 2 MG PO TID PRN for ANXIETY, TAB 07/27/17 Trazodone Hcl (TRAZODONE HCL) 50 Mg Tablet, 50 MG PO HS, #30 TAB 01/02/17 Ondansetron Hcl (ONDANSETRON HCL) 2 Mg/1 Ml Vial, 4 MG PO Q8H PRN for NAUSEA, VIAL 01/02/17 Hydrocodone Bit/Acetaminophen (NORCO 10-325 TABLET) 1 Each Tablet, 1 TAB PO Q6H 10/15/15 Medications in the ED Sodium Chloride 500 ml @ 0 mls/hr Q0M ONCE IV ; Start 06/24/19 at 12:45; Stop 06/24/19 at 12:46 Ketorolac Tromethamine 30 mg ONCE STAT IV ; Start 06/24/19 at 12:41; Stop 06/24/19 at 12:42; Status UNV Metoclopramide HCl 5 mg ONCE ONCE IV ; Start 06/24/19 at 12:45; Stop 06/24/19 at 12:46; Status UNV Diphenhydramine HCl 12.5 mg NOW ONCE IV ; Start 06/24/19 at 12:45; Stop 06/24/19 at 12:46; Status UNV YANDEL MEDEROS MD June 24, 2019 13:20
[2019-06-24 14:25] LABS: BASOPHILS # (AUTO) 0.1 (0.0-0.1); BASOPHILS % 1.7 % (0.0-1.0); EOSINOPHILS # (AUTO) 0.1 (0.0-0.4); EOSINOPHILS % 1.7 % (0.0-6.0); HEMATOCRIT 38.8 % (34.2-44.1); HEMOGLOBIN 12.5 g/dL (12.0-16.0); LYMPHOCYTES # (AUTO) 0.9 (1.0-3.2); LYMPHOCYTES % 32.3 % (18.0-39.1); MEAN CORPUSCULAR HGB CONC 32.2 g/dL (31-35); MEAN CORPUSCULAR VOLUME 102.4 fL (81-99); MONOCYTES # (AUTO) 0.2 (0.2-0.8); MONOCYTES % 6.2 % (4.4-11.3); NEUTROPHILS # (AUTO) 1.7 (2.1-6.9); NEUTROPHILS % 57.8 % (38.7-80.0); PLATELET COUNT 175 x10e3/uL (140-360); RED BLOOD COUNT 3.79 x10e6/uL (3.6-5.1); RED CELL DISTRIBUTION WIDTH 14.2 % (11.7-14.4)
[2019-06-24 14:43] LABS: ALANINE AMINOTRANSFERASE 10 IU/L (0-55); ALBUMIN 4.4 g/dL (3.5-5.0); ALBUMIN/GLOBULIN RATIO 1.3 (0.8-2.0); ALKALINE PHOSPHATASE 95 IU/L (40-150); ANION GAP 14.1 mmol/L (8-16); BLOOD UREA NITROGEN 7 mg/dL (7-26); BUN/CREATININE RATIO 8 (6-25); CALCIUM 9.6 mg/dL (8.4-10.2); CARBON DIOXIDE 26 mmol/L (22-29); CHLORIDE 105 mmol/L (98-107); CREATINE KINASE 81 IU/L (29-168); CREATININE, SERUM 0.83 mg/dL (0.57-1.11); EST GLOMERULAR FILTRATION RATE > 60 ML/MIN (60-); GLUCOSE 95 mg/dL (74-118); MAGNESIUM 2.1 MG/DL (1.3-2.1); POTASSIUM 4.1 mmol/L (3.5-5.1); SODIUM 141 mmol/L (136-145)
[2019-06-24 14:48] LABS: INR 0.8; PROTHROMBIN TIME 11.5 seconds (11.9-14.5)
[2019-06-24 14:49] LABS: PARTIAL THROMBOPLASTIN TIME 26.2 seconds (23.8-35.5)
[2019-06-24 14:59] LABS: ERYTHROCYTE SEDIMENTATION RATE 8 mm/hr (0-20)
== END | disposition home or self-care (01) ==
LOC: ER 12:24
DX: H92.01 Otalgia, right ear (principal); R51 Headache; J44.9 Chronic obstructive pulmonary disease, unspecified; F41.9 Anxiety disorder, unspecified; E03.9 Hypothyroidism, unspecified; Z85.818 Personal history of malignant neoplasm of other sites of lip, oral cavity, and pharynx
CPT/HCPCS: 36415; 70450; 80053; 82550; 82553; 83735; 84484; 85025; 85610; 85651; 85730; 93005; 99284; J1200; J1885; J2765; J7040

== ENCOUNTER 2019-07-26 15:03 | Emergency (ER) | payer OTHER ==
[~2019-07-26] VITALS: Ht 152.4 cm; Wt 75.7 kg
[~2019-07-26 15:03] MED LIST changes: -DIPHENHYDRAMINE HCL INJ 50 MG/ML VIAL IV ONE; -KETOROLAC TROMETHAMINE 30 MG/ML VIAL IV STA; -METOCLOPRAMIDE HCL 10 MG/2ML VIAL IV ONE; -SODIUM CHLORIDE 0.9% 500ML 500 ML IV ONE
--- NOTE | 2019-07-26 16:15 | Diagnostic Imaging Report ---
EXAMINATION: CHEST SINGLE (PORTABLE) INDICATION: ^Y ^fall ^[id number] ^[id number] COMPARISON: None FINDINGS: AP view . Evaluation limited by patient rotation and lordotic view. TUBES and LINES: None. LUNGS: No gross lung consolidation. Right upper lung scarring. PLEURA: No pleural effusion or pneumothorax. HEART AND MEDIASTINUM: The cardiomediastinal silhouette is unremarkable. BONES AND SOFT TISSUES: Cervical clips of the right lower neck. UPPER ABDOMEN: No free air under the diaphragm. IMPRESSION: Limited study. No acute cardiopulmonary abnormality. Signed by: Brian Dean MD on 07/26/2019 4:11 PM
--- NOTE | 2019-07-26 16:16 | Diagnostic Imaging Report ---
SHOULDER LEFT COMPLETE - 3 views HISTORY: Pain. COMPARISON: None available. FINDINGS: Bones: Acute minimally displaced fracture through the left humeral surgical neck. Joints: Widening of the subacromial space. Soft tissues: Grossly unremarkable. IMPRESSION: 1. Acute minimally displaced fracture of the left humeral neck. 2. Widening of the left subacromial space suggestive of joint effusion. Signed by: Brian Dean MD on 07/26/2019 4:13 PM
[2019-07-26] MEDS ORDERED: NAPROXEN250 MG PO (17:50)
[2019-07-26] MEDS ORDERED: HYDROCODONE/APAP 5MG-325MG TAB PO STA (18:29)
--- NOTE | 2019-07-26 18:30 | Emergency Department Note ---
History of Present Illnes History of Present Illness Chief Complaint: General Medicine Complaints History of Present Illness This is a 69 year old female arrived to the ED with left arm pain after having a mechanical fall last Sunday. Patient states she thought the pain would go away but it didn't and she came to the ED today for further workup and management. . Chief Complaint Comment PATIENT IN FROM HOME WITH COMPLAINTS OF LEFT ARM AND SHOULDER PAIN; STATES SHE TRIPPED AND FELL LAST SUNDAY. PATIENT ALERT AND ORIENTED, APPEARS IN NO DISTRESS, PATIENT NONVERBAL DUE TO PREVIOUS TRACH Historian: Patient, Family Member Arrival Mode: Car Radiation: Reports back, Reports flank Severity: mild Onset quality: gradual Duration (how long): week(s) Timing of current episode: intermittent Progression: waxing and waning Relieving factors: none Past Medical/Family History Physician Review I have reviewed the patient's past medical and family history. Any updates have been documented here. Past Medical History Recent Fever: No Clinical Suspicion of Infectio: No New/Unexplained Change in Ment: No Past Medical History: COPD, Hypothyroidism, Cancer, Anxiety, Depression, GERD Other Medical History: RESPIRATORY FAILURE TRACH Past Surgical History: Hysterectomy Other Surgery: trach surgery, PEG tube placement/removal Social History Smoking Cessation: Never Smoker Counseling Performed: No Alcohol Use: None Any Illegal Drug Use: No TB Exposure/Symptoms: No Physically hurt or threatened: No Family History Family history of heart diseas: No Other Last Tetanus: UNKNOWN Any Pre-Existing Lines (PICC,: No Is patient up to date on immun: Yes Last Flu: utd Last Pneumovax: udt Review of Systems Review of Systems Constitutional: Reports no symptoms EENTM: Reports no symptoms Cardiovascular: Reports no symptoms Respiratory: Reports no symptoms Gastrointestinal: Reports no symptoms Genitourinary: Reports no symptoms Musculoskeletal: Reports as per HPI, Reports joint pain, Reports joint swelling Integumentary: Reports no symptoms Neurological: Reports no symptoms Psychological: Reports no symptoms Endocrine: Reports no symptoms Hematological/Lymphatic: Reports no symptoms Physical Exam Related Data Allergies: Coded Allergies: tramadol (Verified Allergy, Unknown, 07/26/19) states "makes me throw up" Triage Vital Signs Vital Signs Date Time Temp Pulse Resp B/P (MAP) Pulse Ox O2 Delivery O2 Flow Rate FiO2 07/26/19 15:10 97.5 85 16 135/72 90 Vital signs reviewed: Yes Physical Exam CONSTITUTIONAL Constitutional: Present well-developed, Present well-nourished HENT HENT: Present normocephalic, Present atraumatic, Present oropharynx clear/moist, Present nose normal HENT L/R: Present left ext ear normal, Present right ext ear normal EYES Eyes: Reports PERRL, Reports conjunctivae normal NECK Neck: Present ROM normal PULMONARY Pulmonary: Present effort normal, Present breath sounds normal CARDIOVASCULAR Cardiovascular: Present regular rhythm, Present heart sounds normal, Present capillary refill normal, Present normal rate GASTROINTESTINAL Abdominal: Present soft, Present nontender, Present bowel sounds normal GENITOURINARY Genitourinary: Present exam deferred SKIN Skin: Present warm, Present dry MUSCULOSKELETAL Musculoskeletal: Present deformity, Present tenderness (left upper extremity tenderness and swelling noted, compartments otherwise soft) NEUROLOGICAL Neurological: Present alert, Present oriented x 3, Present no gross motor or sensory deficits PSYCHOLOGICAL Psychological: Present mood/affect normal, Present judgement normal Results Imaging Imaging results reviewed: Yes Impressions IMPRESSION: 1. Acute minimally displaced fracture of the left humeral neck. 2. Widening of the left subacromial space suggestive of joint effusion. Signed by: Brian Dean MD on 07/26/2019 4:13 PM Procedures Orthopedic Splinting/Casting Injury: Injury #1 Side: left Upper exremity injury location: shoulder Upper extremity immobilizer: sling/shoulder immobilizer Assessment & Plan Medical Decision Making MDM 69-year-old female arrived to the ED after sustaining a mechanical fall last week, patient's chest x-ray consistent with a subacute humeral head fracture with mild displacement. Patient's compartments are soft and she is neurovascularly intact. Patient's pain control ED. Given outpatient orthopedic follow-up for operative repair. Assessment & Plan Final Impression: (1) Humeral head fracture Depart Disposition: HOME, SELF-CARE Last Vital Signs Date Time Temp Pulse Resp B/P (MAP) Pulse Ox O2 Delivery O2 Flow Rate FiO2 07/26/19 16:30 68 20 129/74 94 07/26/19 15:10 97.5 Home Meds Active Scripts Naproxen (NAPROXEN) 250 Mg Tablet, 250 MG PO BID, #14 TAB Prov:SANDHIR, AMBICA, DO 07/26/19 Butalb/Acetaminophen/Caffeine (Fioricet 50-300-40 mg Capsule) 1 Each Capsule, 1 CAP PO Q4HR for HEADACHE, #20 CAP Prov:YANDEL MEDEROS MD 06/24/19 Guaifenesin (MUCINEX) 600 Mg Tablet.er, 1 TAB PEG Q6H, #30 Prov:LUIS FERNANDO COLLINS NP 01/07/17 Levothyroxine Sodium (SYNTHROID) 75 Mcg Tab, 75 MCG PO DAILY@06 for 14 Days, TAB Prov:ROSAMARIA DAS NP 04/14/16 Levalbuterol Hcl (XOPENEX) 1.25 Mg/3 Ml Vial.neb, 1.25 MG INH RQ2H PRN for SHORTNESS OF BREATH for 14 Days Prov:ROSAMARIA DAS NP 04/14/16 Acetaminophen (ACETAMINOPHEN) 325 Mg Tablet, 325 MG PO Q4H PRN for PAIN AND TEMPERATURE for 14 Days Prov:ROSAMARIA DAS NP 04/14/16 [Albuterol/Ipratropium Nebulize] 3 ML INHA No Conflict Check, 3 ML NEB RQ6H for 14 Days Prov:ROSAMARIA DAS NP 04/14/16 Reported Medications Lorazepam (LORAZEPAM) 1 Mg Tablet, 2 MG PO TID PRN for ANXIETY, TAB 07/27/17 Trazodone Hcl (TRAZODONE HCL) 50 Mg Tablet, 50 MG PO HS, #30 TAB 01/02/17 Ondansetron Hcl (ONDANSETRON HCL) 2 Mg/1 Ml Vial, 4 MG PO Q8H PRN for NAUSEA, VIAL 01/02/17 Hydrocodone Bit/Acetaminophen (NORCO 10-325 TABLET) 1 Each Tablet, 1 TAB PO Q6H 10/15/15 RONALDO ESPINOZA, Jul 26, 2019 18:30
== END 2019-07-26 18:47 | disposition home or self-care (01) ==
LOC: ER 15:03
DX: M79.622 Pain in left upper arm (principal); S42.292A Other displaced fracture of upper end of left humerus, initial encounter for closed fracture; W01.0XXA Fall on same level from slipping, tripping and stumbling without subsequent striking against object, initial encounter; K21.9 Gastro-esophageal reflux disease without esophagitis; J44.9 Chronic obstructive pulmonary disease, unspecified; E03.9 Hypothyroidism, unspecified; F41.9 Anxiety disorder, unspecified
CPT/HCPCS: 71045; 99283

== ENCOUNTER 2020-10-16 12:43 | Inpatient (IN) | payer OTHER ==
[~2020-10-16] VITALS: Ht 142.2 cm; Wt 44.5 kg
[~2020-10-16 12:43] MED LIST changes: +NAPROXEN250 MG PO
[2020-10-16] MEDS ORDERED: SODIUM CHLORIDE 0.9% 1000ML 1,000 ML IV STA (13:15)
[2020-10-16] MEDS ORDERED: ASPIRIN 81 MG CHEW TAB PO ONE (13:15)
[2020-10-16] MEDS: HYDROCODONE/APAP 10MG-325MG TAB PO PRN ×2 (14:13→23:06)
[2020-10-16] MEDS: LORAZEPAM 0.5 MG TAB PO PRN ×2 (14:13→22:06)
[2020-10-16 14:30] LABS: BASOPHILS % 0.8 % (0.0-1.0); EOSINOPHILS # (AUTO) 0.1 (0.0-0.4); EOSINOPHILS % 1.5 % (0.0-6.0); HEMATOCRIT 43.5 % (34.2-44.1); LYMPHOCYTES # (AUTO) 0.9 (1.0-3.2); LYMPHOCYTES % 18.4 % (18.0-39.1); MEAN CORPUSCULAR HEMOGLOBIN 29.4 pg (28-32); MEAN CORPUSCULAR HGB CONC 32.2 g/dL (31-35); MEAN CORPUSCULAR VOLUME 91.2 fL (81-99); MONOCYTES # (AUTO) 0.4 (0.2-0.8); MONOCYTES % 9.1 % (4.4-11.3); NEUTROPHILS # (AUTO) 3.3 (2.1-6.9); NEUTROPHILS % 69.8 % (38.7-80.0); PLATELET COUNT 227 x10e3/uL (140-360); RED BLOOD COUNT 4.77 x10e6/uL (3.6-5.1); RED CELL DISTRIBUTION WIDTH 16.6 % (11.7-14.4)
[2020-10-16 14:41] LABS: INR 0.83; PROTHROMBIN TIME 11.6 seconds (11.9-14.5)
[2020-10-16 14:42] LABS: PARTIAL THROMBOPLASTIN TIME 28.6 seconds (23.8-35.5)
[2020-10-16 14:48] LABS: ALBUMIN 3.5 g/dL (3.5-5.0); ALBUMIN/GLOBULIN RATIO 0.9 (0.8-2.0); ANION GAP 16.6 mmol/L (8-16); CALCIUM 8.8 mg/dL (8.4-10.2); CREATININE, SERUM 0.89 mg/dL (0.57-1.11); POTASSIUM 3.6 mmol/L (3.5-5.1)
[2020-10-16 14:55] LABS: CREATINE KINASE MB 0.4 ng/mL (0-5.0)
[2020-10-16] MEDS: MORPHINE SULFATE INJ 2 MG/ML SYR IV PRN (16:36)
[2020-10-16] MEDS ORDERED: FAMOTIDINE 20 MG/2 ML VIAL IV SCH (16:45)
[2020-10-16] MEDS ORDERED: ONDANSETRON HCL INJ 2MG/ML 2ML 2 MG/ML VIAL IV PRN (16:45)
[2020-10-16] MEDS ORDERED: ACETAMINOPHEN 325 MG TAB PO PRN (18:45)
[2020-10-16] MEDS ORDERED: TRAZODONE HCL 50 MG TAB PO PRN (18:45)
[2020-10-16 20:00] VITALS: BP 142/74
[2020-10-16 20:36] VITALS: BP 159/75
[2020-10-17] VITALS (7 sets, daily range): BP systolic 121–142; BP diastolic 57–75
[2020-10-17] MEDS: MORPHINE SULFATE INJ 2 MG/ML SYR IV PRN (03:11)
[2020-10-17 03:20] LABS: CREATINE KINASE MB 0.5 ng/mL (0-5.0)
[2020-10-17] MEDS ORDERED: LEVOTHYROXINE SODIUM 75 MCG TAB PO SCH (06:00)
[2020-10-17] MEDS: HYDROCODONE/APAP 10MG-325MG TAB PO PRN ×2 (06:36→12:45)
[2020-10-17 06:49] LABS: BASOPHILS # (AUTO) 0.1 (0.0-0.1); BASOPHILS % 1.5 % (0.0-1.0); EOSINOPHILS # (AUTO) 0.2 (0.0-0.4); EOSINOPHILS % 5.4 % (0.0-6.0); HEMATOCRIT 37.2 % (34.2-44.1); LYMPHOCYTES # (AUTO) 1.2 (1.0-3.2); LYMPHOCYTES % 35.6 % (18.0-39.1); MEAN CORPUSCULAR HEMOGLOBIN 33.8 pg (28-32); MEAN CORPUSCULAR HGB CONC 34.9 g/dL (31-35); MEAN CORPUSCULAR VOLUME 96.6 fL (81-99); MONOCYTES # (AUTO) 0.4 (0.2-0.8); MONOCYTES % 11.4 % (4.4-11.3); NEUTROPHILS # (AUTO) 1.5 (2.1-6.9); NEUTROPHILS % 45.8 % (38.7-80.0); PLATELET COUNT 133 x10e3/uL (140-360); RED BLOOD COUNT 3.85 x10e6/uL (3.6-5.1); RED CELL DISTRIBUTION WIDTH 19.8 % (11.7-14.4)
[2020-10-17 08:02] LABS: ALBUMIN 2.9 g/dL (3.5-5.0); ALBUMIN/GLOBULIN RATIO 0.8 (0.8-2.0); ANION GAP 15.3 mmol/L (8-16); CALCIUM 8.4 mg/dL (8.4-10.2); CHOL/HDL RATIO 3.8 (3.0-3.6); CREATININE, SERUM 0.77 mg/dL (0.57-1.11); POTASSIUM 3.3 mmol/L (3.5-5.1)
[2020-10-17 09:26] LABS: CREATINE KINASE MB 0.6 ng/mL (0-5.0)
[2020-10-17] MEDS: LORAZEPAM 0.5 MG TAB PO PRN (12:35)
[2020-10-17] MEDS ORDERED: KETOROLAC TROMETHAMINE 30 MG/ML VIAL IV ONE (15:30)
[2020-10-17] MEDS: HYDROMORPHONE 1MG/1ML INJ IV PRN (21:20)
[2020-10-17] MEDS: ALBUTEROL/IPRATROPIUM 3 ML NEB NEB PRN (23:20)
[2020-10-18] VITALS (9 sets, daily range): BP systolic 112–154; BP diastolic 63–78
[2020-10-18] MEDS: LORAZEPAM 0.5 MG TAB PO PRN (00:22)
[2020-10-18] MEDS: LEVOTHYROXINE SODIUM 100 MCG TAB PO SCH (05:32)
[2020-10-18 06:51] LABS: BASOPHILS # (AUTO) 0.1 (0.0-0.1); BASOPHILS % 1.5 % (0.0-1.0); EOSINOPHILS # (AUTO) 0.2 (0.0-0.4); EOSINOPHILS % 4.4 % (0.0-6.0); HEMATOCRIT 37.3 % (34.2-44.1); HEMOGLOBIN 11.8 g/dL (12.0-16.0); LYMPHOCYTES # (AUTO) 0.9 (1.0-3.2); LYMPHOCYTES % 27.3 % (18.0-39.1); MEAN CORPUSCULAR HGB CONC 31.6 g/dL (31-35); MEAN CORPUSCULAR VOLUME 91.6 fL (81-99); MONOCYTES # (AUTO) 0.3 (0.2-0.8); MONOCYTES % 9.9 % (4.4-11.3); NEUTROPHILS % 56.6 % (38.7-80.0); PLATELET COUNT 174 x10e3/uL (140-360); RED BLOOD COUNT 4.07 x10e6/uL (3.6-5.1); RED CELL DISTRIBUTION WIDTH 16.3 % (11.7-14.4)
[2020-10-18 07:08] LABS: ANION GAP 13.3 mmol/L (8-16); CALCIUM 8.5 mg/dL (8.4-10.2); CREATININE, SERUM 0.76 mg/dL (0.57-1.11); MAGNESIUM 1.7 MG/DL (1.3-2.1); POTASSIUM 3.3 mmol/L (3.5-5.1)
[2020-10-18] MEDS: ALBUTEROL/IPRATROPIUM 3 ML NEB NEB PRN (07:20)
[2020-10-18] MEDS ORDERED: POTASSIUM CHLORIDE 20 MEQ TAB CR PO ONE (09:30)
[2020-10-18] MEDS: HYDROCODONE/APAP 10MG-325MG TAB PO PRN ×2 (09:47→17:49)
[2020-10-18] MEDS ORDERED: ONDANSETRON HCL 4 MG ORAL DISINTEGRATING TAB PO PRN (10:45)
[2020-10-18] MEDS: HYDROMORPHONE 1MG/1ML INJ IV PRN (13:11)
[2020-10-18] MEDS: KETOROLAC TROMETHAMINE 30 MG/ML VIAL IV SCH (21:06)
[2020-10-19] VITALS: BP 123/61
[2020-10-19 04:00] VITALS: BP 146/78
[2020-10-19] MEDS: KETOROLAC TROMETHAMINE 30 MG/ML VIAL IV SCH ×3 (07:07→11:26)
[2020-10-19] MEDS: LEVOTHYROXINE SODIUM 100 MCG TAB PO SCH (07:07)
[2020-10-19 08:24] LABS: BASOPHILS % 1.1 % (0.0-1.0); EOSINOPHILS # (AUTO) 0.2 (0.0-0.4); EOSINOPHILS % 4.9 % (0.0-6.0); HEMATOCRIT 36.2 % (34.2-44.1); HEMOGLOBIN 11.9 g/dL (12.0-16.0); LYMPHOCYTES # (AUTO) 0.9 (1.0-3.2); LYMPHOCYTES % 26.3 % (18.0-39.1); MEAN CORPUSCULAR HGB CONC 32.9 g/dL (31-35); MEAN CORPUSCULAR VOLUME 91.2 fL (81-99); MONOCYTES # (AUTO) 0.3 (0.2-0.8); MONOCYTES % 8.9 % (4.4-11.3); NEUTROPHILS # (AUTO) 2.1 (2.1-6.9); NEUTROPHILS % 58.5 % (38.7-80.0); PLATELET COUNT 166 x10e3/uL (140-360); RED BLOOD COUNT 3.97 x10e6/uL (3.6-5.1); RED CELL DISTRIBUTION WIDTH 16.6 % (11.7-14.4)
[2020-10-19 08:44] VITALS: BP 151/67
[2020-10-19 08:50] LABS: ANION GAP 13.9 mmol/L (8-16); CALCIUM 9.1 mg/dL (8.4-10.2); CREATININE, SERUM 0.79 mg/dL (0.57-1.11); MAGNESIUM 1.8 MG/DL (1.3-2.1); POTASSIUM 3.9 mmol/L (3.5-5.1)
[2020-10-19] MEDS: HYDROCODONE/APAP 10MG-325MG TAB PO PRN ×2 (08:58→16:04)
[2020-10-19 09:15] VITALS: BP 151/67
[2020-10-19] MEDS: HYDROMORPHONE 1MG/1ML INJ IV PRN ×2 (12:07→20:52)
[2020-10-19 17:26] VITALS: BP 133/85
[2020-10-19] MEDS: LORAZEPAM 0.5 MG TAB PO PRN (18:16)
[2020-10-20 01:28] VITALS: BP 142/61
[2020-10-20 01:29] VITALS: BP 142/61
[2020-10-20 01:30] VITALS: BP 142/61
[2020-10-20] MEDS: HYDROMORPHONE 1MG/1ML INJ IV PRN ×2 (02:53→08:55)
[2020-10-20] MEDS: LEVOTHYROXINE SODIUM 100 MCG TAB PO SCH (06:48)
[2020-10-20 07:35] VITALS: BP 132/65
[2020-10-20 08:06] VITALS: BP 132/65
[2020-10-20] MEDS ORDERED: CIPROFLOXACIN 500 MG TAB PO SCH (09:00)
[2020-10-20 11:18] VITALS: BP 117/61
[2020-10-20] MEDS: HYDROCODONE/APAP 10MG-325MG TAB PO PRN (12:12)
[2020-10-20] MEDS ORDERED: CIPRO500 MG PO (13:14)
[2020-10-20] MEDS: LORAZEPAM 0.5 MG TAB PO PRN (13:25)
== END 2020-10-20 14:48 | disposition home or self-care (01) | DRG 312 ==
LOC: ER 13:12 → ERHOLD 16:38 → MED/SURG 20:28
PROVIDERS: ADMIT Internal Medicine; ATTEND Internal Medicine
DX: R55 Syncope and collapse (principal); M48.56XA Collapsed vertebra, not elsewhere classified, lumbar region, initial encounter for fracture; M48.54XA Collapsed vertebra, not elsewhere classified, thoracic region, initial encounter for fracture; C32.9 Malignant neoplasm of larynx, unspecified; Z93.0 Tracheostomy status; D69.6 Thrombocytopenia, unspecified; E87.6 Hypokalemia; H70.91 Unspecified mastoiditis, right ear; Z20.822 Contact with and (suspected) exposure to COVID-19
CPT/HCPCS: 36415; 70450; 71045; 72125; 72131; 72146; 72148; 72192; 80048; 80053; 80061; 82550; 82553; 83735; 84443; 84484; 85025; 85610; 85730; 93306; 93880; 97139; 99284; J1170; J1885; J2270; J2405; J7030; U0002

== ENCOUNTER → 2021-02-06 | Emergency (ER) | payer OTHER ==
[~2021-02-06] VITALS: Ht 142.2 cm; Wt 44.5 kg
[~2021-02-06] MED LIST changes: +CIPRO500 MG PO; +COLACE100 MG PO; +DIATRIZOATE MEGL/DIATRIZOA SOD 30 ML BTL PO ONE; +KETOROLAC TROMETHAMINE 60 MG/2 ML VIAL IM ONE; +TYLENOL325 MG PO
== END | disposition home or self-care (01) ==
LOC: ER 13:30
DX: Z43.1 Encounter for attention to gastrostomy (principal); H66.91 Otitis media, unspecified, right ear; J44.9 Chronic obstructive pulmonary disease, unspecified; F41.9 Anxiety disorder, unspecified; M54.9 Dorsalgia, unspecified; G89.29 Other chronic pain; Z85.818 Personal history of malignant neoplasm of other sites of lip, oral cavity, and pharynx
CPT/HCPCS: 71045; 74018; 99283; J1885

== ENCOUNTER 2021-05-31 14:19 | Emergency (ER) | payer OTHER ==
[~2021-05-31] VITALS: Ht 142.2 cm; Wt 44.5 kg
[~2021-05-31 14:19] MED LIST changes: -DIATRIZOATE MEGL/DIATRIZOA SOD 30 ML BTL PO ONE; -KETOROLAC TROMETHAMINE 60 MG/2 ML VIAL IM ONE
[2021-05-31 15:25] LABS: CLARITY,URINE SL CLOUDY (CLEAR); COLOR,URINE YELLOW (YELLOW); KETONES,URINE NEGATIVE (NEGATIVE); LEUKOCYTE ESTERASE ,URINE NEGATIVE (NEGATIVE); NITRITE,URINE NEGATIVE (NEGATIVE); PROTEIN,URINE DIPSTICK NEGATIVE (NEGATIVE); URINE UROBILINOGEN 0.2 mg/dL (0.2 - 1)
[2021-05-31 15:35] LABS: BACTERIA,URINE MODERATE /HPF; EPITHELIAL CELLS,URINE MANY /LPF; RBC,URINE 0-5 /HPF (0-5)
[2021-05-31 15:37] LABS: RENAL EPITHELIAL CELLS,URINE FEW; TRANSITIONAL EPI CELLS,URINE FEW
[2021-05-31] MEDS ORDERED: KETOROLAC TROMETHAMINE 30 MG/ML VIAL IV STA (15:54)
[2021-05-31] MEDS ORDERED: CEPHALEXIN500 MG PO (16:09)
[2021-05-31] MEDS ORDERED: POLYMYXIN B-TMP10 ML OT (16:11)
[2021-05-31] MEDS ORDERED: KETOROLAC TROMETHAMINE 60 MG/2 ML VIAL IM ONE (16:15)
[2021-05-31 16:36] VITALS: BP 151/76
== END 2021-05-31 16:20 | disposition home or self-care (01) ==
LOC: ER 14:23
DX: Z43.1 Encounter for attention to gastrostomy (principal); J44.9 Chronic obstructive pulmonary disease, unspecified; F41.9 Anxiety disorder, unspecified; M54.9 Dorsalgia, unspecified; G89.29 Other chronic pain; Z85.818 Personal history of malignant neoplasm of other sites of lip, oral cavity, and pharynx
CPT/HCPCS: 49440; 74470; 81001; 99282; J1885

== ENCOUNTER 2021-06-01 11:26 | Emergency (ER) | payer OTHER ==
[~2021-06-01] VITALS: Ht 142.2 cm; Wt 44.5 kg
[~2021-06-01 11:26] MED LIST changes: +CEPHALEXIN500 MG PO; +POLYMYXIN B-TMP10 ML OT
== END 2021-06-01 12:31 | disposition home or self-care (01) ==
LOC: ER 11:30
DX: J02.9 Acute pharyngitis, unspecified (principal); T78.49XA Other allergy, initial encounter; J44.9 Chronic obstructive pulmonary disease, unspecified; F41.9 Anxiety disorder, unspecified; Z93.1 Gastrostomy status; Z85.819 Personal history of malignant neoplasm of unspecified site of lip, oral cavity, and pharynx; X58.XXXA Exposure to other specified factors, initial encounter; Z79.899 Other long term (current) drug therapy
CPT/HCPCS: 99282

== ENCOUNTER 2021-06-08 14:04 | Emergency (ER) | payer OTHER ==
[~2021-06-08] VITALS: Ht 142.2 cm; Wt 44.5 kg
[2021-06-08] MEDS ORDERED: ONDANSETRON HCL INJ 2MG/ML 2ML 2 MG/ML VIAL IV STA (16:02)
[2021-06-08] MEDS ORDERED: Morphine 2mg Syringe 2 MG/ML SYR IV ONE (16:15)
[2021-06-08 16:40] LABS: BASOPHILS % 0.6 % (0.0-1.0); EOSINOPHILS # (AUTO) 0.1 (0.0-0.4); EOSINOPHILS % 0.8 % (0.0-6.0); HEMATOCRIT 39.1 % (34.2-44.1); HEMOGLOBIN 12.6 g/dL (12.0-16.0); LYMPHOCYTES % 15.3 % (18.0-39.1); MEAN CORPUSCULAR HEMOGLOBIN 34.3 pg (28-32); MEAN CORPUSCULAR HGB CONC 32.2 g/dL (31-35); MEAN CORPUSCULAR VOLUME 106.5 fL (81-99); MONOCYTES # (AUTO) 0.2 (0.2-0.8); MONOCYTES % 3.5 % (4.4-11.3); NEUTROPHILS # (AUTO) 5.3 (2.1-6.9); NEUTROPHILS % 79.6 % (38.7-80.0); PLATELET COUNT 168 x10e3/uL (140-360); RED BLOOD COUNT 3.67 x10e6/uL (3.6-5.1); RED CELL DISTRIBUTION WIDTH 13.4 % (11.7-14.4)
[2021-06-08 16:51] LABS: ANION GAP 15.3 mmol/L (8-16); CALCIUM 10.7 mg/dL (8.4-10.2); CREATININE, SERUM 0.94 mg/dL (0.57-1.11); POTASSIUM 4.3 mmol/L (3.5-5.1)
[2021-06-08] MEDS ORDERED: CEPHALEXIN500 MG PO (17:06)
== END 2021-06-08 18:04 | disposition home or self-care (01) ==
LOC: ER 14:17
DX: R94.4 Abnormal results of kidney function studies (principal); J44.9 Chronic obstructive pulmonary disease, unspecified; F41.9 Anxiety disorder, unspecified; M54.9 Dorsalgia, unspecified; G89.29 Other chronic pain; Z85.818 Personal history of malignant neoplasm of other sites of lip, oral cavity, and pharynx
CPT/HCPCS: 36415; 80048; 85025; 99283; J2270; J2405

== ENCOUNTER 2021-08-18 15:02 | Emergency (ER) | payer MEDICARE, OTHER ==
[~2021-08-18] VITALS: Ht 142.2 cm; Wt 44.5 kg
== END 2021-08-18 16:20 | disposition home or self-care (01) ==
LOC: ER 15:27
DX: K94.23 Gastrostomy malfunction (principal); J44.9 Chronic obstructive pulmonary disease, unspecified; Y83.3 Surgical operation with formation of external stoma as the cause of abnormal reaction of the patient, or of later complication, without mention of misadventure at the time of the procedure; Z85.819 Personal history of malignant neoplasm of unspecified site of lip, oral cavity, and pharynx; Z87.891 Personal history of nicotine dependence
CPT/HCPCS: 99282